=== PATIENT | female | born 1985 | race Caucasian/White ===

== ENCOUNTER 2020-06-23 09:10 | Outpatient (CLI) | payer MEDICAID, SELFPAY ==
[2020-06-23 11:47] LABS: Alanine Aminotransferase 19 U/L (4-35); Albumin Level 4.7 g/dL (3.5-5.1); Alkaline Phosphatase 78 U/L (38-126); Anion Gap 9 mmol/L (8-16); Aspartate Amino Transferase 23 U/L (14-36); Bilirubin,Total 0.3 mg/dL (0.2-1.3); Blood Urea Nitrogen 9 mg/dL (7-17); Calcium 10.1 mg/dL (8.4-10.2); Carbon Dioxide 25 mmol/L (22-30); Chloride 105 mmol/L (98-107); Cholesterol 249 mg/dL (0-200); Estimated Glomerular Filt Rate > 60; Glucose 101 mg/dL (65-105); HDL Direct 72 mg/dL; Potassium 4.7 mmol/L (3.4-5.0); Sodium 139 mmol/L (137-145); Triglycerides 66 mg/dL (<150)
[2020-06-23 11:57] LABS: LDL Cholesterol Direct 168 mg/dL
== END 2020-06-23 09:11 | disposition home or self-care (01) ==
LOC: ANHLAB 09:12
PROVIDERS: PCP Internal Medicine; Visit Provider Internal Medicine
DX: Z00.00 Encounter for general adult medical examination without abnormal findings (principal)
CPT/HCPCS: 36415; 80053; 80061

== ENCOUNTER 2021-06-02 13:43 | Outpatient (CLI) | payer OTHER, SELFPAY ==
--- NOTE | ~2021-06-02 | US_ITS ---
EXAMINATION: US OB <= 14 weeks fetus DATE: 06/02/2021 14:32 INDICATION: Evaluate viability TECHNIQUE: Real-time transabdominal and transvaginal obstetric ultrasound. FINDINGS: No prior studies for comparison. The uterus measures 11.7 x 5.4 x 6.9 cm. There is an intrauterine gestational sac, with pole id entified. The crown rump length measures 1.57 cm, which correlates with a estimated gestational age of 8 weeks 0 days. heart tones are identified measuring 175 BPM. The ovaries are within marco antonio l limits. No evidence for subchorionic hemorrhage. IMPRESSION: 1. SL IUP with an EGA of 8 weeks, 0 days (EDC by current ultrasound of 01/12/2022). Reviewed, dictated and finalized at location A. IMPRESSION: 1. SL IUP with an EGA of 8 weeks, 0 days (EDC by current ultrasound of 01/13/20).
[2021-06-02 15:08] LABS: Hematocrit 41.6 % (37.0-47.0); Hemoglobin 13.9 g/dL (12.0-15.0); Mean Corpuscular HGB Conc 33.4 g/dl (32-36); Mean Corpuscular Hemoglobin 30.2 pg (26-34); Mean Corpuscular Volume 90.4 fl (80-100); Mean Platelet Volume 10.7 fl (7.4-10.4); Platelet Count Result 368 k/mm3 (150-375); Red Cell Distribution Width 11.9 % (11.5-14.5); White Blood Count 16.3 K/mm3 (4.5-10.0)
== END 2021-06-02 13:44 | disposition home or self-care (01) ==
PROVIDERS: PCP Internal Medicine; Visit Provider Nurse Practitioner
DX: Z36.89 Encounter for other specified antenatal screening (principal); Z3A.08 8 weeks gestation of pregnancy
CPT/HCPCS: 36415; 76801; 82607; 85027

== ENCOUNTER 2021-06-25 10:58 | Outpatient (RCR) | payer OTHER, SELFPAY ==
[2021-06-25 11:34] LABS: Basophils Absolute Auto 0.1 K/mm3 (0.0-0.1); Basophils Percent Auto 0.6 % (0.2-1.2); Eosinophils Absolute Auto 0.4 K/mm3 (0-0.3); Eosinophils Percent Auto 2.7 % (0-4.4); Hematocrit 41.4 % (37.0-47.0); Hemoglobin 13.8 g/dL (12.0-15.0); Immature Granulocyte Absolute 0.05 K/mm3 (0.00-0.031); Immature Granulocyte Percent A 0.3 % (0-0.5); Lymphocytes Absolute Auto 3.78 K/mm3 (0.9-3.2); Lymphocytes Percent Auto 25.4 % (18.3-44.2); Mean Corpuscular HGB Conc 33.3 g/dl (32-36); Mean Corpuscular Hemoglobin 30.4 pg (26-34); Mean Corpuscular Volume 91.2 fl (80-100); Mean Platelet Volume 10.1 fl (7.4-10.4); Monocytes Absolute Auto 0.6 K/mm3 (0.1-0.6); Monocytes Percent Auto 4.2 % (2.6-8.5); Neutrophils Absolute Auto 9.9 K/mm3 (1.3-6.7); Neutrophils Percent Auto 66.8 % (45.5-73.1); Platelet Count Result 344 k/mm3 (150-375); Red Blood Count 4.54 M/mm3 (4.2-5.4); Red Cell Distribution Width 11.9 % (11.5-14.5); White Blood Count 14.9 K/mm3 (4.5-10.0)
[2021-06-25 12:29] LABS: HIV 1/2 Ab P24 Ag Result Negative (Negative)
[2021-06-25 12:58] LABS: Hemoglobin A1C 5.1 % (<5.7)
[2021-06-25 13:16] LABS: Vitamin D 25 Hydroxy 31.9 ng/mL
[2021-06-25 13:36] LABS: Hepatitis B Surface Antigen Negative (Negative); Rubella IgG Antibody 7.4 IU/ML
[2021-06-25 13:53] LABS: Hepatitis C Virus Antibody Negative (Negative)
[2021-06-28 06:11] LABS: Rapid Plasma Reagin Non-Reactive (NonReactive)
== END 2021-09-23 23:59 | disposition home or self-care (01) ==
LOC: ANHLAB 10:58
PROVIDERS: PCP Internal Medicine; Visit Provider Obstetrics & Gynecology Gynecology
DX: Z11.4 Encounter for screening for human immunodeficiency virus [HIV] (principal); O09.519 Supervision of elderly primigravida, unspecified trimester; Z3A.00 Weeks of gestation of pregnancy not specified
CPT/HCPCS: 36415; 82306; 83036; 85025; 86592; 86703; 86762; 86803; 86850; 86900; 86901; 87340; 88264; G0432

== ENCOUNTER 2021-11-16 13:45 | Outpatient (CLI) | payer OTHER, SELFPAY ==
--- NOTE | ~2021-11-16 | US_ITS ---
EXAMINATION: US OB follow up DATE: 11/16/2021 14:40 INDICATION: Size greater than dates during third trimester TECHNIQUE: Real-time ultrasound of the pelvis was performed. The interpreting radiologist was not pre sent for the study. COMPARISON: None. FINDINGS: There is a single living fetus in variable presentation and transverse lie. The placenta is anterior and 3.5 cm from the internal cervical os. There is a thin transverse band crossing the lowe r aspect of the amniotic sac near the placenta. cardiac activity and movement are noted. heart rate is 151 beats per minute (bpm). The amniotic fluid index is 19.5 cm which is normal ( normal range: 8.8 cm to 23.8 cm). The following biometric data were obtained: Biparietal diameter (BPD): 7.8 cm; head circumference (HC): 31.5 cm; abdominal circumference (AC): 30 .7 cm; femur length (FL): 6.1 cm. The femoral length to abdominal circumference ratio is greater than two standard deviations below the mean. These measurements are otherwise concordant. Estimated weight is 2223 g +/- 333 g, which correlates with the 89th percentile when 01/12/2022 i s used as estimated date of delivery. As single measurements, these parameters are each equal to the following estimated gestational ages w ith ranges of +/- 2 standard deviations: BPD: 31 weeks 1 days +/- 3 weeks 1 days. HC: 35 weeks 3 days +/- 3 weeks 0 days. AC: 34 weeks 5 days +/- 3 weeks 0 days. FL: 31 weeks 4 days +/- 3 weeks 0 days. estimated gestational age based solely on measurements from this exam is 33 weeks 2 days +/- 2 weeks 2 days. IMPRESSION: 1. Single living fetus in transverse lie. 2. Estimated weight is 2223 g +/- 333 g, which correlates with the 89th percentile when 2 is used as estimated date of delivery. 3. Apparent amniotic band in the lower amniotic sac near the placenta. 4. Femoral length to abdominal circumference ratio greater than two standard deviations below the filippo n. 5. Normal amniotic fluid index. Reviewed, dictated and finalized at location A. IMPRESSION: 1. Single living fetus in transverse lie. 2. Estimated weight is 2223 g +/- 333 g, which correlates with the 89th p ercentile when 01/12/2022 is used as estimated date of delivery. 3. Apparent amniotic band in the lower amniotic sac near the placenta. 4. Femoral length to abdominal circumference ratio greater than two standard de viations below the mean. 5. Normal amniotic fluid index.
== END 2021-11-16 13:46 | disposition home or self-care (01) ==
PROVIDERS: PCP Internal Medicine; Visit Provider Obstetrics & Gynecology Gynecology
DX: O36.63X0 Maternal care for excessive fetal growth, third trimester, not applicable or unspecified (principal); Z3A.33 33 weeks gestation of pregnancy
CPT/HCPCS: 76816

== ENCOUNTER 2021-11-20 06:35 | Outpatient (CLI) | payer OTHER, SELFPAY ==
[2021-11-20 08:11] LABS: Hematocrit 35.4 % (37.0-47.0); Hemoglobin 11.3 g/dL (12.0-15.0)
[2021-11-20 08:25] LABS: Glucose 1 Hour PP 50gm Dose 175 mg/dL
[2021-11-20 09:06] LABS: HIV 1/2 Ab P24 Ag Result Negative (Negative)
[2021-11-23 07:22] LABS: Rubella IgG Antibody 6.1 IU/ML
[2021-12-02 15:13] LABS: CF Result NEGATIVE (NEGATIVE)
== END 2021-11-20 06:36 | disposition home or self-care (01) ==
PROVIDERS: PCP Internal Medicine; Referring Provider Obstetrics & Gynecology Gynecology; Visit Provider Nurse Practitioner
DX: Z34.93 Encounter for supervision of normal pregnancy, unspecified, third trimester (principal); E55.9 Vitamin D deficiency, unspecified; Z3A.00 Weeks of gestation of pregnancy not specified
CPT/HCPCS: 36415; 81220; 82105; 82306; 82677; 82947; 84702; 85014; 85018; 86336; 86703; 86762; G0432

== ENCOUNTER 2021-12-23 05:57 | Outpatient (CLI) | payer OTHER, SELFPAY ==
[2021-12-23] VITALS (20 sets, daily range): BP systolic 120–128; BP diastolic 76–81; PULSE 91–110; TEMP 36.6; O2SAT 96–100
[2021-12-23] MEDS: TERBUTALINE SULFATE 1 MG/ML VIAL 0.25 MG SUB-Q (07:00)
--- NOTE | 2021-12-23 07:19 | W.PM.PROC2 ---
Procedure Note - Detailed Date of Procedure 12/23/21 Pre-op Diagnosis ext. version Post-op Diagnosis Same Procedure Performed External cephalic version Surgeon Mary Mendoza MD Anesthesia None Indications Breech presentation Findings head is in the right upper quadrant and breech was in the left lower quadrant. Normal amniotic fluid. head is flexed on the chest Description of Procedure The patient was placed in the dorsal supine position and given terbutaline. Under ultrasound guidance the head was grasped and the right upper quadrant in the breech grasped in left lower quadrant and the infant rotated into the vertex position. Good heart tones throughout procedure. NST performed post procedure. Estimated Blood Loss 0 Drains No Packing No Pathology None sent Complications No immediate complications Condition Stable Disposition Floor
--- NOTE | 2021-12-23 08:19 | PC.NURSE ---
0705--External version successful. Plan of care discussed with pt.
== END 2021-12-23 08:20 | disposition home or self-care (01) ==
LOC: ANHOBOP 06:01 → ANHOBPP 08:22
PROVIDERS: PCP Internal Medicine; Visit Provider Obstetrics & Gynecology Gynecology
DX: O32.1XX0 Maternal care for breech presentation, not applicable or unspecified (principal); Z3A.00 Weeks of gestation of pregnancy not specified
CPT/HCPCS: 59025; 96372; 99199; J3105

== ENCOUNTER 2022-01-10 04:45 | Inpatient (IN) | payer OTHER, SELFPAY ==
[2022-01-10] VITALS (61 sets, daily range): BP systolic 91–143; BP diastolic 55–110; PULSE 64–115; RESP 15–18; TEMP 36.1–36.8; O2SAT 98–100; BMI 35.5
--- NOTE | 2022-01-10 05:46 | WPDANESEPP ---
Anes - Eval Pre Procedure Procedure: labor epidural Date/Time: 01/10/22 05:46 Surgeon: sly Preop Diagnosis: pain during labor Pre Op Diagnosis: IOL Patient Data Age: 36 Gender: F Height: 1.7 m Weight: 103 kg Last Vital Signs Pulse 115 H 01/10/22 05:06 BP 131/86 01/10/22 05:06 O2 Del Method Room Air 01/10/22 05:26 Allergies Allergy/AdvReac Type Severity Reaction Status Date / Time amoxicillin Allergy Unknown Itching Verified 11/10/21 08:34 latex Allergy Unknown Itching Verified 11/10/21 08:34 Opioids - Morphine Analogues Allergy Unknown Itching Verified 11/10/21 08:34 adhesive tape Allergy Rash Verified 11/10/21 08:34 Home Medications Medication Instructions Recorded Confirmed Type fluoxetine 20 mg capsule (Prozac) 20 mg PO DAILY PRN muscle spasm 01/21/21 12/03/21 Rx #90 caps aspirin 81 mg tablet,delayed 81 mg PO DAILY 11/10/21 01/10/22 History release hydroxyzine HCl 10 mg tablet 10 mg PO TID PRN Pain 11/10/21 01/10/22 History tramadol 50 mg tablet 50 mg PO BID PRN Pain #60 tabs 11/10/21 12/03/21 Rx dicyclomine 20 mg tablet See Rx Instructions .Route 11/30/21 01/10/22 Rx .COMPLEX #60 tabs Laboratory Tests 01/10/22 01/10/22 05:06 05:06 WBC Pending RBC Pending Hgb Pending Hct Pending MCV Pending MCH Pending MCHC Pending RDW Pending Plt Count Pending MPV Pending Immature Gran % (Auto) Pending Neut % (Auto) Pending Lymph % (Auto) Pending [place] % (Auto) Pending Eos % (Auto) Pending Baso % (Auto) Pending Lymph # (Auto) Pending [place] # (Auto) Pending Eos # (Auto) Pending Baso # (Auto) Pending Abs Immat Gran (auto) Pending Absolute Neuts (auto) Pending Absolute Nucleated RBC Pending Nucleated RBC % Pending RPR Pending Patient hx anesthesia problems: none Family hx anesthesia problems: none Results Review: All pre-operative results and documents have been reviewed as part of the pre-operative evaluation. 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 History of wisdom tooth extraction Family History Family History Father Patient's father is in good health Family history of throat cancer Diabetes mellitus Gastroparesis Arthritis Mother Patient's mother is in good health Fibromyalgia Arthritis Grandparent Diabetes mellitus Colitis Arthritis Rheumatoid arthritis Parkinsons Heart disease Other Cerebrovascular accident Social History Social History Smoking status: Never smoker Second hand tobacco smoke exposure: No Smoking end date: 08/07/16 Alcohol intake: current Substance use: never Spiritual care concerns: No Exam Day of Procedure 01/10/22 05:46
[2022-01-10] MEDS: LACTATED RINGERS 1,000 ML 125 ML IV CONT (05:48)
[2022-01-10 05:50] LABS: Basophils Absolute Auto 0.1 K/mm3 (0.0-0.1); Basophils Percent Auto 0.4 % (0.2-1.2); Eosinophils Absolute Auto 0.4 K/mm3 (0-0.3); Eosinophils Percent Auto 2.3 % (0-4.4); Hematocrit 33.5 % (37.0-47.0); Hemoglobin 10.7 g/dL (12.0-15.0); Immature Granulocyte Absolute 0.21 K/mm3 (0.00-0.031); Immature Granulocyte Percent A 1.3 % (0-0.5); Lymphocytes Absolute Auto 3.98 K/mm3 (0.9-3.2); Mean Corpuscular HGB Conc 31.9 g/dl (32-36); Mean Corpuscular Hemoglobin 28.1 pg (26-34); Mean Corpuscular Volume 87.9 fl (80-100); Mean Platelet Volume 11.9 fl (7.4-10.4); Monocytes Absolute Auto 0.9 K/mm3 (0.1-0.6); Monocytes Percent Auto 5.4 % (2.6-8.5); Neutrophils Absolute Auto 11.1 K/mm3 (1.3-6.7); Neutrophils Percent Auto 66.6 % (45.5-73.1); Platelet Count Result 228 k/mm3 (150-375); Red Blood Count 3.81 M/mm3 (4.2-5.4); Red Cell Distribution Width 13.6 % (11.5-14.5); White Blood Count 16.6 K/mm3 (4.5-10.0)
[2022-01-10] MEDS: OXYTOCIN 30 UNITS/NS 500 ML 30 UNITS/500 ML BAG IV CONT (05:50)
--- NOTE | 2022-01-10 08:18 | WPDOBADMIT ---
Obstetrics - Admit Note Admission Note: record reviewed. No pertinent additions to the history and/or any subsequent changes in the physical findings that are not consistent with the expected course of the were found. Additions to the history and/or subsequent changes in the physical findings follow. At 0730, a limited bedside ultrasound was performed and the fetus was found to be in a transverse lie. The head was positioned in the maternal LUQ. +FHTs were visualized and movement was present. The presenting part at the internal cervical os was found to be a foot, followed by a loop of umbilical cord. Discussed this finding with the pt. Discussed possibility of external cephalic version or a section. She is agreeable to either option. Discussed findings with Dr. Mendoza and a was recommended given unstable lie and ultrasound findings. Will keep pt NPO.
--- NOTE | 2022-01-10 08:26 | WPDHPUPDATE1 ---
History and Physical Update Update Date/Time: 01/10/22 08:26 History and Physical has been reviewed, including an updated exam of the patient. There are NO changes in the patient's condition. Risks, benefits, and alternatives have been discussed and questions answered. Patient agrees to proceed with procedure.
--- NOTE | 2022-01-10 08:26 | PM.IMHP ---
H&P: HPI History of Present Illness Date/Time: 01/10/22 08:26 Chief Complaint: unstable lie Narrative: The patient is a 36-year-old 3 para 1 aborta 1 admitted for medical induction of labor. Patient had previously had an external cephalic version that was successful. On today's exam the patient by ultrasound is transverse with cord at the cervix. Unstable lie was reviewed with the patient and it was recommended to proceed with primary . Patient voiced understanding and agrees to proceed. was reviewed. Questions were answered. The patient is advanced maternal age and had a normal level 2 ultrasound. labs A-positive, RPR negative, hepatitis-B surface antigen negative, HIV negative, rubella is low and group B strep is negative. 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 History of wisdom tooth extraction Family History Family History Father Patient's father is in good health Family history of throat cancer Diabetes mellitus Gastroparesis Arthritis Mother Patient's mother is in good health Fibromyalgia Arthritis Grandparent Diabetes mellitus Colitis Arthritis Rheumatoid arthritis Parkinsons Heart disease Other Cerebrovascular accident Social History Social History Smoking status: Never smoker Second hand tobacco smoke exposure: No Smoking end date: 08/07/16 Alcohol intake: current Substance use: never Spiritual care concerns: No Meds Home Medications and Allergies Home Medications Medication Instructions Recorded Confirmed Type fluoxetine 20 mg capsule (Prozac) 20 mg PO DAILY PRN muscle spasm 01/21/21 12/03/21 Rx #90 caps aspirin 81 mg tablet,delayed 81 mg PO DAILY 11/10/21 01/10/22 History release hydroxyzine HCl 10 mg tablet 10 mg PO TID PRN Pain 11/10/21 01/10/22 History tramadol 50 mg tablet 50 mg PO BID PRN Pain #60 tabs 11/10/21 12/03/21 Rx dicyclomine 20 mg tablet See Rx Instructions .Route 11/30/21 01/10/22 Rx .COMPLEX #60 tabs Allergies Allergy/AdvReac Type Severity Reaction Status Date / Time amoxicillin Allergy Unknown Itching Verified 11/10/21 08:34 latex Allergy Unknown Itching Verified 11/10/21 08:34 Opioids - Morphine Analogues Allergy Unknown Itching Verified 11/10/21 08:34 adhesive tape Allergy Rash Verified 11/10/21 08:34 Vital Signs Vital Signs - 24 hr 01/10/22 05:06 01/10/22 06:00 01/10/22 06:15 Temperature 97.5 F L Pulse Rate 115 H 98 95 Blood Pressure 131/86 131/82 134/84 Oxygen Delivery 01/10/22 06:30 01/10/22 06:46 01/10/22 07:00 Temperature Pulse Rate 90 105 H 100 Blood Pressure 129/78 91/59 L 130/84 Oxygen Delivery 01/10/22 07:15 01/10/22 05:26 Temperature Pulse Rate 94 Blood Pressure 137/90 Oxygen Delivery Room Air Exam Const: General: healthy appearing and alert Orientation/consciousness: patient oriented x3 Resp: Effort & Inspection: normal respiratory effort GI: GI Palp: Yes Soft to palpation, No Tenderness to palpation present (GI) and Yes Other GI palpation findings present ( Fundal height of 39cm) : External Female Exam: normal external appearance Speculum Exam - Vagina: normal appearance of the vagina and normal vaginal dischar
[2022-01-10] MEDS: hydrOXYzine HCl 50 MG/ML VIAL 25 MG IM (09:07)
[2022-01-10 09:34] LABS: Amphetamine Screen Urine Negative (Negative); Barbiturate Screen Urine Negative (Negative); Benzodiazepines Screen Urine Negative (Negative); Cannabinoid Screen Urine Negative (Negative); Cocaine Screen Urine Negative (Negative); Methadone Screen Urine Negative (Negative); Opiate Screen Urine Negative (Negative); Phencyclidine Screen Urine Negative (Negative)
--- NOTE | 2022-01-10 10:17 | WPDANESEPPF ---
Anes - Initial Pre Proc Eval Procedure: Operation Date: 01/10/22 12:00 Proposed Procedures p Section - Mary Mendoza MD Date/Time: 01/10/22 10:17 Surgeon: Mary Mendoza MD Pre Op Diagnosis: IOL Patient Data Age: 36 Gender: F Height: 1.7 m Weight: 103 kg Last Vital Signs Temp 36.6 C 01/10/22 09:00 Pulse 98 01/10/22 10:15 BP 136/68 01/10/22 10:15 O2 Del Method Room Air 01/10/22 05:26 Allergies Allergy/AdvReac Type Severity Reaction Status Date / Time amoxicillin Allergy Unknown Itching Verified 11/10/21 08:34 latex Allergy Unknown Itching Verified 11/10/21 08:34 Opioids - Morphine Analogues Allergy Unknown Itching Verified 11/10/21 08:34 adhesive tape Allergy Rash Verified 11/10/21 08:34 Home Medications Medication Instructions Recorded Confirmed Type fluoxetine 20 mg capsule (Prozac) 20 mg PO DAILY PRN muscle spasm 01/21/21 12/03/21 Rx #90 caps aspirin 81 mg tablet,delayed 81 mg PO DAILY 11/10/21 01/10/22 History release hydroxyzine HCl 10 mg tablet 10 mg PO TID PRN Pain 11/10/21 01/10/22 History tramadol 50 mg tablet 50 mg PO BID PRN Pain #60 tabs 11/10/21 12/03/21 Rx dicyclomine 20 mg tablet See Rx Instructions .Route 11/30/21 01/10/22 Rx .COMPLEX #60 tabs Laboratory Tests 01/10/22 01/10/22 01/10/22 05:06 05:06 05:06 WBC 16.6 K/mm3 H K/mm3 (4.5-10.0) RBC 3.81 M/mm3 L M/mm3 (4.2-5.4) Hgb 10.7 g/dL L g/dL (12.0-15.0) Hct 33.5 % L % (37.0-47.0) MCV 87.9 fl fl (80-100) MCH 28.1 pg pg (26-34) MCHC 31.9 g/dl L g/dl (32-36) RDW 13.6 % % (11.5-14.5) Plt Count 228 k/mm3 k/mm3 (150-375) MPV 11.9 fl H fl (7.4-10.4) Immature Gran % (Auto) 1.3 % H % (0-0.5) Neut % (Auto) 66.6 % % (45.5-73.1) Lymph % (Auto) 24.0 % % (18.3-44.2) [place] % (Auto) 5.4 % % (2.6-8.5) Eos % (Auto) 2.3 % % (0-4.4) Baso % (Auto) 0.4 % % (0.2-1.2) Lymph # (Auto) 3.98 K/mm3 H K/mm3 (0.9-3.2) [place] # (Auto) 0.9 K/mm3 H K/mm3 (0.1-0.6) Eos # (Auto) 0.4 K/mm3 H K/mm3 (0-0.3) Baso # (Auto) 0.1 K/mm3 K/mm3 (0.0-0.1) Abs Immat Gran (auto) 0.21 K/mm3 H K/mm3 (0.00-0.031) Absolute Neuts (auto) 11.1 K/mm3 H K/mm3 (1.3-6.7) Absolute Nucleated RBC 0.0 K/mm3 K/mm3 (0.0-0.012) Nucleated RBC % 0.0 % % (0.0-0.2) Urine Opiates Screen Urine Methadone Screen Ur Barbiturates Screen Ur Phencyclidine Scrn Ur Amphetamine Screen U Benzodiazepines Scrn Urine Cocaine Screen U Cannabinoids Screen RPR Pending Blood Type A Positive Antibody Screen Negative 01/10/22 08:56 WBC RBC Hgb Hct MCV MCH MCHC RDW Plt Count MPV Immature Gran % (Auto) Neut % (Auto) Lymph % (Auto) [place] % (Auto) Eos % (Auto) Baso % (Auto) Lymph # (Auto) [place] # (Auto) Eos # (Auto) Baso # (Auto) Abs Immat Gran (auto) Absolute Neuts (auto) Absolute Nucleated RBC Nucleated RBC % Urine Opiates Screen Negative (Negative) Urine Methadone Screen Negative (Negative) Ur Barbiturates Screen Negative (Negative) Ur Phencyclidine Scrn Negative (Negative) Ur Amphetamine Screen Negative (Negative) U Benzodiazepines Scrn Negative (Negative) Urine Cocaine Screen Negative (Negative) U Cannabinoids Screen Negative (Negative) RPR Blood Type Antibody Screen Patient hx anesthesia problems: none Family hx anesthesia problems: none Results Review: All pre-operative results and documents have been reviewed as
[2022-01-10 10:35] LABS: Rapid Plasma Reagin Non-Reactive (NonReactive)
[2022-01-10] MEDS: ceFAZolin 2 GM/D5W 50 ML 2 GM/50 ML BAG IVPB (11:02)
--- NOTE | 2022-01-10 12:05 | W.PM.PROC2 ---
Procedure Note - Detailed Date of Procedure 01/10/22 Pre-op Diagnosis Intrauterine at 39 and 3 7th weeks Unstable lie currently transverse back up Post-op Diagnosis Same Procedure Performed Primary low-transverse section Surgeon Mary Mendoza MD Anesthesia Spinal Findings Upon entering the cavity the is noted to be transverse with the head on the maternal right. The was rotated into the vertex position prior to cutting the uterine incision. Female 8lb 15oz with 6 and 9 Apgars. Normal-appearing tubes and ovaries. Multiple small fibroids less than 1cm on the posterior surface. Description of Procedure The patient is taken to the operating room and placed under spinal anesthesia in the dorsal supine position with a leftward tilt. She was prepped and draped in usual sterile fashion. A Pfannenstiel skin incision was made with a scalpel and carried down to the underlying layer of fascia. Fascia was nicked in the midline with a scalpel and extended laterally using Hernandez scissors. Bleeding vessels in the subcutaneous tissue are cauterized for hemostasis. The fascial edges were grasped with Melissa nurse and tented while the rectus muscles are dissected off using sharp and blunt dissection. The rectus muscles are in the midline with a Peon and the peritoneum tented and entered with Metzenbaum scissors. The peritoneal incision was extended with blunt traction. The bladder blade is placed. The vesicouterine peritoneum was tented and entered with Metzenbaum. The incision extended laterally and the bladder flap created digitally. The lower uterine segment is palpated and the infant noted to be transverse with the head on the maternal right. The is rotated to vertex. The lower uterine segment was incised in a transverse fashion with a scalpel and extended laterally using blunt traction and clear fluid is noted upon rupture of membranes. The infant is brought into the incision and attempted to be delivered. The infant's head is noted to be hyperextended. Manual attempts to flex the head upon the [place] not successful. The vacuum was requested and placed upon the vertex an attempt to flex the head and deliver. This was not successful and 2 pop offs occurred. Manually the infant's head was rotated 180? and the spontaneously the flexed it has had upon the chest. While guiding the vertex, the head was then able to be delivered with fundal pressure. The remainder of the infant was fully delivered and the cord was noted to be tangled around the arm and the body. This is detained cold and the cord quickly clamped and cut. The infant was handed to the waiting nursery nurse. The placenta was removed using manual traction. The uterus was cleared of all clots and debris and exteriorized. The uterine incision was closed using Monocryl in a running locked fashion with the same suture used to imbricate. Two additional [id number] sutures are required for hemostasis. The cul-de-sac is irrigated and the uterus returned to the abdomen. The gutters were irrigated. The incision was again inspected noted to be hemostatic. The fascia was closed using 0 Vicryl in a running fashion. Subcutaneous tissues were irrigated noted to be hemostatic. Skin is closed using 4-0 Vicryl in a subcuticular fashion. Dermaflex was placed over the incision. Sponge, needle, and instrument counts are correct per the OR staff. The patient was taken to recovery in stable condition. Estimated Blood Loss 535 Drains Yes (Cordon catheter) Packing No Pathology Yes (Placenta) Complications No immediate complications Condition Stable Disposition Floor
--- NOTE | 2022-01-10 12:11 | PM.OBDSVD ---
DS: Admitting Diagnosis Discharge Date 01/12/22 Admitting Diagnosis 39 week for induction of labor DS: Discharge Diagnosis Discharge Diagnosis (1) Transverse lie of fetus: Code(s): O32.2XX0 - Maternal care for transverse and oblique lie, not applicable or unspecified Status: Acute Assessment and Plan: Unstable lie (2) 39 weeks gestation of : Code(s): Z3A.39 - 39 weeks gestation of Status: Acute OB - DS: Summary OB Procedures : NST, Ultrasound and External version OB Procedures Intrapartum: low cervical, transverse OB Procedures: : None Peripartum Data Infant Delivery Method: Section Procedures: Procedures Operation Date: 01/10/22 12:00 <No data on this case meets the specified criteria> complications: none Status at Discharge Functional status at discharge: independent ambulation Overall status at discharge: patient is progressing back to baseline Time Spent with Patient Time attestation: Total time spent providing and/or coordinating discharge services: DS: Data Data Completed and Pending Labs on day of discharge: Labs from last 24 hours 01/10/22 01/10/22 01/10/22 08:56 05:06 05:06 WBC RBC Hgb Hct MCV MCH MCHC RDW Plt Count MPV Immature Gran % (Auto) Neut % (Auto) Lymph % (Auto) [place] % (Auto) Eos % (Auto) Baso % (Auto) Lymph # (Auto) [place] # (Auto) Eos # (Auto) Baso # (Auto) Abs Immat Gran (auto) Absolute Neuts (auto) Absolute Nucleated RBC Nucleated RBC % Urine Opiates Screen Negative Urine Methadone Screen Negative Ur Barbiturates Screen Negative Ur Phencyclidine Scrn Negative Ur Amphetamine Screen Negative U Benzodiazepines Scrn Negative Urine Cocaine Screen Negative U Cannabinoids Screen Negative RPR Non-reactive Blood Type A Positive Antibody Screen Negative 01/10/22 05:06 WBC 16.6 H RBC 3.81 L Hgb 10.7 L Hct 33.5 L MCV 87.9 MCH 28.1 MCHC 31.9 L RDW 13.6 Plt Count 228 MPV 11.9 H Immature Gran % (Auto) 1.3 H Neut % (Auto) 66.6 Lymph % (Auto) 24.0 [place] % (Auto) 5.4 Eos % (Auto) 2.3 Baso % (Auto) 0.4 Lymph # (Auto) 3.98 H [place] # (Auto) 0.9 H Eos # (Auto) 0.4 H Baso # (Auto) 0.1 Abs Immat Gran (auto) 0.21 H Absolute Neuts (auto) 11.1 H Absolute Nucleated RBC 0.0 Nucleated RBC % 0.0 Urine Opiates Screen Urine Methadone Screen Ur Barbiturates Screen Ur Phencyclidine Scrn Ur Amphetamine Screen U Benzodiazepines Scrn Urine Cocaine Screen U Cannabinoids Screen RPR Blood Type Antibody Screen Discharge Plan Discharge Attending physician on discharge: Mary Mendoza Discharging Clinician: Mary Mendoza Anticipated Discharge Date/Time: 01/13/22 12:12 Patient Disposition: Home, Self-Care Activity: may shower, may drive after 2 weeks and pelvic rest Diet: regular Wound Care Instructions: incision open to air Patient Instructions: Antibiotic Form Stand Alone Forms: General Discharge Information Follow-up/Referrals: Mary Mendoza MD [Physician] - 1 Week (And 6 weeks) Discharge Medications: New hydrocodone-acetaminophen 5-325 mg Tablet 1 tablet PO Q4H PRN (Reason: Moderate Pain (4-6)) Qty: 30 0RF norethindrone (contraceptive) 0.35 mg tablet 0.35 mg PO DAILY Qty: 84 3RF Continued fluoxetine [Prozac] 20 mg capsule 20 mg PO DAILY PRN (Reason: muscle spasm) Qty: 90 1RF hydroxyzine HCl 10 mg tablet 10 mg PO TID PRN (Reason: Pain) tramadol 50 mg tablet 50 mg PO BID PRN (Reason: Pain) Qty: 60 0RF dicyclomine 20 mg tablet See Rx Instructions .ROUTE .COMPLEX Qty: 60 4RF Dose Instruction: TAKE 1 TABLET BY MOUTH TWICE DAILY Rx Instructions: TAKE 1 TABLET BY MOUTH TWICE DAILY Discontinued aspirin 81 mg tablet,delayed release (
[2022-01-10] MEDS: diphenhydrAMINE HCl INJ 50 MG/ML VIAL 25 MG IV PUSH (12:46)
[2022-01-10] MEDS: fentaNYL CITRATE INJ (*CRX) 100 MCG/2 ML VIAL 25 MCG IV PUSH ×3 (13:40→13:54)
[2022-01-10] MEDS: KETOROLAC 30 MG/ML VIAL (*BKC) IV PUSH (14:09)
[2022-01-10] MEDS: HYDROcodone/acetaminophen (*CRX) 10-325 MG TABLET 1 TAB PO ×2 (15:45→18:56)
[2022-01-10] MEDS: DOCUSATE SODIUM 100 MG CAPSULE PO (15:46)
[2022-01-10] MEDS: LORATADINE 10 MG TABLET PO (15:46)
[2022-01-10] MEDS: DEXTROSE 5%/0.45% SOD CHL 1,000 ML 125 ML IV CONT (17:12)
[2022-01-10] MEDS: DICYCLOMINE HCL 10 MG CAPSULE 20 MG BY MOUTH (20:55)
[2022-01-10] MEDS: IBUPROFEN 600 MG TABLET PO (20:58)
[2022-01-11] MEDS: HYDROcodone/acetaminophen (*CRX) 10-325 MG TABLET 1 TAB PO ×5 (00:07→18:56)
[2022-01-11 00:32] VITALS: BP 119/75; PULSE 91; RESP 16; TEMP 37.1; O2SAT 100
[2022-01-11] MEDS: IBUPROFEN 600 MG TABLET PO ×4 (03:18→21:13)
[2022-01-11] MEDS: SIMETHICONE 80 MG TAB.CHEW PO ×2 (03:18→07:32)
[2022-01-11 05:17] LABS: Basophils Absolute Auto 0.1 K/mm3 (0.0-0.1); Basophils Percent Auto 0.4 % (0.2-1.2); Eosinophils Absolute Auto 0.3 K/mm3 (0-0.3); Eosinophils Percent Auto 1.7 % (0-4.4); Hematocrit 32.1 % (37.0-47.0); Hemoglobin 9.6 g/dL (12.0-15.0); Immature Granulocyte Absolute 0.16 K/mm3 (0.00-0.031); Immature Granulocyte Percent A 0.9 % (0-0.5); Lymphocytes Absolute Auto 2.75 K/mm3 (0.9-3.2); Lymphocytes Percent Auto 15.4 % (18.3-44.2); Mean Corpuscular HGB Conc 29.9 g/dl (32-36); Mean Corpuscular Hemoglobin 28.1 pg (26-34); Mean Corpuscular Volume 93.9 fl (80-100); Mean Platelet Volume 11.9 fl (7.4-10.4); Monocytes Absolute Auto 1.4 K/mm3 (0.1-0.6); Monocytes Percent Auto 7.7 % (2.6-8.5); Neutrophils Absolute Auto 13.2 K/mm3 (1.3-6.7); Neutrophils Percent Auto 73.9 % (45.5-73.1); Platelet Count Result 204 k/mm3 (150-375); Red Blood Count 3.42 M/mm3 (4.2-5.4); Red Cell Distribution Width 13.8 % (11.5-14.5); White Blood Count 17.8 K/mm3 (4.5-10.0)
[2022-01-11 05:47] LABS: Anisocytosis 1+ (NORMAL); Hypochromasia 1+ (NORMAL); Platelet Estimate Adequate (Adequate); Poikilocytosis 1+ (NORMAL)
[2022-01-11 07:30] VITALS: BP 114/69; PULSE 94; RESP 16; RESP 18; TEMP 36.5; O2SAT 99
[2022-01-11] MEDS: MULTIVIT/MIN/PREN/FOL AC/IRON TABLET 1 TAB PO (07:32)
[2022-01-11] MEDS: DOCUSATE SODIUM 100 MG CAPSULE PO ×2 (07:32→16:08)
--- NOTE | 2022-01-11 08:07 | PM.OBPNVD ---
OB - PN: Subj Subjective Date/time seen: 01/11/22 0720 Patient comments: incisional pain (Controlled with meds) baby status: doing well and nursing well [place] feeding status: exclusively breast feeding OB - PN: Obj Data Labs CBC & Chem 7: 01/11/22 03:43 Labs: Laboratory Results - last 24 hr 01/10/22 01/10/22 01/11/22 05:06 08:56 03:43 WBC 17.8 H RBC 3.42 L Hgb 9.6 L Hct 32.1 L MCV 93.9 D MCH 28.1 MCHC 29.9 L RDW 13.8 Plt Count 204 MPV 11.9 H Immature Gran % (Auto) 0.9 H Neut % (Auto) 73.9 H Lymph % (Auto) 15.4 L [place] % (Auto) 7.7 Eos % (Auto) 1.7 Baso % (Auto) 0.4 Lymph # (Auto) 2.75 [place] # (Auto) 1.4 H Eos # (Auto) 0.3 Baso # (Auto) 0.1 Abs Immat Gran (auto) 0.16 H Absolute Neuts (auto) 13.2 H Absolute Nucleated RBC 0.0 Nucleated RBC % 0.0 Platelet Estimate Adequate Hypochromasia 1+ Poikilocytosis 1+ Anisocytosis 1+ Urine Opiates Screen Negative Urine Methadone Screen Negative Ur Barbiturates Screen Negative Ur Phencyclidine Scrn Negative Ur Amphetamine Screen Negative U Benzodiazepines Scrn Negative Urine Cocaine Screen Negative U Cannabinoids Screen Negative RPR Non-reactive OB - PN A/P Plan day: 1 Plan: routine care Time Spent With Patient Time: Total time spent is greater than 50% in coordination of care (as documented) at patient's floor/unit and/or counseling patient: Exam Const: Orientation/consciousness: patient oriented x3 Limitations: no limitations Resp: Effort & Inspection: normal respiratory effort and able to speak in complete sentences Auscultation: clear to auscultation bilaterally Cardio: Rate: regular rate Peripheral pulses: Peripheral pulses 2+ throughout GI: Inspection: normal to inspection Auscultation: normal bowel sounds : General: Yes bladder normal to palpation Bimanual exam- vagina & uterus: bladder normal to palpation Other: Fundus firm Skin: General skin exam: normal color Other: Incision well approximated. Clean, dry, and intact. No bleeding. No redness Neuro: General: patient oriented x3 Cognition (Neuro): normal cognition Extrem: General: normal to inspection Psych: Appearance: grossly normal Mental Status: mental status grossly normal Affect: normal affect Attitude: cooperative Thought process: Normal thought process present
[2022-01-11] MEDS: POLYSACCHARIDE IRON COMPLEX 150 MG CAPSULE PO ×2 (08:19→16:07)
--- NOTE | 2022-01-11 09:15 | WPDANLDPN2 ---
Anes-Prog Note L&D Date/Time: 01/11/22 09:15 Comfortable throughout: section Neuraxial method: spinal Epidural/Spinal procedure site: clean & non-tender Neuro status: Neuro function grossly intact. Cardiovascular status: normal Respiratory status: normal Airway patency: baseline Mental status: baseline Post-Op hydration status: normal Vital Signs: Last Vital Signs Temp 97.7 F 01/11/22 07:30 Pulse 94 01/11/22 07:30 Resp 18 01/11/22 07:30 BP 114/69 01/11/22 07:30 Pulse Ox 99 01/11/22 07:30 O2 Del Method Room Air 01/11/22 07:30 Pain score (VAS): 0 I/O: Intake & Output 01/10/22 01/11/22 01/11/22 23:59 07:59 15:59 Intake Total 1280 1000 Output Total 450 2900 Balance 830 -1900 Post-procedural complaints: none Patient feedback: Patient satisfied with anesthetic care.
--- NOTE | 2022-01-11 09:16 | WPDANLDNPN2 ---
Anes-Prog Note L&D-Neuraxial Date/Time: 01/11/22 09:16 Neuraxial medications: intrathecal PF morphine Opiod-related complaints: none Patient feedback: Patient satisfied with post-operative pain management.
[2022-01-11] MEDS: DICYCLOMINE HCL 10 MG CAPSULE 20 MG BY MOUTH ×2 (09:38→18:56)
[2022-01-11 18:50] VITALS: BP 131/86; PULSE 89; RESP 16; TEMP 36.6
[2022-01-11] MEDS: HYDROcodone/acetaminophen (*CRX) 5-325 MG TABLET 1 TAB PO (21:13)
[2022-01-12] MEDS: HYDROcodone/acetaminophen (*CRX) 10-325 MG TABLET 1 TAB PO ×4 (00:28→22:44)
[2022-01-12] MEDS: IBUPROFEN 600 MG TABLET PO ×3 (05:39→18:06)
[2022-01-12] MEDS: HYDROcodone/acetaminophen (*CRX) 5-325 MG TABLET 1 TAB PO ×2 (05:39→18:08)
--- NOTE | 2022-01-12 06:45 | PC.NURSE ---
PT introductions made and plan of care discussed per post , post op c section, pain management, breast feeding, daily care activities and pending discharge to home. PT and spouse both recipients of such instructions. No barriers to learning identified at this time. PT received such instructions per one to one discussion, mom baby care guide and demonstrations this shift. PT verbalized understanding of such care.
--- NOTE | 2022-01-12 07:46 | PM.OBPNVD ---
OB - PN: Subj Subjective Date/time seen: 01/12/22 07:46 Patient comments: no complaints and pain well controlled baby status: doing well OB - PN: Obj Data Labs CBC & Chem 7: 01/11/22 03:43 OB - PN A/P Plan day: 2 Plan: routine care, discharge home and other (plans oc's until vas) Time Spent With Patient Time: Total time spent is greater than 50% in coordination of care (as documented) at patient's floor/unit and/or counseling patient: Exam GI: Inspection: other (inc c/d/i) : Bimanual exam- vagina & uterus: other (Uterus firm, nt @U)
[2022-01-12 08:15] VITALS: BP 121/77; PULSE 99; RESP 16; TEMP 36.7; O2SAT 98
[2022-01-12 10:45] VITALS: PULSE 99; RESP 16; O2SAT 98
[2022-01-12] MEDS: MULTIVIT/MIN/PREN/FOL AC/IRON TABLET 1 TAB PO (10:46)
[2022-01-12] MEDS: DOCUSATE SODIUM 100 MG CAPSULE PO ×2 (10:46→18:09)
[2022-01-12] MEDS: SIMETHICONE 80 MG TAB.CHEW PO ×3 (10:46→18:09)
[2022-01-12] MEDS: POLYSACCHARIDE IRON COMPLEX 150 MG CAPSULE PO ×2 (10:47→18:09)
[2022-01-12] MEDS: DICYCLOMINE HCL 10 MG CAPSULE 20 MG BY MOUTH ×2 (10:50→21:09)
[2022-01-12 20:00] VITALS: BP 130/84; PULSE 99; RESP 18; TEMP 36.6
[2022-01-13] MEDS: IBUPROFEN 600 MG TABLET PO ×2 (03:13→09:08)
[2022-01-13] MEDS: HYDROcodone/acetaminophen (*CRX) 5-325 MG TABLET 1 TAB PO ×2 (03:13→13:30)
[2022-01-13] MEDS: HYDROcodone/acetaminophen (*CRX) 10-325 MG TABLET 1 TAB PO ×2 (04:53→09:07)
--- NOTE | 2022-01-13 07:45 | PM.OBPNVD ---
OB - PN: Subj Subjective Date/time seen: 01/13/22 07:45 Interval history: decided to not go home yesterday Patient comments: no complaints and pain well controlled [place] baby status: doing well OB - PN: Obj Data Labs CBC & Chem 7: 01/11/22 03:43 OB - PN A/P Plan day: 3 Plan: routine care and discharge home Time Spent With Patient Time: Total time spent is greater than 50% in coordination of care (as documented) at patient's floor/unit and/or counseling patient: Exam Narrative: inc c/d/i : Bimanual exam- vagina & uterus: other (Uterus firm, nt @U)
[2022-01-13] MEDS: SIMETHICONE 80 MG TAB.CHEW PO (09:08)
[2022-01-13 09:09] VITALS: BP 132/83; PULSE 89; RESP 16; TEMP 36.7; O2SAT 100
[2022-01-13] MEDS: DOCUSATE SODIUM 100 MG CAPSULE PO (09:09)
[2022-01-13] MEDS: POLYSACCHARIDE IRON COMPLEX 150 MG CAPSULE PO (09:09)
[2022-01-13] MEDS: MULTIVIT/MIN/PREN/FOL AC/IRON TABLET 1 TAB PO (09:09)
[2022-01-13] MEDS: DICYCLOMINE HCL 10 MG CAPSULE 20 MG BY MOUTH (09:14)
--- NOTE | 2022-01-13 13:45 | PC.NURSE ---
PT received discharge instructions per protocol and verbalized understanding of such care.
--- NOTE | 2022-01-13 13:50 | PC.NURSE ---
Addendum entered by Rebekah Rico RN 01/13/22 13:56: Parents planning discharge today; reviewed feeding baby 8-12 breast feedings a day, feeding infant supplemental breast milk as available; reviewed use of feeding log to monitor feedings and output. OP support encouraged through Ian if pt has persistent latch-on problems/pain, or with any questions/concerns. She had no questions for LC today, Original Note: 1030 note; mother reports R nipple damage, appears cracked with scabbed area. L nipple appears bruised, skin intact. Mother states she is pumping on her R side as it is too sore to latch. Reviewed nipple care with breast milk, air drying, and lanolin; also warm tea bag applications 2-3 times day as desired. Suggested nipple rest on that side until healed, not latching, but only pumping until nipple more healed. Mother reports comfortable latch on her L side. Reviewed use of c-hold and nose to nipple latch on technique to help infant open mouth wide for latch on and not latching with pain more than a 2, making infant relatch if necessary. Mother seemed attentive, as well as FOB. Instructed to use moderate pumping settings on her pump, keeping pumping at 0-2 comfort level as well. ]
[2022-01-13] MEDS: MEASLES,MUMPS,RUBELLA VACCINE 0.5 ML VIAL SUB-Q (14:02)
--- NOTE | 2022-01-13 14:26 | PC.NURSE ---
PT discharged to home ambulatory accompanied by spouse and and taken to waiting car. Follow up appts confirmed
[2022-01-14 10:21] VITALS: BP 145/88; PULSE 91; RESP 20; TEMP 36.8; O2SAT 97
== END 2022-01-13 14:26 | disposition home or self-care (01) | DRG 540 ==
LOC: ANHLDR 12:13 → ANHOB2 14:51
PROVIDERS: Advanced Practice Midwife; Admitting Provider Obstetrics & Gynecology Gynecology; PCP Internal Medicine; Visit Provider Obstetrics & Gynecology Gynecology
PROC: 10D00Z1 Extraction of Products of Conception, Low, Open Approach (ICD-10-PCS; CPT 59514; principal; 2022-01-10 12:00)
DX: O32.2XX0 Maternal care for transverse and oblique lie, not applicable or unspecified (principal); O69.2XX0 Labor and delivery complicated by other cord entanglement, with compression, not applicable or unspecified; O99.62 Diseases of the digestive system complicating childbirth; K50.90 Crohn's disease, unspecified, without complications; O34.13 Maternal care for benign tumor of corpus uteri, third trimester; D25.9 Leiomyoma of uterus, unspecified; Z3A.39 39 weeks gestation of pregnancy; Z37.0 Single live birth
CPT/HCPCS: 36415; 80307; 85025; 86592; 86850; 86900; 86901; 88307; 90710; A9270; J0690; J1200; J1885; J2405; J2590; J3010; J3410; J7120

== ENCOUNTER 2022-04-12 16:05 | Outpatient (CLI) | payer OTHER, SELFPAY ==
--- NOTE | ~2022-04-12 | CT_ITS ---
EXAMINATION: CT lumbar spine wo con DATE: 04/12/2022 16:27 INDICATION: Low back pain. TECHNIQUE: Computed tomography (CT) of the lumbar spine was performed without intravenous contrast. A utomated exposure control and iterative reconstruction technique were employed. The dose-length produ ct was 985.58 mGy-cm. COMPARISON: None FINDINGS: There is 5 degrees levocurvature of lumbar spine. There is mild chronic anterior wedging of T11 and T12 vertebral bodies. Intervertebral disc heights are normal. The following disc levels are specifically discussed: L1-L2: The disc does not extend beyond the endplate margin. There is mild bilateral facet joint osteo arthritis. There is no neural foraminal stenosis. There is no central canal stenosis. L2-L3: The disc is bulging. There is mild bilateral facet joint osteoarthritis. There is no neural fo raminal stenosis. There is mild central canal stenosis. L3-L4: The disc is bulging. There is mild left facet joint osteoarthritis. There is mild bilateral ne ural foraminal stenosis. There is mild central canal stenosis. L4-L5: The disc is bulging. There is mild bilateral facet joint osteoarthritis. There is mild bilater al neural foraminal stenosis. There is mild central canal stenosis. L5-S1: The disc is bulging. There is mild bilateral facet joint osteoarthritis. There is mild bilater al neural foraminal stenosis. There is mild central canal stenosis. IMPRESSION: 1. Mild lumbar spondylosis. Reviewed, dictated and finalized at location A. IMPRESSION: 1. Mild lumbar spondylosis.
== END 2022-04-12 16:06 | disposition home or self-care (01) ==
PROVIDERS: PCP Internal Medicine; Visit Provider Nurse Practitioner
DX: M47.896 Other spondylosis, lumbar region (principal)
CPT/HCPCS: 72131

== ENCOUNTER 2023-02-05 08:13 | Outpatient (CLI) | payer OTHER, SELFPAY ==
--- NOTE | ~2023-02-05 | MR_ITS ---
EXAMINATION: MR lumbar spine wo con DATE: 02/05/2023 09:16 INDICATION: Spondylosis with radiculopathy. Severe spinal pain. TECHNIQUE: Magnetic resonance imaging (MRI) of the lumbar spine was performed without intravenous con trast. Sequences included sagittal T2-weighted FSE, sagittal T2-weighted FS FSE, sagittal T1-weighted FSE, and axial T2-weighted FSE. COMPARISON: None FINDINGS: 6 degrees lumbar levocurvature. Sagittal alignment is normal. Vertebral body heights are normal. Nor mal marrow signal. Disc heights are normal. Annular fissure at L5-S1. Mild disc bulges at L2-L3 throu gh L5-S1 which along with multilevel mild facet osteoarthritis bilaterally throughout the lumbar spin e contributing to mild neural foraminal stenosis bilaterally at each of these levels but no central c anal stenosis. The conus medullaris terminates at L1-L2. There is normal signal in the caudal spinal cord. Paravertebral soft tissues are unremarkable. IMPRESSION: 1. Minimal lumbar spondylosis. Reviewed, dictated and finalized at location A.
--- NOTE | ~2023-02-05 | MR_ITS ---
EXAMINATION: MR thoracic spine wo con DATE: 02/05/2023 09:16 INDICATION: Spondylosis with radiculopathy. Severe spinal pain. TECHNIQUE: Magnetic resonance imaging (MRI) of the thoracic spine was performed without intravenous c ontrast. Sagittal localizer T1-weighted FSE of the cervicothoracic spine was obtained. Thoracic spine sequences included sagittal T2-weighted FSE, sagittal T1-weighted SE, Sagittal T2-weighted FS FSE, a nd axial T2-weighted FSE. COMPARISON: None FINDINGS: Alignment is normal.20% anterior vertebral body height loss atT6. Additional small Schmorl's nodes al marsha the superior endplates of T8 and T9. Remaining vertebral body heights are normal. Moderate disc h eight loss at T6-T7, T7-T8 and T9-T10 and mild disc height loss at T8-T9. Mild associated fibrovascul ar degenerative endplate changes anteriorly at T6-T7 and T8-T9. This also likely degenerative mild ed kitty at the right posterior inferior margin of the T7 vertebral body lines articulation with the poste rior right seventh rib. Marrow signal is otherwise normal. Moderate facet osteoarthritis bilaterally at T8-T9 containing a moderate bilateral neural foraminal stenosis at this level. Mild bilateral face t osteoarthritis throughout much of the remaining thoracic spine with mild neural foraminal stenosis bilaterally at T9-T10 through T11-T12. There are annular fissures with bilateral paracentral disc ext rusions at T6-T7 and T7-T8, right paracentral disc extrusion at T8-T9 bilateral paracentral disc extr usions, left greater than right at T9-T10. Resultant only mild central canal stenosis but do about an d mildly flatten the ventral surface of the cord each of these levels. IMPRESSION: 1. Moderate midthoracic spondylosis with annular fissures and small disc extrusions resulting in mild central canal stenosis from T6-T7 through T9-T10. Reviewed, dictated and finalized at location A. IMPRESSION: 1. Moderate midthoracic spondylosis with annular fissures and small disc extrus ions resulting in mild central canal stenosis from T6-T7 through T9-T10.
--- NOTE | ~2023-02-05 | MR_ITS ---
EXAMINATION: MR cervical spine wo con DATE: 02/05/2023 09:16 INDICATION: Spondylosis with radiculopathy. Severe spinal pain. TECHNIQUE: Magnetic resonance imaging (MRI) of the cervical spine was performed without intravenous c ontrast. Sequences included sagittal T2-weighted FSE, sagittal T2-weighted FS FSE, sagittal T1-weight ed FSE, axial MERGE and axial T2-weighted FSE. COMPARISON: None FINDINGS: Bone alignment is normal. Vertebral body heights are normal. Bone marrow signal intensity is normal . Intervertebral disc heights are normal. Uncovertebral joints are normal. Minimal to mild facet oste oarthritis in the cervical spine. No central canal or neural foraminal stenosis. Cord signal intensit y is normal. Visualized cervical soft tissues are unremarkable. IMPRESSION: 1. Minimal to mild cervical facet osteoarthritis. Otherwise normal cervical spine MR with no neural f oraminal or central canal stenosis. Reviewed, dictated and finalized at location A. IMPRESSION: 1. Minimal to mild cervical facet osteoarthritis. Otherwise normal cervical spi ne MR with no neural foraminal or central canal stenosis.
== END 2023-02-05 08:14 | disposition home or self-care (01) ==
PROVIDERS: PCP Family Medicine
DX: M47.24 Other spondylosis with radiculopathy, thoracic region (principal); M47.26 Other spondylosis with radiculopathy, lumbar region; M50.30 Other cervical disc degeneration, unspecified cervical region
CPT/HCPCS: 72141; 72146; 72148

== ENCOUNTER 2023-05-23 14:58 | Inpatient (IN) | payer OTHER, SELFPAY ==
[2023-05-23] VITALS (17 sets, daily range): BP systolic 91–142; BP diastolic 73–91; PULSE 114–144; RESP 18–32; TEMP 36.5–36.8; O2SAT 90–98; BMI 33.6
--- NOTE | ~2023-05-23 | XR_ITS ---
XR chest 1V portable 05/27/2023 05:36 Indication: Pneumonia. Dyspnea. Procedure: AP portable chest Comparison: Comparison to multiple prior studies sequentially, with oldest reviewed study dated 10/2018. Findings: Diffuse bilateral airspace disease has progressed. Low lung volumes. Stable cardiomediastin al silhouette. Impression: 1: Diffuse bilateral airspace disease which may represent pneumonia or edema. Reviewed, dictated and finalized at location A. Impression: 1: Diffuse bilateral airspace disease which may represent pneumonia or edema.
--- NOTE | ~2023-05-23 | XR_ITS ---
Portable chest x-ray Comparison: 05/23/2023 Clinical History: Pneumonia Findings: Right upper lobe consolidation is consistent with pneumonia. There is additional bilateral suprahilar haziness, similar to prior exam. Cardiomediastinal silhouette is stable. Bones and soft tissues are unremarkable. Impression: Inferolateral right upper lobe consolidation is new from prior exam, consistent with more extensive r ight upper lobe pneumonia. Hazy airspace disease in the medial upper poles bilaterally is similar to prior exam, consistent with additional pneumonia. Reviewed, dictated and finalized at location . Impression: Inferolateral right upper lobe consolidation is new from prior exam, consistent with more extensive right upper lobe pneumonia. Hazy airspace disease in the medial upper poles bilaterally is similar to prior exam, consistent with additional pneumonia.
--- NOTE | ~2023-05-23 | XR_ITS ---
XR chest PICC line 05/27/2023 10:14 Indication: PICC line placement Procedure: AP portable chest Comparison: Comparison to multiple prior studies sequentially, with oldest reviewed study dated 05/07. Findings: Heart size normal. Persistent diffuse bilateral airspace disease. Left subclavian PICC line tip at the cavoatrial junction. Impression: 1: Persistent bilateral airspace disease which may represent edema or pneumonia. Reviewed, dictated and finalized at location A. Impression: 1: Persistent bilateral airspace disease which may represent edema or pneumonia .
--- NOTE | ~2023-05-23 | XR_ITS ---
Portable chest x-ray Comparison: 05/25/2023 Clinical History: Pneumonia Findings: Bilateral pneumonia, with upper lobe predominance, right worse than left, is stable from p rior exam. Cardiomediastinal silhouette is stable. Bones and soft tissues are unremarkable. Impression: Stable bilateral pneumonia, as detailed above. Reviewed, dictated and finalized at location . Impression: Stable bilateral pneumonia, as detailed above.
--- NOTE | ~2023-05-23 | XR_ITS ---
XR chest 2V 05/31/2023 07:58 Indication: Pneumonia Procedure: PA and lateral views of the chest Comparison: Comparison to multiple prior studies sequentially, with oldest reviewed study dated 05/08. Findings: Heart size normal. No focal air space disease, pulmonary edema, pleural effusion or suspect ed pneumothorax. PICC line tip near the cavoatrial junction. Impression: 1: No acute cardiopulmonary disease. Reviewed, dictated and finalized at location B. Impression: 1: No acute cardiopulmonary disease.
--- NOTE | ~2023-05-23 | XR_ITS ---
Portable chest x-ray Comparison: 05/27/2023 Clinical History: Pneumonia Findings: Left-sided PICC line remains in place. Lungs are clear, without focal consolidation or pleu ral effusion. Cardiomediastinal silhouette is stable. Bones and soft tissues are unremarkable. Impression: Clear lungs. Left-sided PICC line. Reviewed, dictated and finalized at location . Impression: Clear lungs. Left-sided PICC line.
--- NOTE | ~2023-05-23 | CT_ITS ---
EXAMINATION: CTA chest PE protocol DATE: 05/23/2023 17:59 INDICATION: Shortness of breath. TECHNIQUE: Computed tomography angiography (CTA) of the chest was performed with 100 mL Omnipaque-350 intravenous contrast timed to evaluate the pulmonary arteries. Coronal maximum intensity projection 3D-reconstructions were created by the technologist. Automated exposure control and iterative reconst ruction technique were employed. The dose-length product was 719.54 mGy-cm. COMPARISON: CT abdomen and pelvis 08/24/2019 FINDINGS: There are patchy airspace and groundglass opacities in all lobes. No pleural effusion. 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 The heart size is normal. No pericardial effusion. There is a small sliding hiatal hernia. There is mild bilateral hilar lymphadenopathy, likely reactiv e. There is no pulmonary embolus. There is moderate thoracic spondylosis. There is mild chronic heigh t loss of multiple vertebral bodies. IMPRESSION: 1. No pulmonary embolus. 2. Diffuse lung disease, consistent with pneumonia, especially atypical pneumonia. 3. Mild bilateral hilar lymphadenopathy, likely reactive. Reviewed, dictated and finalized at location E. IMPRESSION: 1. No pulmonary embolus. 2. Diffuse lung disease, consistent with pneumonia, especially atypical pneumon ia. 3. Mild bilateral hilar lymphadenopathy, likely reactive.
--- NOTE | ~2023-05-23 | XR_ITS ---
EXAMINATION: XR chest 1V portable DATE: 05/23/2023 15:51 INDICATION: Shortness of breath and wheezing. TECHNIQUE: A single frontal view of the chest was obtained. COMPARISON: Chest 2 views 07/09/2019, CT abdomen and pelvis 08/24/2019 FINDINGS: There are airspace opacities in all lung zones with a perihilar predominance. No pleural ef fusion or pneumothorax. The heart size is normal. IMPRESSION: 1. Diffuse lung disease, consistent with pneumonia. Reviewed, dictated and finalized at location E.
--- NOTE | 2023-05-23 15:09 | ECG_ITS ---
Measurements Intervals [place] Rate: 134 P: 66 VT: 153 QRS: 72 QRSD: 90 T: 57 QT: 331 QTc: 496 Interpretive Statements SINUS TACHYCARDIA POSSIBLE RIGHT VENTRICULAR CONDUCTION DELAY [RSR (QR) IN V1/V2] NONSPECIFIC T-WAVE ABNORMALITY BORDERLINE ECG NO PREVIOUS ECG AVAILABLE FOR COMPARISON Electronically Signed On 05-24-2023 8:54:08 CDT by Raleigh Murphy M.D.
[2023-05-23 15:30] LABS: Basophils Absolute Auto 0.1 K/mm3 (0.0-0.1); Basophils Percent Auto 0.4 % (0.2-1.2); Eosinophils Absolute Auto 0.2 K/mm3 (0-0.3); Eosinophils Percent Auto 0.9 % (0-4.4); Hematocrit 47.3 % (37.0-47.0); Hemoglobin 15.3 g/dL (12.0-15.0); Immature Granulocyte Absolute 0.12 K/mm3 (0.00-0.031); Immature Granulocyte Percent A 0.5 % (0-0.5); Lymphocytes Absolute Auto 1.29 K/mm3 (0.9-3.2); Lymphocytes Percent Auto 4.9 % (18.3-44.2); Mean Corpuscular HGB Conc 32.3 g/dl (32-36); Mean Corpuscular Volume 89.6 fl (80-100); Mean Platelet Volume 10.9 fl (7.4-10.4); Monocytes Absolute Auto 1.2 K/mm3 (0.1-0.6); Monocytes Percent Auto 4.6 % (2.6-8.5); Neutrophils Absolute Auto 23.2 K/mm3 (1.3-6.7); Neutrophils Percent Auto 88.7 % (45.5-73.1); Platelet Count Result 396 k/mm3 (150-375); Red Blood Count 5.28 M/mm3 (4.2-5.4); Red Cell Distribution Width 13.3 % (11.5-14.5); White Blood Count 26.2 K/mm3 (4.5-10.0)
[2023-05-23] MEDS: methylPREDNISolone SOD SUCC 125 MG VIAL IV PUSH (15:32)
[2023-05-23] MEDS: fentaNYL CITRATE INJ (*CRX) 100 MCG/2 ML VIAL 25 MCG IV PUSH (15:32)
[2023-05-23] MEDS: IPRATROPIUM BR 0.02% INH SOLN 0.5 MG/2.5 ML VIAL 1.5 MG INHALATION (15:33)
[2023-05-23] MEDS: ALBUTEROL SULFATE NEB 2.5 MG/3 ML INH 15 MG INHALATION (15:34)
--- NOTE | 2023-05-23 15:35 | ED.SOB ---
HPI - SOB/Dyspnea General Chief Complaint: Shortness of Breath/Dyspnea Stated Complaint: sob Time Seen by Provider: 05/23/23 15:18 History of Present Illness HPI Narrative: Patient is a 37-year-old female who presents ER with 2 days of cough and shortness of breath. Developed severe left side pain to the chest today. Worse with deep breath and has frequent coughing. She has albuterol inhalers at home but has not been using them. No known sick contacts. Took 2 COVID test at home that were both negative. Has found no alleviating factors. Patient does have some chronic lung issues and has a chronically elevated white blood cell count. Upon presentation patient tachycardic in the 140s. Related Data Allergies Allergy/AdvReac Type Severity Reaction Status Date / Time amoxicillin Allergy Unknown Itching Verified 05/23/23 15:25 latex Allergy Unknown Itching Verified 05/23/23 15:25 Opioids - Morphine Analogues Allergy Unknown Itching Verified 05/23/23 15:25 adhesive tape Allergy Rash Verified 05/23/23 15:25 Review of Systems Review of Systems: All systems reviewed & are unremarkable except as noted in HPI and below Constitutional: Constitutional: Denies chills, Denies fatigue and Denies fever(s) ENT: Reports nasal congestion and Denies sore throat Cardiovascular: Cardiovascular: Reports chest pain, Reports rapid heart rate and Denies radiating jaw, neck or arm pain Respiratory: Respiratory: Reports cough, Reports dyspnea and Reports wheezing Gastrointestinal: Gastrointestinal: Denies abdominal pain, Denies nausea and Denies vomiting Genitourinary: Genitourinary: Reports no additional female genitourinary complaints [facility] Past Medical History Medical History (Updated 05/23/23 @ 18:06 by Surya Rodríguez MD) Anxiety Bronchitis Colitis Colonic fistula Crohn's disease Depression Inflammatory arthritis Irritable bowel syndrome Latex allergy 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) Surgical History Surgical History (Updated 05/23/23 @ 17:09 by Brii Bradford PA-C) History of colonoscopy with polypectomy History of loop electrical excision procedure (LEEP) History of wisdom tooth extraction Family History Family History Father Patient's father is in good health Family history of throat cancer Diabetes mellitus Gastroparesis Arthritis Mother Patient's mother is in good health Fibromyalgia Arthritis Grandparent Diabetes mellitus Colitis Arthritis Rheumatoid arthritis Parkinsons Heart disease Other Cerebrovascular accident Social History Social History (Updated 05/23/23 @ 17:10 by Brii Bradford PA-C) Social History: Surrogate medical decision maker: Code status: Smoking status: Former smoker Second hand tobacco smoke exposure: No Smoking end date: 08/07/16 Alcohol intake: former Substance use: never Substance use type: does not use Lack of Transportation: No Lack of Food: Never True Current Housing: I Have Housing Concerned About Future Housing: No Difficulty Paying Gas/Electric Bills: No Difficulty Paying for Meds: No Currently Unemployed: Decline to Answer Education: Associate Degree Difficulty w/ Childcare or Family Care: YES Additional living arrangements comments: Lives with naya and 3 children in [place]. Spiritual care concerns: No Exam Narrative: GENERAL: Uncomfortable-appearing, well-nourished, and in no acute distress. HEAD: Normocephalic, atraumatic. EYES: PERRL and EOMI. ENT: Mucous membranes moist. NECK: Supple. CHEST: Diffuse wheezing and rhonchi. No respiratory distress. HEART: Tachycardic and regular. Normal peripheral pulses. ABDOMEN: Soft, nontender, nondistended. EXTREMITIES: Normal range of motion. No edema. SKIN: Warm, dry, no rash. NEURO: Alert and oriented x3. PSYCH: Normal mood and affect. Course Course Emergency Course:
[2023-05-23 15:36] LABS: Alanine Aminotransferase 22 U/L (6-35); Albumin Level 4.7 g/dL (3.5-5.1); Alkaline Phosphatase 92 U/L (38-126); Anion Gap 12 mmol/L (8-16); Aspartate Amino Transferase 38 U/L (14-36); Bilirubin,Total 0.8 mg/dL (0.2-1.3); Blood Urea Nitrogen 5 mg/dL (7-17); Calcium 9.5 mg/dL (8.4-10.2); Carbon Dioxide 21 mmol/L (22-30); Chloride 103 mmol/L (98-107); Estimated Glomerular Filt Rate > 60; Glucose 131 mg/dL (65-110); Potassium 3.9 mmol/L (3.4-5.0); Sodium 136 mmol/L (137-145)
[2023-05-23 16:11] LABS: Influenza A QL RT-PCR Negative (Negative); Influenza B QL RT-PCR Negative (Negative); SARS-CoV-2 RNA PCR Negative (Negative)
[2023-05-23] MEDS: AZITHROMYCIN 500 MG/NS 250 ML 500 MG/250 ML BAG 250 MG IVPB (16:24)
--- NOTE | 2023-05-23 16:28 | PC.NURSE ---
Refuses additional blood draws. Only 1 set of blood cultures obtained.
--- NOTE | 2023-05-23 17:03 | PM.IMHP ---
H&P: HPI History of Present Illness Date/Time: 05/23/23 17:00 Chief Complaint: Shortness of breath and chest pain. Narrative: This is a 37-year-old female with history of bronchitis, positive QuantiFERON TB gold test in June 2019 with clear chest x-ray, chronically elevated WBC count of unclear significance, suspected Crohn's disease, and inflammatory arthritis who presented to the emergency department for evaluation of shortness of breath and chest pain. The patient provides the following history. She and her fiance went to a resort in [place] in December and not long after returning she had a bout of bronchitis. Unfortunately since that time she has had frequent episodes of bronchitis which seemed to be coming more frequent. She has been on several rounds of antibiotics and steroids and was prescribed a rescue inhaler and Advair. The last several days she has once again developed upper respiratory symptoms to include rhinorrhea, cough productive of clear sputum with frequent coughing jags, pleuritic chest pain, and fever up to 102.7? F. She denies headache, neck ache, sore throat, rash, exertional chest pain, nausea, vomiting, and diarrhea. She lives with her fiancee 3 children; she does not work outside of the home at this time. She previously worked in a lab and at a penitentiary. She grew up in [place]. She has lived in the same house for about 3 years and she is not aware of any mold, mildew, or standing water. No bird exposure. No recent travel. She denies dysphagia and concerns for aspiration. Historically she has not had issues with asthma, allergies, or eczema. She smoked up until about 6 years ago. No vaping. In the ED: She has been afebrile since arrival. She had a couple of blood pressures at the low end of normal but they have since been well within normal limits. She has been persistently tachycardic, up into the 140s during hour long nebulizer treatment. Labs were significant for a WBC count of 26.2, hemoglobin 15.3, hematocrit 47.3. She tested negative for influenza and COVID. Chest x-ray showed diffuse lung disease consistent with pneumonia. Chest CTA showed no pulmonary embolus, diffuse lung disease consistent with pneumonia (especially atypical pneumonia), and mild bilateral hilar lymphadenopathy which is likely reactive. She was started on ceftriaxone and azithromycin and is being admitted in this setting for further treatment. Review of Systems Review of Systems: Twelve systems were reviewed and are negative except for as per HPI. 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) Surgical History Surgical History History of colonoscopy with polypectomy History of loop electrical excision procedure (LEEP) History of wisdom tooth extraction Family History Family History Father Patient's father is in good health Family history of throat cancer Diabetes mellitus Gastroparesis Arthritis Mother Patient's mother is in good health Fibromyalgia Arthritis Grandparent Diabetes mellitus Colitis Arthritis Rheumatoid arthritis Parkinsons Heart disease Other Cerebrovascular accident Social History Social History (Updated 05/23/23 @ 22:06 by Brii Bradford PA-C) Social History: Surrogate medical decision maker: Iliana Ivan, mother. Code status: Smoking status: Never smoker Second hand tobacco smoke exposure: No Smoking end date: 08/07/16 Alcohol intake: former Substance use: never Substance use type: does not use Lack of Transportation: No Lack of Food: Never True Current Housing: I Have Housing Concerned About Future Housing:
[2023-05-23] MEDS: fentaNYL CITRATE INJ (*CRX) 100 MCG/2 ML VIAL 50 MCG IV PUSH ×3 (17:18→21:30)
--- NOTE | 2023-05-23 19:33 | PC.NURSE ---
Assumed care of pt from RACHEL Pacheco at this time.
--- NOTE | 2023-05-23 20:40 | ADMGEN ---
2034 This patient, Jennifer Ivan, was admitted to IMU Room 201-01. Patient/family oriented to hospital policies and general routines including ID bracelet, bed and alarms, visiting hours, pain management, procedures, bathroom and other care routines, personal items, smoking policy, room service/diet, and visiting hours. Information on how to activate the Rapid Response Team has been discussed. Patient/Family are encouraged to report perceived risks to care and to ask questions if they do not understand what they are told or what they should do.
[2023-05-23] MEDS: SODIUM CHLORIDE 0.9% IV 1,000 ML 125 ML IV CONT (21:29)
[2023-05-23] MEDS: traMADol HCL (*CRX) 50 MG TABLET PO (22:37)
[2023-05-23] MEDS: ALPRAZolam (*CRX) 0.5 MG TABLET PO (22:38)
[2023-05-23] MEDS: LEVALBUTEROL NEB 1.25 MG/3 ML INHALATION (22:41)
[2023-05-23] MEDS: IPRATROPIUM BR 0.02% INH SOLN 0.5 MG/2.5 ML VIAL INHALATION (22:41)
[2023-05-24] VITALS (31 sets, daily range): BP systolic 122–141; BP diastolic 64–93; PULSE 104–126; RESP 14–24; TEMP 36.5–37.2; O2SAT 92–100
[2023-05-24] MEDS: HYDROmorphone HCL INJ (*CRX) 1 MG/ML SYR 0.5 MG IV PUSH ×2 (01:08→01:56)
[2023-05-24] MEDS: ONDANSETRON INJ 4 MG/2 ML VIAL IV PUSH ×5 (02:50→21:53)
[2023-05-24 03:43] LABS: Hematocrit 43.3 % (37.0-47.0); Hemoglobin 13.8 g/dL (12.0-15.0); Mean Corpuscular HGB Conc 31.9 g/dl (32-36); Mean Corpuscular Hemoglobin 28.9 pg (26-34); Mean Corpuscular Volume 90.6 fl (80-100); Mean Platelet Volume 11.2 fl (7.4-10.4); Platelet Count Result 358 k/mm3 (150-375); Red Blood Count 4.78 M/mm3 (4.2-5.4); Red Cell Distribution Width 13.6 % (11.5-14.5); White Blood Count 23.8 K/mm3 (4.5-10.0)
[2023-05-24 03:56] LABS: Anion Gap 8 mmol/L (8-16); Blood Urea Nitrogen 5 mg/dL (7-17); Calcium 9.2 mg/dL (8.4-10.2); Carbon Dioxide 23 mmol/L (22-30); Chloride 107 mmol/L (98-107); Estimated CRCL calculation 142 ml/min; Estimated Glomerular Filt Rate > 60; Glucose 131 mg/dL (65-110); Magnesium 2.2 mg/dL (1.6-2.3); Potassium 4.4 mmol/L (3.4-5.0); Sodium 138 mmol/L (137-145)
[2023-05-24] MEDS: SODIUM CHLORIDE 0.9% IV 1,000 ML 125 ML IV CONT ×2 (04:14→21:43)
[2023-05-24 04:27] LABS: Thyroid Stimulating Hormone Reflex 0.693 uIU/mL (0.465-4.68)
[2023-05-24] MEDS: LEVALBUTEROL NEB 1.25 MG/3 ML INHALATION ×5 (04:42→20:30)
[2023-05-24] MEDS: IPRATROPIUM BR 0.02% INH SOLN 0.5 MG/2.5 ML VIAL INHALATION ×5 (04:42→20:30)
--- NOTE | 2023-05-24 04:43 | PCRCNOTE ---
pt refused ABG do to the amount of pain she is in.
[2023-05-24] MEDS: HYDROmorphone HCL INJ (*CRX) 1 MG/ML SYR IV PUSH ×2 (05:28→08:39)
[2023-05-24] MEDS: FLUTICASONE/SALMETEROL 115-21 MCG INHALER 1 PUFF 2 PUFF INHALATION (07:52)
[2023-05-24] MEDS: ALPRAZolam (*CRX) 0.25 MG TABLET PO ×2 (08:39→16:51)
[2023-05-24] MEDS: FLUoxetine HCL 20 MG CAPSULE PO (08:39)
--- NOTE | 2023-05-24 11:08 | PM.IMPN ---
Progress Note: A&P Assessment and Plan (1) Pneumonia: Code(s): J18.9 - Pneumonia, unspecified organism Status: Acute Assessment and Plan: Continue IV antibiotics. We appreciate pulmonary input (2) Tachycardia: Code(s): R00.0 - Tachycardia, unspecified Status: Acute Assessment and Plan: Monitor heart rate. CTA negative. Possibly related to nebulizer Plan Echo pending BNP pending Subjective Date/time seen: 05/24/23 11:08 Interval history: Still complaining of some shortness of breath and bronchitis like symptoms. Review of Systems Review of Systems: Twelve systems were reviewed and are negative except for as per HPI. Exam Narrative: General: Mildly ill-appearing female sitting up in bed receiving a nebulizer treatment. Weight: 91.7 kg. BMI: 33.6. HEENT: Normocephalic, atraumatic. PERRL, EOMI. Sclera anicteric. Oral mucosa moist. Oropharynx is mildly erythematous. Neck: Supple. No lymphadenopathy. Respiratory: Currently receiving an hour long nebulizer treatment. Respirations are nonlabored and she is able to speak in full sentences. Coarse lung sounds throughout all lung crowell with scattered expiratory wheezes. Cardiovascular: Tachycardic with normal S1-S2. Gastrointestinal: Abdomen is soft, nontender, and nondistended with positive bowel sounds. Skin: Warm and dry. No rash or lesions on limited exam. Extremities: No cyanosis, clubbing, or edema. Radial and pedal pulses intact. Neurological: Alert. Cranial nerves 2-12 are grossly intact. No gross focal deficits to casual conversation. Psychiatric: Pleasant and cooperative with normal mood and affect. Judgment and insight intact. Objective Data Vital Signs Vital Signs: Vital Signs - 24 hr 05/23/23 14:59 05/23/23 15:23 05/23/23 15:34 Temperature 98.3 F Pulse Rate 140 H 138 H 129 H Respiratory Rate 18 32 H Blood Pressure 134/85 Pulse Oximetry 95 Oxygen Delivery Room Air Oxygen Flow Rate 05/23/23 15:45 05/23/23 16:15 05/23/23 16:40 Temperature Pulse Rate 129 H 144 H 140 H Respiratory Rate 24 H 24 H 24 H Blood Pressure 98/80 L 91/80 L 137/86 Pulse Oximetry 98 96 96 Oxygen Delivery Oxygen Flow Rate 05/23/23 19:20 05/23/23 17:00 05/23/23 18:30 Temperature Pulse Rate 124 H 142 H 127 H Respiratory Rate 20 24 H 30 H Blood Pressure 121/91 H 115/73 134/89 Pulse Oximetry 95 95 94 Oxygen Delivery Oxygen Flow Rate 05/23/23 20:42 05/23/23 19:01 05/23/23 20:00 Temperature 97.7 F Pulse Rate 121 H 122 H 121 H Respiratory Rate 32 H 21 H 24 H Blood Pressure 132/80 142/86 H 142/83 H Pulse Oximetry 94 94 93 Oxygen Delivery Oxygen Flow Rate 05/23/23 20:45 05/23/23 22:00 05/23/23 22:56 Temperature 97.7 F Pulse Rate 114 H 125 H Respiratory Rate 24 H Blood Pressure 137/84 Pulse Oximetry 90 94 Oxygen Delivery Nasal Cannula Oxygen Flow Rate 4 05/23/23 20:40 05/23/23 23:55 05/24/23 01:58 Temperature Pulse Rate 118 H Respiratory Rate Blood Pressure 122/79 Pulse Oximetry 93 Oxygen Delivery Nasal Cannula Oxygen Flow Rate 4 05/24/23 00:00 05/24/23 02:00 05/24/23 02:55 Temperature 97.7 F Pulse Rate 115 H 112 H 106 H Respiratory Rate 24 H Blood Pressure 141/83 H Pulse Oximetry 94 Oxygen Delivery Oxygen Flow Rate 05/24/23 03:01 05/24/23 04:40 05/24/23 04:47 Temperature Pulse Rate 110 H Respiratory Rate 22 H Blood Pressure Pulse Oximetry 94 97 Oxygen Delivery Nasal Cannula Nasal Cannula Oxygen Flow Rate 4 4 05/24/23 04:54 05/24/23 04:00 05/24/23 05:59 Temperature Pulse Rate 112 H 104 H 112 H Respiratory Rate 22 H Blood Pressure Pulse Oximetry Oxygen Delivery Oxygen Flow Rate 05/24/23 06:00 05/24/23 07:52 05/24/23 07:52 Temperature Pulse Rate 114 H 114 H Respiratory Rate 20 20 Blood Pressure Pulse Oximetry 93 96 Oxygen Delivery Nasal [place]
[2023-05-24 11:51] LABS: NT Pro B Type Natriuretic Pept 132 pg/mL (19.9-100)
--- NOTE | 2023-05-24 12:27 | PM.CNPUL ---
Assessment and Plan Assessment and plan (1) Multifocal pneumonia: Code(s): J18.9 - Pneumonia, unspecified organism Status: Acute Assessment and Plan: Patient with recurrent episodes of bronchitis x5 since December of 2022 that respond to antibiotics and steroids. She has a history of a positive QuantiFERON gold test on 06/25/2019 and apparently was treated for 1 month with pills, a colon abscess but multiple biopsies have not demonstrated inflammatory bowel disease. She does complain of arthritis pain and myalgias over the last year. She has a family history of rheumatoid arthritis. She presents now with fever, leukocytosis, cough, phlegm production, shortness of breath and hypoxia. Etiology: Infection (bacterial, viral, doubt AFB or fungal), interstitial lung disease, vasculitis, and or septic emboli. COVID and influenza studies negative. Blood culture x1 and sputum culture pending. Urine pneumococcal, urine Legionella and mycoplasma IgM are pending Plan: Agree with discontinuation of steroids at this time. Agree with ceftriaxone and I will change azithromycin to Levaquin. I will send an extended respiratory pathogen swab to [facility]. I will repeat a QuantiFERON gold. I will send urine histo antigen, Blastomyces antibody, Aspergillus antibodies. Regarding other etiologies for possible interstitial lung disease I will send serologies. I will order a LEEANNA screen that includes 11 different auto antibodies, an ANCA screen, a rheumatoid factor, anti CCP antibody, hypersensitivity pneumonitis panel, a CPK, an aldolase level, CRP, ESR and myomarker 3 plus profile. Echocardiogram to assess valvular function. Patient says that the bronchodilators are helping her and agree with levalbuterol 1.25 q.4 hours and ipratropium nebulized q.4 hours. I will discontinue Advair. Will follow with you. History of Present Illness History of Present Illness Consult date: 05/24/23 Chief complaint: Multifocal Pneumonia Narrative: 05/24/2023: This is a new pulmonary consult for multifocal pneumonia. 37-year-old with a history of arthritis, positive QuantiFERON gold test in about 2017 followed up with Infectious Disease and was treated with pills for 1 month, COVID in 09 with fever and recovered completely in 4 days,: Abscess in 10 requiring a drain, at least 7 colonoscopies after that to rule out Crohn's disease and they never gave her a formal diagnosis of Crohn's but told her to eat like a Crohn's patient and she takes no beef, no greens and no knots and she has been asymptomatic for many years. Patient was in her usual state of health without any respiratory limitations in her life up until December of 2022. Covid negative Approximately December 05 to December 14 the patient developed bronchitis and took [id number] Mucinex and recovered completely. Patient went to [place] in late December and and she was back for 1 week and on approximately 01/05/2023 through 01/14/2023 she developed cough, crackles, phlegm production and had a chest x-ray that she tells me was clear. She was treated by her PCP with a Z-Max prednisone and albuterol and she got better over the next 10 days and was completely asymptomatic after that. Covid negative Approximately 03/07/23 she developed cough, crackles, shortness of breath, phlegm production which was green and she was treated with a Z-Max and prednisone and Tessalon Perles. She got better after 2 days in completely recovered by the March 16. Covid negative On 03/31/2023 the patient is children were sick with an upper respiratory tract infection and she developed cough, crackles, shortness of breath and phlegm production was treated with a Z-Max, prednisone and improved after 2 days and recovered after total of 10 days. Covid negative On 05/10/2020 3 the patient developed cough, shortness of breath, congestion and phlegm production. She was treated with a Z-Max, prednisone taper and Advair which she says helped. On 05/16 the
[2023-05-24] MEDS: HYDROmorphone HCL INJ (*CRX) 1 MG/ML SYR 0.25 MG IV PUSH ×3 (12:29→21:53)
[2023-05-24] MEDS: levoFLOXacin 750 MG/D5W 150 ML 750 MG/150 ML BAG 100 MG IVPB (13:28)
[2023-05-24 13:35] LABS: Creatine Kinase 44 U/L (30-135)
[2023-05-24 14:17] LABS: CRP 16.8 mg/dL (<1.0)
[2023-05-24 14:57] LABS: Rheumatoid Factor < 12.0 IU/ML (<12)
[2023-05-24 14:59] LABS: Erythrocyte Sedimentation Rate 19 mm/hr (0-20)
--- NOTE | 2023-05-24 22:14 | ECHO_ITS ---
Patient Info Name: Jennifer Ivan Age: 37 years : 1985 Gender: Female Ht: 65 in Wt: 202 lbs BSA: 2.09 m2 HR: 104 bpm BP: 141 / 83 mmHg Heart Rhythm: Tachycardia Technical Quality: Fair Exam Date: 05/24/2023 9:49 AM Exam Location: [facility] Pulmonary Exam Room: [facility] Patient Status: Inpatient Admit Date: 05/23/2023 Staff Ordering Physician: Brii Bradford PA-C Kidney Trimmer: Verenice Maddox RDCS Attending Provider: Ramirez Sutton MD Referring Physician: Sanchez GARCIA; Exam Type: CA echo doppler w bubble study Study Info Indications - TACHYCARDIA INCREASE SOB CHEST PAIN Complete two-dimensional, color flow and Doppler transthoracic echocardiogram is performed. Contrast/Agitated Saline Contrast/Ag. Saline: Agitated Saline Amount: 20.00 ml Administered By: Ada Stafford RDCS Existing IV Access: Yes IV Access Condition: patent with no signs of infiltration Summary 1. Complete two-dimensional, color flow and Doppler transthoracic echocardiogram is performed. 2. Left ventricular chamber dimension is normal. 3. Left ventricular systolic function is hyperdynamic, estimated at >70%. 4. There is no increased left ventricular wall thickness. 5. The left ventricular diastolic function is grade I diastolic dysfunction. 6. Evidence for [id number] shunt with injection of agitated saline with and without Valsalva consistent with small ASD versus PFO. 7. There is trace tricuspid valve regurgitation. 8. No pulmonary hypertension, estimated pulmonary arterial systolic pressure is 31 mmHg. Left Ventricle Left ventricular chamber dimension is normal. Left ventricular systolic function is hyperdynamic, estimated at >70%. There is no increased left ventricular wall thickness. The left ventricular diastolic function is grade I diastolic dysfunction. Right Ventricle Right ventricular chamber dimension is normal. Right ventricular systolic function is normal. Left Atria Left atrial chamber dimension is normal. Right Atria Right atrial chamber dimension is normal. Atrial Septum Evidence for [id number]-wr-[id number] shunt with injection of agitated saline with and without Valsalva consistent with small ASD versus PFO. Aortic Valve The aortic valve is not well visualized. There is no aortic valve stenosis. There is no aortic valve regurgitation. Pulmonic Valve The pulmonic valve is not well visualized. Mitral Valve The mitral valve has normal leaflets. There is no mitral valve regurgitation. Tricuspid Valve The tricuspid valve leaflets are normal. There is trace tricuspid valve regurgitation. No pulmonary hypertension, estimated pulmonary arterial systolic pressure is 31 mmHg. Pericardium/Pleural The pericardium appears normal. There is no pericardial effusion. Inferior Vena Cava Normal inferior vena cava with >50% collapse upon inspiration consistent with normal right atrial pressure, 8 mmHg. Aorta The aortic root size at the sinus of Valsalva is normal. Left Ventricular Outflow Tract Name Value Normal LVOT 2D LVOT Diameter 2.0 cm LVOT Doppler LVOT Peak Velocity 146 cm/s LVOT Peak Gradient
[2023-05-25] VITALS (21 sets, daily range): BP systolic 119–136; BP diastolic 79–83; PULSE 98–118; RESP 20–36; TEMP 36.3–37.3; O2SAT 91–98
[2023-05-25] MEDS: LEVALBUTEROL NEB 1.25 MG/3 ML INHALATION ×6 (00:10→20:05)
[2023-05-25] MEDS: IPRATROPIUM BR 0.02% INH SOLN 0.5 MG/2.5 ML VIAL INHALATION ×6 (00:10→20:05)
[2023-05-25] MEDS: HYDROmorphone HCL INJ (*CRX) 1 MG/ML SYR 0.25 MG IV PUSH ×5 (02:37→23:48)
[2023-05-25] MEDS: ONDANSETRON INJ 4 MG/2 ML VIAL IV PUSH ×4 (02:38→20:45)
[2023-05-25 08:21] LABS: Basophils Absolute Auto 0.1 K/mm3 (0.0-0.1); Basophils Percent Auto 0.3 % (0.2-1.2); Eosinophils Absolute Auto 0.2 K/mm3 (0-0.3); Eosinophils Percent Auto 1.3 % (0-4.4); Hematocrit 40.7 % (37.0-47.0); Hemoglobin 12.9 g/dL (12.0-15.0); Immature Granulocyte Absolute 0.08 K/mm3 (0.00-0.031); Immature Granulocyte Percent A 0.4 % (0-0.5); Lymphocytes Absolute Auto 3.38 K/mm3 (0.9-3.2); Mean Corpuscular HGB Conc 31.7 g/dl (32-36); Mean Corpuscular Hemoglobin 28.9 pg (26-34); Mean Corpuscular Volume 91.1 fl (80-100); Mean Platelet Volume 10.8 fl (7.4-10.4); Monocytes Absolute Auto 1.3 K/mm3 (0.1-0.6); Monocytes Percent Auto 6.9 % (2.6-8.5); Neutrophils Absolute Auto 13.7 K/mm3 (1.3-6.7); Neutrophils Percent Auto 73.1 % (45.5-73.1); Platelet Count Result 319 k/mm3 (150-375); Red Blood Count 4.47 M/mm3 (4.2-5.4); Red Cell Distribution Width 13.5 % (11.5-14.5); White Blood Count 18.8 K/mm3 (4.5-10.0)
[2023-05-25 08:32] LABS: Alanine Aminotransferase 16 U/L (6-35); Albumin Level 3.9 g/dL (3.5-5.1); Alkaline Phosphatase 71 U/L (38-126); Anion Gap 10 mmol/L (8-16); Aspartate Amino Transferase 25 U/L (14-36); Bilirubin,Total 0.4 mg/dL (0.2-1.3); Blood Urea Nitrogen 5 mg/dL (7-17); Calcium 8.8 mg/dL (8.4-10.2); Carbon Dioxide 23 mmol/L (22-30); Chloride 105 mmol/L (98-107); Estimated CRCL calculation 121 ml/min; Estimated Glomerular Filt Rate > 60; Glucose 98 mg/dL (65-110); Potassium 3.7 mmol/L (3.4-5.0); Sodium 138 mmol/L (137-145)
[2023-05-25 08:50] LABS: Procalcitonin 0.1 ng/mL
[2023-05-25 09:11] LABS: HIV 1/2 Ab P24 Ag Result Negative (Negative)
[2023-05-25] MEDS: FLUoxetine HCL 20 MG CAPSULE PO (09:44)
[2023-05-25] MEDS: ALPRAZolam (*CRX) 0.25 MG TABLET PO ×2 (09:44→20:44)
[2023-05-25 10:39] LABS: Influenza A QL RT-PCR Negative (Negative); Influenza B QL RT-PCR Negative (Negative); RSV RNA, RT-PCR Negative (Negative); SARS-CoV-2 RNA PCR Negative (Negative)
--- NOTE | 2023-05-25 11:01 | PM.IMPN ---
Progress Note: A&P Assessment and Plan (1) Pneumonia: Code(s): J18.9 - Pneumonia, unspecified organism Status: Acute Assessment and Plan: Continue IV antibiotics. Appreciate pulmonary input MOORE pending (2) Tachycardia: Code(s): R00.0 - Tachycardia, unspecified Status: Acute Assessment and Plan: Monitor heart rate. CTA negative. Possibly related to nebulizer (3) Atrial septal defect: Code(s): Q21.10 - Atrial septal defect, unspecified Status: Acute Assessment and Plan: pfo or asd noted on echo + bubble study will consult cardiology likely nothing to do at this point, not likely contributing to resp issues now Subjective Date/time seen: 05/25/23 11:01 Interval history: denies complaints feeling better Exam Narrative: General: Mildly ill-appearing female sitting up in bed receiving a nebulizer treatment. Weight: 91.7 kg. BMI: 33.6. HEENT: Normocephalic, atraumatic. PERRL, EOMI. Sclera anicteric. Oral mucosa moist. Oropharynx is mildly erythematous. Neck: Supple. No lymphadenopathy. Respiratory: Currently receiving an hour long nebulizer treatment. Respirations are nonlabored and she is able to speak in full sentences. Coarse lung sounds throughout all lung crowell with scattered expiratory wheezes. Cardiovascular: Tachycardic with normal S1-S2. Gastrointestinal: Abdomen is soft, nontender, and nondistended with positive bowel sounds. Skin: Warm and dry. No rash or lesions on limited exam. Extremities: No cyanosis, clubbing, or edema. Radial and pedal pulses intact. Neurological: Alert. Cranial nerves 2-12 are grossly intact. No gross focal deficits to casual conversation. Psychiatric: Pleasant and cooperative with normal mood and affect. Judgment and insight intact. Objective Data Vital Signs Vital Signs: Vital Signs - 24 hr 05/24/23 12:00 05/24/23 12:08 05/24/23 12:10 Temperature 97.8 F Pulse Rate 112 H 112 H Respiratory Rate 18 20 Blood Pressure 141/93 H Pulse Oximetry 100 97 Oxygen Delivery Nasal Cannula Oxygen Flow Rate 3 05/24/23 12:20 05/24/23 12:00 05/24/23 12:00 Temperature Pulse Rate 114 H 122 H Respiratory Rate 20 Blood Pressure Pulse Oximetry 97 Oxygen Delivery Nasal Cannula Oxygen Flow Rate 2 05/24/23 14:00 05/24/23 15:50 05/24/23 15:52 Temperature Pulse Rate 113 H 114 H Respiratory Rate 20 Blood Pressure Pulse Oximetry 96 Oxygen Delivery Nasal Cannula Oxygen Flow Rate 2 05/24/23 16:00 05/24/23 16:00 05/24/23 16:00 Temperature 98 F Pulse Rate 117 H 114 H Respiratory Rate 20 16 Blood Pressure 124/78 Pulse Oximetry 95 95 Oxygen Delivery Nasal Cannula Oxygen Flow Rate 2 05/24/23 16:00 05/24/23 18:00 05/24/23 20:33 Temperature Pulse Rate 116 H 117 H 118 H Respiratory Rate 22 H Blood Pressure Pulse Oximetry Oxygen Delivery Oxygen Flow Rate 05/24/23 20:40 05/24/23 20:49 05/24/23 20:00 Temperature 98.2 F Pulse Rate 118 H 120 H 126 H Respiratory Rate 20 20 Blood Pressure 129/72 Pulse Oximetry 95 95 Oxygen Delivery Nasal Cannula Oxygen Flow Rate 1 05/24/23 23:28 05/25/23 00:10 05/25/23 00:00 Temperature 98.9 F Pulse Rate 121 H 113 H Respiratory Rate 20 22 H Blood Pressure 139/64 Pulse Oximetry 92 93 Oxygen Delivery Nasal Cannula Oxygen Flow Rate 1 05/24/23 20:24 05/24/23 22:00 05/25/23 00:00 Temperature Pulse Rate 115 H 109 H 118 H Respiratory Rate Blood Pressure Pulse Oximetry Oxygen Delivery Oxygen Flow Rate 05/25/23 02:00 05/25/23 04:00 05/25/23 04:00 Temperature Pulse Rate 100 103 H Respiratory Rate Blood Pressure Pulse Oximetry 96 Oxygen Delivery Nasal Cannula Oxygen Flow Rate 1 05/25/23 04:30 05/25/23 04:40 05/25/23 04:00 Temperature 97.4 F L Pulse Rate 116 H 112 H 103 H Respiratory Rate 22 H 22 H 20 Blood Pressure 136/83
--- NOTE | 2023-05-25 11:03 | PM.PNPUL ---
Progress Note: A&P Assessment and Plan (1) Multifocal pneumonia: Code(s): J18.9 - Pneumonia, unspecified organism Status: Acute Assessment and Plan: Patient with recurrent episodes of bronchitis x5 since December of 2022 that respond to antibiotics and steroids. She has a history of a positive QuantiFERON gold test on 06/25/2019 and apparently was treated for 1 month with pills, a colon abscess but multiple biopsies have not demonstrated inflammatory bowel disease. She does complain of arthritis pain and myalgias over the last year. She has a family history of rheumatoid arthritis. She presents now with fever, leukocytosis, cough, phlegm production, shortness of breath and hypoxia. Etiology: Infection (bacterial, viral, doubt AFB or fungal), interstitial lung disease, vasculitis, and or septic emboli. COVID and influenza studies negative. Blood culture x1 and sputum culture pending. Urine pneumococcal, urine Legionella and mycoplasma IgM are pending Plan: Agree with discontinuation of steroids at this time. Agree with ceftriaxone and I will change azithromycin to Levaquin. I will send an extended respiratory pathogen swab to [facility]. I will repeat a QuantiFERON gold. I will send urine histo antigen, Blastomyces antibody, Aspergillus antibodies. Regarding other etiologies for possible interstitial lung disease I will send serologies. I will order a LEEANNA screen that includes 11 different auto antibodies, an ANCA screen, a rheumatoid factor, anti CCP antibody, hypersensitivity pneumonitis panel, a CPK, an aldolase level, CRP, ESR and myomarker 3 plus profile. Echocardiogram to assess valvular function. Patient says that the bronchodilators are helping her and agree with levalbuterol 1.25 q.4 hours and ipratropium nebulized q.4 hours. I will discontinue Advair. 05/25: Overall the patient states her rest and activity shortness of breath is the same, she is producing more phlegm. Her oxygenation is improved and she is on 1 L with saturations 93%. Repeat COVID influenza and RSV RT PCR studies negative today. Chest x-ray demonstrates more consolidation in the right upper lobe. White blood cell count improved to 18.8, creatinine 0.6. Rheumatoid factor less than 12, CPK 44, ESR 19, CRP 16.8, HIV negative, repeat COVID, influenza and RSV RT PCR studies negative. Echo cardiogram with LVEF greater than 70, grade 1 diastolic dysfunction, ASD and or PFO per bubble study with trace tricuspid regurg in a PASP of 31. Plan: Patient is clinically unchanged with improved oxygenation and leukocytosis (26.2 to 23.8 to 18.8 today) with worsening chest x-ray. I will continue ceftriaxone, day 3 and Levaquin, day 2. Her crackles at the same with no wheezes and she states the nebulizers are helping her and I will continue the levalbuterol and ipratropium q.4 hours. I will repeat a chest x-ray tomorrow. Discussed echo results with patient and Dr. Pereira who will order cardiology consult. Discussed with Dr. Pereira. Will follow with you. Subjective Date/time seen: 05/25/23 11:03 Interval history: 05/24/2023: This is a new pulmonary consult for multifocal pneumonia.? 37-year-old with a history of arthritis, positive QuantiFERON gold test in about 2016 followed up with Infectious Disease and was treated with pills for 1 month, COVID in 09 with fever and recovered completely in 4 days,:? Abscess in 10 requiring a drain, at least 7 colonoscopies after that to rule out Crohn's disease and they never gave her a formal diagnosis of Crohn's but told her to eat like a Crohn's patient and she takes no beef, no greens and no knots and she has been asymptomatic for many years. Patient was in her usual state of health without any respiratory limitations in her life up until December of 2022. Covid negative Approximately December 05 to December 14 the patient developed bronchitis and took [id number] Mucinex and recovered completely.? Patient went to [place] in late [place]
[2023-05-25] MEDS: guaiFENesin 12 HR 600 MG TABCR 1200 MG PO ×2 (12:39→20:44)
[2023-05-25] MEDS: levoFLOXacin 750 MG/D5W 150 ML 750 MG/150 ML BAG 100 MG IVPB (12:39)
[2023-05-25] MEDS: HYDROcodone/acetaminophen (*CRX) 7.5-325 MG TABLET 1 TAB PO (13:58)
--- NOTE | 2023-05-25 14:59 | PM.CNCAR ---
Assessment and Plan Assessment and plan (1) Atrial septal defect: Code(s): Q21.10 - Atrial septal defect, unspecified <VERO Romero - Last Filed: 05/25/23 16:42> Status: Acute <VERO Romero - Last Filed: 05/25/23 16:42> Assessment and Plan: Incidental finding on echo. Normal RV function, no pulmonary hypertension. She is asymptomatic; her shortness of breath is secondary to pneumonia. No indication for further evaluation or consideration for closure at this time since she is not exhibiting and functional compromise and this was an incidental finding. Cardiology will sign off. Please call with questions. <VERO Romero - Last Filed: 05/25/23 16:42> Assessment and Plan: Agree with the above documentation and plan of care as outlined. Recommended monitoring every 3-5 years or sooner as clinically warranted. If she desires she may follow-up with us as an outpatient. At this time no further workup is indicated. <Raleigh Murphy MD - Last Filed: 05/25/23 16:43> History of Present Illness History of Present Illness Consult date/time: 05/25/23 14:59 <VERO Romero - Last Filed: 05/25/23 16:42> Requesting physician: Daniel Pereira MD <VERO Romero - Last Filed: 05/25/23 16:42> Consult reason: Other (PFO) <VERO Romero - Last Filed: 05/25/23 16:42> Reason For Visit: Multifocal Pneumonia <VERO Romero - Last Filed: 05/25/23 16:42> Narrative: Jennifer Ivan is a 37 year old female with arthritis, suspected Crohn's disease, and recurrent bronchitis who comes to the hospital with complaints of shortness of breath, chest pain, and coughing. She has been intermittently sick with upper respiratory problems including bronchitis since visiting [place] in December. She states she has had bronchitis 5 times since that time. She is curently being treated for pneumonia and reports feeling significantly better since hospital admission, but is still requiring oxygen and had some shortness of breath. She does have chest tenderness especially with coughing and deep breathing. Chest is tender to the touch anteriorly and in between her ribs. She denies any cardiac history. Cardiology is seeing her because of a finding of ASD vs. PFO on echo. 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) <VERO Romero - Last Filed: 05/25/23 16:42> Surgical History Surgical History: Surgical History History of colonoscopy with polypectomy History of loop electrical excision procedure (LEEP) History of wisdom tooth extraction <VERO Romero - Last Filed: 05/25/23 16:42> Family History Family History: Family History Father Patient's father is in good health Family history of throat cancer Diabetes mellitus Gastroparesis Arthritis Mother Patient's mother is in good health Fibromyalgia Arthritis Grandparent Diabetes mellitus Colitis Arthritis Rheumatoid arthritis Parkinsons Heart disease Other Cerebrovascular accident <VERO Romero - Last Filed: 05/25/23 16:42> Social History Social History: Social History Social History: Surrogate medical decision maker: Iliana Ivan, mother. Code status: Smoking status: Never smoker Second
--- NOTE | 2023-05-25 21:40 | PC.NURSE ---
This patient, Jennifer Ivan, was transferred to [facility] on 05/25/23 at 2141. Personal belongings sent with patient. Report given to Adelfo RAMOS. Appropriate documentation sent with patient.
--- NOTE | 2023-05-25 21:53 | PC.NURSE ---
Patient arrived on unit at 2140 and orientated to the room. Bed in low and locked position, and personal items within reach.
[2023-05-26] VITALS (14 sets, daily range): BP systolic 106–119; BP diastolic 66–71; PULSE 90–107; RESP 18–22; TEMP 36.6–37.2; O2SAT 94–97
[2023-05-26] MEDS: ONDANSETRON INJ 4 MG/2 ML VIAL IV PUSH ×6 (00:36→20:23)
[2023-05-26] MEDS: LEVALBUTEROL NEB 1.25 MG/3 ML INHALATION ×6 (00:36→20:10)
[2023-05-26] MEDS: IPRATROPIUM BR 0.02% INH SOLN 0.5 MG/2.5 ML VIAL INHALATION ×6 (00:36→20:10)
[2023-05-26] MEDS: HYDROmorphone HCL INJ (*CRX) 1 MG/ML SYR 0.25 MG IV PUSH ×6 (03:12→21:17)
[2023-05-26] MEDS: ALPRAZolam (*CRX) 0.25 MG TABLET PO ×2 (08:13→20:26)
[2023-05-26] MEDS: guaiFENesin 12 HR 600 MG TABCR 1200 MG PO ×2 (08:13→20:25)
[2023-05-26] MEDS: FLUoxetine HCL 20 MG CAPSULE PO (08:14)
--- NOTE | 2023-05-26 09:43 | PM.PNPUL ---
Progress Note: A&P Assessment and Plan (1) Multifocal pneumonia: Code(s): J18.9 - Pneumonia, unspecified organism Status: Acute Assessment and Plan: Patient with recurrent episodes of bronchitis x5 since December of 2022 that respond to antibiotics and steroids. She has a history of a positive QuantiFERON gold test on 06/25/2019 and apparently was treated for 1 month with pills, a colon abscess but multiple biopsies have not demonstrated inflammatory bowel disease. She does complain of arthritis pain and myalgias over the last year. She has a family history of rheumatoid arthritis. She presents now with fever, leukocytosis, cough, phlegm production, shortness of breath and hypoxia. Etiology: Infection (bacterial, viral, doubt AFB or fungal), interstitial lung disease, vasculitis, and or septic emboli. COVID and influenza studies negative. Blood culture x1 and sputum culture pending. Urine pneumococcal, urine Legionella and mycoplasma IgM are pending Plan: Agree with discontinuation of steroids at this time. Agree with ceftriaxone and I will change azithromycin to Levaquin. I will send an extended respiratory pathogen swab to [facility]. I will repeat a QuantiFERON gold. I will send urine histo antigen, Blastomyces antibody, Aspergillus antibodies. Regarding other etiologies for possible interstitial lung disease I will send serologies. I will order a LEEANNA screen that includes 11 different auto antibodies, an ANCA screen, a rheumatoid factor, anti CCP antibody, hypersensitivity pneumonitis panel, a CPK, an aldolase level, CRP, ESR and myomarker 3 plus profile. Echocardiogram to assess valvular function. Patient says that the bronchodilators are helping her and agree with levalbuterol 1.25 q.4 hours and ipratropium nebulized q.4 hours. I will discontinue Advair. 05/25: Overall the patient states her rest and activity shortness of breath is the same, she is producing more phlegm. Her oxygenation is improved and she is on 1 L with saturations 93%. Repeat COVID influenza and RSV RT PCR studies negative today. Chest x-ray demonstrates more consolidation in the right upper lobe. White blood cell count improved to 18.8, creatinine 0.6. Rheumatoid factor less than 12, CPK 44, ESR 19, CRP 16.8, HIV negative, repeat COVID, influenza and RSV RT PCR studies negative. Echo cardiogram with LVEF greater than 70, grade 1 diastolic dysfunction, ASD and or PFO per bubble study with trace tricuspid regurg in a PASP of 31. Plan: Patient is clinically unchanged with improved oxygenation and leukocytosis (26.2 to 23.8 to 18.8 today) with worsening chest x-ray. I will continue ceftriaxone, day 3 and Levaquin, day 2. Her crackles at the same with no wheezes and she states the nebulizers are helping her and I will continue the levalbuterol and ipratropium q.4 hours. I will repeat a chest x-ray tomorrow. Discussed echo results with patient and Dr. Pereira who will order cardiology consult. Later in the day cardiology consult on the patient and no additional treatment or workup required at this time. 05/26: Overall the patient states she is essentially the same. She has shortness of breath at rest and with activity, her cough is unchanged she has green phlegm without any hemoptysis. Her oxygenation is improving and today she was on 1 L with night saturations 96% and I changed her to room air and her saturations remain 91-95%. Chest x-ray today demonstrates unchanged bilateral interstitial alveolar infiltrates with an upper lobe predominance. No change compared to 05/25. Plan: Patient has had no significant clinical improvement on ceftriaxone since 05/23 and Levaquin since 05/24. I will broaden patient's antibiotics today. Initial sputum culture was not processed as too many squamous cells and repeat is pending. Infectious serologies and autoimmune serologies are pending I will discontinue ceftriaxone and add vancomycin and meropenem. I will continue Levaqu
[2023-05-26] MEDS: MEROPENEM 1 GM/NS 100 ML 1 GM/100 ML BAG IVPB ×2 (09:50→17:03)
--- NOTE | 2023-05-26 11:36 | PM.IMPN ---
Progress Note: A&P Assessment and Plan (1) Pneumonia: Code(s): J18.9 - Pneumonia, unspecified organism Status: Acute Assessment and Plan: Continue IV antibiotics. Appreciate pulmonary input MOORE pending (2) Tachycardia: Code(s): R00.0 - Tachycardia, unspecified Status: Acute Assessment and Plan: Monitor heart rate. CTA negative. Possibly related to nebulizer (3) Atrial septal defect: Code(s): Q21.10 - Atrial septal defect, unspecified Status: Acute Assessment and Plan: pfo or asd noted on echo + bubble study will consult cardiology likely nothing to do at this point, not likely contributing to resp issues now Subjective Date/time seen: 05/26/23 11:36 Interval history: No complaints Exam Narrative: General: Mildly ill-appearing female sitting up in bed receiving a nebulizer treatment. Weight: 91.7 kg. BMI: 33.6. HEENT: Normocephalic, atraumatic. PERRL, EOMI. Sclera anicteric. Oral mucosa moist. Oropharynx is mildly erythematous. Neck: Supple. No lymphadenopathy. Respiratory: Currently receiving an hour long nebulizer treatment. Respirations are nonlabored and she is able to speak in full sentences. Coarse lung sounds throughout all lung crowell with scattered expiratory wheezes. Cardiovascular: Tachycardic with normal S1-S2. Gastrointestinal: Abdomen is soft, nontender, and nondistended with positive bowel sounds. Skin: Warm and dry. No rash or lesions on limited exam. Extremities: No cyanosis, clubbing, or edema. Radial and pedal pulses intact. Neurological: Alert. Cranial nerves 2-12 are grossly intact. No gross focal deficits to casual conversation. Psychiatric: Pleasant and cooperative with normal mood and affect. Judgment and insight intact. Objective Data Vital Signs Vital Signs: Vital Signs - 24 hr 05/25/23 12:30 05/25/23 12:38 05/25/23 15:52 Temperature Pulse Rate 113 H 111 H 101 H Respiratory Rate 22 H 20 20 Blood Pressure Pulse Oximetry Oxygen Delivery Oxygen Flow Rate 05/25/23 16:07 05/25/23 16:00 05/25/23 20:08 Temperature 99.0 F Pulse Rate 106 H 98 101 H Respiratory Rate 20 20 20 Blood Pressure 123/79 Pulse Oximetry 97 Oxygen Delivery Oxygen Flow Rate 05/25/23 20:09 05/25/23 20:00 05/26/23 00:00 Temperature 98.9 F Pulse Rate 101 H 107 H Respiratory Rate 18 Blood Pressure 106/66 Pulse Oximetry 96 96 94 Oxygen Delivery Nasal Cannula Nasal Cannula Oxygen Flow Rate 1 1 05/25/23 20:16 05/26/23 00:40 05/26/23 00:46 Temperature Pulse Rate 102 H 102 H 103 H Respiratory Rate 20 19 19 Blood Pressure Pulse Oximetry Oxygen Delivery Oxygen Flow Rate 05/26/23 04:28 05/26/23 04:35 05/26/23 07:23 Temperature Pulse Rate 91 92 95 Respiratory Rate 19 19 18 Blood Pressure Pulse Oximetry Oxygen Delivery Oxygen Flow Rate 05/26/23 07:27 05/26/23 08:25 Temperature Pulse Rate 93 Respiratory Rate Blood Pressure Pulse Oximetry 96 95 Oxygen Delivery Nasal Cannula Room Air Oxygen Flow Rate 1 Intake/Output Intake/Output: Intake & Output 05/23/23 05/24/23 05/25/23 05/26/23 23:59 23:59 23:59 23:59 Intake Total 300 5784 2740 600 Output Total 2250 3200 Balance 300 3534 -460 600 Meds/Results Medications: Active Medications Generic Name Dose Route Start Last Admin Trade Name Freq PRN Reason Stop Dose Admin Acetaminophen 650 mg 05/23/23 22:14 Acetaminophen 325 Mg Tablet PO Q6H PRN Mild Pain (1-3) or Fever Hydrocodone Bitart/Acetaminophen 1 tab 05/24/23 12:04 05/25/23 13:58 Hydrocodone/Acetaminophen (*Crx) 7.5-325 Mg Tablet PO 1 tab Q6H PRN Administration Pain Rated 4-6 Alprazolam 0.25 mg 05/24/23 09:00 05/26/23 08:13 Alprazolam (*Crx) 0.25 Mg Tablet PO 0.25 mg BID ZAN Administration Fluoxetine HCl 20 mg 05/24/23 09:00 05/26/23 08:14 Fluoxetine Hcl 20 Mg Capsule PO
[2023-05-26 11:57] LABS: MRSA (PCR) NOT DETECTED (NOT DETECTE)
[2023-05-26] MEDS: levoFLOXacin 750 MG/D5W 150 ML 750 MG/150 ML BAG 100 MG IVPB (14:01)
[2023-05-26 16:47] LABS: Pneumococcal Antigen Urine Not Detected (Not Detected)
[2023-05-27] VITALS (15 sets, daily range): BP systolic 109–120; BP diastolic 55–80; PULSE 90–108; RESP 16–22; TEMP 36.2–36.6; O2SAT 95–99
[2023-05-27 00:01] LABS: Legionella pneumophila Ag Ur Not Detected (Not Detected)
[2023-05-27] MEDS: LEVALBUTEROL NEB 1.25 MG/3 ML INHALATION ×6 (00:03→20:37)
[2023-05-27] MEDS: IPRATROPIUM BR 0.02% INH SOLN 0.5 MG/2.5 ML VIAL INHALATION ×6 (00:04→20:37)
[2023-05-27] MEDS: HYDROmorphone HCL INJ (*CRX) 1 MG/ML SYR 0.25 MG IV PUSH ×9 (00:19→23:47)
[2023-05-27] MEDS: ONDANSETRON INJ 4 MG/2 ML VIAL IV PUSH ×6 (00:19→20:44)
[2023-05-27] MEDS: MEROPENEM 1 GM/NS 100 ML 1 GM/100 ML BAG IVPB ×3 (02:37→17:01)
[2023-05-27 05:48] LABS: Basophils Absolute Auto 0.1 K/mm3 (0.0-0.1); Basophils Percent Auto 0.7 % (0.2-1.2); Eosinophils Absolute Auto 0.8 K/mm3 (0-0.3); Eosinophils Percent Auto 6.5 % (0-4.4); Hematocrit 39.3 % (37.0-47.0); Hemoglobin 12.6 g/dL (12.0-15.0); Immature Granulocyte Absolute 0.05 K/mm3 (0.00-0.031); Immature Granulocyte Percent A 0.4 % (0-0.5); Lymphocytes Absolute Auto 3.85 K/mm3 (0.9-3.2); Lymphocytes Percent Auto 31.9 % (18.3-44.2); Mean Corpuscular HGB Conc 32.1 g/dl (32-36); Mean Corpuscular Hemoglobin 28.6 pg (26-34); Mean Corpuscular Volume 89.1 fl (80-100); Mean Platelet Volume 10.9 fl (7.4-10.4); Monocytes Absolute Auto 0.9 K/mm3 (0.1-0.6); Monocytes Percent Auto 7.5 % (2.6-8.5); Neutrophils Absolute Auto 6.4 K/mm3 (1.3-6.7); Platelet Count Result 350 k/mm3 (150-375); Red Blood Count 4.41 M/mm3 (4.2-5.4); Red Cell Distribution Width 12.9 % (11.5-14.5); White Blood Count 12.1 K/mm3 (4.5-10.0)
[2023-05-27 06:01] LABS: Alanine Aminotransferase 25 U/L (6-35); Albumin Level 3.9 g/dL (3.5-5.1); Alkaline Phosphatase 70 U/L (38-126); Anion Gap 6 mmol/L (8-16); Aspartate Amino Transferase 26 U/L (14-36); Bilirubin,Total 0.6 mg/dL (0.2-1.3); Blood Urea Nitrogen 5 mg/dL (7-17); Calcium 9.3 mg/dL (8.4-10.2); Carbon Dioxide 26 mmol/L (22-30); Chloride 104 mmol/L (98-107); Estimated CRCL calculation 124 ml/min; Estimated Glomerular Filt Rate > 60; Glucose 95 mg/dL (65-110); Potassium 3.3 mmol/L (3.4-5.0); Sodium 136 mmol/L (137-145)
[2023-05-27 06:16] LABS: CRP 15.7 mg/dL (<1.0)
[2023-05-27] MEDS: guaiFENesin 12 HR 600 MG TABCR 1200 MG PO ×2 (08:08→20:48)
[2023-05-27] MEDS: FLUoxetine HCL 20 MG CAPSULE PO (08:08)
[2023-05-27] MEDS: ALPRAZolam (*CRX) 0.25 MG TABLET PO ×2 (08:09→20:47)
--- NOTE | 2023-05-27 10:36 | PM.PNPUL ---
Progress Note: A&P Assessment and Plan (1) Multifocal pneumonia: Code(s): J18.9 - Pneumonia, unspecified organism Status: Acute Assessment and Plan: This 37-year-old female presented with a acute onset of cough chest congestion shortness of breath and fever. Chest imaging studies have shown bilateral infiltrates which in conjunction with the acute onset of disease, productive cough of dark and green phlegm is suggestive of community-acquired pneumonia. The patient has improved on current antibiotic regimen as she is currently on room air, and has mild leukocytosis. She continues to have a cough chest congestion and wheezing which seems to respond to nebulized short-acting bronchodilators. On physical exam she has diffuse wheezing both expiratory and expiratory, suggestive of a bronchospastic airway disease. Of note the patient had had frequent bouts of bronchitis over the last 5 months but never evaluated for possible asthma. Case was discussed at length with Dr. Pereira. Will proceed with Solu-Medrol 60 mg b.i.d. today. Will continue with nebulized short-acting bronchodilators and Lovenox for DVT prophylaxis. I would continue with current antibiotic regimen today. (2) IBS (irritable bowel syndrome): Code(s): K58.9 - Irritable bowel syndrome without diarrhea Status: Acute (3) Bronchitis: Code(s): J40 - Bronchitis, not specified as acute or chronic Status: Acute (4) Positive QuantiFERON-TB Gold test: Onset Date: ~06/2019 Code(s): R76.12 - Nonspecific reaction to cell mediated immunity measurement of gamma interferon antigen response without active tuberculosis Status: Acute Subjective Date/time seen: 05/27/23 10:36 Interval history: This 87-year-old female presented 4 days ago with 4-5 day history of shortness of breath, chest congestion, and fever. Patient stated that she was in her usual state of health approximately 4 days prior to this admission when she started to feel sick complaining of cough, initially dry, followed by dark sputum and fever to 102.7. Patient was hypoxemic when evaluated in the emergency room. Chest imaging studies showed bilateral infiltrates likely consistent with pneumonia. The patient has been treated with broad-spectrum antibiotics. Currently she is on room air. Continues to have a chest congestion, chest burning, and wheezing. She stated that nebulized medications seem to help but last only for short while. Current antibiotics include levofloxacin Meropenem and vancomycin. Chest x-rays showed bilateral infiltrates which are more or less stable. Initial leukocytosis improved with the last WBC significantly down from over 20K with left shift on the day of admission. Past medical history is significant for frequent bouts of bronchitis, at least 5 times, since November of this year. The patient was treated with antibiotics and oral steroid burst for which bout of bronchitis. She stated that on these regimen she would feel better in a matter of couple of days. Evaluations in acute care settings over the last 5 months showed clear lungs on chest imaging studies. Patient has history of chronic diarrhea abdominal pain for which she had extensive workup for possible IBD. She is on diet, avoiding red meat, green vegetables and nuts. She was also evaluated by [facility] for lower back pain and some knee pain for possible underlying autoimmune disease. Serology screening for autoimmune disease has been negative. Viral testing has been negative. Review of Systems Review of Systems: All systems reviewed & are unremarkable except as noted in HPI and below (HPI and below) Exam Narrative: GENERAL APPEARANCE: Well developed, well nourished, alert and cooperative, and appears to be in no acute distress while on room air SKIN: Inspection of the skin reveals no rashes, ulcerations or petechiae. HEENT: Sclerae anicteric and conjunctivae pink and mo
--- NOTE | 2023-05-27 12:34 | PM.IMPN ---
Progress Note: A&P Assessment and Plan (1) Pneumonia: Code(s): J18.9 - Pneumonia, unspecified organism Status: Acute Assessment and Plan: Continue IV antibiotics. Appreciate pulmonary input MOORE pending ? componenet of bronchitis - add steroids and neb (2) Tachycardia: Code(s): R00.0 - Tachycardia, unspecified Status: Acute Assessment and Plan: Monitor heart rate. CTA negative. Possibly related to nebulizer (3) Atrial septal defect: Code(s): Q21.10 - Atrial septal defect, unspecified Status: Acute Assessment and Plan: pfo or asd noted on echo + bubble study will consult cardiology likely nothing to do at this point, not likely contributing to resp issues now Subjective Date/time seen: 05/27/23 12:34 Interval history: No new complaints Exam Narrative: General: Mildly ill-appearing female sitting up in bed receiving a nebulizer treatment. Weight: 91.7 kg. BMI: 33.6. HEENT: Normocephalic, atraumatic. PERRL, EOMI. Sclera anicteric. Oral mucosa moist. Oropharynx is mildly erythematous. Neck: Supple. No lymphadenopathy. Respiratory: Currently receiving an hour long nebulizer treatment. Respirations are nonlabored and she is able to speak in full sentences. Coarse lung sounds throughout all lung crowell with scattered expiratory wheezes. Cardiovascular: Tachycardic with normal S1-S2. Gastrointestinal: Abdomen is soft, nontender, and nondistended with positive bowel sounds. Skin: Warm and dry. No rash or lesions on limited exam. Extremities: No cyanosis, clubbing, or edema. Radial and pedal pulses intact. Neurological: Alert. Cranial nerves 2-12 are grossly intact. No gross focal deficits to casual conversation. Psychiatric: Pleasant and cooperative with normal mood and affect. Judgment and insight intact. Objective Data Vital Signs Vital Signs: Vital Signs - 24 hr 05/26/23 12:39 05/26/23 13:20 05/26/23 16:55 Temperature 98.5 F Pulse Rate 93 99 94 Respiratory Rate 18 18 22 H Blood Pressure 115/66 Pulse Oximetry 96 Oxygen Delivery Fraction of Inspired Oxygen 05/26/23 20:11 05/26/23 20:17 05/26/23 20:00 Temperature 97.8 F Pulse Rate 90 98 Respiratory Rate 22 H 20 Blood Pressure 119/71 Pulse Oximetry 97 Oxygen Delivery Room Air Fraction of Inspired Oxygen 05/27/23 00:06 05/27/23 00:07 05/27/23 00:18 Temperature Pulse Rate 95 100 Respiratory Rate 20 20 Blood Pressure Pulse Oximetry 95 Oxygen Delivery Room Air Fraction of Inspired Oxygen 05/27/23 04:13 05/27/23 05:00 05/27/23 07:23 Temperature 97.8 F Pulse Rate 90 98 Respiratory Rate 22 H 18 Blood Pressure 109/55 L Pulse Oximetry 96 96 Oxygen Delivery Room Air Fraction of Inspired Oxygen 21 05/27/23 07:23 05/27/23 07:44 05/27/23 08:15 Temperature Pulse Rate 99 94 Respiratory Rate 20 20 Blood Pressure Pulse Oximetry Oxygen Delivery Room Air Fraction of Inspired Oxygen 05/27/23 11:13 05/27/23 11:26 Temperature Pulse Rate 108 H 99 Respiratory Rate 20 20 Blood Pressure Pulse Oximetry Oxygen Delivery Fraction of Inspired Oxygen Intake/Output Intake/Output: Intake & Output 05/24/23 05/25/23 05/26/23 05/27/23 23:59 23:59 23:59 23:59 Intake Total 5784 2740 2410 1122 Output Total 2250 3200 Balance 3534 -460 2410 1122 Meds/Results Medications: Active Medications Generic Name Dose Route Start Last Admin Trade Name Freq PRN Reason Stop Dose Admin Acetaminophen 650 mg 05/23/23 22:14 Acetaminophen 325 Mg Tablet PO Q6H PRN Mild Pain (1-3) or Fever Hydrocodone Bitart/Acetaminophen 1 tab 05/24/23 12:04 05/25/23 13:58 Hydrocodone/Acetaminophen (*Crx) 7.5-325 Mg Tablet PO 1 tab Q6H PRN Administration Pain Rated 4-6 Alprazolam 0.25 mg 05/26/23 21:00 05/27/23 08:09 Alprazolam (*Crx) 0.25 Mg Tablet PO 0.25 mg Q12HR ZAN Administr
[2023-05-27] MEDS: levoFLOXacin 750 MG/D5W 150 ML 750 MG/150 ML BAG 100 MG IVPB (12:56)
[2023-05-27] MEDS: CENTRAL LINE FLUSH 10 ML IV PUSH ×2 (13:00→20:57)
[2023-05-27] MEDS: methylPREDNISolone SOD SUCC 125 MG VIAL 60 MG IV PUSH (16:22)
[2023-05-27] MEDS: BUDESONIDE RESPULE NEB 0.5 MG/2 ML AMP INHALATION (20:35)
[2023-05-27 23:25] LABS: Vancomycin Trough 5.9 ug/mL (10.0-20.0)
[2023-05-27] MEDS: CALCIUM CARBONATE (TUMS) 500 MG (200 MG ELEMENTAL) 400 MG PO (23:30)
[2023-05-28] VITALS (15 sets, daily range): BP systolic 113–131; BP diastolic 69–76; PULSE 90–109; RESP 16–20; TEMP 36.3–37.2; O2SAT 95–97
[2023-05-28] MEDS: ONDANSETRON INJ 4 MG/2 ML VIAL IV PUSH ×4 (00:16→20:24)
[2023-05-28] MEDS: LEVALBUTEROL NEB 1.25 MG/3 ML INHALATION ×6 (00:51→20:23)
[2023-05-28] MEDS: IPRATROPIUM BR 0.02% INH SOLN 0.5 MG/2.5 ML VIAL INHALATION ×6 (00:51→20:23)
[2023-05-28] MEDS: HYDROmorphone HCL INJ (*CRX) 1 MG/ML SYR 0.25 MG IV PUSH ×6 (02:58→21:10)
[2023-05-28] MEDS: MEROPENEM 1 GM/NS 100 ML 1 GM/100 ML BAG IVPB ×3 (02:59→17:15)
[2023-05-28] MEDS: CALCIUM CARBONATE (TUMS) 500 MG (200 MG ELEMENTAL) 400 MG PO ×2 (02:59→17:50)
[2023-05-28 06:03] LABS: Estimated CRCL calculation 147 ml/min; Estimated Glomerular Filt Rate > 60
[2023-05-28] MEDS: CENTRAL LINE FLUSH 10 ML IV PUSH ×3 (06:54→21:02)
[2023-05-28] MEDS: BUDESONIDE RESPULE NEB 0.5 MG/2 ML AMP INHALATION ×2 (07:14→20:23)
[2023-05-28] MEDS: methylPREDNISolone SOD SUCC 125 MG VIAL 60 MG IV PUSH ×2 (08:22→16:20)
[2023-05-28] MEDS: guaiFENesin 12 HR 600 MG TABCR 1200 MG PO ×2 (08:22→20:22)
[2023-05-28] MEDS: FLUoxetine HCL 20 MG CAPSULE PO (08:22)
[2023-05-28] MEDS: ALPRAZolam (*CRX) 0.25 MG TABLET PO ×2 (08:22→20:23)
--- NOTE | 2023-05-28 09:36 | PM.PNPUL ---
Progress Note: A&P Assessment and Plan (1) Multifocal pneumonia: Code(s): J18.9 - Pneumonia, unspecified organism Status: Acute Assessment and Plan: This 37-year-old female presented with a acute onset of cough chest congestion shortness of breath and fever. Chest imaging studies have shown bilateral infiltrates which in conjunction with the acute onset of disease, productive cough of dark and green phlegm is suggestive of community-acquired pneumonia. The patient has improved on current antibiotic regimen as she is currently on room air, and has mild leukocytosis. She continues to have a cough chest congestion and wheezing which seems to respond to nebulized short-acting bronchodilators. On physical exam she has diffuse wheezing both expiratory and expiratory, suggestive of a bronchospastic airway disease. Of note the patient had had frequent bouts of bronchitis over the last 5 months but never evaluated for possible asthma. Case was discussed at length with Dr. Pereira. Over the last 24 hours there has been no significant change in respiratory status. She continues to have chest congestion and wheezing. Also coughing up phlegm. Plan: Continue with current dose of IV steroids, have discontinued vancomycin as MRSA screening negative. Repeat chest x-ray in a.m., Lasix 20 mg IV. (2) IBS (irritable bowel syndrome): Code(s): K58.9 - Irritable bowel syndrome without diarrhea Status: Acute (3) Bronchitis: Code(s): J40 - Bronchitis, not specified as acute or chronic Status: Acute (4) Positive QuantiFERON-TB Gold test: Onset Date: ~06/2019 Code(s): R76.12 - Nonspecific reaction to cell mediated immunity measurement of gamma interferon antigen response without active tuberculosis Status: Acute Subjective Date/time seen: 05/28/23 09:36 Interval history: Patient has no new respiratory symptoms. She continues to have wheezing. As before nebulized bronchodilators help but do not last long. She has been on IV steroids for diffuse wheezing since yesterday morning. Remains on room air. Afebrile. Fluid positive by over 9 L. Review of Systems Review of Systems: All systems reviewed & are unremarkable except as noted in HPI and below (HPI and below) Exam Narrative: GENERAL APPEARANCE: Well developed, well nourished, alert and cooperative, and appears to be in no acute distress while on room air SKIN: Inspection of the skin reveals no rashes, ulcerations or petechiae. HEENT: Sclerae anicteric and conjunctivae pink and moist. Extraocular movements were intact and pupils were equal. The oral mucosa, hard and soft palate, tongue and posterior pharynx were normal. NECK: Supple. There was no thyroid enlargement, and no tenderness, or masses were felt. CHEST: Normal AP diameter and normal contour without any kyphoscoliosis. LUNGS: Bilateral inspiratory and expiratory wheezing CARDIAC: There was a regular rate and rhythm without any murmurs, gallops, rubs. ABDOMEN: Soft and nontender with normal bowel sounds. There was no organomegaly. LYMPH NODES: No lymphadenopathy was appreciated in the neck. EXTREMITIES: No cyanosis, clubbing or edema. NEUROLOGIC: Alert and oriented x 3. Normal affect. Objective Data Vital Signs Vital Signs: Vital Signs - 24 hr 05/27/23 11:13 05/27/23 11:26 05/27/23 15:14 Temperature Pulse Rate 108 H 99 90 Respiratory Rate 20 20 20 Blood Pressure Pulse Oximetry Oxygen Delivery Fraction of Inspired Oxygen 05/27/23 15:28 05/27/23 14:50 05/27/23 20:39 Temperature 36.2 C L Pulse Rate 102 H 90 97 Respiratory Rate 20 18 20 Blood Pressure 119/73 Pulse Oximetry 95 Oxygen Delivery Fraction of Inspired Oxygen 05/27/23 20:50 05/27/23 20:44 05/28/23 00:51 Temperature 36.6 C Pulse Rate 100 100 93 Respiratory Rate 20 16 20 Blood Pressure 120/80 Pulse Oximetry 99 Oxygen Delivery Fraction of Inspired Oxyge
[2023-05-28 10:25] LABS: Appearance Urine Clear (Clear); Bilirubin Urine Negative (Negative); Blood Urine Negative (Negative); Color Urine Yellow (Yellow); Glucose Urine UA Negative (Negative); Ketones Urine Negative (Negative); Leukocyte Esterase Ur Negative LEU/UL (NEGATIVE); Nitrate Urine Negative (Negative); Protein Urine Negative (Negative); Specific Grav Ur 1.002 (1.001-1.035); Urobilinogen Urine 0.2 mg/dL (<2.0)
[2023-05-28] MEDS: FUROSEMIDE INJ 40 MG/4 ML VIAL 20 MG IV PUSH (10:26)
[2023-05-28 10:33] LABS: Add Urine Microscopic? NO
--- NOTE | 2023-05-28 11:27 | PM.IMPN ---
Progress Note: A&P Assessment and Plan (1) Pneumonia: Code(s): J18.9 - Pneumonia, unspecified organism Status: Acute Assessment and Plan: Continue IV antibiotics. Appreciate pulmonary input MOORE pending ? componenet of bronchitis - add steroids and neb (2) Tachycardia: Code(s): R00.0 - Tachycardia, unspecified Status: Acute Assessment and Plan: Monitor heart rate. CTA negative. Possibly related to nebulizer (3) Atrial septal defect: Code(s): Q21.10 - Atrial septal defect, unspecified Status: Acute Assessment and Plan: pfo or asd noted on echo + bubble study will consult cardiology likely nothing to do at this point, not likely contributing to resp issues now Subjective Date/time seen: 05/28/23 11:27 Interval history: No complaints Exam Narrative: General: Mildly ill-appearing female sitting up in bed receiving a nebulizer treatment. Weight: 91.7 kg. BMI: 33.6. HEENT: Normocephalic, atraumatic. PERRL, EOMI. Sclera anicteric. Oral mucosa moist. Oropharynx is mildly erythematous. Neck: Supple. No lymphadenopathy. Respiratory: Currently receiving an hour long nebulizer treatment. Respirations are nonlabored and she is able to speak in full sentences. Coarse lung sounds throughout all lung crowell with scattered expiratory wheezes. Cardiovascular: Tachycardic with normal S1-S2. Gastrointestinal: Abdomen is soft, nontender, and nondistended with positive bowel sounds. Skin: Warm and dry. No rash or lesions on limited exam. Extremities: No cyanosis, clubbing, or edema. Radial and pedal pulses intact. Neurological: Alert. Cranial nerves 2-12 are grossly intact. No gross focal deficits to casual conversation. Psychiatric: Pleasant and cooperative with normal mood and affect. Judgment and insight intact. Objective Data Vital Signs Vital Signs: Vital Signs - 24 hr 05/27/23 15:14 05/27/23 15:28 05/27/23 14:50 Temperature 97.1 F L Pulse Rate 90 102 H 90 Respiratory Rate 20 20 18 Blood Pressure 119/73 Pulse Oximetry 95 Oxygen Delivery Fraction of Inspired Oxygen 05/27/23 20:39 05/27/23 20:50 05/27/23 20:44 Temperature 97.8 F Pulse Rate 97 100 100 Respiratory Rate 20 20 16 Blood Pressure 120/80 Pulse Oximetry 99 Oxygen Delivery Fraction of Inspired Oxygen 05/28/23 00:51 05/28/23 01:01 05/28/23 04:00 Temperature 97.6 F Pulse Rate 93 94 91 Respiratory Rate 20 20 16 Blood Pressure 113/69 Pulse Oximetry 97 Oxygen Delivery Fraction of Inspired Oxygen 05/28/23 04:21 05/28/23 04:29 05/28/23 07:14 Temperature Pulse Rate 92 94 Respiratory Rate 20 20 Blood Pressure Pulse Oximetry 96 Oxygen Delivery Room Air Fraction of Inspired Oxygen 05/28/23 07:14 05/28/23 07:38 05/28/23 08:30 Temperature Pulse Rate 93 90 Respiratory Rate 20 20 Blood Pressure Pulse Oximetry Oxygen Delivery Room Air Fraction of Inspired Oxygen 05/28/23 11:11 Temperature Pulse Rate 101 H Respiratory Rate 20 Blood Pressure Pulse Oximetry Oxygen Delivery Fraction of Inspired Oxygen Intake/Output Intake/Output: Intake & Output 05/25/23 05/26/23 05/27/23 05/28/23 23:59 23:59 23:59 23:59 Intake Total 2740 2410 3522 1700 Output Total 3200 480 Balance -460 2410 3042 1700 Meds/Results Medications: Active Medications Generic Name Dose Route Start Last Admin Trade Name Freq PRN Reason Stop Dose Admin Acetaminophen 650 mg 05/23/23 22:14 Acetaminophen 325 Mg Tablet PO Q6H PRN Mild Pain (1-3) or Fever Hydrocodone Bitart/Acetaminophen 1 tab 05/24/23 12:04 05/25/23 13:58 Hydrocodone/Acetaminophen (*Crx) 7.5-325 Mg Tablet PO 1 tab Q6H PRN Administration Pain Rated 4-6 Alprazolam 0.25 mg 05/26/23 21:00 05/28/23 08:22 Alprazolam (*Crx) 0.25 Mg Tablet PO 0.25 mg Q12HR ZAN Administration Budesonide 0.5 mg 05/27/23 20:00 1
[2023-05-28] MEDS: levoFLOXacin 750 MG/D5W 150 ML 750 MG/150 ML BAG 100 MG IVPB (12:12)
[2023-05-28 14:43] LABS: Mycoplasma IgM Antibody Titer 38 U/mL (<770)
[2023-05-28 14:43] LABS: ANA Cascade Screen Negative (Negative); Anti Cyclic Citrullinated Pept <16 Units (<20); Aspergillus Fumigatus K/UL <0.10 (<0.10); Blastomyces Antibody Negative (Negative); Conventional Class 0 (0)
[2023-05-29] VITALS (19 sets, daily range): BP systolic 122–134; BP diastolic 80–94; PULSE 84–107; RESP 14–18; TEMP 36.4–37.1; O2SAT 96–100
[2023-05-29] MEDS: LEVALBUTEROL NEB 1.25 MG/3 ML INHALATION ×6 (00:20→20:11)
[2023-05-29] MEDS: IPRATROPIUM BR 0.02% INH SOLN 0.5 MG/2.5 ML VIAL INHALATION ×6 (00:20→20:11)
[2023-05-29] MEDS: MEROPENEM 1 GM/NS 100 ML 1 GM/100 ML BAG IVPB ×3 (01:04→17:27)
[2023-05-29] MEDS: CALCIUM CARBONATE (TUMS) 500 MG (200 MG ELEMENTAL) 400 MG PO ×4 (01:10→22:22)
[2023-05-29] MEDS: HYDROmorphone HCL INJ (*CRX) 1 MG/ML SYR 0.25 MG IV PUSH ×2 (01:12→04:40)
[2023-05-29] MEDS: ONDANSETRON INJ 4 MG/2 ML VIAL IV PUSH ×5 (01:29→22:13)
[2023-05-29 05:06] LABS: Basophils Absolute Auto 0.1 K/mm3 (0.0-0.1); Basophils Percent Auto 0.3 % (0.2-1.2); Hematocrit 39.1 % (37.0-47.0); Hemoglobin 12.7 g/dL (12.0-15.0); Immature Granulocyte Absolute 0.46 K/mm3 (0.00-0.031); Immature Granulocyte Percent A 1.9 % (0-0.5); Lymphocytes Absolute Auto 4.15 K/mm3 (0.9-3.2); Lymphocytes Percent Auto 16.9 % (18.3-44.2); Mean Corpuscular HGB Conc 32.5 g/dl (32-36); Mean Corpuscular Hemoglobin 29.1 pg (26-34); Mean Corpuscular Volume 89.5 fl (80-100); Mean Platelet Volume 10.6 fl (7.4-10.4); Monocytes Absolute Auto 1.8 K/mm3 (0.1-0.6); Monocytes Percent Auto 7.2 % (2.6-8.5); Neutrophils Absolute Auto 18.2 K/mm3 (1.3-6.7); Neutrophils Percent Auto 73.7 % (45.5-73.1); Platelet Count Result 446 k/mm3 (150-375); Red Blood Count 4.37 M/mm3 (4.2-5.4); Red Cell Distribution Width 13.2 % (11.5-14.5); White Blood Count 24.6 K/mm3 (4.5-10.0)
[2023-05-29 05:16] LABS: CRP 3.3 mg/dL (<1.0)
[2023-05-29] MEDS: BUDESONIDE RESPULE NEB 0.5 MG/2 ML AMP INHALATION ×2 (07:37→20:10)
[2023-05-29 08:02] LABS: Chlamydia pneumoniae by PCR Not Detected
--- NOTE | 2023-05-29 08:38 | PM.PNPUL ---
Progress Note: A&P Assessment and Plan (1) Multifocal pneumonia: Code(s): J18.9 - Pneumonia, unspecified organism Status: Acute Assessment and Plan: This 37-year-old female presented with acute onset of cough chest congestion shortness of breath and fever. Chest imaging studies have shown bilateral infiltrates which in conjunction with the acute onset of disease, productive cough of dark and green phlegm is suggestive of community-acquired pneumonia. The patient has improved on current antibiotic regimen as she is currently on room air. Patient continues to have a cough and mild wheezing but overall she is doing much better today. On physical exam there is significantly less wheezing. To my review, chest x-ray showed partial clearing of bilateral infiltrates. CRP dropped significantly. Case was discussed at length with Dr. Pereira. Plan: In view of significant improvement will continue with current regimen of antibiotics and IV steroids. Continue with incentive spirometry; out of bed as tolerated. 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 Less wheezing. No new respiratory symptoms. Remains on room air Review of Systems Review of Systems: All systems reviewed & are unremarkable except as noted in HPI and below (HPI and below) Exam Narrative: GENERAL APPEARANCE: Well developed, well nourished, alert and cooperative, and appears to be in no acute distress while on room air SKIN: Inspection of the skin reveals no rashes, ulcerations or petechiae. HEENT: Sclerae anicteric and conjunctivae pink and moist. Extraocular movements were intact and pupils were equal. The oral mucosa, hard and soft palate, tongue and posterior pharynx were normal. NECK: Supple. There was no thyroid enlargement, and no tenderness, or masses were felt. CHEST: Normal AP diameter and normal contour without any kyphoscoliosis. LUNGS: Mild wheezing bilaterally significantly less than before CARDIAC: There was a regular rate and rhythm without any murmurs, gallops, rubs. ABDOMEN: Soft and nontender with normal bowel sounds. There was no organomegaly. LYMPH NODES: No lymphadenopathy was appreciated in the neck. EXTREMITIES: No cyanosis, clubbing or edema. NEUROLOGIC: Alert and oriented x 3. Normal affect. Objective Data Vital Signs Vital Signs: Vital Signs - 24 hr 05/28/23 11:11 05/28/23 13:55 05/28/23 15:17 Temperature 36.3 C L Pulse Rate 101 H 94 92 Respiratory Rate 20 18 18 Blood Pressure 119/76 Pulse Oximetry 97 Oxygen Delivery Fraction of Inspired Oxygen 05/28/23 15:30 05/28/23 19:42 05/28/23 20:23 Temperature 37.2 C Pulse Rate 109 H 94 108 H Respiratory Rate 18 18 18 Blood Pressure 131/70 Pulse Oximetry 95 Oxygen Delivery Fraction of Inspired Oxygen 05/28/23 20:24 05/28/23 21:05 05/29/23 00:20 Temperature Pulse Rate 108 H 103 H 84 Respiratory Rate 18 18 Blood Pressure Pulse Oximetry 96 Oxygen Delivery Room Air Fraction of Inspired Oxygen 21 05/29/23 00:30 05/29/23 04:20 05/29/23 04:30 Temperature Pulse Rate 87 90 94 Respiratory Rate 18 18 18 Blood Pressure Pulse Oximetry Oxygen Delivery Fraction of Inspired Oxygen 05/29/23 07:37 05/29/23 07:40 05/29/23 07:56 Temperature Pulse Rate 88 88 91 Respiratory Rate 18 18 18 Blood Pressure Pulse Oximetry 96 Oxygen Delivery Room Air Fraction of Inspired Oxygen
[2023-05-29] MEDS: FLUoxetine HCL 20 MG CAPSULE PO (08:45)
[2023-05-29] MEDS: methylPREDNISolone SOD SUCC 125 MG VIAL 60 MG IV PUSH (08:45)
[2023-05-29] MEDS: ALPRAZolam (*CRX) 0.25 MG TABLET PO ×2 (08:45→20:31)
[2023-05-29] MEDS: guaiFENesin 12 HR 600 MG TABCR 1200 MG PO ×2 (08:45→20:31)
[2023-05-29] MEDS: HYDROcodone/acetaminophen (*CRX) 7.5-325 MG TABLET 1 TAB PO ×3 (09:30→22:17)
--- NOTE | 2023-05-29 10:31 | PM.IMPN ---
Progress Note: A&P Assessment and Plan (1) Pneumonia: Code(s): J18.9 - Pneumonia, unspecified organism Status: Acute Assessment and Plan: Continue IV antibiotics. Appreciate pulmonary input MOORE pending ? componenet of bronchitis - add steroids and neb (2) Tachycardia: Code(s): R00.0 - Tachycardia, unspecified Status: Acute Assessment and Plan: Monitor heart rate. CTA negative. Possibly related to nebulizer (3) Atrial septal defect: Code(s): Q21.10 - Atrial septal defect, unspecified Status: Acute Assessment and Plan: pfo or asd noted on echo + bubble study will consult cardiology likely nothing to do at this point, not likely contributing to resp issues now Subjective Date/time seen: 05/29/23 10:31 Interval history: No complaints Exam Narrative: General: Mildly ill-appearing female sitting up in bed receiving a nebulizer treatment. Weight: 91.7 kg. BMI: 33.6. HEENT: Normocephalic, atraumatic. PERRL, EOMI. Sclera anicteric. Oral mucosa moist. Oropharynx is mildly erythematous. Neck: Supple. No lymphadenopathy. Respiratory: Currently receiving an hour long nebulizer treatment. Respirations are nonlabored and she is able to speak in full sentences. Coarse lung sounds throughout all lung crowell with scattered expiratory wheezes. Cardiovascular: Tachycardic with normal S1-S2. Gastrointestinal: Abdomen is soft, nontender, and nondistended with positive bowel sounds. Skin: Warm and dry. No rash or lesions on limited exam. Extremities: No cyanosis, clubbing, or edema. Radial and pedal pulses intact. Neurological: Alert. Cranial nerves 2-12 are grossly intact. No gross focal deficits to casual conversation. Psychiatric: Pleasant and cooperative with normal mood and affect. Judgment and insight intact. Objective Data Vital Signs Vital Signs: Vital Signs - 24 hr 05/28/23 11:11 05/28/23 13:55 05/28/23 15:17 Temperature 97.4 F L Pulse Rate 101 H 94 92 Respiratory Rate 20 18 18 Blood Pressure 119/76 Pulse Oximetry 97 Oxygen Delivery Fraction of Inspired Oxygen 05/28/23 15:30 05/28/23 19:42 05/28/23 20:23 Temperature 99.0 F Pulse Rate 109 H 94 108 H Respiratory Rate 18 18 18 Blood Pressure 131/70 Pulse Oximetry 95 Oxygen Delivery Fraction of Inspired Oxygen 05/28/23 20:24 05/28/23 21:05 05/29/23 00:20 Temperature Pulse Rate 108 H 103 H 84 Respiratory Rate 18 18 Blood Pressure Pulse Oximetry 96 Oxygen Delivery Room Air Fraction of Inspired Oxygen 21 05/29/23 00:30 05/29/23 04:20 05/29/23 04:30 Temperature Pulse Rate 87 90 94 Respiratory Rate 18 18 18 Blood Pressure Pulse Oximetry Oxygen Delivery Fraction of Inspired Oxygen 05/29/23 07:37 05/29/23 07:40 05/29/23 07:56 Temperature Pulse Rate 88 88 91 Respiratory Rate 18 18 18 Blood Pressure Pulse Oximetry 96 Oxygen Delivery Room Air Fraction of Inspired Oxygen 05/29/23 07:48 05/29/23 08:00 05/29/23 07:50 Temperature 97.8 F 97.8 F 97.8 F Pulse Rate 100 100 100 Respiratory Rate 18 18 18 Blood Pressure 129/86 129/86 129/89 Pulse Oximetry 100 100 100 Oxygen Delivery Fraction of Inspired Oxygen Intake/Output Intake/Output: Intake & Output 05/26/23 05/27/23 05/28/23 05/29/23 23:59 23:59 23:59 23:59 Intake Total 2410 3522 3650 220 Output Total 480 500 Balance 2410 3042 3150 220 Meds/Results Medications: Active Medications Generic Name Dose Route Start Last Admin Trade Name Freq PRN Reason Stop Dose Admin Acetaminophen 650 mg 05/23/23 22:14 Acetaminophen 325 Mg Tablet PO Q6H PRN Mild Pain (1-3) or Fever Hydrocodone Bitart/Acetaminophen 1 tab 05/24/23 12:04 05/29/23 09:30 Hydrocodone/Acetaminophen (*Crx) 7.5-325 Mg Tablet PO 1 tab Q6H PRN Administration Pain Rated 4-6 Alprazolam 0.25 mg 05/26/23 21:00 05/28/23 20:23 Alprazolam (*Cr
[2023-05-29] MEDS: levoFLOXacin 750 MG/D5W 150 ML 750 MG/150 ML BAG 100 MG IVPB (12:21)
[2023-05-29] MEDS: traMADol HCL (*CRX) 50 MG TABLET PO ×2 (12:22→18:40)
[2023-05-29] MEDS: CENTRAL LINE FLUSH 10 ML IV PUSH ×2 (14:35→22:13)
--- NOTE | 2023-05-29 15:15 | PC.NURSE ---
Assessment, care and medications performed by Stephanie HUBER Student RN under supervision of instructor and hospital staff. Assessment reviewed and agree with same.
[2023-05-29 21:43] LABS: ANCA Screen Negative (Negative)
[2023-05-30] VITALS (17 sets, daily range): BP systolic 122–144; BP diastolic 68–84; PULSE 88–105; RESP 16–20; TEMP 36.4–36.6; O2SAT 96–100
[2023-05-30] MEDS: IPRATROPIUM BR 0.02% INH SOLN 0.5 MG/2.5 ML VIAL INHALATION ×5 (00:13→19:03)
[2023-05-30] MEDS: LEVALBUTEROL NEB 1.25 MG/3 ML INHALATION ×5 (00:13→19:03)
[2023-05-30 00:20] LABS: Aldolase 4.8 U/L (<=8.1)
[2023-05-30] MEDS: traMADol HCL (*CRX) 50 MG TABLET PO ×4 (00:28→21:11)
[2023-05-30] MEDS: MEROPENEM 1 GM/NS 100 ML 1 GM/100 ML BAG IVPB ×3 (01:06→17:10)
[2023-05-30] MEDS: ONDANSETRON INJ 4 MG/2 ML VIAL IV PUSH ×5 (02:20→21:13)
[2023-05-30] MEDS: HYDROcodone/acetaminophen (*CRX) 7.5-325 MG TABLET 1 TAB PO ×4 (04:43→23:07)
[2023-05-30] MEDS: CALCIUM CARBONATE (TUMS) 500 MG (200 MG ELEMENTAL) 400 MG PO ×3 (04:44→17:15)
[2023-05-30 05:26] LABS: Estimated CRCL calculation 124 ml/min; Estimated Glomerular Filt Rate > 60
[2023-05-30] MEDS: CENTRAL LINE FLUSH 10 ML IV PUSH ×3 (05:46→22:29)
[2023-05-30] MEDS: BUDESONIDE RESPULE NEB 0.5 MG/2 ML AMP INHALATION (07:57)
--- NOTE | 2023-05-30 08:42 | PM.PNPUL ---
Progress Note: A&P Assessment and Plan (1) Multifocal pneumonia: Code(s): J18.9 - Pneumonia, unspecified organism Status: Acute Assessment and Plan: This 37-year-old female presented with acute onset of cough chest congestion shortness of breath and fever. Chest imaging studies have shown bilateral infiltrates which in conjunction with the acute onset of disease, productive cough of dark and green phlegm is suggestive of community-acquired pneumonia. The patient has improved on current antibiotic regimen as she is currently on room air. Patient continues to have a cough and mild wheezing but overall she is doing much better today. There is minimal wheezing on physical exam today. Lungs otherwise mostly clear. Plan: Patient will be switched to oral steroids, prednisone 40 mg p.o. daily. Nebulized short-acting bronchodilators to be given q.4 hours p.r.n.. Out of bed to ambulate. Repeat chest x-ray in a.m. and decide when to DC home. Case was discussed with Dr. Pereira. 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 Less cough less shortness of breath and less wheezing. She had an episode of hand shaking, lightheadedness and mild nausea when she ambulated in the room yesterday. Currently she has no new respiratory symptoms. Afebrile remains on room air. No chest pain. No palpitations. Review of Systems Review of Systems: All systems reviewed & are unremarkable except as noted in HPI and below (HPI and below) Exam Narrative: GENERAL APPEARANCE: Well developed, well nourished, alert and cooperative, and appears to be in no acute distress while on room air SKIN: Inspection of the skin reveals no rashes, ulcerations or petechiae. HEENT: Sclerae anicteric and conjunctivae pink and moist. Extraocular movements were intact and pupils were equal. The oral mucosa, hard and soft palate, tongue and posterior pharynx were normal. NECK: Supple. There was no thyroid enlargement, and no tenderness, or masses were felt. CHEST: Normal AP diameter and normal contour without any kyphoscoliosis. LUNGS: Mild wheezing bilaterally significantly less than before CARDIAC: There was a regular rate and rhythm without any murmurs, gallops, rubs. ABDOMEN: Soft and nontender with normal bowel sounds. There was no organomegaly. LYMPH NODES: No lymphadenopathy was appreciated in the neck. EXTREMITIES: No cyanosis, clubbing or edema. NEUROLOGIC: Alert and oriented x 3. Normal affect. Objective Data Vital Signs Vital Signs: Vital Signs - 24 hr 05/29/23 11:48 05/29/23 12:03 05/29/23 09:30 Temperature Pulse Rate 85 98 Respiratory Rate 18 18 Blood Pressure Pulse Oximetry Oxygen Delivery Room Air Fraction of Inspired Oxygen 21 05/29/23 14:55 05/29/23 15:45 05/29/23 16:45 Temperature 37.1 C Pulse Rate 95 107 H 103 H Respiratory Rate 16 14 18 Blood Pressure 130/80 122/94 H Pulse Oximetry 96 98 Oxygen Delivery Fraction of Inspired Oxygen 05/29/23 16:55 05/29/23 20:11 05/29/23 20:10 Temperature 36.4 C L Pulse Rate 101 H 86 97 Respiratory Rate 18 18 18 Blood Pressure 134/81 Pulse Oximetry 99 Oxygen Delivery Fraction of Inspired Oxygen 05/29/23 20:11 05/29/23 20:25 05/30/23 00:22 Temperature Pulse Rate 97 98 95 Respiratory Rate 18 18 18 Blood Pressure Pulse Oximetry 96 Oxygen Delivery Room Air Fraction of Inspired Oxygen 05/30/23 00:10 05/30/23
[2023-05-30] MEDS: guaiFENesin 12 HR 600 MG TABCR 1200 MG PO ×2 (08:47→21:11)
[2023-05-30] MEDS: FLUoxetine HCL 20 MG CAPSULE PO (08:47)
[2023-05-30] MEDS: ALPRAZolam (*CRX) 0.25 MG TABLET PO ×2 (08:47→21:13)
[2023-05-30] MEDS: PANTOPRAZOLE 40 MG TABLET PO (08:47)
[2023-05-30] MEDS: methylPREDNISolone SOD SUCC 40 MG VIAL IV PUSH (08:48)
[2023-05-30 11:26] LABS: Aspergillus fumigatus (m3) IgG 36.8 mcg/mL (<2.0)
--- NOTE | 2023-05-30 12:44 | PM.IMPN ---
Progress Note: A&P Assessment and Plan (1) Pneumonia: Code(s): J18.9 - Pneumonia, unspecified organism Status: Acute Assessment and Plan: Continue IV antibiotics. Appreciate pulmonary input MOORE pending ? componenet of bronchitis - add steroids and neb (2) Tachycardia: Code(s): R00.0 - Tachycardia, unspecified Status: Acute Assessment and Plan: Monitor heart rate. CTA negative. Possibly related to nebulizer (3) Atrial septal defect: Code(s): Q21.10 - Atrial septal defect, unspecified Status: Acute Assessment and Plan: pfo or asd noted on echo + bubble study will consult cardiology likely nothing to do at this point, not likely contributing to resp issues now Subjective Date/time seen: 05/30/23 12:44 Interval history: no complaints breathing is improved Exam Narrative: General: Mildly ill-appearing female sitting up in bed receiving a nebulizer treatment. Weight: 91.7 kg. BMI: 33.6. HEENT: Normocephalic, atraumatic. PERRL, EOMI. Sclera anicteric. Oral mucosa moist. Oropharynx is mildly erythematous. Neck: Supple. No lymphadenopathy. Respiratory: Currently receiving an hour long nebulizer treatment. Respirations are nonlabored and she is able to speak in full sentences. Coarse lung sounds throughout all lung crowell with scattered expiratory wheezes. Cardiovascular: Tachycardic with normal S1-S2. Gastrointestinal: Abdomen is soft, nontender, and nondistended with positive bowel sounds. Skin: Warm and dry. No rash or lesions on limited exam. Extremities: No cyanosis, clubbing, or edema. Radial and pedal pulses intact. Neurological: Alert. Cranial nerves 2-12 are grossly intact. No gross focal deficits to casual conversation. Psychiatric: Pleasant and cooperative with normal mood and affect. Judgment and insight intact. Objective Data Vital Signs Vital Signs: Vital Signs - 24 hr 05/29/23 14:55 05/29/23 15:45 05/29/23 16:45 Temperature 98.8 F Pulse Rate 95 107 H 103 H Respiratory Rate 16 14 18 Blood Pressure 130/80 122/94 H Pulse Oximetry 96 98 Oxygen Delivery Fraction of Inspired Oxygen 05/29/23 16:55 05/29/23 20:11 05/29/23 20:10 Temperature 97.5 F L Pulse Rate 101 H 86 97 Respiratory Rate 18 18 18 Blood Pressure 134/81 Pulse Oximetry 99 Oxygen Delivery Fraction of Inspired Oxygen 05/29/23 20:11 05/29/23 20:25 05/30/23 00:22 Temperature Pulse Rate 97 98 95 Respiratory Rate 18 18 18 Blood Pressure Pulse Oximetry 96 Oxygen Delivery Room Air Fraction of Inspired Oxygen 05/30/23 00:10 05/30/23 04:14 05/30/23 04:23 Temperature Pulse Rate 94 93 90 Respiratory Rate 18 18 18 Blood Pressure Pulse Oximetry Oxygen Delivery Fraction of Inspired Oxygen 05/30/23 05:17 05/30/23 07:57 05/30/23 08:05 Temperature 97.6 F Pulse Rate 90 89 89 Respiratory Rate 18 18 18 Blood Pressure 131/76 Pulse Oximetry 100 96 Oxygen Delivery Room Air Fraction of Inspired Oxygen 05/30/23 08:10 05/30/23 08:00 05/30/23 08:50 Temperature 97.7 F Pulse Rate 100 88 100 Respiratory Rate 18 18 18 Blood Pressure 128/72 Pulse Oximetry 100 96 Oxygen Delivery Room Air Fraction of Inspired Oxygen 21 Intake/Output Intake/Output: Intake & Output 05/27/23 05/28/23 05/29/23 05/30/23 23:59 23:59 23:59 23:59 Intake Total 3522 3650 1460 880 Output Total 480 273 129 1333 Balance 3042 3150 760 -720 Meds/Results Medications: Active Medications Generic Name Dose Route Start Last Admin Trade Name Freq PRN Reason Stop Dose Admin Acetaminophen 650 mg 05/23/23 22:14 Acetaminophen 325 Mg Tablet PO Q6H PRN Mild Pain (1-3) or Fever Hydrocodone Bitart/Acetaminophen 1 tab 05/24/23 12:04 05/30/23 10:48 Hydrocodone/Acetaminophen (*Crx) 7.5-325 Mg Tablet PO 1 tab Q6H PRN Administration Pain Rated 4-6 Alprazolam 0.25 mg 05/26/23 21:00
[2023-05-30] MEDS: levoFLOXacin 750 MG TABLET PO (13:07)
[2023-05-31] MEDS: MEROPENEM 1 GM/NS 100 ML 1 GM/100 ML BAG IVPB (01:07)
[2023-05-31] MEDS: traMADol HCL (*CRX) 50 MG TABLET PO ×2 (02:59→13:11)
[2023-05-31] MEDS: CENTRAL LINE FLUSH 10 ML IV PUSH (05:05)
[2023-05-31] MEDS: HYDROcodone/acetaminophen (*CRX) 7.5-325 MG TABLET 1 TAB PO ×2 (05:25→11:18)
[2023-05-31] MEDS: IPRATROPIUM BR 0.02% INH SOLN 0.5 MG/2.5 ML VIAL INHALATION (05:57)
[2023-05-31] MEDS: LEVALBUTEROL NEB 1.25 MG/3 ML INHALATION (05:57)
[2023-05-31 05:58] VITALS: BP 120/85; PULSE 101; PULSE 94; RESP 16; RESP 20; TEMP 36.6; O2SAT 99
[2023-05-31 06:10] VITALS: PULSE 100; RESP 20
[2023-05-31] MEDS: ONDANSETRON INJ 4 MG/2 ML VIAL IV PUSH ×2 (07:24→11:21)
--- NOTE | 2023-05-31 08:35 | PM.PNPUL ---
Progress Note: A&P Assessment and Plan (1) Multifocal pneumonia: Code(s): J18.9 - Pneumonia, unspecified organism Status: Acute Assessment and Plan: This 37-year-old female presented with acute onset of cough chest congestion shortness of breath and fever. Chest imaging studies have shown bilateral infiltrates which in conjunction with the acute onset of disease, productive cough of dark and green phlegm is suggestive of community-acquired pneumonia. The patient has improved on current antibiotic regimen as she is currently on room air. Patient continues to have mild cough, no wheezing. On physical exam lungs were clear. Chest x-ray also showed near complete clearing of bilateral infiltrates. Plan: Have discontinued IV antibiotics. Okay to discharge patient home. To continue with steroid taper regimen for another week as follows. Prednisone 40 mg p.o. daily for 3 days, 30 mg p.o. daily for 2 days, 20 mg daily for 2 days, 10 mg daily for 2 days and then stop. Also to continue with Advair 250/50 inhaler twice daily, rescue albuterol inhaler prn. Patient needs to return to [facility] for follow-up in approximately 3-4 weeks. Will sign off please call with any questions. 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 Requested nebulized bronchodilator treatment last night. Continues to have mild cough no sputum production no wheezing. Remains on room air. Underwent chest x-ray earlier today. Review of Systems Review of Systems: All systems reviewed & are unremarkable except as noted in HPI and below (HPI and below) Exam Narrative: GENERAL APPEARANCE: Well developed, well nourished, alert and cooperative, and appears to be in no acute distress while on room air SKIN: Inspection of the skin reveals no rashes, ulcerations or petechiae. HEENT: Sclerae anicteric and conjunctivae pink and moist. Extraocular movements were intact and pupils were equal. The oral mucosa, hard and soft palate, tongue and posterior pharynx were normal. NECK: Supple. There was no thyroid enlargement, and no tenderness, or masses were felt. CHEST: Normal AP diameter and normal contour without any kyphoscoliosis. LUNGS: Clear lungs bilaterally, no wheezing CARDIAC: There was a regular rate and rhythm without any murmurs, gallops, rubs. ABDOMEN: Soft and nontender with normal bowel sounds. There was no organomegaly. LYMPH NODES: No lymphadenopathy was appreciated in the neck. EXTREMITIES: No cyanosis, clubbing or edema. NEUROLOGIC: Alert and oriented x 3. Normal affect. Objective Data Vital Signs Vital Signs: Vital Signs - 24 hr 05/30/23 08:50 05/30/23 13:19 05/30/23 13:24 Temperature Pulse Rate 100 91 91 Respiratory Rate 18 18 18 Blood Pressure Pulse Oximetry 96 97 Oxygen Delivery Room Air Room Air Fraction of Inspired Oxygen 21 05/30/23 13:31 05/30/23 14:00 05/30/23 19:58 Temperature 36.4 C 36.6 C Pulse Rate 95 100 100 Respiratory Rate 18 18 16 Blood Pressure 122/68 144/84 H Pulse Oximetry 98 98 Oxygen Delivery Fraction of Inspired Oxygen 05/30/23 19:05 05/30/23 19:18 05/30/23 21:00 Temperature Pulse Rate 105 H 102 H Respiratory Rate 20 20 Blood Pressure Pulse Oximetry Oxygen Delivery Room Air Fraction of Inspired Oxygen 05/31/23 05:58 05/31/23 05:58 05/30/23 19:05 Temperature 36.6 C Pulse Rate 94 101 H Respiratory Rate 16 20 Blood Pressure 1
[2023-05-31] MEDS: PANTOPRAZOLE 40 MG TABLET PO (10:28)
[2023-05-31] MEDS: ENOXAPARIN 40 MG/0.4 ML SYRINGE SUB-Q (10:28)
[2023-05-31] MEDS: FLUoxetine HCL 20 MG CAPSULE PO (10:29)
[2023-05-31] MEDS: guaiFENesin 12 HR 600 MG TABCR 1200 MG PO (10:29)
[2023-05-31] MEDS: methylPREDNISolone SOD SUCC 40 MG VIAL IV PUSH (10:30)
[2023-05-31] MEDS: ALPRAZolam (*CRX) 0.25 MG TABLET PO (10:30)
--- NOTE | 2023-05-31 12:54 | P.DS_ITS ---
DS: Admitting Diagnosis Discharge Date 05/31/2023 Admitting Diagnosis Pneumonia DS: Discharge Diagnosis Discharge Diagnosis (1) Multifocal pneumonia: Code(s): J18.9 - Pneumonia, unspecified organism Status: Acute DS: Summary Hospital Course Hospital Course: Assessment and Plan (1) Pneumonia: ?Code(s): J18.9 - Pneumonia, unspecified organism ?Status:?Acute ?Assessment and Plan: Completed abx , cultures negative Appreciate pulmonary input Bronchitis s/p methylprednisone Discharged on tapering Prednisone, 40mg daily x 3 days, 30mg daily x2 days, 20mg daily x 2 days and 10mg daily x 2 days (2) Tachycardia, resolved ?Code(s): R00.0 - Tachycardia, unspecified ?Status:?Acute ?Assessment and Plan: Monitor heart rate. CTA negative. Possibly related to nebulizer (3) Atrial septal defect: ?Code(s): Q21.10 - Atrial septal defect, unspecified ?Status:?Acute ?Assessment and Plan: pfo or asd noted on echo + bubble study cardiology evaluated and no intervention needed at this time continue outpatient follow up GERD protonix x 14 days F/u with PCP in 3-5 days F/u with pulm and cardiology as instructed Time Spent with Patient Time attestation: Total time spent providing and/or coordinating discharge services: Discharge Plan Discharge Attending physician on discharge: Malachi Burgess Consulting providers: Daniel Storey; Cheri Ramos Discharging Clinician: Malachi Burgess Anticipated Discharge Date/Time: 05/31/23 12:44 Patient Disposition: Home, Self-Care Activity: as tolerated Diet: regular Discharge Instructions: Pneumonia Patient Instructions: Antibiotic Form Stand Alone Forms: General Discharge Information Follow-up/Referrals: Mino Andujar MD [Primary Care Provider] - (In 3-5 days.) Daniel Storey MD [Physician] - (As instructed.) Discharge Medications: New prednisone 10 mg tablet 10 mg PO DAILY 9 Days Qty: 22 0RF Taper: Prednisone Taper from 50 mg;15 days 50 mg DAILY for 3 Days and 0 Hour 40 mg DAILY for 3 Days and 0 Hour 30 mg DAILY for 3 Days and 0 Hour 20 mg DAILY for 3 Days and 0 Hour 10 mg DAILY for 3 Days and 0 Hour Rx Instructions: 40mg daily x 3 days, then 30mg x2 days, then 20 mg x 2 days, then 10mg x2 day s then stop pantoprazole [Protonix] 40 mg tablet,delayed release (DR/EC) 40 mg PO HS Qty: 14 0RF Continued albuterol sulfate 90 mcg/actuation HFA aerosol inhaler 1 inh inhalation Q4H PRN (Reason: shortness of breath or wheezing) Qty: 8.5 1RF fluticasone propion-salmeterol [Advair HFA] 115-21 mcg/actuation HFA aerosol inhaler 2 puff inhalation BID Qty: 12 5RF Rx Instructions: administer with spacer fluoxetine 20 mg capsule 20 mg PO DAILY Qty: 90 0RF alprazolam 0.25 mg tablet 0.25 mg PO BID Qty: 60 3RF tramadol 50 mg tablet 50 mg PO QID PRN (Reason: Pain) Qty: 100 0RF Date of admission: 05/25/23 10:59 Primary Care Provider: Mino Andujar Admitting Provider: Ramirez Sutton Attending physician on admission: Ramirez Sutton Condition: Stable
[2023-06-01 21:58] LABS: Coccidioides Ab to F Ag (IgG) NEGATIVE; Coccidioides Ab to TP Ag (IgM) NEGATIVE
[2023-06-06 11:36] LABS: JO-1 AB <11 SI (<11); MI-2 Alpha Ab <11 SI (<11); MI-2 Beta Ab <11 SI (<11); NXP-2 AB <11 SI (<11); TIF1 Gamma Ab <11 SI (<11)
== END 2023-05-31 14:06 | disposition home or self-care (01) | DRG 139 ==
LOC: ANHED 18:06 → ANHIMU 19:59 → ANH2MED 05-25 21:42
PROVIDERS: Chiropractor; Internal Medicine Pulmonary Disease; Physician Assistant; Admitting Provider Internal Medicine; Emergency Provider Emergency Medicine; PCP Family Medicine; Visit Provider Internal Medicine
DX: J18.9 Pneumonia, unspecified organism (principal); Q21.10 Atrial septal defect, unspecified; R00.0 Tachycardia, unspecified; Z20.822 Contact with and (suspected) exposure to COVID-19; K21.9 Gastro-esophageal reflux disease without esophagitis; K50.90 Crohn's disease, unspecified, without complications; J40 Bronchitis, not specified as acute or chronic; M19.90 Unspecified osteoarthritis, unspecified site; R76.12 Nonspecific reaction to cell mediated immunity measurement of gamma interferon antigen response without active tuberculosis; Z87.891 Personal history of nicotine dependence
CPT/HCPCS: 36415; 36569; 36600; 71045; 71046; 71275; 80048; 80053; 80202; 81003; 82085; 82550; 82565; 83735; 83880; 84145; 84182; 84443; 85025; 85027; 85652; 86001; 86003; 86036; 86038; 86140; 86200; 86331; 86430; 86606; 86609; 86612; 86635; 86703; 86738; 87040; 87070; 87205; 87385; 87449; 87486; 87581; 87633; 87635; 87636; 87637; 87641; 87899; 93005; 93306; 94640; 94667; 94668; 96365; 96366; 96367; 96375; 96376; 99285; A9270; G0378; G0379; G0432; J0456; J0696; J1170; J1650; J1940; J1956; J2185; J2405; J2920; J2930; J3010; J3370; J7030; Q9967

== ENCOUNTER 2023-07-21 08:56 | Outpatient (CLI) | payer OTHER, SELFPAY ==
--- NOTE | ~2023-07-21 | CT_ITS ---
CT Scan of the Chest without Contrast: Clinical Indication: Pneumonia Technique: Contiguous sections were acquired throughout the chest without intravenous contrast. Dose reduction technique was used on this scan by utilizing automated exposure control and iterative recon struction technique. The dose-length product (DLP) was 267.14 mGy-cm. COMPARISON: 05/23/2023 Findings: There is no evidence of any significant mediastinal, hilar or axillary lymphadenopathy. The mediastin al soft tissues appear normal. There is no evidence of pleural or pericardial effusion. Stable 5 mm medial left upper lobe pulmonary nodule (axial image 42). Previously noted extensive grou ndglass pulmonary disease is otherwise completely resolved. Images through the upper abdomen reveal no abnormalities. Impression: Stable 5 mm left upper lobe pulmonary nodule, likely benign. Previously identified patchy pulmonary airspace disease is otherwise completely resolved. Reviewed, dictated and finalized at [facility]. PER REWINDER Impression: Stable 5 mm left upper lobe pulmonary nodule, likely benign. Previously identified patchy pulmonary airspace disease is otherwise completely resolved.
--- NOTE | 2023-07-21 12:21 | WPDPFTINT ---
PFT Procedure Performed PFT Procedure Performed Spirometry with Pre/Post Bronchodilator Plethysmography (Lung Vol) Diffusing Cap (DLCO) Flow Vol Loop PFT Interpretation This is a pulmonary function test with pre and post-bronchodilator spirometry, plethysmography and diffusing capacity. The test was performed and results interpreted in accordance with the 2019 and 2005 ATS/ERS Task Force guidelines respectively using the Global Lung Function Initiative-2012 reference equations. Patient demonstrated good effort and cooperation. Reproducibility criteria were met. The quality of the pre bronchodilator spirometry maneuver was Grade A and post bronchodilator spirometry maneuver was Grade A. Findings: Spirometry: The contour the inspiratory and expiratory flow tracing are normal. The pre bronchodilator FVC is 3.51 L, 86% predicted. The pre bronchodilator FEV1 is 2.95 L, 88% predicted. The pre bronchodilator FEV1: FVC ratio is 84%. The post bronchodilator FVC is 3.52 L, representing no change. The post bronchodilator FEV1 is 3.08 L, representing a 5% increase. The post bronchodilator FEV1: FVC ratio is 88%. Plethysmography: The total lung capacity is 4.84 L, 88% predicted. The functional residual capacity is 2.01 L, 66% predicted. The residual volume is 1.30 L, 76% predicted. Diffusing capacity: The diffusing capacity unadjusted for hemoglobin and carboxyhemoglobin is 19.7, 78% predicted. The diffusing capacity adjusted for alveolar volume is 4.51, 97% predicted Impression: The spirometry is normal without evidence of an obstructive abnormality. There is no significant improvement after inhaling a single dose of albuterol. The lung volumes are normal. The diffusing capacity is normal. There are no prior studies for comparison
== END 2023-07-21 08:57 | disposition home or self-care (01) ==
LOC: ANHIMG 08:57
PROVIDERS: PCP Family Medicine; Visit Provider Internal Medicine Pulmonary Disease
DX: J18.9 Pneumonia, unspecified organism (principal)
CPT/HCPCS: 71250; 94060; 94726; 94729

== ENCOUNTER 2023-12-31 09:52 | Outpatient (CLI) | payer OTHER, SELFPAY ==
--- NOTE | ~2023-12-31 | XR_ITS ---
XR knee LT 3V 12/31/2023 10:12 Indication: Left knee pain Procedure: 3 views left knee Comparison: No prior studies for comparison. Findings: There is anatomic alignment. No significant joint space narrowing. No fracture, subluxation or dislocation. No joint effusion. Impression: 1: No significant bone or joint abnormality. Reviewed, dictated and finalized at [facility]. Impression: 1: No significant bone or joint abnormality.
--- NOTE | ~2023-12-31 | XR_ITS ---
XR hip RT 2V w AP pelvis 12/31/2023 10:12 Indication: Right hip pain Procedure: AP pelvis and 2 views right hip Comparison: 07/09/2019 Findings: There is anatomic alignment. No fracture, subluxation or dislocation. No joint effusion. Pe lvic rings are intact. Impression: 1: No significant bone or joint abnormality. Reviewed, dictated and finalized at [facility]. Impression: 1: No significant bone or joint abnormality.
== END 2023-12-31 09:53 | disposition home or self-care (01) ==
LOC: ANHIMG 09:53
PROVIDERS: PCP Family Medicine; Visit Provider Family Medicine
DX: M25.551 Pain in right hip (principal); M25.562 Pain in left knee
CPT/HCPCS: 73502; 73562

== ENCOUNTER 2024-01-27 11:36 | Emergency (ER) | payer OTHER, SELFPAY ==
[2024-01-27] VITALS (14 sets, daily range): BP systolic 112–147; BP diastolic 75–113; PULSE 87–131; RESP 12–24; TEMP 36.8; O2SAT 95–99
--- NOTE | ~2024-01-27 | CT_ITS ---
EXAMINATION: CT abdomen pelvis w con DATE: 01/27/2024 13:10 INDICATION: Right lower quadrant abdominal pain, radiating to back. TECHNIQUE: Computed tomography (CT) of the abdomen and pelvis was performed with 100 CC Omnipaque 350 intravenous contrast. Automated exposure control and iterative reconstruction technique were employe d. Exam dose: 805.42 mGy-cm total exam DLP. COMPARISON: 08/24/2019 CT abdomen pelvis FINDINGS: Minimal discoid atelectasis or scarring at the base of the lingula. No consolidation at the lung bases. Normal heart size. No pericardial or pleural effusion. Small cyst of the medial segment of the left hepatic lobe. The liver, gallbladder, bile ducts, pancre as, pancreatic duct and spleen are otherwise unremarkable. Normal morphology of the adrenal glands. No renal mass lesion or urinary tract calculus or hydroureteronephrosis. The uterus, adnexal areas and urinary bladder are unremarkable. Normal caliber of the abdominal aorta. No intraperitoneal or retroperitoneal or pelvic mass lesion or adenopathy or ascites. Normal appendix. No bowel obstruction, bowel wall thickening, pneumatosis or intraperitoneal free air is detected. Small fat-containing umbilical hernia. Included skeletal structures are unremarkable. IMPRESSION: Normal appendix Reviewed, dictated and finalized at [facility]. Reviewed, dictated and finalized at [facility]. IMPRESSION: Normal appendix
--- NOTE | ~2024-01-27 | US_ITS ---
EXAMINATION: US pelvic complete DATE: 01/27/2024 15:30 INDICATION: Right lower quadrant abdominal pain. TECHNIQUE: Multiple transabdominal sonographic images of the pelvis were obtained. COMPARISON: CT abdomen and pelvis 01/27/2024 FINDINGS: The uterus measures 11.2 x 3.6 x 5.1 cm. There is no free fluid in the pelvis. The endometrial comple x measures 7 mm in thickness. The right ovary measures 4.1 x 2.4 x 2.9 cm. The left ovary measures 3. 9 x 1.9 x 2.1 cm. There is normal vascular flow in the ovaries. IMPRESSION: 1. Normal pelvis. Reviewed, dictated and finalized at [facility]. IMPRESSION: 1. Normal pelvis.
--- NOTE | 2024-01-27 12:05 | ED.ABDPAIN ---
HPI - Abdominal Pain General Chief Complaint: Abdominal Pain Stated Complaint: abd pain Time Seen by Provider: 01/27/24 11:38 History of Present Illness HPI narrative: 78-year-old female presenting to the emergency department for evaluation of lower abdominal pain. Patient states on Monday she was having some lower abdominal cramping and then the pain became more focused in her right lower quadrant. Patient does describe associated nausea. Patient has no prior history of gallbladder disease. Patient still has her appendix. Patient denies any urinary symptoms. 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 Code status: Smoking status: Former smoker Second hand tobacco smoke exposure: No Smoking end date: 08/07/16 Alcohol intake: former Substance use: never Substance use type: does not use Lack of Transportation: No Lack of Food: Never True Current Housing: I Have Housing Concerned About Future Housing: No Difficulty Paying Gas/Electric Bills: No Difficulty Paying for Meds: No Currently Unemployed: No Education: Decline to Answer Difficulty w/ Childcare or Family Care: No Additional living arrangements comments: Lives with naya and 3 children in [place]. Spiritual care concerns: No Exam Narrative: APPEARANCE: Uncomfortable appearing HEAD: normocephalic, atraumatic. EYES: PERRLA/EOMI, conjunctivae clear. NOSE: Normal no drainage EARS:TMS clear with good light reflex. THROAT: Pharynx clear, no exudate. NECK: Supple. No adenopathy, no masses. RESPIRATORY: Airway patent, respirations nonlabored. Clear to auscultation bilaterally, no rales, rhonchi, wheezing. CARDIOVASCULAR: Regular rate and rhythm without murmurs rubs or gallops. ABDOMINAL: Right lower quadrant tenderness to palpation MUSCULOSKELETAL: Moves all extremities. Strength/ROM intact, No edema, No calf tenderness. NEURO: Alert. Cranial nerves II through XII intact. SKIN: Warm, dry. Normal Color Course Course Emergency Course: Patient had a negative CT, negative ultrasound and patient was discharged to home Vital Signs Vital signs: Vital Signs Temperature 98.2 F 01/27/24 11:39 Pulse Rate 131 H 01/27/24 11:39 Respiratory Rate 20 01/27/24 11:39 Blood Pressure 147/113 H 01/27/24 11:39 Pulse Oximetry 98 01/27/24 11:39 Oxygen Delivery Room Air 01/27/24 11:39 Temperature 98.2 F 01/27/24 11:39 Pulse Rate 100 01/27/24 16:14 Respiratory
[2024-01-27] MEDS: SODIUM CHLORIDE 0.9% IV 1,000 ML 999 ML IV CONT (12:16)
[2024-01-27] MEDS: HYDROmorphone HCL INJ (*CRX) 1 MG/ML SYR 0.5 MG IV PUSH ×2 (12:16→14:19)
[2024-01-27] MEDS: ONDANSETRON INJ 4 MG/2 ML VIAL IV PUSH (12:17)
[2024-01-27 12:28] LABS: Basophils Absolute Auto 0.1 K/mm3 (0.0-0.1); Basophils Percent Auto 0.7 % (0.2-1.2); Eosinophils Absolute Auto 0.4 K/mm3 (0-0.3); Eosinophils Percent Auto 3.2 % (0-4.4); Hemoglobin 14.9 g/dL (12.0-15.0); Immature Granulocyte Absolute 0.03 K/mm3 (0.00-0.031); Immature Granulocyte Percent A 0.2 % (0-0.5); Lymphocytes Absolute Auto 3.51 K/mm3 (0.9-3.2); Lymphocytes Percent Auto 27.9 % (18.3-44.2); Mean Corpuscular HGB Conc 33.1 g/dl (32-36); Mean Corpuscular Hemoglobin 29.4 pg (26-34); Mean Corpuscular Volume 88.8 fl (80-100); Mean Platelet Volume 11.1 fl (7.4-10.4); Monocytes Absolute Auto 0.8 K/mm3 (0.1-0.6); Monocytes Percent Auto 6.2 % (2.6-8.5); Neutrophils Absolute Auto 7.8 K/mm3 (1.3-6.7); Neutrophils Percent Auto 61.8 % (45.5-73.1); Platelet Count Result 297 k/mm3 (150-375); Red Blood Count 5.07 M/mm3 (4.2-5.4); Red Cell Distribution Width 12.2 % (11.5-14.5); White Blood Count 12.6 K/mm3 (4.5-10.0)
[2024-01-27 12:38] LABS: Alanine Aminotransferase 14 U/L (6-35); Albumin Level 4.3 g/dL (3.5-5.1); Alkaline Phosphatase 56 U/L (38-126); Anion Gap 6 mmol/L (4-12); Aspartate Amino Transferase 20 U/L (14-36); Bilirubin,Total 0.3 mg/dL (0.2-1.3); Blood Urea Nitrogen 7 mg/dL (7-17); Calcium 9.2 mg/dL (8.4-10.2); Carbon Dioxide 24 mmol/L (22-30); Chloride 108 mmol/L (98-107); Estimated CRCL calculation 123 ml/min; Estimated Glomerular Filt Rate > 60; Glucose 88 mg/dL (65-110); Lipase 77 U/L (23-300); Potassium 4.1 mmol/L (3.4-5.0); Sodium 138 mmol/L (137-145)
[2024-01-27 12:39] LABS: Appearance Urine Clear (Clear); Bilirubin Urine Negative (Negative); Blood Urine Negative (Negative); Color Urine Yellow (Yellow); Glucose Urine UA Negative (Negative); Ketones Urine Negative (Negative); Leukocyte Esterase Ur Negative LEU/UL (Negative); Nitrate Urine Negative (Negative); Protein Urine Negative (Negative); Urobilinogen Urine 0.2 mg/dL (<2.0)
[2024-01-27 12:46] LABS: Add Urine Microscopic? NO; Specific Grav Ur 1.004 (1.001-1.035)
[2024-01-27] MEDS: METOCLOPRAMIDE HCL INJ 10 MG/2 ML VIAL IV PUSH (16:02)
== END 2024-01-27 16:16 | disposition home or self-care (01) ==
PROVIDERS: Emergency Provider Emergency Medicine; PCP Family Medicine
DX: R10.31 Right lower quadrant pain (principal); K50.90 Crohn's disease, unspecified, without complications; M19.90 Unspecified osteoarthritis, unspecified site; Z87.891 Personal history of nicotine dependence
CPT/HCPCS: 36415; 74177; 76856; 80053; 81003; 81025; 83605; 83690; 85025; 96361; 96374; 96375; 96376; 99284; J1170; J2405; J2765; J7030; Q9967

== ENCOUNTER 2024-06-04 02:35 | Day surgery (SDC) | payer OTHER, SELFPAY ==
[2024-04-15 12:36] VITALS: BMI 29.0
--- NOTE | 2024-04-17 10:55 | PC.NURSE ---
Pt states she has problems with drinking prep solution and causing nausea and vomiting- ok per Dr. Hernandez for Ondansetron 4mg po to be ordered for patient during prep. as needed.
--- NOTE | 2024-04-29 09:08 | SUR.PREOP ---
Patient called asking to be rescheduled due to her daughter testing positive to covid. Patient rescheduled to 06/04 at 1300.
[2024-05-22 12:35] VITALS: BMI 29.0
[2024-06-04 11:37] VITALS: BP 139/97; PULSE 89; RESP 18; TEMP 36.6; O2SAT 100
[2024-06-04 11:39] LABS: BEDSIDEPREGUCG Negative (Negative)
[2024-06-04] MEDS: LACTATED RINGERS 1,000 ML 150 ML IV CONT (11:47)
--- NOTE | 2024-06-04 11:49 | WPDANESEPPF ---
Anes - Initial Pre Proc Eval Procedure: Operation Date: 06/04/24 13:00 Proposed Procedures p Colonoscopy - Anthony Harmon MD Date/Time: 06/04/24 11:49 Surgeon: Anthony Harmon MD Pre Op Diagnosis: IBS, Fistula of intestine,Crohn's Patient Data Age: 38 Gender: F Height: 1.7 m Weight: 79.5 kg Last Vital Signs Temp 36.6 C 06/04/24 11:37 Pulse 89 06/04/24 11:37 Resp 18 06/04/24 11:37 BP 139/97 H 06/04/24 11:37 Pulse Ox 100 06/04/24 11:37 O2 Del Method Room Air 06/04/24 11:37 Allergies Allergy/AdvReac Type Severity Reaction Status Date / Time latex Allergy Unknown Itching Verified 06/04/24 11:34 adhesive tape Allergy Rash Verified 06/04/24 11:34 Home Medications Medication Instructions Recorded Confirmed Type albuterol sulfate 90 mcg/actuation 1 inh inhalation Q4H PRN shortness 10/30/23 06/04/24 Rx aerosol inhaler of breath or wheezing #8.5 grams duloxetine 60 mg capsule,delayed 60 mg PO DAILY #100 caps 02/19/24 06/04/24 Rx release duloxetine 30 mg capsule,delayed 30 mg PO DAILY #100 caps 02/22/24 06/04/24 Rx release promethazine 12.5 mg tablet 12.5 mg PO TID PRN nausea and 04/17/24 06/04/24 Rx vomiting #60 tabs tirzepatide (weight loss) 7.5 7.5 mg (0.5 mL) subcut WEEKLY 05/16/24 06/04/24 Rx mg/0.5 mL subcutaneous pen obesity BMI 31.9 #2 mL injector (Zepbound) tramadol 50 mg tablet 50 mg PO QID PRN Pain #100 tabs 05/16/24 06/04/24 Rx alprazolam 0.25 mg tablet 0.25 mg PO BID PRN Anxiety #28 tabs 05/17/24 06/04/24 Rx Laboratory Tests 06/04/24 11:35 POC Urine HCG, Qual Negative (Negative) Patient hx anesthesia problems: none Family hx anesthesia problems: none Results Review: All pre-operative results and documents have been reviewed as part of the pre-operative evaluation. 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 Code status: Smoking status: Never smoker Second hand tobacco smoke exposure: No Smoking end date: 08/07/16 Alcohol intake: current Alcohol use details: socially Substance use: never Substance use type: does not use, former substance user, marijuana, crack/cocaine, heroin, amphetamines, hallucinogens, tranquilizers, sedatives, opiates, painkillers, club/retail interior designer drugs, inhalants, IV drugs, methamphetamine, prescription drug, unknown and other Lack of Transportation: No Lack of Food: Never True Current Housing: I Have Housing Concerned About Future Housing: No Difficulty Paying Gas/Electric Bills: No Difficulty Paying for Meds: No Currently Unemployed: No Education: Decline to Answer Difficulty w/ Childcare or Family Care: No Living arrangements: with family Additional living arrangements comments: Lives with naya and 3 children in [place]. Spiritual care concerns: No Anes - Eval Final PreProcedure Day of Procedure 06/04/24 11:49 Patient weight: overweight Heart: regular rate and rhythm Lungs: clear to auscultation Airway: Mallampati scale class II Neurological: alert and oriented Last oral intake: >/= 8 hours ASA classification: II Emergent: no Anesthetic plan: proceed Anesthesia type and monitoring: general GIVS Results Review: All pre-operative results and documents have been reviewed as part of the pre-operative evaluation. Informed Consent: The patient's anesthetic plan and its attendant risks and benefits were discussed with the patient/family/POA. Questions were solicited and answers provided to the satisfaction of the patient/family/POA.
--- NOTE | 2024-06-04 12:14 | PM.HPGS ---
History of Present Illness History of Present Illness Consent: Risks, benefits, and alternatives have been discussed and questions answered. Patient agrees to proceed with procedure. 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 Had normal appearing colon, biopsy showed mild inactive colitis in cecum, ascending and rectum, normal TI. Never been treated for colitis. 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 Code status: Smoking status: Never smoker Second hand tobacco smoke exposure: No Smoking end date: 08/07/16 Alcohol intake: current Alcohol use details: socially Substance use: never Substance use type: does not use, former substance user, marijuana, crack/cocaine, heroin, amphetamines, hallucinogens, tranquilizers, sedatives, opiates, painkillers, club/instrumentation designer drugs, inhalants, IV drugs, methamphetamine, prescription drug, unknown and other Lack of Transportation: No Lack of Food: Never True Current Housing: I Have Housing Concerned About Future Housing: No Difficulty Paying Gas/Electric Bills: No Difficulty Paying for Meds: No Currently Unemployed: No Education: Decline to Answer Difficulty w/ Childcare or Family Care: No Living arrangements: with family Additional living arrangements comments: Lives with naya and 3 children in [place]. Spiritual care concerns: No Meds Home Medications and Allergies Home Medications Medication Instructions Recorded Confirmed Type albuterol sulfate 90 mcg/actuation 1 inh inhalation Q4H PRN shortness 10/30/23 06/04/24 Rx aerosol inhaler of breath or wheezing #8.5 grams duloxetine 60 mg capsule,delayed 60 mg PO DAILY #100 caps 02/19/24 06/04/24 Rx release duloxetine 30 mg capsule,delayed 30 mg PO DAILY #100 caps 02/22/24 06/04/24 Rx release promethazine 12.5 mg tablet 12.5 mg PO TID PRN nausea and 04/17/24 06/04/24 Rx vomiting #60 tabs tirzepatide (weight loss) 7.5 7.5 mg (0.5 mL) subcut WEEKLY 05/16/24 06/04/24 Rx mg/0.5 mL subcutaneous pen obesity BMI 31.9 #2 mL injector (U-NOTEpbound) tramadol 50 mg tablet 50 mg PO QID PRN Pain #100 tabs 05/16/24 06/04/24 Rx alprazolam 0.25 mg tablet 0.25 mg PO BID PRN Anxiety #28 tabs 05/17/24 06/04/24 Rx Allergies Allergy/AdvReac Type Severity Reaction Status Date / Time latex Allergy Unknown Itching Verified 06/04/24 11:34 adhesive tape Allergy Rash Verified 06/04/24 11:34 Vital Signs Vital Signs - 24 hr 06/04/24 11:37 Temperature 97.9 F Pulse Rate 89 Respiratory Rate 18 Blood Pressure 139/97 H Pulse Oximetry 100 Oxygen Delivery Room Air Exam Const: General: comfortable and no acute distress HENMT: Face/Nose/Sinus: Normal nares present Eyes: General: appearance normal, both eyes and all related structures Neck: Neck: no JVD Resp: Auscultation: clear to auscultation bilaterally Cardio: Rate: regular rate Rhythm: regular rhythm GI: Inspection: non-distended GI Palp: Yes Soft to palpation Skin: General skin exam: normal color Neuro: General: gait normal Speech: normal speech Extrem: General: normal to inspection Psych: Mental Status: mental status grossly normal Assessment and Plan Assessment and plan (1) IBS (irritable bowel syndrome): Code(s): K58.9 - Irritable bowel syndrome, unspecified Status: Acute Assessment and Plan: 2019 with normal appearing colon but bx mild inactive colitis colonoscopy with colon bx
[2024-06-04 12:28] VITALS: BP 123/83; PULSE 88; RESP 23; O2SAT 100
[2024-06-04 12:38] VITALS: BP 143/94; PULSE 75; RESP 20; O2SAT 100
[2024-06-04 12:48] VITALS: BP 139/95; PULSE 77; RESP 21; O2SAT 100
== END 2024-06-04 12:55 | disposition home or self-care (01) ==
PROVIDERS: Anesthesiology; PCP Family Medicine; Referring Provider Family Medicine; Visit Provider Internal Medicine Gastroenterology
PROC: 0DJD8ZZ Inspection of Lower Intestinal Tract, Via Natural or Artificial Opening Endoscopic (ICD-10-PCS; CPT 45378; principal; 2024-06-04 13:00)
DX: K58.9 Irritable bowel syndrome, unspecified (principal); F41.9 Anxiety disorder, unspecified; F32.A Depression, unspecified; Z79.51 Long term (current) use of inhaled steroids; Z79.85 Long-term (current) use of injectable non-insulin antidiabetic drugs; Z79.891 Long term (current) use of opiate analgesic; Z98.890 Other specified postprocedural states; Z87.19 Personal history of other diseases of the digestive system; Z80.1 Family history of malignant neoplasm of trachea, bronchus and lung; Z82.49 Family history of ischemic heart disease and other diseases of the circulatory system
CPT/HCPCS: 45380; 88305; J2704; J7120

== ENCOUNTER 2024-06-05 03:22 | Observation (INO) | payer OTHER, SELFPAY ==
[2024-06-05] VITALS (9 sets, daily range): BP systolic 91–126; BP diastolic 70–97; PULSE 80–127; RESP 12–23; TEMP 36.2–37; O2SAT 96–100; BMI 29.9
--- NOTE | ~2024-06-05 | CT_ITS ---
CT of the Abdomen and Pelvis: Indication: Abdominal pain, status post colonoscopy Technique: 2.5 mm axial scans were obtained through the abdomen and pelvis following intravenous adm inistration of 100 cc of Omnipaque 350. Dose reduction technique was used on this scan by utilizing a utomated exposure control and iterative reconstruction technique. The dose-length product (DLP) was 8 76.81 mGy-cm. COMPARISON: 01/27/2024 Findings: Scans through the lung bases are unremarkable. The liver, spleen, pancreas, gallbladder, adrenals and kidneys are within normal limits. No evidence of aortic aneurysm. No lymphadenopathy. There is mild wall thickening and pericolonic inflammatory change of the ascending colon. No free air evident. No bowel obstruction. Fluid-filled large bowel is likely related to recent colonoscopy. Images through the pelvis were performed. Urinary bladder unremarkable. No pelvic mass seen. No ascit es. Impression: Findings suggestive of colitis involving the ascending colon. No bowel obstruction or perforation jaleesa dent. Reviewed, dictated and finalized at location . Impression: Findings suggestive of colitis involving the ascending colon. No bowel obstruct ion or perforation evident.
[2024-06-05 03:50] LABS: Basophils Absolute Auto 0.1 K/mm3 (0.0-0.1); Basophils Percent Auto 0.4 % (0.2-1.2); Eosinophils Absolute Auto 0.3 K/mm3 (0-0.3); Eosinophils Percent Auto 1.2 % (0-4.4); Hematocrit 43.5 % (37.0-47.0); Hemoglobin 14.8 g/dL (12.0-15.0); Immature Granulocyte Absolute 0.12 K/mm3 (0.00-0.031); Immature Granulocyte Percent A 0.5 % (0-0.5); Lymphocytes Absolute Auto 3.07 K/mm3 (0.9-3.2); Lymphocytes Percent Auto 11.7 % (18.3-44.2); Mean Platelet Volume 11.1 fl (7.4-10.4); Monocytes Absolute Auto 1.3 K/mm3 (0.1-0.6); Monocytes Percent Auto 4.9 % (2.6-8.5); Neutrophils Absolute Auto 21.3 K/mm3 (1.3-6.7); Neutrophils Percent Auto 81.3 % (45.5-73.1); Platelet Count Result 323 k/mm3 (150-375); Red Blood Count 4.78 M/mm3 (4.2-5.4); Red Cell Distribution Width 12.9 % (11.5-14.5); White Blood Count 26.2 K/mm3 (4.5-10.0)
[2024-06-05 04:01] LABS: Alanine Aminotransferase 23 U/L (6-35); Alkaline Phosphatase 64 U/L (38-126); Anion Gap 9 mmol/L (4-12); Aspartate Amino Transferase 26 U/L (14-36); Bilirubin,Total 0.6 mg/dL (0.2-1.3); Blood Urea Nitrogen 6 mg/dL (7-17); Calcium 8.6 mg/dL (8.4-10.2); Carbon Dioxide 22 mmol/L (22-30); Chloride 104 mmol/L (98-107); Estimated CRCL calculation 145 ml/min; Estimated Glomerular Filt Rate > 60; Glucose 130 mg/dL (65-110); Lipase 242 U/L (23-300); Potassium 3.7 mmol/L (3.4-5.0); Sodium 135 mmol/L (137-145)
--- NOTE | 2024-06-05 04:10 | PC.NURSE ---
pt to ct via stretcher
[2024-06-05] MEDS: SODIUM CHLORIDE 0.9% IV 1,000 ML 999 ML IV CONT ×2 (04:14→05:33)
[2024-06-05] MEDS: MORPHINE SULFATE (*CRX) 4 MG/ML INJ IV PUSH (04:14)
[2024-06-05] MEDS: ONDANSETRON INJ 4 MG/2 ML VIAL IV PUSH ×3 (04:14→13:35)
[2024-06-05 04:21] LABS: BEDSIDEPREGUCG Negative (Negative)
--- NOTE | 2024-06-05 04:36 | ED_ITS ---
HPI - General Adult General Chief complaint: Abdominal Pain Stated complaint: fever, abd pain, recent colonoscopy Time Seen by Provider: 06/05/24 03:57 History of Present Illness HPI narrative: Patient 38-year-old female who presents emergency department with chief complaint of abdominal pain. Patient reports that she had a colonoscopy today by Dr. Hernandez the patient reports that since the procedure she has been having abdominal pain. The patient states this evening the pain got worse and decided to come to the emergency department. Related Data Allergies Allergy/AdvReac Type Severity Reaction Status Date / Time latex Allergy Unknown Itching Verified 06/04/24 11:34 adhesive tape Allergy Rash Verified 06/04/24 11:34 amoxicillin [From Amoxil] Allergy Itching Verified 06/05/24 04:15 Review of Systems Review of Systems: A 10 system review of systems was completed on the patient and is negative except for what is stated in the HPI. Nursing and ancillary documentation was reviewed. 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 Code status: Smoking status: Never smoker Second hand tobacco smoke exposure: No Smoking end date: 08/07/16 Alcohol intake: current Alcohol use details: socially Substance use: never Substance use type: does not use, former substance user, marijuana, crack/cocaine, heroin, amphetamines, hallucinogens, tranquilizers, sedatives, opiates, painkillers, club/commercial green building designer drugs, inhalants, IV drugs, methamphetamine, prescription drug, unknown and other Lack of Transportation: No Lack of Food: Never True Current Housing: I Have Housing Concerned About Future Housing: No Difficulty Paying Gas/Electric Bills: No Difficulty Paying for Meds: No Currently Unemployed: No Education: Decline to Answer Difficulty w/ Childcare or Family Care: No Living arrangements: with family Additional living arrangements comments: Lives with naya and 3 children in [place]. Spiritual care concerns: No Exam Narrative: GENERAL: Well-appearing, well-nourished, and in mild acute pain distress. HEAD: Normocephalic, atraumatic. EYES: PERRLA and EOMI. ENT: Nares clear, no rhinorrhea or epistaxis. Mucous membranes moist. NECK: Supple. CHEST: Clear to auscultation. No respiratory distress. HEART: Regular rate and rhythm. No murmur heard. Normal peripheral pulses. ABDOMEN: Soft, diffusely tender to palpation, nondistended, normal active bowel sounds. EXTREMITIES: Normal range of motion. No edema. SKIN: Warm, dry, no rash. NEURO: No focal deficits. Alert and oriented x3. PSYCH: Normal mood and affect. Course Vital Signs Vital signs: Vital Signs Temperature 36.9 C 06/05/24 03:27 Pulse Rate 127 H 06/05/24 03:27 Respiratory Rate 23 H 06/05/24 03:27 Blood Pressure 124/97 H 06/05/24 03:27 Pulse Oximetry 98 06/05/24 03:27 Oxygen Delivery Room Air 06/05/24 03:27 Temperature 36.9 C 06/05/24 03:27 Pulse Rate 109 H 06/05/24 04:17 Respiratory Rate 20 06/05/24 04:17 Blood Pressure 111/70 06/05/24 04:17 Pulse Oximetry 98 06/05/24 04:17 Oxygen Delivery Room Air 06/05/24 03:27 Medical Decision Making [facility] Narrative Medical decision making narrative: Differential diagnosis includes intestinal perforation, colitis, diverticulitis, intra-abdominal infection Laboratory studies showed a white count of 20 6.2 electrolytes were within normal limits CT scan of the abdomen pelvis showed evidence of colitis The patient started on ceftriaxone and Flagyl the case will be discussed with the hospitalist for admission. Vital Signs Vital Signs: Vital Signs Temperature 36.9 C 06/05/24 03:27 Pulse Rate 127 H 06/05/24 03:27 Respiratory Rate 23 H 06/05/24 03:27 Blood Pressure 124/97 H 06/05/24 03:27 Pulse Oximetry 98 06/05/24 03:27 Oxygen Delivery Room Air 06/05/24 03:27 Temperature 36.9 C 06/05/24 03:27 Pulse Rate 109 H 06/05/24 04:17 Respiratory Rate 20 06/05/24 04:17 Blood Pressure 111/70 06/05/24 04:17 Pulse Oximetry 98 06/05/24 04:17 Oxygen Delivery Room Air 06/05/24 03:27 Lab Data 06/05/24 03:44 06/05/24 03:44 Labs: Lab Results 06/05/24 06/05/24 06/05/24 Range/Units 03:44 04:18 05:34 WBC 26.2 H (4.5-10.0) K/mm3 RBC 4.78 (4.2-5.4) M/mm3 Hgb 14.8 (12.0-15.0) g/dL Hct 43.5 (37.0-47.0) % MCV 91.0 (80-100) fl MCH 31.0 (26-34) pg MCHC 34.0 (32-36) g/dl RDW 12.9 (11.5-14.5) % Plt Count 323 (150-375) k/mm3 MPV 11.1 H (7.4-10.4) fl Immature Gran % (Auto) 0.5 (0-0.5) % Neut % (Auto) 81.3 H (45.5-73.1) % Lymph % (Auto) 11.7 L (18.3-44.2) % [place] % (Auto) 4.9 (2.6-8.5) % Eos % (Auto) 1.2 (0-4.4) % Baso % (Auto) 0.4 (0.2-1.2) % Lymph # (Auto) 3.07 (0.9-3.2) K/mm3 [place] # (Auto) 1.3 H (0.1-0.6) K/mm3 Eos # (Auto) 0.3 (0-0.3) K/mm3 Baso # (Auto) 0.1 (0.0-0.1) K/mm3 Abs Immat Gran (auto) 0.12 H (0.00-0.031) K/mm3 Absolute Neuts (auto) 21.3 H (1.3-6.7) K/mm3 Absolute Nucleated RBC 0.000 (0.0-0.012) K/mm3 Nucleated RBC % 0.0 (0.0-0.2) % Sodium 135 L (137-145) mmol/L Potassium 3.7 (3.4-5.0) mmol/L Chloride 104 (98-107) mmol/L Carbon Dioxide 22 (22-30) mmol/L Anion Gap 9 (4-12) mmol/L BUN 6 L (7-17) mg/dL Creatinine 0.50 L (0.7-1.0) mg/dL Estim Creat Clear Calc 145 ml/min Estimated GFR > 60 (59 - ) Glucose 130 H (65-110) mg/dL Calcium 8.6 (8.4-10.2) mg/dL Total Bilirubin 0.6 (0.2-1.3) mg/dL AST 26 (14-36) U/L ALT 23 (6-35) U/L Alkaline Phosphatase 64 (38-126) U/L Total Protein 7.0 (6.3-8.2) g/dL Albumin 4.0 (3.5-5.1) g/dL Lipase 242 (23-300) U/L Urine Color Pending Urine Appearance Pending Urine pH Pending Ur Specific [place] Pending Urine Protein Pending Urine Glucose (UA) Pending Urine Ketones Pending Ur Blood (Man) Pending Urine Nitrate Pending Urine Bilirubin Pending Urine Urobilinogen Pending Leukocyte Esterase Rfl Pending POC Urine HCG, Qual Negative (Negative) Discharge Plan Discharge Clinical Impression: Colitis, Leukocytosis Patient Disposition: Still a Patient Condition: Stable Instructions: Antibiotic Form Prescriptions: No Action duloxetine 60 mg capsule,delayed release(DR/EC) 60 mg PO DAILY Qty: 100 0RF albuterol sulfate 90 mcg/actuation HFA aerosol inhaler 1 inh inhalation Q4H PRN (Reason: shortness of breath or wheezing) Qty: 8.5 1RF duloxetine 30 mg capsule,delayed release(DR/EC) 30 mg PO DAILY Qty: 100 0RF Rx Instructions: take with 60 mg capsule promethazine 12.5 mg tablet 12.5 mg PO TID PRN (Reason: nausea and vomiting) Qty: 60 0RF Zepbound 7.5 mg/0.5 mL pen injector 7.5 mg subcut WEEKLY Qty: 2 0RF Rx Instructions: On sundays tramadol 50 mg tablet 50 mg PO QID PRN (Reason: Pain) Qty: 100 0RF alprazolam 0.25 mg tablet 0.25 mg PO BID PRN (Reason: Anxiety) Qty: 28 0RF Follow-up/Referrals: Mino Andujar MD [Primary Care Provider] -
[2024-06-05] MEDS: HYDROmorphone HCL INJ (*CRX) 1 MG/ML SYR IV PUSH ×8 (05:33→22:03)
[2024-06-05 06:16] LABS: Bacteria Urine Rare /hpf; Need Manual Microscopic Reviewed; Non Pathogenic Casts 0-2; RBC Urine 21-50 /hpf (0-2); Squamous Epithelial Cell Urine Occasional /hpf (Few); WBC Urine 0-5 /hpf (0-3)
[2024-06-05 06:18] LABS: Add Urine Microscopic? YES; Appearance Urine Cloudy (Clear); Bilirubin Urine Negative (Negative); Blood Urine 3+ (Negative); Glucose Urine UA Negative (Negative); Ketones Urine Negative (Negative); Leukocyte Esterase Ur Trace LEU/UL (Negative); Nitrate Urine Negative (Negative); Protein Urine Trace mg/dL (Negative); Specific Grav Ur 1.014 (1.001-1.035); Urobilinogen Urine 0.2 mg/dL (<2.0); pH Urine 6.5 (5.0-9.0)
[2024-06-05 06:20] LABS: Color Urine Other (Yellow)
[2024-06-05] MEDS: metroNIDAZOLE 500 MG/ISO 100ML 500 MG/100 ML BAG 100 MG IVPB ×3 (06:39→21:11)
--- NOTE | 2024-06-05 07:38 | PC.NURSE ---
Patient states she had a colonoscopy on 06/04/24; multiple loose stools believed to be residual from bowel prep. C/O abdominal pain 01/14, constant pain. Patient ambulated to independently.
--- NOTE | 2024-06-05 07:55 | PC.NURSE ---
This patient, Jennifer Ivan, was admitted to [facility] Surg Room 301-01. Patient/family oriented to hospital policies and general routines including ID bracelet, bed and alarms, visiting hours, pain management, procedures, bathroom and other care routines, personal items, smoking policy, room service/diet, and visiting hours. Information on how to activate the Rapid Response Team has been discussed. Patient/Family are encouraged to report perceived risks to care and to ask questions if they do not understand what they are told or what they should do.
--- NOTE | 2024-06-05 07:58 | ADMGEN ---
This patient, Jennifer Ivan, was admitted to [facility] Surg Room 301-01. Patient/family oriented to hospital policies and general routines including ID bracelet, bed and alarms, visiting hours, pain management, procedures, bathroom and other care routines, personal items, smoking policy, room service/diet, and visiting hours. Information on how to activate the Rapid Response Team has been discussed. Patient/Family are encouraged to report perceived risks to care and to ask questions if they do not understand what they are told or what they should do.
[2024-06-05] MEDS: SODIUM CHLORIDE 0.9% IV 1,000 ML 125 ML IV CONT (08:02)
--- NOTE | 2024-06-05 11:43 | PM.IMHP ---
H&P: HPI History of Present Illness Date/Time: 06/05/24 11:43 Chief Complaint: Abd pain Narrative: Currently with family present history anxiety, Crohn's disease depression who presented to the ER accompanied by pain clean colonoscopy. Patient reported she has been of diarrhea the past to use, 2-5 bowel movements a day, eventually had a colonoscopy yesterday and about 12:00 p.m.. Later in the day she started having abdominal pain mostly right lower lung region described as sharp, worsened to 10/10 with fever 102.4 which prompted presented to the ER for proper eval and care. Denies any chest pain, SOB, vomiting, dysuria, focal symptoms no lightheadedness or passing out. Patient reported that she still has diarrhea from the bowel prep for colonoscopy. ER evaluation notable for vital signs stable within normal limits, labs notable for WBC 26.2, CT abdomen and pelvis showed colitis involving the ascending colon. Patient was on antibiotics prior to admission. Review of Systems Review of Systems: All other systems reviewed and negative except as noted in the history above. 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) Surgical History Surgical History History of colonoscopy with polypectomy History of loop electrical excision procedure (LEEP) History of wisdom tooth extraction Family History Family History (Updated 06/05/24 @ 07:28 by Blanka Oreilly RN) Father Gastroparesis Diabetes mellitus Arthritis Patient's father is in good health Family history of throat cancer Diverticulitis Mother Arthritis Fibromyalgia Patient's mother is in good health Grandparent Rheumatoid arthritis Diabetes mellitus Arthritis Colitis Heart disease Parkinsons Other Cerebrovascular accident Social History Social History Social History: Surrogate medical decision maker: Iliana Ivan, mother. Code status: Smoking status: Former smoker Second hand tobacco smoke exposure: No Smoking end date: 08/07/16 Additional smoking assessment comments: social smoker only Alcohol intake: current Alcohol use details: socially Substance use: never Substance use type: other Other substance usage details: CBD on rare occasion for joint pain Do You Feel Safe in your Home?: Yes Lack of Transportation: No Lack of Food: Never True Current Housing: I Have Housing Concerned About Future Housing: No Difficulty Paying Gas/Electric Bills: No Difficulty Paying for Meds: No Currently Unemployed: No Education: Associate Degree Difficulty w/ Childcare or Family Care: No Living arrangements: with family Additional living arrangements comments: Lives with naya and 3 children in [place]. Spiritual care concerns: No Meds Home Medications and Allergies Home Medications Medication Instructions Recorded Confirmed Type albuterol sulfate 90 mcg/actuation 1 inh inhalation Q4H PRN shortness 10/30/23 06/05/24 Rx aerosol inhaler of breath or wheezing #8.5 grams duloxetine 60 mg capsule,delayed 60 mg PO DAILY #100 caps 02/19/24 06/05/24 Rx release promethazine 12.5 mg tablet 12.5 mg PO TID PRN nausea and 04/17/24 06/05/24 Rx vomiting #60 tabs tirzepatide (weight loss) 7.5 7.5 mg (0.5 mL) subcut WEEKLY 05/16/24 06/05/24 Rx mg/0.5 mL subcutaneous pen obesity BMI 31.9 #2 mL injector (Zepbound) tramadol 50 mg tablet 50 mg PO QID PRN Pain #100 tabs 05/16/24 06/05/24 Rx alprazolam 0.25 mg tablet 0.25 mg PO BID PRN Anxiety #28 tabs 05/17/24 06/05/24 Rx cetirizine 10 mg tablet (Zyrtec) 10 mg PO DAILY PRN allergies 06/05/24 06/05/24 History cholecalciferol (vitamin D3) 125 125 mcg PO WEEKLY 06/05/24 06/05/24 History mcg (5,000 unit) capsule duloxetine 30 mg capsule,delayed 30 mg PO DAILY 06/05/24 06/05/24 History release Allergies Allergy/AdvReac Type Severity Reaction Status Date / Time latex Allergy Unknown Itching Verified 06/05/24 06:54 adhesive tape Allergy Rash Verified 06/05/24 06:54 amoxicillin [From Amoxil] Allergy Itching Verified 06/05/24 06:54 Beef Containing Products AdvReac Severe Vomiting Verified 06/05/24 08:05 Vital Signs Vital Signs - 24 hr 06/05/24 03:27 06/05/24 04:17 06/05/24 07:12 Temperature 98.5 F 97.9 F Pulse Rate 127 H 109 H 80 Respiratory Rate 23 H 20 14 Blood Pressure 124/97 H 111/70 91/70 L Pulse Oximetry 98 98 100 Oxygen Delivery Room Air 06/05/24 07:45 06/05/24 07:55 06/05/24 08:10 Temperature 97.6 F 98.6 F 98.3 F Pulse Rate 82 94 87 Respiratory Rate 16 18 18 Blood Pressure 93/76 L 113/72 110/74 Pulse Oximetry 100 97 99 Oxygen Delivery 06/05/24 08:00 06/05/24 09:17 Temperature Pulse Rate Respiratory Rate Blood Pressure Pulse Oximetry 96 Oxygen Delivery Room Air Room Air Exam Narrative: General: alert and comfortable Eyes: EOMI, PERRLA ENNT External ears normal, Neck is supple, no masses, Respiratory systems: Clear to auscultation Cardiovascular S1, S2, normal rhythm, no murmur, rub, or gallop; no thrill or palpable murmurs on palpation. Gastrointestinal: soft, RLQ tenderness, and non-distended abdomen with no masses; BS present Skin: no rash, lesions, ulcerations, subcutaneous nodules or induration Musculoskeletal: no abnormality and no tenderness, normal ROM Neurologic: Alert and oriented x3, non focal Mental Status Exam: normal affect H&P: Results Labs Labs: Short CBC 06/05/24 Range/Units 03:44 WBC 26.2 H (4.5-10.0) K/mm3 Hgb 14.8 (12.0-15.0) g/dL Hct 43.5 (37.0-47.0) % Plt Count 323 (150-375) k/mm3 BMP 06/05/24 03:44 Sodium 135 L Potassium 3.7 Chloride 104 Carbon Dioxide 22 BUN 6 L Creatinine 0.50 L Glucose 130 H Calcium 8.6 Liver Function 06/05/24 Range/Units 03:44 Total Bilirubin 0.6 (0.2-1.3) mg/dL AST 26 (14-36) U/L ALT 23 (6-35) U/L Alkaline Phosphatase 64 (38-126) U/L Albumin 4.0 (3.5-5.1) g/dL Urine 10/30/24 Range/Units 05:34 Urine Color Other (Yellow) Urine Appearance Cloudy H (Clear) Urine pH 6.5 (5.0-9.0) Ur Specific [place] 1.014 (1.001-1.035) Urine Protein Trace (Negative) mg/dL Urine Glucose (UA) Negative (Negative) mg/dL Assessment and Plan Assessment and plan (1) Colitis: Code(s): K52.9 - Noninfective gastroenteritis and colitis, unspecified Status: Acute Plan Colitis Patient presented with abdominal pain and fever Status post colonoscopy on the same day. Continue Rocephin and Flagyl, p.r.n. pain control. Monitor blood cultures Gentle rehydration, advance diet as tolerated. History of inflammatory bowel disease Colonoscopy report from yesterday did not show any inflammatory changes However patient follow-up with GI for pathology results. Depression anxiety Continue medications. DVT prophylaxis subacute Lovenox Patient is full code Surrogate decision maker is her mother [facility] Advance Care Plan I have confirmed that the patient's Advanced Care Plan is present, code status is documented, or surrogate decision maker is listed in patient medical record.: Yes Medication Reconciliation I have utilized all available resources to obtain, update and review the patients current medications (includes all prescriptions, OTC, herbals, cannabis, and nutritional supplements).: Yes
[2024-06-05] MEDS: DULoxetine HCL 30 MG CAPSULE.DR PO (13:35)
[2024-06-05] MEDS: LORATADINE 10 MG TABLET PO (13:35)
[2024-06-05] MEDS: DULoxetine HCL 60 MG CAPSULE.DR PO (13:35)
--- NOTE | 2024-06-05 14:06 | WPDGICN ---
Assessment and Plan Assessment and plan (1) Colitis: Code(s): K52.9 - Noninfective gastroenteritis and colitis, unspecified Status: Acute Assessment and Plan: colonoscopy showed normal colon mucosa and biopsies also normal without colitis I do not think that she has h/o Crohn's colitis this time probably after biopsy of colon mucosa that caused localized inflammation iv antibiotics, pain management diet as tolerated (2) Leukocytosis: Code(s): D72.829 - Elevated white blood cell count, unspecified Status: Acute Assessment and Plan: on abx (3) IBS (irritable bowel syndrome): Code(s): K58.9 - Irritable bowel syndrome, unspecified Status: Acute (4) Nausea: Code(s): R11.0 - Nausea Status: Acute GI Consult Note Consult date/time: 06/05/24 14:06 Reason for consult: colitis post colonoscopy HPI: Jennifer Ivan is a 38 year old female who came yesterday for outpatient colonoscopy because intermittent abdominal pain for years but worse after had her daughter about 2 years ago, normally notice that pain worse after eating certain meals including meats. She had colonoscopies and last time was 2018, at that time had perianal fistula with seton in place. Had normal appearing colon, biopsy showed mild inactive colitis in cecum, ascending and rectum, normal TI. Never been treated for colitis. Colonoscopy yesterday normal without colitis, even random biopsies were normal. She went home and developed severe pain in right lower abdomen, also nausea and had fever. She came to ER, CT scan showed colitis in ascending colon, no perforation, also leukocytosis. Admitted to hospital and given iv abx. Review of Systems Constitutional: Constitutional: Reports chills Eyes: Eyes: Denies blurry vision ENT: Reports Normal hearing present Cardiovascular: Cardiovascular: Denies chest pain Respiratory: Respiratory: Denies cough Gastrointestinal: Gastrointestinal: Reports abdominal pain and Reports nausea Genitourinary: Genitourinary: Denies hematuria Musculoskeletal: Musculoskeletal: Denies neck pain Integumentary/Breasts: Skin/Breast: Denies rash Neurologic: Denies Abnormal speech present Psychiatric: Psychiatric: Denies behavioral changes COUNTS INCLUDE 234 BEDS AT THE [facility] Past Medical History Medical History (Updated 06/05/24 @ 14:14 by Anthony Harmno MD) Anxiety Bronchitis Colitis Colonic fistula Crohn's disease Depression Inflammatory arthritis Irritable bowel syndrome Latex allergy Nausea 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) Surgical History Surgical History History of colonoscopy with polypectomy History of loop electrical excision procedure (LEEP) History of wisdom tooth extraction Family History Family History (Updated 06/05/24 @ 07:28 by Blanka Oreilly RN) Father Gastroparesis Diabetes mellitus Arthritis Patient's father is in good health Family history of throat cancer Diverticulitis Mother Arthritis Fibromyalgia Patient's mother is in good health Grandparent Rheumatoid arthritis Diabetes mellitus Arthritis Colitis Heart disease Parkinsons Other Cerebrovascular accident Social History Social History Social History: Surrogate medical decision maker: Iliana Ivan, mother. Code status: Smoking status: Former smoker Second hand tobacco smoke exposure: No Smoking end date: 08/07/16 Additional smoking assessment comments: social smoker only Alcohol intake: current Alcohol use details: socially Substance use: never Substance use type: other Other substance usage details: CBD on rare occasion for joint pain Do You Feel Safe in your Home?: Yes Lack of Transportation: No Lack of Food: Never True Current Housing: I Have Housing Concerned About Future Housing: No Difficulty Paying Gas/Electric Bills: No Difficulty Paying for Meds: No Currently Unemployed: No Education: Associate Degree Difficulty w/ Childcare or Family Care: No Living arrangements: with family Additional living arrangements comments: Lives with [facility] and 3 children in [place]. Spiritual care concerns: No Meds Home Medications and Allergies Home Medications Medication Instructions Recorded Confirmed Type albuterol sulfate 90 mcg/actuation 1 inh inhalation Q4H PRN shortness 10/30/23 06/05/24 Rx aerosol inhaler of breath or wheezing #8.5 grams duloxetine 60 mg capsule,delayed 60 mg PO DAILY #100 caps 02/19/24 06/05/24 Rx release promethazine 12.5 mg tablet 12.5 mg PO TID PRN nausea and 04/17/24 06/05/24 Rx vomiting #60 tabs tirzepatide (weight loss) 7.5 7.5 mg (0.5 mL) subcut WEEKLY 05/16/24 06/05/24 Rx mg/0.5 mL subcutaneous pen obesity BMI 31.9 #2 mL injector (Zepbound) tramadol 50 mg tablet 50 mg PO QID PRN Pain #100 tabs 05/16/24 06/05/24 Rx alprazolam 0.25 mg tablet 0.25 mg PO BID PRN Anxiety #28 tabs 05/17/24 06/05/24 Rx cetirizine 10 mg tablet (Zyrtec) 10 mg PO DAILY PRN allergies 06/05/24 06/05/24 History cholecalciferol (vitamin D3) 125 125 mcg PO WEEKLY 06/05/24 06/05/24 History mcg (5,000 unit) capsule duloxetine 30 mg capsule,delayed 30 mg PO DAILY 06/05/24 06/05/24 History release Allergies Allergy/AdvReac Type Severity Reaction Status Date / Time latex Allergy Unknown Itching Verified 06/05/24 06:54 adhesive tape Allergy Rash Verified 06/05/24 06:54 amoxicillin [From Amoxil] Allergy Itching Verified 06/05/24 06:54 Beef Containing Products AdvReac Severe Vomiting Verified 06/05/24 08:05 Vital Signs Vital Signs - 24 hr 06/05/24 03:27 06/05/24 04:17 06/05/24 07:12 Temperature 98.5 F 97.9 F Pulse Rate 127 H 109 H 80 Respiratory Rate 23 H 20 14 Blood Pressure 124/97 H 111/70 91/70 L Pulse Oximetry 98 98 100 Oxygen Delivery Room Air 06/05/24 07:45 06/05/24 07:55 06/05/24 08:10 Temperature 97.6 F 98.6 F 98.3 F Pulse Rate 82 94 87 Respiratory Rate 16 18 18 Blood Pressure 93/76 L 113/72 110/74 Pulse Oximetry 100 97 99 Oxygen Delivery 06/05/24 08:00 06/05/24 09:17 Temperature Pulse Rate Respiratory Rate Blood Pressure Pulse Oximetry 96 Oxygen Delivery Room Air Room Air Exam Const: General: comfortable and no acute distress HENMT: Face/Nose/Sinus: Normal nares present Eyes: General: appearance normal, both eyes and all related structures Neck: Neck: supple Resp: Auscultation: clear to auscultation bilaterally Cardio: Rate: regular rate Rhythm: regular rhythm GI: Inspection: non-distended GI Palp: Yes Soft to palpation and Yes Tenderness to palpation present (GI) (rlq pain, moderate tenderness with guarding but no rebound) Auscultation: normal bowel sounds Skin: General skin exam: normal color Neuro: Speech: normal speech Motor exam (neuro): 5/5 motor strength present throughout Extrem: General: normal to inspection Psych: Mental Status: mental status grossly normal Results Labs 06/05/24 03:44 06/05/24 03:44 Labs: Short CBC 06/05/24 Range/Units 03:44 WBC 26.2 H (4.5-10.0) K/mm3 Hgb 14.8 (12.0-15.0) g/dL Hct 43.5 (37.0-47.0) % Plt Count 323 (150-375) k/mm3 BMP 06/05/24 03:44 Sodium 135 L Potassium 3.7 Chloride 104 Carbon Dioxide 22 BUN 6 L Creatinine 0.50 L Glucose 130 H Calcium 8.6 Liver Function 06/05/24 Range/Units 03:44 Total Bilirubin 0.6 (0.2-1.3) mg/dL AST 26 (14-36) U/L ALT 23 (6-35) U/L Alkaline Phosphatase 64 (38-126) U/L Albumin 4.0 (3.5-5.1) g/dL Urine 06/05/24 Range/Units 05:34 Urine Color Other (Yellow) Urine Appearance Cloudy H (Clear) Urine pH 6.5 (5.0-9.0) Ur Specific [place] 1.014 (1.001-1.035) Urine Protein Trace (Negative) mg/dL Urine Glucose (UA) Negative (Negative) mg/dL
[2024-06-05] MEDS: FAMOTIDINE 20 MG TABLET PO (21:10)
[2024-06-05] MEDS: diphenhydrAMINE HCl CAP 25 MG CAPSULE PO (21:10)
[2024-06-06] MEDS: SODIUM CHLORIDE 0.9% IV 1,000 ML 75 ML IV CONT (00:08)
[2024-06-06] MEDS: HYDROmorphone HCL INJ (*CRX) 1 MG/ML SYR IV PUSH ×6 (00:11→11:00)
[2024-06-06] MEDS: ONDANSETRON INJ 4 MG/2 ML VIAL IV PUSH ×2 (00:11→09:04)
[2024-06-06 06:00] VITALS: BP 131/89; PULSE 92; RESP 14; TEMP 36.4; O2SAT 98
[2024-06-06] MEDS: metroNIDAZOLE 500 MG/ISO 100ML 500 MG/100 ML BAG 100 MG IVPB (06:05)
[2024-06-06 06:58] LABS: Basophils Absolute Auto 0.1 K/mm3 (0.0-0.1); Basophils Percent Auto 0.7 % (0.2-1.2); Eosinophils Absolute Auto 0.5 K/mm3 (0-0.3); Eosinophils Percent Auto 4.5 % (0-4.4); Hematocrit 38.4 % (37.0-47.0); Hemoglobin 12.3 g/dL (12.0-15.0); Immature Granulocyte Absolute 0.03 K/mm3 (0.00-0.031); Immature Granulocyte Percent A 0.3 % (0-0.5); Lymphocytes Absolute Auto 3.75 K/mm3 (0.9-3.2); Lymphocytes Percent Auto 33.5 % (18.3-44.2); Mean Corpuscular Hemoglobin 30.4 pg (26-34); Mean Platelet Volume 11.6 fl (7.4-10.4); Monocytes Absolute Auto 0.7 K/mm3 (0.1-0.6); Monocytes Percent Auto 6.3 % (2.6-8.5); Neutrophils Absolute Auto 6.1 K/mm3 (1.3-6.7); Neutrophils Percent Auto 54.7 % (45.5-73.1); Platelet Count Result 263 k/mm3 (150-375); Red Blood Count 4.04 M/mm3 (4.2-5.4); White Blood Count 11.2 K/mm3 (4.5-10.0)
[2024-06-06 07:13] LABS: Alanine Aminotransferase 17 U/L (6-35); Albumin Level 3.3 g/dL (3.5-5.1); Alkaline Phosphatase 52 U/L (38-126); Anion Gap 4 mmol/L (4-12); Aspartate Amino Transferase 21 U/L (14-36); Bilirubin,Total 0.2 mg/dL (0.2-1.3); Calcium 8.2 mg/dL (8.4-10.2); Carbon Dioxide 25 mmol/L (22-30); Chloride 107 mmol/L (98-107); Estimated CRCL calculation 142 ml/min; Estimated Glomerular Filt Rate > 60; Glucose 77 mg/dL (65-110); Potassium 3.9 mmol/L (3.4-5.0); Sodium 136 mmol/L (137-145)
[2024-06-06 07:30] LABS: Blood Urea Nitrogen < 2 mg/dL (7-17)
[2024-06-06] MEDS: LORATADINE 10 MG TABLET PO (09:00)
[2024-06-06] MEDS: DULoxetine HCL 60 MG CAPSULE.DR PO (09:00)
[2024-06-06] MEDS: DULoxetine HCL 30 MG CAPSULE.DR PO (09:00)
[2024-06-06] MEDS: ENOXAPARIN 40 MG/0.4 ML SYRINGE SUB-Q (09:01)
[2024-06-06] MEDS: HYDROcodone/acetaminophen (*CRX) 10-325 MG TABLET 1 TAB PO (10:59)
--- NOTE | 2024-06-06 13:11 | P.PNGI_ITS ---
Progress Note: A&P Assessment and Plan (1) Colitis: Code(s): K52.9 - Noninfective gastroenteritis and colitis, unspecified Status: Acute Assessment and Plan: related to tissue sample during colonoscopy she is feeling better, eating, less pain, wbc down to 12k she is going home with oral abx colon biopsy normal (2) Leukocytosis: Code(s): D72.829 - Elevated white blood cell count, unspecified Status: Acute Assessment and Plan: trending down (3) Nausea: Code(s): R11.0 - Nausea Status: Acute (4) IBS (irritable bowel syndrome): Code(s): K58.9 - Irritable bowel syndrome, unspecified Status: Acute Subjective Date/time seen: 06/06/24 12:01 Interval history: pain has improved, she is having loose stools eating feeling like going home Review of Systems Review of Systems: All systems reviewed & are unremarkable except as noted in HPI and below Exam Const: General: comfortable and no acute distress HENMT: Face/Nose/Sinus: Normal nares present Eyes: General: appearance normal, both eyes and all related structures Neck: Neck: no JVD Resp: Auscultation: clear to auscultation bilaterally Cardio: Rate: regular rate Rhythm: regular rhythm GI: Inspection: non-distended GI Palp: Yes Soft to palpation and Yes T enderness to palpation present (GI) (less ttp in rlq, no rebound) Auscultation: normal bowel sounds Skin: General skin exam: normal color Neuro: General: gait normal Speech: normal speech Extrem: General: normal to inspection Psych: Mental Status: mental status grossly normal Objective Data Vital Signs Vital Signs: Vital Signs - 24 hr 06/05/24 14:00 06/05/24 20:00 06/05/24 21:40 Temperature 97.2 F L 97.2 F L Pulse Rate 94 98 Respiratory Rate 20 12 Blood Pressure 117/73 126/84 Pulse Oximetry 98 97 Oxygen Delivery Room Air 06/06/24 06:00 06/06/24 09:00 Temperature 97.6 F Pulse Rate 92 Respiratory Rate 14 Blood Pressure 131/89 Pulse Oximetry 98 Oxygen Delivery Room Air Intake/Output Intake/Output: Intake & Output 06/03/24 06/04/24 06/05/24 06/06/24 23:59 23:59 23:59 23:59 Intake Total 4405.0 472 Balance 4405.0 472 Meds/Results Medications: Active Medications Generic Name Dose Route Start Last Admin Trade Name Freq PRN Reason Stop Dose Admin Albuterol 2 puff 06/05/24 12:57 Albuterol Sulfate (*Sp) Aerosol 1 Puff INHALATION Q6HRT PRN Shortness Of Breath Alprazolam 0.25 mg 06/05/24 12:55 Alprazolam (*Crx) 0.25 Mg Tablet PO BID PRN Anxiety Duloxetine HCl 60 mg 06/05/24 13:25 06/06/24 09:00 Duloxetine Hcl 60 Mg Capsule. PO 60 mg QAM ZAN Administration Duloxetine HCl 30 mg 06/05/24 13:25 06/06/24 09:00 Duloxetine Hcl 30 Mg Capsule. PO 30 mg QAM ZAN Administration Enoxaparin Sodium 40 mg 06/06/24 09:00 06/06/24 09:01 Enoxaparin 40 Mg/0.4 Ml Syringe SUB-Q 40 mg DAILY ZAN Administration Hydromorphone HCl 1 mg 06/05/24 13:42 06/06/24 11:00 Hydromorphone Hcl Inj (*Crx) 1 Mg/Ml Syr IV PUSH 1 mg Q2H PRN Administration Pain Rated 7-10 Ceftriaxone Sodium 1 gm in 50 mls @ 100 mls/hr 06/06/24 06:00 06/06/24 05:10 Rocephin 1 Gm/Ns 50 Ml IVPB 100 mls/hr Q24H ZAN Administration Metronidazole 500 mg in 100 mls @ 100 mls/hr 06/05/24 14:00 06/06/24 06:05 Flagyl 500 Mg/Iso Soln 100 Ml IVPB 100 mls/hr Q8H ZAN Administration Sodium Chloride 1,000 mls @ 75 mls/hr 06/05/24 06:55 06/06/24 00:08 Normal Saline Iv IV CONT 75 mls/hr .[id number] ZAN Administration Loratadine 10 mg 06/05/24 13:25 06/06/24 09:00 Loratadine 10 Mg Tablet PO 10 mg QAM ZAN Administration Ondansetron HCl 4 mg 06/05/24 12:54 06/06/24 09:04 Ondansetron Inj 4 Mg/2 Ml Vial IV PUSH 4 mg Q4H PRN Administration Nausea And Vomiting Witch Sarika 1 pad 06/05/24 15:11 Witch Sarika 40 Pads TOPICAL PRN PRN Perineal Discomfort Radiology Results: ITS Impressions Abdomen/Pelvis CT 06/05/24 06:00 Impression: Findings suggestive of colitis involving the ascending colon. No bowel obstruction or perforation evident. Labs Labs: Laboratory Results - last 24 hr 06/06/24 06:23 WBC 11.2 H RBC 4.04 L Hgb 12.3 Hct 38.4 MCV 95.0 MCH 30.4 MCHC 32.0 RDW 13.0 Plt Count 263 MPV 11.6 H Immature Gran % (Auto) 0.3 Neut % (Auto) 54.7 Lymph % (Auto) 33.5 [place] % (Auto) 6.3 Eos % (Auto) 4.5 H Baso % (Auto) 0.7 Lymph # (Auto) 3.75 H [place] # (Auto) 0.7 H Eos # (Auto) 0.5 H Baso # (Auto) 0.1 Abs Immat Gran (auto) 0.03 Absolute Neuts (auto) 6.1 Absolute Nucleated RBC 0.000 Nucleated RBC % 0.0 Sodium 136 L Potassium 3.9 Chloride 107 Carbon Dioxide 25 Anion Gap 4 BUN < 2 L Creatinine 0.50 L Estim Creat Clear Calc 142 Estimated GFR > 60 Glucose 77 Calcium 8.2 L Magnesium 2.0 Total Bilirubin 0.2 AST 21 ALT 17 Alkaline Phosphatase 52 Total Protein 6.0 L Albumin 3.3 L
--- NOTE | 2024-06-06 13:16 | PM.DS ---
DS: Admitting Diagnosis Discharge Date 06/06/24 Admitting Diagnosis Abd pain DS: Discharge Diagnosis Discharge Diagnosis (1) Colitis: Code(s): K52.9 - Noninfective gastroenteritis and colitis, unspecified Status: Acute DS: Summary Hospital Course Hospital Course: 38 yo female with family present history anxiety, Crohn's disease depression who presented to the ER accompanied by pain clean colonoscopy. Patient reported she has been of diarrhea the past to use, 2-5 bowel movements a day, eventually had a colonoscopy yesterday and about 12:00 p.m.. Later in the day she started having abdominal pain mostly right lower lung region described as sharp, worsened to 10/10 with fever 102.4 which prompted presented to the ER for proper eval and care. Denies any chest pain, SOB, vomiting, dysuria, focal symptoms no lightheadedness or passing out. Patient reported that she still has diarrhea from the bowel prep for colonoscopy. ER evaluation notable for vital signs stable within normal limits, labs notable for WBC 26.2, CT abdomen and pelvis showed colitis involving the ascending colon. Patient was on antibiotics prior to admission. Today, patient noted her diarrhea is back to her baseline and abd pain has markedly and she is tolerating diet. GI evaluated and noted that patient does not have Crohn's disease since her Colonoscopy was grossly normal. biopsy pathology pending. Patient discharged on 5 more days of Levaquin and Flagyl x 5 more days. F/u with PCP in 3-5 days F/u with Gi as instructed Assessment and plan (1) Colitis: Code(s): K52.9 - Noninfective gastroenteritis and colitis, unspecified Status: Acute Plan Colitis Patient presented with abdominal pain and fever Status post colonoscopy on the same day. Continue Rocephin and Flagyl, p.r.n. pain control. discharged on Levaquin and Flagyl x 5 more days PRN hydrocodone 10/325mg x 10 tablets No IBD per GI as colonoscopy is grossly normal Colonoscopy report from yesterday did not show any inflammatory changes However patient follow-up with GI for pathology results. Depression anxiety Continue medications. Time Spent with Patient Time attestation: Total time spent providing and/or coordinating discharge services: DS: Data Data Completed and Pending Labs on day of discharge: Labs from last 24 hours 06/06/24 06:23 WBC 11.2 H RBC 4.04 L Hgb 12.3 Hct 38.4 MCV 95.0 MCH 30.4 MCHC 32.0 RDW 13.0 Plt Count 263 MPV 11.6 H Immature Gran % (Auto) 0.3 Neut % (Auto) 54.7 Lymph % (Auto) 33.5 [place] % (Auto) 6.3 Eos % (Auto) 4.5 H Baso % (Auto) 0.7 Lymph # (Auto) 3.75 H [place] # (Auto) 0.7 H Eos # (Auto) 0.5 H Baso # (Auto) 0.1 Abs Immat Gran (auto) 0.03 Absolute Neuts (auto) 6.1 Absolute Nucleated RBC 0.000 Nucleated RBC % 0.0 Sodium 136 L Potassium 3.9 Chloride 107 Carbon Dioxide 25 Anion Gap 4 BUN < 2 L Creatinine 0.50 L Estim Creat Clear Calc 142 Estimated GFR > 60 Glucose 77 Calcium 8.2 L Magnesium 2.0 Total Bilirubin 0.2 AST 21 ALT 17 Alkaline Phosphatase 52 Total Protein 6.0 L Albumin 3.3 L Hvjuufqhh-v-8,3-Gal IgE Pending a-Galactosid Method Pending a-Galactosidase Interp Pending a-Galactosidase Disclaim Pending Alpha Gal Interpretation Pending Beef Allergen IgE Ab Pending Beef Conventional Clss Pending Ibrahim Allergen IgE Ab Pending Ibrahim Meat [place] Clss Pending Pork Allergen IgE Ab Pending Pork [place] Class Pending Preliminary micro results at discharge 06/05/24 05:34 Blood Culture - Preliminary Blood 06/05/24 05:34 Blood Culture - Preliminary Blood Discharge Plan Discharge Attending physician on discharge: Malachi Burgess Discharging Clinician: Malachi Burgess Anticipated Discharge Date/Time: 06/06/24 12:56 Patient Disposition: Home, Self-Care Activity: as tolerated Diet: as tolerated Patient Instructions: Antibiotic Form Stand Alone Forms: General Discharge Information Follow-up/Referrals: Mino Andujar MD [Primary Care Provider] - (F/u with PCP in 3-5 days ) Anthony Harmon MD [Physician] - (F/u with GI as instructed ) Discharge Medications: New hydrocodone-acetaminophen 10-325 mg tablet 1 tablet PO Q6H PRN (Reason: pain) Qty: 10 0RF levofloxacin 750 mg tablet 750 mg PO DAILY Qty: 5 0RF metronidazole 500 mg tablet 500 mg PO Q8H 5 Days Qty: 15 0RF Continued duloxetine 60 mg capsule,delayed release(DR/EC) 60 mg PO DAILY Qty: 100 0RF Rx Instructions: take with 30mg to total 90mg duloxetine 30 mg capsule,delayed release(DR/EC) 30 mg PO DAILY Rx Instructions: take with 60 mg capsule cetirizine [Zyrtec] 10 mg Tablet 10 mg PO DAILY PRN (Reason: allergies) cholecalciferol (vitamin D3) 125 mcg (5,000 unit) Capsule 125 mcg PO WEEKLY Rx Instructions: administer on albuterol sulfate 90 mcg/actuation HFA aerosol inhaler 1 inh inhalation Q4H PRN (Reason: shortness of breath or wheezing) Qty: 8.5 1RF promethazine 12.5 mg tablet 12.5 mg PO TID PRN (Reason: nausea and vomiting) Qty: 60 0RF Zepbound 7.5 mg/0.5 mL pen injector 7.5 mg subcut WEEKLY Qty: 2 0RF Rx Instructions: On sundays tramadol 50 mg tablet 50 mg PO QID PRN (Reason: Pain) Qty: 100 0RF alprazolam 0.25 mg tablet 0.25 mg PO BID PRN (Reason: Anxiety) Qty: 28 0RF Date of admission: 06/05/24 07:17 Primary Care Provider: Mino Andujar Admitting Provider: Viviana German Attending physician on admission: Viviana German Condition: Stable
--- NOTE | 2024-06-06 13:38 | PC.NURSE ---
Pt has discharge home with self care. Pt was educated on discharge instructions. Pt verbalizes understanding. Pt medications were transmitted to pharmacy. Pt is A&O4 female who has participated and contributed in plan of care. Pt was monitored for any changes in status while here.
[2024-06-11 18:59] LABS: Beef IgE (F27) <0.10 kU/L; Lamb (F88) IgE <0.10 kU/L; Lamb Class 0; Pork (F26) IgE <0.10 kU/L; Pork Class 0
[2024-06-12 11:38] LABS: Galactose Alpha 1,3 IgE <0.10 kU/L (<0.10)
== END 2024-06-06 13:35 | disposition home or self-care (01) ==
LOC: ANHED 06:13 → ANH3MEDSUR 07:22
PROVIDERS: Internal Medicine Gastroenterology; Admitting Provider Internal Medicine; Emergency Provider Emergency Medicine; PCP Family Medicine; Visit Provider Internal Medicine
DX: K52.9 Noninfective gastroenteritis and colitis, unspecified (principal); D72.829 Elevated white blood cell count, unspecified; R11.0 Nausea; F41.9 Anxiety disorder, unspecified; F32.A Depression, unspecified; Z87.891 Personal history of nicotine dependence; Z79.51 Long term (current) use of inhaled steroids; Z79.82 Long term (current) use of aspirin
CPT/HCPCS: 36415; 74177; 80053; 81001; 81025; 83690; 83735; 85025; 86008; 87040; 96361; 96365; 96375; 96376; 99285; A9270; J0696; J1171; J1650; J1836; J2270; J2405; J7030; Q9967

== ENCOUNTER 2024-06-19 15:34 | Observation (INO) | payer OTHER, SELFPAY ==
--- NOTE | ~2024-06-19 | NM_ITS ---
EXAMINATION: NM hepatobiliary w pharm DATE: 06/21/2024 09:15 INDICATION: Nausea, vomiting and generalized abdominal pain COMPARISON: None. TECHNIQUE: 5.5 mCi Tc-99m mebrofenin (Choletec) was administered intravenously. Scintigraphic images of the abdomen were obtained for one hour. 1.6 mcg sincalide (Kinevac) was administered by slow intr avenous infusion, and imaging was continued for 30 minutes. Gallbladder ejection fraction was calcula shakila by the technologist. FINDINGS: There is normal clearance of radiotracer from the blood pool. There is homogeneous tracer uptake by t he liver. Activity progresses to the gallbladder and bowel. The gallbladder ejection fraction (GBEF) is 7% (normal 10-90%, but most patient with gallbladder dysfunction have GBEF < 35% which does overl ap with the normal range). IMPRESSION: 1. Abnormally decreased gallbladder ejection fraction of 7% consistent gallbladder dysfunction or ch ronic cholecystitis in the appropriate clinical setting. Reviewed, dictated and finalized at location B. MOTIVE TITLE CLERK IMPRESSION: 1. Abnormally decreased gallbladder ejection fraction of 7% consistent gallbla dder dysfunction or chronic cholecystitis in the appropriate clinical setting.
--- NOTE | ~2024-06-19 | US_ITS ---
EXAMINATION: US abdomen limited DATE: 06/22/2024 08:58 INDICATION: Abdominal pain. TECHNIQUE: Multiple grayscale and Doppler ultrasound images of the abdomen were obtained. COMPARISON: CT abdomen and pelvis 06/19/2024 FINDINGS: The visualized portions of the head and body of the pancreas are normal. The liver is marco antonio l without focal lesion. There is normal flow in main portal vein. The gallbladder is normal in size. No gallstones or gallbladder wall thickening. There is no sonographic Bates's sign. The common duct is normal and measures 6 mm. IMPRESSION: 1. Normal right upper quadrant ultrasound. Reviewed, dictated and finalized at location A. OGRAPHER
--- NOTE | ~2024-06-19 | CT_ITS ---
EXAMINATION: CT abdomen pelvis w con DATE: 06/19/2024 16:32 INDICATION: Worsening abdominal pain. TECHNIQUE: Computed tomography (CT) of the abdomen and pelvis was performed with 100 mL Omnipaque 350 intravenous contrast. Automated exposure control and iterative reconstruction technique were employe d. The dose-length product was 545.10 mGy-cm. COMPARISON: CT abdomen and pelvis 06/05/2024 FINDINGS: The visualized portions of lung bases demonstrate minimal atelectasis. No pleural effusion. The heart size is normal. No pericardial effusion. The liver, gallbladder, spleen, pancreas, adrenal glands, and kidneys are normal. There are no dilated loops of bowel. The appendix is normal. There i s a nabothian cyst in the cervix. There are no pathologically enlarged lymph nodes. There is no free intraperitoneal fluid. There is mild lumbar spondylosis. IMPRESSION: 1. No etiology for the patient's symptoms. Reviewed, dictated and finalized at location A. APPRENTICE
[2024-06-19 15:38] VITALS: BP 162/107; PULSE 136; RESP 18; TEMP 36.6; O2SAT 100
--- NOTE | 2024-06-19 15:39 | ED.RECABL ---
HPI - Recheck/Abnormal Lab/Rx General Chief Complaint: Recheck/Abnormal Lab/Rx <Clara Armenta PA-C - Last Filed: 06/21/24 10:01> Stated Complaint: HTN and high HR <Clara Armenta PA-C - Last Filed: 06/21/24 10:01> Time Seen by Provider: 06/19/24 15:39 <Clara Armenta PA-C - Last Filed: 06/21/24 10:01> Focused HPI: This is a 39 year old female that presents to the ER for abdominal pain. Reports she had a colonoscopy, complicated by colitis. Reports she does not feel any better. Reports abdominal distention. Reports nausea, vomiting and diarrhea. Reports blood in the stool. Reports chills. Denies fevers. GENERAL: Well-appearing, well-nourished, and in no acute distress. HEAD: Normocephalic, atraumatic. CHEST: Clear to auscultation. ?No respiratory distress. HEART: Regular rhythm, tachycardic? NEURO: ?Alert and oriented x3. Patient screened in triage and initial orders placed.? ?Additional care and disposition to be based upon?diagnostic testing and treatment. <Clara Armenta PA-C - Last Filed: 06/21/24 10:01> History of Present Illness HPI narrative: patient is a 39-year-old female who presents emergency department with chief complaint of abdominal pain. The patient reports that she was recently admitted to the hospital for colitis had a colonoscopy that had negative biopsies the patient reports that she has continued to have abdominal discomfort and was tachycardic whenever she 1st arrived to the emergency department after being sent from her primary care provider's office the patient states she has had continual diarrhea has chills at home the patient feels as though her abdomen is bloated. <Ramirez Hopkins MD - Last Filed: 06/20/24 01:29> Related Data Home Medications: Home Medications Medication Instructions Recorded Confirmed cetirizine 10 mg tablet (Zyrtec) 10 mg PO DAILY PRN allergies 06/05/24 06/20/24 cholecalciferol (vitamin D3) 125 125 mcg PO WEEKLY 06/05/24 06/20/24 mcg (5,000 unit) capsule duloxetine 30 mg capsule,delayed 30 mg PO DAILY 06/05/24 06/20/24 release <Clara Armenta PA-C - Last Filed: 06/21/24 10:01> Allergies/Adverse Reactions: Allergies Allergy/AdvReac Type Severity Reaction Status Date / Time latex Allergy Unknown Itching Verified 06/19/24 14:46 adhesive tape Allergy Rash Verified 06/19/24 14:46 amoxicillin [From Amoxil] Allergy Itching Verified 06/19/24 14:46 Beef Containing Products AdvReac Severe Vomiting Verified 06/19/24 14:46 <Clara Armenta PA-C - Last Filed: 06/21/24 10:01> Review of Systems Review of Systems: A 10 system review of systems was completed on the patient and is negative except for what is stated in the HPI. Nursing and ancillary documentation was reviewed. 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) <Clara Armenta PA-C - Last Filed: 06/21/24 10:01> Surgical History Surgical History: Surgical History History of colonoscopy with polypectomy History of loop electrical excision procedure (LEEP) History of wisdom tooth extraction <Clara Armenta PA-C - Last Filed: 06/21/24 10:01> Family History Family History: Family History Father Gastroparesis Diabetes mellitus Arthritis Patient's father is in good health Family history of throat cancer Diverticulitis Mother Arthritis Fibromyalgia Patient's mother is in good health Grandparent Rheumatoid arthritis Diabetes mellitus Arthritis Colitis Heart disease Parkinsons Other Cerebrovascular accident <CLIFFORD Watson Last Filed: 06/21/24 10:01> Social History Social History: Social History Social History: Surrogate medical decision maker: Iliana Ivan, mother. Code status: Smoking status: Former smoker Tobacco type: cigarettes Second hand tobacco smoke exposure: No Smoking end date: 08/07/16 Additional smoking assessment comments: social smoker only Alcohol intake: current Drinks per week: 1 Alcohol use details: socially Substance use: never Substance use type: other Other substance usage details: CBD on rare occasion for joint pain Do You Feel Safe in your Home?: Yes Lack of Transportation: No Lack of Food: Never True Current Housing: I Have Housing Concerned About Future Housing: No Difficulty Paying Gas/Electric Bills: No Difficulty Paying for Meds: No Currently Unemployed: No Education: Associate Degree Difficulty w/ Childcare or Family Care: No Living arrangements: with family Additional living arrangements comments: Lives with naya and 3 children in [place]. Spiritual care concerns: No <Clara Armenta PA-C - Last Filed: 06/21/24 10:01> Exam Narrative: GENERAL: Well-appearing, well-nourished, and in no acute distress. HEAD: Normocephalic, atraumatic. EYES: PERRLA and EOMI. ENT: Nares clear, no rhinorrhea or epistaxis. Mucous membranes moist. NECK: Supple. CHEST: Clear to auscultation. No respiratory distress. HEART: Regular rate and rhythm. No murmur heard. Normal peripheral pulses. ABDOMEN: Soft, Diffusely tender to palpation, nondistended, normal active bowel sounds. EXTREMITIES: Normal range of motion. No edema. SKIN: Warm, dry, no rash. NEURO: No focal deficits. Alert and oriented x3. PSYCH: Normal mood and affect. <Ramirez Hopkins MD - Last Filed: 06/20/24 01:29> Course Vital Signs Vital signs: Vital Signs Temperature 97.8 F 06/19/24 15:38 Pulse Rate 136 H 06/19/24 15:38 Respiratory Rate 18 06/19/24 15:38 Blood Pressure 162/107 H 06/19/24 15:38 Pulse Oximetry 100 06/19/24 15:38 Temperature 97.7 F 06/21/24 05:17 Pulse Rate 78 06/21/24 05:17 Respiratory Rate 16 06/21/24 05:17 Blood Pressure 119/76 06/21/24 05:17 Pulse Oximetry 100 06/20/24 20:27 Oxygen Delivery Room Air 06/20/24 08:00 <Clara Armenta PA-C - Last Filed: 06/21/24 10:01> Vital Signs Temperature 97.8 F 06/19/24 15:38 Pulse Rate 136 H 06/19/24 15:38 Respiratory Rate 18 06/19/24 15:38 Blood Pressure 162/107 H 06/19/24 15:38 Pulse Oximetry 100 06/19/24 15:38 Temperature 97.7 F 06/21/24 05:17 Pulse Rate 78 06/21/24 05:17 Respiratory Rate 16 06/21/24 05:17 Blood Pressure 119/76 06/21/24 05:17 Pulse Oximetry 100 06/20/24 20:27 Oxygen Delivery Room Air 06/20/24 08:00 <Ramirez Hopkins MD - Last Filed: 06/20/24 01:29> MDM - Recheck/Abnormal Lab/Rx MDM Narrative Medical decision making narrative: differential diagnosis includes dehydration, colitis, diverticulitis, intra-abdominal infection laboratory studies were obtained on the patient showed a white count of 14.3 hemoglobin was elevated at 15.9 this is actually increased from the patient's previous hospitalization is concerning for dehydration. CT scan of the abdomen pelvis showed no acute abnormalities CMP was within normal limits liver enzymes are normal lactic acid was 1.2 lipase was 335 patient given pain control and antiemetics and fluids in the emergency department. patient continue abdominal pain continued to have nausea case was discussed with the hospitalist the patient will be admitted for observation hydration <Ramirez Hopkins MD - Last Filed: 06/20/24 01:29> Lab Data Result diagrams: 06/19/24 16:21 06/19/24 16:27 <Clara Armenta PA-C - Last Filed: 06/21/24 10:01> Labs: Lab Results 06/19/24 06/19/24 Range/Units 16:21 16:27 WBC 14.3 H (4.5-10.0) K/mm3 RBC 5.23 (4.2-5.4) M/mm3 Hgb 15.9 H D (12.0-15.0) g/dL Hct 47.7 H (37.0-47.0) % MCV 91.2 (80-100) fl MCH 30.4 (26-34) pg MCHC 33.3 (32-36) g/dl RDW 13.0 (11.5-14.5) % Plt Count 403 H D (150-375) k/mm3 MPV 11.0 H (7.4-10.4) fl Immature Gran % (Auto) 0.3 (0-0.5) % Neut % (Auto) 59.0 (45.5-73.1) % Lymph % (Auto) 32.4 (18.3-44.2) % [place] % (Auto) 5.2 (2.6-8.5) % Eos % (Auto) 2.3 (0-4.4) % Baso % (Auto) 0.8 (0.2-1.2) % Lymph # (Auto) 4.64 H (0.9-3.2) K/mm3 [place] # (Auto) 0.7 H (0.1-0.6) K/mm3 Eos # (Auto) 0.3 (0-0.3) K/mm3 Baso # (Auto) 0.1 (0.0-0.1) K/mm3 Abs Immat Gran (auto) 0.05 H (0.00-0.031) K/mm3 Absolute Neuts (auto) 8.5 H (1.3-6.7) K/mm3 Absolute Nucleated RBC 0.000 (0.0-0.012) K/mm3 Nucleated RBC % 0.0 (0.0-0.2) % % Immature Plt Fraction 8.3 (0.9-11.2) % Sodium 139 (137-145) mmol/L Potassium 4.2 (3.4-5.0) mmol/L Chloride 105 (98-107) mmol/L Carbon Dioxide 25 (22-30) mmol/L Anion Gap 9 (4-12) mmol/L BUN 7 D (7-17) mg/dL Creatinine 0.60 L 0.70 (0.7-1.0) mg/dL Estim Creat Clear Calc 103 90 ml/min Estimated GFR > 60 > 60 (59 - ) Glucose 89 (65-110) mg/dL Lactic Acid 1.2 (0.7-2.0) mmol/L Calcium 9.5 (8.4-10.2) mg/dL Total Bilirubin 0.4 (0.2-1.3) mg/dL AST 24 (14-36) U/L ALT 19 (6-35) U/L Alkaline Phosphatase 55 (38-126) U/L C-Reactive Protein 0.7 (<1.0) mg/dL Total Protein 8.0 (6.3-8.2) g/dL Albumin 4.6 (3.5-5.1) g/dL Lipase 335 H (23-300) U/L <Clara Armenta PA-C - Last Filed: 06/21/24 10:01> Lab Results 06/19/24 06/19/24 Range/Units 16:21 16:27 WBC 14.3 H (4.5-10.0) K/mm3 RBC 5.23 (4.2-5.4) M/mm3 Hgb 15.9 H D (12.0-15.0) g/dL Hct 47.7 H (37.0-47.0) % MCV 91.2 (80-100) fl MCH 30.4 (26-34) pg MCHC 33.3 (32-36) g/dl RDW 13.0 (11.5-14.5) % Plt Count 403 H D (150-375) k/mm3 MPV 11.0 H (7.4-10.4) fl Immature Gran % (Auto) 0.3 (0-0.5) % Neut % (Auto) 59.0 (45.5-73.1) % Lymph % (Auto) 32.4 (18.3-44.2) % [place] % (Auto) 5.2 (2.6-8.5) % Eos % (Auto) 2.3 (0-4.4) % Baso % (Auto) 0.8 (0.2-1.2) % Lymph # (Auto) 4.64 H (0.9-3.2) K/mm3 [place] # (Auto) 0.7 H (0.1-0.6) K/mm3 Eos # (Auto) 0.3 (0-0.3) K/mm3 Baso # (Auto) 0.1 (0.0-0.1) K/mm3 Abs Immat Gran (auto) 0.05 H (0.00-0.031) K/mm3 Absolute Neuts (auto) 8.5 H (1.3-6.7) K/mm3 Absolute Nucleated RBC 0.000 (0.0-0.012) K/mm3 Nucleated RBC % 0.0 (0.0-0.2) % % Immature Plt Fraction 8.3 (0.9-11.2) % Sodium 139 (137-145) mmol/L Potassium 4.2 (3.4-5.0) mmol/L Chloride 105 (98-107) mmol/L Carbon Dioxide 25 (22-30) mmol/L Anion Gap 9 (4-12) mmol/L BUN 7 D (7-17) mg/dL Creatinine 0.60 L 0.70 (0.7-1.0) mg/dL Estim Creat Clear Calc 103 90 ml/min Estimated GFR > 60 > 60 (59 - ) Glucose 89 (65-110) mg/dL Lactic Acid 1.2 (0.7-2.0) mmol/L Calcium 9.5 (8.4-10.2) mg/dL Total Bilirubin 0.4 (0.2-1.3) mg/dL AST 24 (14-36) U/L ALT 19 (6-35) U/L Alkaline Phosphatase 55 (38-126) U/L C-Reactive Protein 0.7 (<1.0) mg/dL Total Protein 8.0 (6.3-8.2) g/dL Albumin 4.6 (3.5-5.1) g/dL Lipase 335 H (23-300) U/L <Ramirez Hopkins MD - Last Filed: 06/20/24 01:29> Imaging Data Radiologist's impression: ITS Impressions Abdomen/Pelvis CT 06/19/24 16:37 IMPRESSION: 1. No etiology for the patient's symptoms. <Clara Armenta PA-C - Last Filed: 06/21/24 10:01> Critical Care Time Critical Care Time Critical Care Time: No <Clara Armenta PA-C - Last Filed: 06/21/24 10:01> Discharge Plan Discharge Clinical Impression: Nausea vomiting and diarrhea, Acute dehydration Abdominal pain Qualifiers: Abdominal location: generalized Qualified Code(s): R10.84 - Generalized abdominal pain <Clara Armenta PA-C - Last Filed: 06/21/24 10:01> Patient Disposition: Still a Patient <Clara Armenta PA-C - Last Filed: 06/21/24 10:01> Condition: Stable <Clara Armenta PA-C - Last Filed: 06/21/24 10:01> Time of Disposition: 01:29 <Clara Armenta PA-C - Last Filed: 06/21/24 10:01> 01:29 <Ramirez Hopkins MD - Last Filed: 06/20/24 01:29>
[2024-06-19 16:29] LABS: Estimated CRCL calculation 90 ml/min; Estimated Glomerular Filt Rate > 60
[2024-06-19 16:38] LABS: Basophils Absolute Auto 0.1 K/mm3 (0.0-0.1); Basophils Percent Auto 0.8 % (0.2-1.2); Eosinophils Absolute Auto 0.3 K/mm3 (0-0.3); Eosinophils Percent Auto 2.3 % (0-4.4); Hematocrit 47.7 % (37.0-47.0); Hemoglobin 15.9 g/dL (12.0-15.0); Immature Granulocyte Absolute 0.05 K/mm3 (0.00-0.031); Immature Granulocyte Percent A 0.3 % (0-0.5); Immature Platelet Fraction Pct 8.3 % (0.9-11.2); Lymphocytes Absolute Auto 4.64 K/mm3 (0.9-3.2); Lymphocytes Percent Auto 32.4 % (18.3-44.2); Mean Corpuscular HGB Conc 33.3 g/dl (32-36); Mean Corpuscular Hemoglobin 30.4 pg (26-34); Mean Corpuscular Volume 91.2 fl (80-100); Monocytes Absolute Auto 0.7 K/mm3 (0.1-0.6); Monocytes Percent Auto 5.2 % (2.6-8.5); Neutrophils Absolute Auto 8.5 K/mm3 (1.3-6.7); Platelet Count Result 403 k/mm3 (150-375); Red Blood Count 5.23 M/mm3 (4.2-5.4); White Blood Count 14.3 K/mm3 (4.5-10.0)
[2024-06-19 16:48] LABS: Lactic Acid Reflex 1.2 mmol/L (0.7-2.0)
[2024-06-19 16:50] LABS: Alanine Aminotransferase 19 U/L (6-35); Albumin Level 4.6 g/dL (3.5-5.1); Alkaline Phosphatase 55 U/L (38-126); Anion Gap 9 mmol/L (4-12); Aspartate Amino Transferase 24 U/L (14-36); Bilirubin,Total 0.4 mg/dL (0.2-1.3); Blood Urea Nitrogen 7 mg/dL (7-17); Calcium 9.5 mg/dL (8.4-10.2); Carbon Dioxide 25 mmol/L (22-30); Chloride 105 mmol/L (98-107); Estimated CRCL calculation 103 ml/min; Estimated Glomerular Filt Rate > 60; Glucose 89 mg/dL (65-110); Lipase 335 U/L (23-300); Potassium 4.2 mmol/L (3.4-5.0); Sodium 139 mmol/L (137-145)
[2024-06-19 17:23] LABS: CRP 0.7 mg/dL (<1.0)
[2024-06-19 18:53] VITALS: BP 142/114; PULSE 115; RESP 16; TEMP 36.4; O2SAT 98
--- NOTE | 2024-06-19 22:37 | ECG_ITS ---
Test Date: 2024-06-19 22:54:22 Measurements Intervals [place] Rate: 103 P: 25 OR: 168 QRS: 71 QRSD: 78 T: 6 QT: 323 QTc: 424 Interpretive Statements SINUS TACHYCARDIA CONSIDER ANTERIOR INFARCT, AGE INDETERMINATE BORDERLINE ST-T WAVE ABNORMALITY- INFERIOR LEADS BASELINE ARTIFACT- I, II, III, AVR, AVL, AVF ABNORMAL ECG No previous ECG available for comparison Electronically Signed On 06-20-2024 05:34:11 COMMISSARY REPRESENTATIVE by Derick Hayward D.O.
--- NOTE | 2024-06-19 22:58 | PC.NURSE ---
Patient asked if able to provide urine specimen. Patient unable to at this time.
[2024-06-20] MEDS: ONDANSETRON INJ 4 MG/2 ML VIAL IV PUSH ×6 (00:27→20:04)
[2024-06-20] MEDS: MORPHINE SULFATE (*CRX) 4 MG/ML INJ IV PUSH ×6 (00:27→20:04)
[2024-06-20] MEDS: SODIUM CHLORIDE 0.9% IV 1,000 ML 999 ML IV CONT ×2 (00:27→02:35)
[2024-06-20 00:28] VITALS: BP 125/86; PULSE 100; RESP 14; O2SAT 98
[2024-06-20 01:51] LABS: Add Urine Microscopic? NO; Appearance Urine Clear (Clear); Bilirubin Urine Negative (Negative); Blood Urine Negative (Negative); Color Urine Yellow (Yellow); Glucose Urine UA Negative (Negative); Ketones Urine 1+ mg/dL (Negative); Leukocyte Esterase Ur Negative LEU/UL (Negative); Nitrate Urine Negative (Negative); Protein Urine Negative (Negative); Specific Grav Ur 1.035 (1.001-1.035); Urobilinogen Urine 0.2 mg/dL (<2.0); pH Urine 6.5 (5.0-9.0)
[2024-06-20 01:59] LABS: BEDSIDEPREGUCG Negative (Negative)
[2024-06-20] MEDS: KETOROLAC 30 MG/ML VIAL (*BKC) IV PUSH (02:12)
[2024-06-20 02:30] VITALS: BP 136/86; PULSE 92; RESP 21; O2SAT 96
[2024-06-20 03:39] VITALS: BP 145/94; PULSE 93; RESP 14; TEMP 36.6; O2SAT 100
[2024-06-20] MEDS: SODIUM CHLORIDE 0.9% IV 1,000 ML 150 ML IV CONT ×4 (03:48→21:10)
[2024-06-20 05:55] VITALS: BP 140/87; PULSE 84; RESP 14; TEMP 36.3; O2SAT 100
--- NOTE | 2024-06-20 10:10 | PC.NURSE ---
Per nuclear medicine, patient unable to get HIDA scan due to morphine administration this AM. Pt is on schedule to get HIDA scan tomorrow, NPO after midnight and no morphine after midnight. Per nuke med, IV toradol is okay to administer.
--- NOTE | 2024-06-20 10:28 | P.CONGI_ITS ---
I, Anthony Harmon MD, have provided a substantive portion of the care of this patient and discussed the patient with my Nurse Practitioner. I have reviewed any new relevant radiographic and laboratory results including medications. I agree with her documentation as noted below.?I personally performed the medical decision making and much of the history and exam for this encounter. briefly, she has chronic GI issues and had colonoscopy earlier (biopsies negative) but soon after developed colitis and treated with abx, she went home but still has been bloated and decrease appetite. CT scan this time was negative, given ongoing problem will do EGD tomorrow, also hida scan. Assessment and Plan Assessment and plan (1) Abdominal pain: Qualifiers: Abdominal location: generalized Qualified Code(s): R10.84 - Generalized abdominal pain Code(s): R10.9 - Unspecified abdominal pain Status: Acute (2) Nausea vomiting and diarrhea: Code(s): R11.2 - Nausea with vomiting, unspecified; R19.7 - Diarrhea, unspecified Status: Acute (3) Elevated lipase: Code(s): R74.8 - Abnormal levels of other serum enzymes Status: Acute (4) Appetite loss: Code(s): R63.0 - Anorexia Status: Acute Plan 1. Generalized abdominal pain/nausea/vomiting/appetite loss/diarrhea/elevated lipase: Last colonoscopy 06/04/2024 was normal, random colon biopsy showed no abnormalities. Last EGD in 2019. On admission BMP, CBC, CRP, lactic acid, and LFTs were normal. Lipase elevated Patient states that she has had an extensive GI workup in [place] but is no longer seeing them for her GI care. patient was admitted June 05 at which time she was noted to have colitis and completed a course of Cipro and Flagyl. Patient states that she has been having GI issues since around 2018. Over the past few years she has been co ntrolling her symptoms relatively well with a restrictive diet. She states that fatty foods and beef are the most problematic foods for her. If she eats problematic food she will have abdominal pain, diarrhea, nausea and vomiting. Since her colonoscopy on June 04 she has been experiencing abdominal bloating, generalized abdominal pain in 2-3 urgent, very loose but not liquid BM's per day. Patient states that her stools are often very acidic and burn. Per patient she was worked up for Alpha Gal allergy in the past and believes it was normal. Gastric emptying study in 2019 was normal. Patient has been on Zepbound since January but denies any correlation with her current GI symptoms. She previously tried dicyclomine which she states does help with her crampy abdominal pain but she has not been taking this on a regular basis. She has never been on Xifaxan or Questran. Prior workup that is not consistent with IBD. * Ok to advance diet as tolerated today * Stool studies pending * HIDA scan to assess gallbladder function * Start Protonix 40 mg daily * Continue supportive care with pain management and antiemetics * NPO after midnight * EGD tomorrow to rule out duodenitis as a possible source of lipase elevation Thank you very much for allowing me to share in the care of this very nice patient. This report may have been done utilizing a voice recognition system. Attempts have been made to correct errors. However, there may be uncorrected grammatical, spelling, and recognition errors present. GI Consult Note Consult date/time: 06/20/24 10:28 Reason for consult: Colitis HPI: This is a pleasant 39 year old female with a past medical surgical history of anxiety, colitis, history of colonic fistula, depression, inflammatory arthritis, IBS, positive TB gold test in June 2019, personal history of colon polyps. She presents to the ER yesterday for abdominal pain. GI was consulted for colitis. She was recently admitted 06/05-06/06/2024 for colitis and was seen in the emergency room on 06/19/2024 for abdominal pain after seeing her PCP for a follow-up office visit. GI consulted for colitis. She reports generalized abdominal pain and discomfort since her recent colonoscopy on 06/04/2024. Her abdomen is distended which is not normal for her. She also reports pain in her tailbone area that feels like she fell and bruised or broke it, which in the past has been a signal that she would have GI problems because she ended up with an abscess . Patient states that her GI symptoms improved but did not resolve after completing a course of Cipro and Flagyl. Patient has been on Zepbound since January but denies any direct correlation with the medication and her GI symptoms. patient states she has been having GI issues since around 2017 but with significant dietary changes she has had her symptoms relatively well controlled unless she eats known problematic foods such as beef or fatty foods. When she eats known problematic food she will have very acidic diarrhea, nausea, vomiting, and abdominal pain. She denies any nausea or vomiting since admission. She denies odynophagia, dysphagia, reflux, regurgitation, unexplained weight loss, or early satiety. She does admit to a decreased appetite since her colonoscopy. She typically has 2-3 very soft but not liquid bowel movements daily that are occasionally urgent she denies any fecal incontinence. She admits to trace intermittent rectal bleeding after bowel movements but denies melena. she denies any NSAID, aspirin, or anticoagulant use. She is a rare social drinker, prior smoker and denies marijuana use. Paternal grandmother with history of ulcerative colitis. ENDOSCOPY HISTORY: EGD: 12/21/[address] Ervin for generalized abdominal pain, nausea and vomiting Findings: The examined duodenum was normal. Biopsies were taken with the cold forceps for histology Patchy mild erythematous mucosa without bleeding was found in the gastric body and in the pre-pyloric region of the stomach. Biopsies were taken with cold forceps for H pylori testing The examined esophagus was normal Biopsy results: Duodenum, biopsy: - Duodenal mucosa with no histologic abnormalities - Diagnostic morphology features of celiac disease not identified Stomach, antrum, biopsy: - Chronic antral gastritis, nonspecific, mild - No acute inflammation identified COLONOSCOPY: 06/04/2024 (Dr. Hernandez) for IBS and abdominal pain Findings: The terminal ileum and colon were normal, no polyps, no diverticula, no obvious colitis. Multiple biopsies of the right and left colon in different bottles were taken. 10 year repeat colonoscopy recommended Biopsy results: Large intestine, right colon, biopsy: - No histologic abnormality Large intestine, left colon, biopsy: - No histologic abnormality COLONOSCOPY: 09/27/2019 (Dr. Ervin) for chronic diarrhea and hematochezia Findings: The terminal ileum appeared normal. Biopsies were taken with a cold forceps for histology. A 10 mm flat polyp was found at the hepatic flexure and removed with a hot snare. Resection and retrieval were complete. Medium sized nonbleeding external hemorrhoids were found during retroflexion. The exam was otherwise normal. COLONOSCOPY: 12/21/2018 (Dr. Ervin) for generalized abdominal pain and hematochezia Findings: The terminal ileum appeared normal. Biopsies were taken with a cold forceps for histology. A fistula was found at the anal verge with seton in place, mild purulent drainage noted. The exam was otherwise normal. Biopsies were taken with cold forceps in the rectum, sigmoid colon, descending colon, transverse colon, ascending colon and cecum for histology. Biopsy results: Colon, cecum, biopsy: - Chronic inactive colitis, mild - Negative for dysplasia or malignancy Colon, ascending, biopsy: - Chronic inactive colitis, mild - Negative for dysplasia or malignancy Colon, transverse, biopsy: - Colonic mucosa with no histologic abnormalities Colon, descending, biopsy: - Colonic mucosa with no histologic abnormalities Colon, sigmoid, biopsy: - Colonic mucosa with no histologic abnormalities Rectum, biopsy: - Chronic inactive colitis, mild - Negative for dysplasia or malignancy LABS AND STOOL STUDIES: Labs 06/19/2024 showed sodium 139, potassium 4.2, BUN 7, creatinine 0.70, GFR > 60, WBC 14, HGB 16, HCT 48, MCV 91, platelets 403, total bilirubin 0.4, AST 24, ALT 19, alkaline phosphatase 55, albumin 4.6, lipase 335, lactic acid 1.2, calcium 9.5, CRP 0.7 IBD panel 12/04/2018 was negative IMAGING: CT abd/pelvis w/contrast 06/19/2024: No etiology for the patient's symptoms. CT abd/pelvis w/contrast 06/05/2024: Findings suggestive of colitis involving the ascending colon. No bowel obstruction or perforation evident. Gastric emptying study 12/06/2018: Gastric emptying is neither delayed nor accelerated at all time points in the study. There is no evidence of gastroparesis as the source of the patient's nausea and vomiting. Review of Systems Constitutional: Constitutional: Reports as per HPI ENT: Reports as per HPI Cardiovascular: Cardiovascular: Reports as per HPI, Denies chest pain and Denies dyspnea Respiratory: Respiratory: Denies cough and Denies dyspnea Gastrointestinal: Gastrointestinal: Reports as per HPI and Reports abdominal pain Musculoskeletal: Musculoskeletal: Reports as per HPI Integumentary/Breasts: Skin/Breast: Reports as per HPI Psychiatric: Psychiatric: Reports as per HPI Endocrine: Endocrine: Reports no additional endocrine complaints Hematologic/Lymphatic: Hematologic/Lymphatic: Reports no additional hematologic/lymphatic complaints PMFSH Past Medical History Medical History Anxiety Bronchitis Colitis Colonic fistula Crohn's disease Depression Inflammatory arthritis Irritable bowel syndrome Latex allergy Nausea 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) Surgical History Surgical History History of colonoscopy with polypectomy History of loop electrical excision procedure (LEEP) History of wisdom tooth extraction Family History Family History Father Gastroparesis Diabetes mellitus Arthritis Patient's father is in good health Family history of throat cancer Diverticulitis Mother Arthritis Fibromyalgia Patient's mother is in good health Grandparent Rheumatoid arthritis Diabetes mellitus Arthritis Colitis Heart disease Parkinsons Other Cerebrovascular accident Social History Social History Social History: Surrogate medical decision maker: Iliana Ivan, mother. Code status: Smoking status: Former smoker Tobacco type: cigarettes Second hand tobacco smoke exposure: No Smoking end date: 08/07/16 Additional smoking assessment comments: social smoker only Alcohol intake: current Drinks per week: 1 Alcohol use details: socially Substance use: never Substance use type: other Other substance usage details: CBD on rare occasion for joint pain Do You Feel Safe in your Home?: Yes Lack of Transportation: No Lack of Food: Never True Current Housing: I Have Housing Concerned About Future Housing: No Difficulty Paying Gas/Electric Bills: No Difficulty Paying for Meds: No Currently Unemployed: No Education: Associate Degree Difficulty w/ Childcare or Family Care: No Living arrangements: with family Additional living arrangements comments: Lives with [facility] and 3 children in [place]. Spiritual care concerns: No Meds Home Medications and Allergies Home Medications Medication Instructions Recorded Confirmed Type albuterol sulfate 90 mcg/actuation 1 inh inhalation Q4H PRN shortness 10/30/23 06/20/24 Rx aerosol inhaler of breath or wheezing #8.5 grams duloxetine 60 mg capsule,delayed 60 mg PO DAILY #100 caps 02/19/24 06/20/24 Rx release alprazolam 0.25 mg tablet 0.25 mg PO BID PRN Anxiety #28 tabs 10/11/24 11/14/24 Rx cetirizine 10 mg tablet (Zyrtec) 10 mg PO DAILY PRN allergies 06/05/24 06/20/24 History cholecalciferol (vitamin D3) 125 125 mcg PO WEEKLY 06/05/24 06/20/24 History mcg (5,000 unit) capsule duloxetine 30 mg capsule,delayed 30 mg PO DAILY 06/05/24 06/20/24 History release levofloxacin 750 mg tablet 750 mg PO DAILY #5 tabs 06/06/24 06/20/24 Rx metronidazole 500 mg tablet 500 mg PO Q8H 5 days #15 tabs 06/06/24 06/20/24 Rx ondansetron 4 mg disintegrating 4 mg PO Q8H PRN nausea and 06/11/24 06/20/24 Rx tablet vomiting #20 tabs tramadol 50 mg tablet 50 mg PO QID PRN Pain #100 tabs 06/13/24 06/20/24 Rx Allergies Allergy/AdvReac Type Severity Reaction Status Date / Time latex Allergy Unknown Itching Verified 06/19/24 14:46 adhesive tape Allergy Rash Verified 06/19/24 14:46 amoxicillin [From Amoxil] Allergy Itching Verified 06/19/24 14:46 Beef Containing Products AdvReac Severe Vomiting Verified 06/19/24 14:46 Vital Signs Vital Signs - 24 hr 06/19/24 15:38 06/19/24 18:53 06/20/24 00:28 Temperature 97.8 F 97.6 F Pulse Rate 136 H 115 H 100 Respiratory Rate 18 16 14 Blood Pressure 162/107 H 142/114 H 125/86 Pulse Oximetry 100 98 98 Oxygen Delivery 06/20/24 02:30 06/20/24 03:39 06/20/24 05:55 Temperature 97.8 F 97.4 F L Pulse Rate 92 93 84 Respiratory Rate 21 H 14 14 Blood Pressure 136/86 145/94 H 140/87 Pulse Oximetry 96 100 100 Oxygen Delivery 06/20/24 06:45 Temperature Pulse Rate Respiratory Rate Blood Pressure Pulse Oximetry Oxygen Delivery Room Air Exam Const: General: cooperative, healthy appearing, comfortable, no acute distress and well developed Orientation/consciousness: oriented to person, oriented to place, oriented to time and patient oriented x3 HENMT: Head: normal to inspection, normocephalic and atraumatic Mouth: Yes Normal oral and palatal mucosa present and Yes moist mucous membranes Eyes: General: appearance normal, both eyes and all related structures Conjunctivae: conjunctivae normal Sclera: sclerae normal Pupils: Equal, round and reactive pupils present Neck: Neck: normal visual inspection Chest: Chest palpation & inspection: normal inspection of the chest Resp: Effort & Inspection: normal respiratory effort and able to speak in complete sentences Auscultation: clear to auscultation bilaterally Cardio: Jugular venous distension: no JVD Rate: regular rate Rhythm: regular rhythm Heart sounds: S1 normal heart sound present and S2 normal heart sound present GI: Inspection: normal to inspection GI Palp: Yes Soft to palpation, No Firmness to palpation present (GI), Yes Tenderness to palpation present (GI) and Yes No hepatosplenomegaly present Auscultation: normal bowel sounds Rectal Exam: deferred Skin: General skin exam: normal color and no rashes or lesions noted Neuro: General: oriented to person, oriented to place, oriented to time and patient oriented x3 Cranial nerves: Yes Equal, round and reactive pupils present Speech: normal speech Extrem: General: normal to inspection and no clubbing, cyanosis or edema Psych: Appearance: grossly normal and well kempt Affect: normal affect Results Labs 06/19/24 16:21 06/19/24 16:27 Labs: Short CBC 06/19/24 Range/Units 16:21 WBC 14.3 H (4.5-10.0) K/mm3 Hgb 15.9 H D (12.0-15.0) g/dL Hct 47.7 H (37.0-47.0) % Plt Count 403 H D (150-375) k/mm3 BMP 06/19/24 06/19/24 16:21 16:27 Sodium 139 Potassium 4.2 Chloride 105 Carbon Dioxide 25 BUN 7 D Creatinine 0.60 L 0.70 Glucose 89 Calcium 9.5 Liver Function 06/19/24 Range/Units 16:21 Total Bilirubin 0.4 (0.2-1.3) mg/dL AST 24 (14-36) U/L ALT 19 (6-35) U/L Alkaline Phosphatase 55 (38-126) U/L Albumin 4.6 (3.5-5.1) g/dL Urine 06/20/24 Range/Units 01:36 Urine Color Yellow (Yellow) Urine Appearance Clear (Clear) Urine pH 6.5 (5.0-9.0) Ur Specific [place] 1.035 (1.001-1.035) Urine Protein Negative (Negative) mg/dL Urine Glucose (UA) Negative (Negative) mg/dL
[2024-06-20] MEDS: PANTOPRAZOLE SODIUM IV 40 MG VIAL IV PUSH ×2 (12:16→20:04)
[2024-06-20 14:00] VITALS: BP 115/73; PULSE 72; RESP 16; TEMP 36.6; O2SAT 98
[2024-06-20] MEDS: DULoxetine HCL 60 MG CAPSULE.DR PO (16:14)
[2024-06-20] MEDS: DULoxetine HCL 30 MG CAPSULE.DR PO (16:14)
--- NOTE | 2024-06-20 17:08 | P.HP_ITS ---
H&P: HPI History of Present Illness Date/Time: 06/20/24 17:08 Chief Complaint: abd pain and distention Narrative: 38-year-old female past medical history of anxiety and recently managed for colitis who presented to the abdominal pain and distention. She noted after she was discharged on 06/06 with colitis, she noted she was okay for about 2 days, however the next day she started having diffuse abd pain described as sharp 8/10 in intensity, worse with food. She noted that diarrhea immediately following meals, and reported occasional nausea and vomiting. SHe also noted night chills, noted poor oral intae and went from 192 to 170 pounds. ER eval vital signs stable and wnl, labs notable for WBC 14.3, lipase 335. CT AP no acute findings. GI was consulted prior to admission. 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) Surgical History Surgical History History of colonoscopy with polypectomy History of loop electrical excision procedure (LEEP) History of wisdom tooth extraction Family History Family History Father Gastroparesis Diabetes mellitus Arthritis Patient's father is in good health Family history of throat cancer Diverticulitis Mother Arthritis Fibromyalgia Patient's mother is in good health Grandparent Rheumatoid arthritis Diabetes mellitus Arthritis Colitis Heart disease Parkinsons Other Cerebrovascular accident Social History Social History Social History: Surrogate medical decision maker: Iliana Ivan, mother. Code status: Smoking status: Former smoker Tobacco type: cigarettes Second hand tobacco smoke exposure: No Smoking end date: 08/07/16 Additional smoking assessment comments: social smoker only Alcohol intake: current Drinks per week: 1 Alcohol use details: socially Substance use: never Substance use type: other Other substance usage details: CBD on rare occasion for joint pain Do You Feel Safe in your Home?: Yes Lack of Transportation: No Lack of Food: Never True Current Housing: I Have Housing Concerned About Future Housing: No Difficulty Paying Gas/Electric Bills: No Difficulty Paying for Meds: No Currently Unemployed: No Education: Associate Degree Difficulty w/ Childcare or Family Care: No Living arrangements: with family Additional living arrangements comments: Lives with naya and 3 children in [place]. Spiritual care concerns: No Meds Home Medications and Allergies Home Medications Medication Instructions Recorded Confirmed Type albuterol sulfate 90 mcg/actuation 1 inh inhalation Q4H PRN shortness 10/30/23 06/20/24 Rx aerosol inhaler of breath or wheezing #8.5 grams duloxetine 60 mg capsule,delayed 60 mg PO DAILY #100 caps 02/19/24 06/20/24 Rx release alprazolam 0.25 mg tablet 0.25 mg PO BID PRN Anxiety #28 tabs 05/17/24 06/20/24 Rx cetirizine 10 mg tablet (Zyrtec) 10 mg PO DAILY PRN allergies 06/05/24 06/20/24 History cholecalciferol (vitamin D3) 125 125 mcg PO WEEKLY 06/05/24 06/20/24 History mcg (5,000 unit) capsule duloxetine 30 mg capsule,delayed 30 mg PO DAILY 06/05/24 06/20/24 History release levofloxacin 750 mg tablet 750 mg PO DAILY #5 tabs 06/06/24 06/20/24 Rx metronidazole 500 mg tablet 500 mg PO Q8H 5 days #15 tabs 06/06/24 06/20/24 Rx ondansetron 4 mg disintegrating 4 mg PO Q8H PRN nausea and 06/11/24 06/20/24 Rx tablet vomiting #20 tabs tramadol 50 mg tablet 50 mg PO QID PRN Pain #100 tabs 06/13/24 06/20/24 Rx Allergies Allergy/AdvReac Type Severity Reaction Status Date / Time latex Allergy Unknown Itching Verified 06/19/24 14:46 adhesive tape Allergy Rash Verified 06/19/24 14:46 amoxicillin [From Amoxil] Allergy Itching Verified 06/19/24 14:46 Beef Containing Products AdvReac Severe Vomiting Verified 06/19/24 14:46 Vital Signs Vital Signs - 24 hr 06/19/24 18:53 06/20/24 00:28 06/20/24 02:30 Temperature 97.6 F Pulse Rate 115 H 100 92 Respiratory Rate 16 14 21 H Blood Pressure 142/114 H 125/86 136/86 Pulse Oximetry 98 98 96 Oxygen Delivery 06/20/24 03:39 06/20/24 05:55 06/20/24 06:45 Temperature 97.8 F 97.4 F L Pulse Rate 93 84 Respiratory Rate 14 14 Blood Pressure 145/94 H 140/87 Pulse Oximetry 100 100 Oxygen Delivery Room Air 06/20/24 08:00 06/20/24 14:00 Temperature 97.8 F Pulse Rate 72 Respiratory Rate 16 Blood Pressure 115/73 Pulse Oximetry 98 Oxygen Delivery Room Air Exam Narrative: General: alert and comfortable Eyes: EOMI, PERRLA ENNT External ears normal, Neck is supple, no masses, Respiratory systems: Clear to auscultation Cardiovascular S1, S2, normal rhythm, no murmur, rub, or gallop; no thrill or palpable murmurs on palpation. Gastrointestinal: soft, diffuse tenderness, and non-distended abdomen with no masses; BS present Skin: no rash, lesions, ulcerations, subcutaneous nodules or induration Musculoskeletal: no abnormality and no tenderness, normal ROM Neurologic: Alert and oriented x3, non focal Mental Status Exam: normal affect H&P: Results Labs Labs: Urine 06/20/24 Range/Units 01:36 Urine Color Yellow (Yellow) Urine Appearance Clear (Clear) Urine pH 6.5 (5.0-9.0) Ur Specific [place] 1.035 (1.001-1.035) Urine Protein Negative (Negative) mg/dL Urine Glucose (UA) Negative (Negative) mg/dL Assessment and Plan Assessment and plan (1) Elevated lipase: Code(s): R74.8 - Abnormal levels of other serum enzymes Status: Acute (2) Appetite loss: Code(s): R63.0 - Anorexia Status: Acute (3) Nausea vomiting and diarrhea: Code(s): R11.2 - Nausea with vomiting, unspecified; R19.7 - Diarrhea, unspecified Status: Acute (4) Abdominal pain: Qualifiers: Abdominal location: generalized Qualified Code(s): R10.84 - Generalized abdominal pain Code(s): R10.9 - Unspecified abdominal pain Status: Acute Plan Abd pain Etiology unclear PUD vs Pancreatitis vs Cholecystitis vs functional gallbladder disorder Noted pain is worse with food and noted some relief today with IV protonix Lipase elevated 331, however patient denies radiation to the back HIDA scan pending, EGD tomorrow morning continue PPI in the meantime GI followig Vomiting and diarrhea Failure to thrive patient noted vomiting and diarrhea especially after eating continue IVF, advance diet as tolerated NPO midnight per GI GI followin Recent colitis and patient completed abx monitor Anxiety continue home meds DVT prophylaxis on Sq lovenox
[2024-06-20 20:27] VITALS: BP 132/90; PULSE 79; RESP 14; TEMP 36.5; O2SAT 100
[2024-06-20] MEDS: ALPRAZolam (*CRX) 0.25 MG TABLET PO (21:06)
[2024-06-21] VITALS (7 sets, daily range): BP systolic 92–148; BP diastolic 47–100; PULSE 76–96; RESP 14–20; TEMP 35.9–36.6; O2SAT 97–100
[2024-06-21] MEDS: MORPHINE SULFATE (*CRX) 4 MG/ML INJ IV PUSH ×4 (00:10→20:22)
[2024-06-21] MEDS: KETOROLAC 30 MG/ML VIAL (*BKC) IV PUSH ×2 (02:50→23:42)
[2024-06-21] MEDS: ONDANSETRON INJ 4 MG/2 ML VIAL IV PUSH ×4 (02:50→20:22)
[2024-06-21] MEDS: SODIUM CHLORIDE 0.9% IV 1,000 ML 150 ML IV CONT (05:35)
[2024-06-21] MEDS: LORazepam INJ (*CRX) 2 MG/ML VIAL 0.5 MG IV PUSH (05:47)
[2024-06-21] MEDS: DULoxetine HCL 30 MG CAPSULE.DR PO (10:01)
[2024-06-21] MEDS: PANTOPRAZOLE SODIUM IV 40 MG VIAL IV PUSH (10:01)
[2024-06-21] MEDS: ALPRAZolam (*CRX) 0.25 MG TABLET PO ×2 (10:01→20:36)
[2024-06-21] MEDS: DULoxetine HCL 60 MG CAPSULE.DR PO (10:01)
[2024-06-21 10:20] LABS: Basophils Absolute Auto 0.1 K/mm3 (0.0-0.1); Basophils Percent Auto 1.1 % (0.2-1.2); Eosinophils Absolute Auto 0.4 K/mm3 (0-0.3); Eosinophils Percent Auto 3.7 % (0-4.4); Hematocrit 42.5 % (37.0-47.0); Hemoglobin 13.8 g/dL (12.0-15.0); Immature Granulocyte Absolute 0.05 K/mm3 (0.00-0.031); Immature Granulocyte Percent A 0.5 % (0-0.5); Lymphocytes Percent Auto 29.7 % (18.3-44.2); Mean Corpuscular HGB Conc 32.5 g/dl (32-36); Mean Corpuscular Hemoglobin 29.7 pg (26-34); Mean Corpuscular Volume 91.4 fl (80-100); Mean Platelet Volume 11.2 fl (7.4-10.4); Monocytes Absolute Auto 0.7 K/mm3 (0.1-0.6); Monocytes Percent Auto 6.2 % (2.6-8.5); Neutrophils Absolute Auto 6.2 K/mm3 (1.3-6.7); Neutrophils Percent Auto 58.8 % (45.5-73.1); Platelet Count Result 335 k/mm3 (150-375); Red Blood Count 4.65 M/mm3 (4.2-5.4); Red Cell Distribution Width 12.7 % (11.5-14.5); White Blood Count 10.5 K/mm3 (4.5-10.0)
[2024-06-21 10:36] LABS: Alanine Aminotransferase 16 U/L (6-35); Albumin Level 3.8 g/dL (3.5-5.1); Alkaline Phosphatase 48 U/L (38-126); Anion Gap 6 mmol/L (4-12); Aspartate Amino Transferase 24 U/L (14-36); Bilirubin,Total 0.3 mg/dL (0.2-1.3); Blood Urea Nitrogen 3 mg/dL (7-17); Calcium 8.9 mg/dL (8.4-10.2); Carbon Dioxide 27 mmol/L (22-30); Chloride 106 mmol/L (98-107); Estimated CRCL calculation 121 ml/min; Estimated Glomerular Filt Rate > 60; Glucose 89 mg/dL (65-110); Magnesium 2.1 mg/dL (1.6-2.3); Potassium 4.3 mmol/L (3.4-5.0); Sodium 139 mmol/L (137-145)
--- NOTE | 2024-06-21 12:04 | PM.IMPN ---
Progress Note: A&P Assessment and Plan (1) Elevated lipase: Code(s): R74.8 - Abnormal levels of other serum enzymes Status: Acute (2) Appetite loss: Code(s): R63.0 - Anorexia Status: Acute (3) Nausea vomiting and diarrhea: Code(s): R11.2 - Nausea with vomiting, unspecified; R19.7 - Diarrhea, unspecified Status: Acute (4) Abdominal pain: Qualifiers: Abdominal location: generalized Qualified Code(s): R10.84 - Generalized abdominal pain Code(s): R10.9 - Unspecified abdominal pain Status: Acute Plan Abd pain chronic Cholecystitis vs functional gallbladder disorder Noted pain is worse with food and noted some relief today with IV protonix Lipase elevated 331, however patient denies radiation to the back HIDA scan showed GBEF is 7% suggestive of Gallbladder dysfunction vs chronic cholecystitis EGD today continue PPI in the meantime GI following Gen surgery consult Vomiting and diarrhea, resolved Failure to thrive continue IVF, advance diet as tolerated EGD today GI following Recent colitis and patient completed abx monitor Anxiety continue home meds DVT prophylaxis on Sq Lovenox Subjective Date/time seen: 06/21/24 12:04 Interval history: Patient comfortable at bedside Awaiting EGD today Review of Systems Review of Systems: All other systems were reviewed and negative except as noted in the HPI above Exam Narrative: General: alert and comfortable Eyes: EOMI, PERRLA ENNT External ears normal, Neck is supple, no masses, Respiratory systems: Clear to auscultation Cardiovascular S1, S2, normal rhythm, no murmur, rub, or gallop; no thrill or palpable murmurs on palpation. Gastrointestinal: soft, diffuse tenderness, and non-distended abdomen with no masses; BS present Skin: no rash, lesions, ulcerations, subcutaneous nodules or induration Musculoskeletal: no abnormality and no tenderness, normal ROM Neurologic: Alert and oriented x3, non focal Mental Status Exam: normal affect Objective Data Vital Signs Vital Signs: Vital Signs - 24 hr 06/20/24 14:00 06/20/24 20:27 06/21/24 05:17 Temperature 97.8 F 97.7 F 97.7 F Pulse Rate 72 79 78 Respiratory Rate 16 14 16 Blood Pressure 115/73 132/90 119/76 Pulse Oximetry 98 100 Intake/Output Intake/Output: Intake & Output 06/18/24 06/19/24 06/20/24 06/21/24 23:59 23:59 23:59 23:59 Intake Total 6063.5 1690 Balance 6063.5 1690 Meds/Results Medications: Active Medications Generic Name Dose Route Start Last Admin Trade Name Freq PRN Reason Stop Dose Admin Alprazolam 0.25 mg 06/20/24 15:07 06/21/24 10:01 Alprazolam (*Crx) 0.25 Mg Tablet PO 0.25 mg BID PRN Administration Anxiety Duloxetine HCl 60 mg 06/21/24 09:00 06/21/24 10:01 Duloxetine Hcl 60 Mg Capsule. PO 60 mg QAM ZAN Administration Duloxetine HCl 30 mg 06/21/24 09:00 06/21/24 10:01 Duloxetine Hcl 30 Mg Capsule. PO 30 mg QAM ZAN Administration Enoxaparin Sodium 40 mg 06/21/24 09:00 Enoxaparin 40 Mg/0.4 Ml Syringe SUB-Q DAILY [facility] Sodium Chloride 1,000 mls @ 75 mls/hr 06/20/24 01:30 06/21/24 10:11 Normal Saline Iv IV CONT 75 mls/hr .[id number] [facility] Infusion Ketorolac Tromethamine 30 mg 06/20/24 01:27 06/21/24 02:50 Ketorolac 30 Mg/Ml Vial (*Bkc) IV PUSH 30 mg Q6H PRN Administration Pain Rated 4-10 Loratadine 10 mg 06/20/24 15:07 Loratadine 10 Mg Tablet PO QAM PRN Allergic Symptoms Morphine Sulfate 4 mg 06/20/24 01:27 06/21/24 10:02 Morphine Sulfate (*Crx) 4 Mg/Ml Inj IV PUSH 4 mg Q4H PRN Administration Breakthrough Pain Ondansetron HCl 4 mg 06/20/24 01:27 06/21/24 10:01 Ondansetron Inj 4 Mg/2 Ml Vial IV PUSH 4 mg Q4H PRN Administration Nausea Pantoprazole Sodium 40 mg 06/20/24 21:00 06/21/24 10:01 Pantoprazole Sodium Iv 40 Mg Vial IV PUSH 40 mg Q12HR ZAN Administration Vitamin D 5,000 units 06/26/24 09:00 Cholecalciferol 5,000 Units Tablet PO We@0900 [facility] Radiology Results: ITS Impressions Abdomen/Pelvis CT 06/19/24 16:37 IMPRESSION: 1. No etiology for the patient's symptoms. Hepatobiliary Scan Nuclear Medicine 06/21/24 09:20 IMPRESSION: 1. Abnormally decreased gallbladder ejection fraction of 7% consistent gallbladder dysfunction or chronic cholecystitis in the appropriate clinical setting. Labs Labs: Laboratory Results - last 24 hr 06/21/24 09:51 WBC 10.5 H RBC 4.65 Hgb 13.8 Hct 42.5 MCV 91.4 MCH 29.7 MCHC 32.5 RDW 12.7 Plt Count 335 MPV 11.2 H Immature Gran % (Auto) 0.5 Neut % (Auto) 58.8 Lymph % (Auto) 29.7 [place] % (Auto) 6.2 Eos % (Auto) 3.7 Baso % (Auto) 1.1 Lymph # (Auto) 3.10 [place] # (Auto) 0.7 H Eos # (Auto) 0.4 H Baso # (Auto) 0.1 Abs Immat Gran (auto) 0.05 H Absolute Neuts (auto) 6.2 Absolute Nucleated RBC 0.000 Nucleated RBC % 0.0 Sodium 139 Potassium 4.3 Chloride 106 Carbon Dioxide 27 Anion Gap 6 BUN 3 L Creatinine 0.50 L Estim Creat Clear Calc 121 Estimated GFR > 60 Glucose 89 Calcium 8.9 Magnesium 2.1 Total Bilirubin 0.3 AST 24 ALT 16 Alkaline Phosphatase 48 Total Protein 7.0 Albumin 3.8
[2024-06-21] MEDS: LACTATED RINGERS 1,000 ML 150 ML IV CONT (13:27)
--- NOTE | 2024-06-21 13:39 | WPDANESEPPF ---
Anes - Initial Pre Proc Eval Procedure: Operation Date: 06/21/24 15:00 Proposed Procedures p Esophagogastroduodenoscopy - Anthony Harmon MD Date/Time: 06/21/24 13:39 Surgeon: Viviana German DO Pre Op Diagnosis: Abdominal pain nausea vomiting diarrhea, Dehydrati Patient Data Age: 39 Gender: F Height: 1.7 m Weight: 80 kg Last Vital Signs Temp 97.1 F L 06/21/24 13:24 Pulse 85 06/21/24 13:24 Resp 18 06/21/24 13:24 BP 148/85 H 06/21/24 13:24 Pulse Ox 99 06/21/24 13:24 O2 Del Method Room Air 06/21/24 13:24 Allergies Allergy/AdvReac Type Severity Reaction Status Date / Time latex Allergy Unknown Itching Verified 06/19/24 14:46 adhesive tape Allergy Rash Verified 06/19/24 14:46 amoxicillin [From Amoxil] Allergy Itching Verified 06/19/24 14:46 Beef Containing Products AdvReac Severe Vomiting Verified 06/19/24 14:46 Home Medications Medication Instructions Recorded Confirmed Type albuterol sulfate 90 mcg/actuation 1 inh inhalation Q4H PRN shortness 10/30/23 06/20/24 Rx aerosol inhaler of breath or wheezing #8.5 grams duloxetine 60 mg capsule,delayed 60 mg PO DAILY #100 caps 02/19/24 06/20/24 Rx release alprazolam 0.25 mg tablet 0.25 mg PO BID PRN Anxiety #28 tabs 05/17/24 06/20/24 Rx cetirizine 10 mg tablet (Zyrtec) 10 mg PO DAILY PRN allergies 06/05/24 06/20/24 History cholecalciferol (vitamin D3) 125 125 mcg PO WEEKLY 06/05/24 06/20/24 History mcg (5,000 unit) capsule duloxetine 30 mg capsule,delayed 30 mg PO DAILY 06/05/24 06/20/24 History release levofloxacin 750 mg tablet 750 mg PO DAILY #5 tabs 06/06/24 06/20/24 Rx metronidazole 500 mg tablet 500 mg PO Q8H 5 days #15 tabs 06/06/24 06/20/24 Rx ondansetron 4 mg disintegrating 4 mg PO Q8H PRN nausea and 06/11/24 06/20/24 Rx tablet vomiting #20 tabs tramadol 50 mg tablet 50 mg PO QID PRN Pain #100 tabs 06/13/24 06/20/24 Rx Laboratory Tests 06/21/24 09:51 WBC 10.5 H K/mm3 (4.5-10.0) RBC 4.65 M/mm3 (4.2-5.4) Hgb 13.8 g/dL (12.0-15.0) Hct 42.5 % (37.0-47.0) MCV 91.4 fl (80-100) MCH 29.7 pg (26-34) MCHC 32.5 g/dl (32-36) RDW 12.7 % (11.5-14.5) Plt Count 335 k/mm3 (150-375) MPV 11.2 H fl (7.4-10.4) Immature Gran % (Auto) 0.5 % (0-0.5) Neut % (Auto) 58.8 % (45.5-73.1) Lymph % (Auto) 29.7 % (18.3-44.2) [place] % (Auto) 6.2 % (2.6-8.5) Eos % (Auto) 3.7 % (0-4.4) Baso % (Auto) 1.1 % (0.2-1.2) Lymph # (Auto) 3.10 K/mm3 (0.9-3.2) [place] # (Auto) 0.7 H K/mm3 (0.1-0.6) Eos # (Auto) 0.4 H K/mm3 (0-0.3) Baso # (Auto) 0.1 K/mm3 (0.0-0.1) Abs Immat Gran (auto) 0.05 H K/mm3 (0.00-0.031) Absolute Neuts (auto) 6.2 K/mm3 (1.3-6.7) Absolute Nucleated RBC 0.000 K/mm3 (0.0-0.012) Nucleated RBC % 0.0 % (0.0-0.2) Sodium 139 mmol/L (137-145) Potassium 4.3 mmol/L (3.4-5.0) Chloride 106 mmol/L (98-107) Carbon Dioxide 27 mmol/L (22-30) Anion Gap 6 mmol/L (4-12) BUN 3 L mg/dL (7-17) Creatinine 0.50 L mg/dL (0.7-1.0) Estim Creat Clear Calc 121 ml/min Estimated GFR > 60 (59 - ) Glucose 89 mg/dL (65-110) Calcium 8.9 mg/dL (8.4-10.2) Magnesium 2.1 mg/dL (1.6-2.3) Total Bilirubin 0.3 mg/dL (0.2-1.3) AST 24 U/L (14-36) ALT 16 U/L (6-35) Alkaline Phosphatase 48 U/L (38-126) Total Protein 7.0 g/dL (6.3-8.2) Albumin 3.8 g/dL (3.5-5.1) Patient hx anesthesia problems: none Family hx anesthesia problems: none Results Review: All pre-operative results and documents have been reviewed as part of the pre-operative evaluation. 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) Surgical History Surgical History History of colonoscopy with polypectomy History of loop electrical excision procedure (LEEP) History of wisdom tooth extraction Family History Family History Father Gastroparesis Diabetes mellitus Arthritis Patient's father is in good health Family history of throat cancer Diverticulitis Mother Arthritis Fibromyalgia Patient's mother is in good health Grandparent Rheumatoid arthritis Diabetes mellitus Arthritis Colitis Heart disease Parkinsons Other Cerebrovascular accident Social History Social History Social History: Surrogate medical decision maker: Iliana Ivan, mother. Code status: Smoking status: Former smoker Tobacco type: cigarettes Second hand tobacco smoke exposure: No Smoking end date: 08/07/16 Additional smoking assessment comments: social smoker only Alcohol intake: current Drinks per week: 1 Alcohol use details: socially Substance use: never Substance use type: other Other substance usage details: CBD on rare occasion for joint pain Do You Feel Safe in your Home?: Yes Lack of Transportation: No Lack of Food: Never True Current Housing: I Have Housing Concerned About Future Housing: No Difficulty Paying Gas/Electric Bills: No Difficulty Paying for Meds: No Currently Unemployed: No Education: Associate Degree Difficulty w/ Childcare or Family Care: No Living arrangements: with family Additional living arrangements comments: Lives with naya and 3 children in [place]. Spiritual care concerns: No Anes - Eval Final PreProcedure Day of Procedure 06/21/24 13:39 Patient weight: overweight Heart: regular rate and rhythm Lungs: clear to auscultation Airway: Mallampati scale class II Neurological: alert and oriented Last oral intake: >/= 8 hours ASA classification: II Emergent: no Anesthetic plan: proceed Anesthesia type and monitoring: general GIVS and standard monitoring Results Review: All pre-operative results and documents have been reviewed as part of the pre-operative evaluation. Hx of ASD, hyperlipidemia, now w N/V, abd pain since colonoscopy and for reeval. Pt reports that her prev testing for alpha gal allergy by blood testing was nml. Informed Consent: The patient's anesthetic plan and its attendant risks and benefits were discussed with the patient/family/POA. Questions were solicited and answers provided to the satisfaction of the patient/family/POA.
[2024-06-21] MEDS: ENOXAPARIN 40 MG/0.4 ML SYRINGE SUB-Q (15:31)
--- NOTE | 2024-06-21 17:52 | PM.CNGS ---
Assessment and Plan Assessment and plan (1) Abnormal findings on diagnostic imaging of liver and biliary tract: Code(s): R93.2 - Abnormal findings on diagnostic imaging of liver and biliary tract Status: Acute Assessment and Plan: Markedly abnormal HIDA scan. This would be an unusual presentation of acalculous chronic cholecystitis. I discussed this with the patient. Well left lower quadrant pain can happen due to gallbladder dysfunction, it is unusual. I will go ahead and get an ultrasound of her right upper quadrant. Previous CT scans including 1 done 2 days ago showed a normal gallbladder. If no other reason for her abdominal pain can be found, laparoscopic cholecystectomy would be indicated in my opinion. Will discuss with hospitalist and Gastroenterology. Review ultrasound results. Patient has been restarted on regular diet. Thank you for asking me to see this interesting patient in consultation (2) Left lower quadrant abdominal pain: Code(s): R10.32 - Left lower quadrant pain Status: Acute Assessment and Plan: Patient's current complaints center around severe left lower quadrant abdominal pain. When she eats this pain gets worse. It is associated with either nausea and vomiting and or diarrhea. She does report that when she received the Kinevac injection during the HIDA scan, it did reproduce her left lower quadrant abdominal pain. (3) Nausea vomiting and diarrhea: Code(s): R11.2 - Nausea with vomiting, unspecified; R19.7 - Diarrhea, unspecified Status: Acute Assessment and Plan: Patient seems to be able to tolerate liquids and puddings but solid food he either gives her severe diarrhea or causes vomiting. Extensive testing including recent CT scan, full colonoscopy, EGD have all been negative for a cause of this. Patient describes her stomach complaints as colitis but there has not been any objective evidence of this. C difficile toxin titer has been ordered but has not yet been obtained. Patient has not had a bowel movement in over a week as she has not had solid food which apparently is integral in her ability to have bowel movements. These bowel movements are always liquid, described as diarrhea. (4) Positive blood culture: Code(s): R78.81 - Bacteremia Status: Acute Assessment and Plan: 1 of 2 blood cultures from 06/05/2024, her previous admission, grew proprionibacterium acnes. This is a ubiquitous bacterium on the skin surface. It appears this is a contaminant and I would not consider it to be significant any further. History of Present Illness Consult details Consult date: 06/21/24 Reason for consult: abdominal pain Requesting physician: Malachi Burgess MD Narrative: Patient is a 39-year-old woman who has had some chronic problems with recurrent abdominal pain over the years. Old records show that in 2019 she had a perirectal abscess and evidence of proctitis. Seton was placed. The abscess resolved but subsequent colonoscopies did not show any evidence of proctitis or inflammatory bowel disease. Record since then are not really available but patient reports that for the last 5 years she has been doing well, being very selective with what she eats and has had her chronic GI issues under control. She underwent a surveillance colonoscopy on 06/04/24. Within hours following this she reports abdominal distension left lower quadrant pain, vomiting and diarrhea. She was admitted soon after the procedure and improved slightly. Her colonoscopy was completely negative. Biopsies were taken throughout the colon and were negative. She reports the pain improved but never really went away. She was having more abdominal pain and went to see her primary care physician on 06/19/2024. She was noted to have a lot of abdominal tenderness and significant tachycardia. She was sent to the emergency room on 06/19/2024 for evaluation. She was noting bloating diarrhea and abdominal pain. Her pain is primarily in the left lower quadrant but also notices some pain in the coccyx area. The pain in the coccyx feels like she fell on her tailbone. She notes that whenever she eats solid food, if she keeps it down, she will have multiple episodes of diarrhea. Many solid foods she will just vomit and not keep down at all. She does seem to do well with putting and liquids. She has been having [place] Cola today without difficulty. Gastroenterology has been seeing her since admission. EGD was done today and was negative. She had a CT scan on 06/19/2024 in the emergency room and this was negative as well. She had a HIDA scan today which was markedly abnormal. The gallbladder ejection fraction was only 7%. When the Kinevac was administered during the HIDA scan, it reproduced the left lower quadrant pain she has been having. An ultrasound of the gallbladder was ordered but could not be done this afternoon as she had the cola after her EGD. She has no family history at all of gallbladder disease. She is seen now in consultation. 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) Surgical History Surgical History History of colonoscopy with polypectomy History of loop electrical excision procedure (LEEP) History of wisdom tooth extraction Family History Family History Father Gastroparesis Diabetes mellitus Arthritis Patient's father is in good health Family history of throat cancer Diverticulitis Mother Arthritis Fibromyalgia Patient's mother is in good health Grandparent Rheumatoid arthritis Diabetes mellitus Arthritis Colitis Heart disease Parkinsons Other Cerebrovascular accident Social History Social History Social History: Surrogate medical decision maker: Iliana Ivan, mother. Code status: Smoking status: Former smoker Tobacco type: cigarettes Second hand tobacco smoke exposure: No Smoking end date: 08/07/16 Additional smoking assessment comments: social smoker only Alcohol intake: current Drinks per week: 1 Alcohol use details: socially Substance use: never Substance use type: other Other substance usage details: CBD on rare occasion for joint pain Do You Feel Safe in your Home?: Yes Lack of Transportation: No Lack of Food: Never True Current Housing: I Have Housing Concerned About Future Housing: No Difficulty Paying Gas/Electric Bills: No Difficulty Paying for Meds: No Currently Unemployed: No Education: Associate Degree Difficulty w/ Childcare or Family Care: No Living arrangements: with family Additional living arrangements comments: Lives with [facility] and 3 children in [place]. Spiritual care concerns: No Meds Home Medications and Allergies Home Medications Medication Instructions Recorded Confirmed Type albuterol sulfate 90 mcg/actuation 1 inh inhalation Q4H PRN shortness 10/30/23 06/20/24 Rx aerosol inhaler of breath or wheezing #8.5 grams duloxetine 60 mg capsule,delayed 60 mg PO DAILY #100 caps 02/19/24 06/20/24 Rx release alprazolam 0.25 mg tablet 0.25 mg PO BID PRN Anxiety #28 tabs 05/17/24 06/20/24 Rx cetirizine 10 mg tablet (Zyrtec) 10 mg PO DAILY PRN allergies 06/05/24 06/20/24 History cholecalciferol (vitamin D3) 125 125 mcg PO WEEKLY 06/05/24 06/20/24 History mcg (5,000 unit) capsule duloxetine 30 mg capsule,delayed 30 mg PO DAILY 06/05/24 06/20/24 History release levofloxacin 750 mg tablet 750 mg PO DAILY #5 tabs 06/06/24 06/20/24 Rx metronidazole 500 mg tablet 500 mg PO Q8H 5 days #15 tabs 06/06/24 06/20/24 Rx ondansetron 4 mg disintegrating 4 mg PO Q8H PRN nausea and 06/11/24 06/20/24 Rx tablet vomiting #20 tabs tramadol 50 mg tablet 50 mg PO QID PRN Pain #100 tabs 06/13/24 06/20/24 Rx Allergies Allergy/AdvReac Type Severity Reaction Status Date / Time latex Allergy Unknown Itching Verified 06/19/24 14:46 adhesive tape Allergy Rash Verified 06/19/24 14:46 amoxicillin [From Amoxil] Allergy Itching Verified 06/19/24 14:46 Beef Containing Products AdvReac Severe Vomiting Verified 06/19/24 14:46 Vital Signs Vital Signs - 24 hr 06/20/24 20:27 06/21/24 05:17 06/21/24 13:24 Temperature 36.5 C 36.5 C 36.2 C L Pulse Rate 79 78 85 Respiratory Rate 14 16 18 Blood Pressure 132/90 119/76 148/85 H Pulse Oximetry 100 99 Oxygen Delivery Room Air 06/21/24 14:36 06/21/24 14:46 06/21/24 14:56 Temperature Pulse Rate 88 82 83 Respiratory Rate 20 20 17 Blood Pressure 118/47 L 92/55 L 134/100 H Pulse Oximetry 98 100 100 Oxygen Delivery Room Air Room Air Room Air 06/21/24 15:18 Temperature 35.9 C L Pulse Rate 76 Respiratory Rate 18 Blood Pressure 130/99 H Pulse Oximetry 100 Oxygen Delivery Exam Const: General: cooperative, healthy appearing, comfortable, no acute distress, alert and awake; No anxious Orientation/consciousness: patient oriented x3 HENMT: Head: normocephalic and atraumatic Mouth: Yes Normal oral and palatal mucosa present Eyes: Conjunctivae: conjunctivae normal Pupils: Equal, round and reactive pupils present EOM: EOMs intact bilaterally Neck: Neck: normal visual inspection, no lymphadenopathy and nontender Resp: Effort & Inspection: normal respiratory effort Auscultation: clear to auscultation bilaterally Cardio: Rate: regular rate Rhythm: regular rhythm Heart sounds: no gallops, no murmurs and no rubs GI: Inspection: non-distended, scaphoid and no visible herniation GI Palp: Yes Soft to palpation, Yes Tenderness to palpation present (GI) (Suprapubic and left lower quadrant with guarding), Yes Guarding due to palpation present (GI), No Hepatomegaly present, No Splenomegaly present, No Hernia present and No Palpable mass present Skin: Lesions: no lesions Rashes: no rashes Neuro: General: no focal motor deficits and CN's II-XI intact bilaterally Cranial nerves: Yes Equal, round and reactive pupils present, Yes Bilaterally intact EOM present, Yes facial symmetry and Yes Midline tongue present Speech: normal speech Motor exam (neuro): 5/5 motor strength present throughout and Motor abnormalities not present Extrem: General: no clubbing, cyanosis or edema and edema Psych: Affect: normal affect Thought process: Normal thought process present Insight: Good insight present (Psych) Results Labs 06/21/24 09:51 06/21/24 09:51 Labs: Abnormal lab results 06/21/24 Range/Units 09:51 WBC 10.5 H (4.5-10.0) K/mm3 MPV 11.2 H (7.4-10.4) fl [place] # (Auto) 0.7 H (0.1-0.6) K/mm3 Eos # (Auto) 0.4 H (0-0.3) K/mm3 Abs Immat Gran (auto) 0.05 H (0.00-0.031) K/mm3 BUN 3 L (7-17) mg/dL Creatinine 0.50 L (0.7-1.0) mg/dL Diabetes panel 06/21/24 Range/Units 09:51 Sodium 139 (137-145) mmol/L Potassium 4.3 (3.4-5.0) mmol/L Chloride 106 (98-107) mmol/L Carbon Dioxide 27 (22-30) mmol/L BUN 3 L (7-17) mg/dL Creatinine 0.50 L (0.7-1.0) mg/dL Glucose 89 (65-110) mg/dL Calcium 8.9 (8.4-10.2) mg/dL AST 24 (14-36) U/L ALT 16 (6-35) U/L Alkaline Phosphatase 48 (38-126) U/L Total Protein 7.0 (6.3-8.2) g/dL Albumin 3.8 (3.5-5.1) g/dL Calcium panel 06/21/24 Range/Units 09:51 Calcium 8.9 (8.4-10.2) mg/dL Albumin 3.8 (3.5-5.1) g/dL Pituitary panel 06/21/24 Range/Units 09:51 Sodium 139 (137-145) mmol/L Potassium 4.3 (3.4-5.0) mmol/L Chloride 106 (98-107) mmol/L Carbon Dioxide 27 (22-30) mmol/L BUN 3 L (7-17) mg/dL Creatinine 0.50 L (0.7-1.0) mg/dL Glucose 89 (65-110) mg/dL Calcium 8.9 (8.4-10.2) mg/dL Adrenal panel 06/21/24 Range/Units 09:51 Sodium 139 (137-145) mmol/L Potassium 4.3 (3.4-5.0) mmol/L Chloride 106 (98-107) mmol/L Carbon Dioxide 27 (22-30) mmol/L BUN 3 L (7-17) mg/dL Creatinine 0.50 L (0.7-1.0) mg/dL Glucose 89 (65-110) mg/dL Calcium 8.9 (8.4-10.2) mg/dL Total Bilirubin 0.3 (0.2-1.3) mg/dL AST 24 (14-36) U/L ALT 16 (6-35) U/L Alkaline Phosphatase 48 (38-126) U/L Total Protein 7.0 (6.3-8.2) g/dL Albumin 3.8 (3.5-5.1) g/dL All other labs normal. Imaging Abdomen CT scan report/results: report reviewed and image reviewed CT scan - pelvis: report reviewed and image reviewed
[2024-06-22] VITALS (11 sets, daily range): BP systolic 129–152; BP diastolic 82–93; PULSE 78–98; RESP 12–20; TEMP 36.1–36.8; O2SAT 96–100
[2024-06-22] MEDS: HYDROcodone/acetaminophen (*CRX) 5-325 MG TABLET 1 TAB PO (00:52)
[2024-06-22] MEDS: SODIUM CHLORIDE 0.9% IV 1,000 ML 75 ML IV CONT (00:54)
[2024-06-22] MEDS: ONDANSETRON INJ 4 MG/2 ML VIAL IV PUSH ×4 (03:14→22:31)
[2024-06-22] MEDS: MORPHINE SULFATE (*CRX) 4 MG/ML INJ 2 MG IV PUSH (03:15)
[2024-06-22] MEDS: MORPHINE SULFATE (*CRX) 2 MG/ML INJ IV PUSH ×3 (06:30→13:01)
[2024-06-22 06:50] LABS: Basophils Absolute Auto 0.1 K/mm3 (0.0-0.1); Eosinophils Absolute Auto 0.4 K/mm3 (0-0.3); Hematocrit 41.3 % (37.0-47.0); Hemoglobin 13.4 g/dL (12.0-15.0); Immature Granulocyte Absolute 0.03 K/mm3 (0.00-0.031); Immature Granulocyte Percent A 0.3 % (0-0.5); Lymphocytes Absolute Auto 3.71 K/mm3 (0.9-3.2); Lymphocytes Percent Auto 36.2 % (18.3-44.2); Mean Corpuscular HGB Conc 32.4 g/dl (32-36); Mean Corpuscular Hemoglobin 29.8 pg (26-34); Mean Corpuscular Volume 91.8 fl (80-100); Mean Platelet Volume 11.3 fl (7.4-10.4); Monocytes Absolute Auto 0.8 K/mm3 (0.1-0.6); Monocytes Percent Auto 7.5 % (2.6-8.5); Neutrophils Absolute Auto 5.2 K/mm3 (1.3-6.7); Platelet Count Result 302 k/mm3 (150-375); Red Cell Distribution Width 12.4 % (11.5-14.5); White Blood Count 10.2 K/mm3 (4.5-10.0)
[2024-06-22 07:02] LABS: Alanine Aminotransferase 14 U/L (6-35); Albumin Level 3.6 g/dL (3.5-5.1); Alkaline Phosphatase 45 U/L (38-126); Anion Gap 6 mmol/L (4-12); Aspartate Amino Transferase 23 U/L (14-36); Bilirubin,Total 0.2 mg/dL (0.2-1.3); Blood Urea Nitrogen 6 mg/dL (7-17); Calcium 8.7 mg/dL (8.4-10.2); Carbon Dioxide 27 mmol/L (22-30); Chloride 104 mmol/L (98-107); Estimated CRCL calculation 103 ml/min; Estimated Glomerular Filt Rate > 60; Glucose 81 mg/dL (65-110); Magnesium 2.1 mg/dL (1.6-2.3); Potassium 3.7 mmol/L (3.4-5.0); Sodium 137 mmol/L (137-145)
[2024-06-22] MEDS: DULoxetine HCL 60 MG CAPSULE.DR PO (08:48)
[2024-06-22] MEDS: PANTOPRAZOLE SOD SESQUIHYDRATE 20 MG TAB PO (08:49)
[2024-06-22] MEDS: ALPRAZolam (*CRX) 0.25 MG TABLET PO ×2 (08:49→17:00)
[2024-06-22] MEDS: DULoxetine HCL 30 MG CAPSULE.DR PO (08:49)
--- NOTE | 2024-06-22 10:20 | P.PNGS_ITS ---
Progress Note: A&P Assessment and Plan (1) Left lower quadrant abdominal pain: Code(s): R10.32 - Left lower quadrant pain Status: Acute Assessment and Plan: Continues to have left lower quadrant abdominal pain worse with eating and associated with nausea vomiting and sometimes diarrhea. Her ultrasound was negative. However her hepatobiliary scan was markedly abnormal at only 7% ejection fraction. Typically, less than 10% on injection fraction is, in my experience, highly suggestive of gallbladder dysfunction or biliary dyskinesia. I have recommended going ahead with laparoscopic cholecystectomy. Patient agrees. She has been taking morphine every 2 hours for the pain. Will plan to go ahead this morning with laparoscopic cholecystectomy. Patient understands that there is certainly a chance that this may not relieve her symptoms but at this point she has had an extensive workup and the only abnormality discovered was the abnormal HIDA scan. Also, on the HIDA scan, the Kinevac injection rep roduced severely her left lower quadrant pain. I am optimistic that cholecystectomy will be very helpful for her. (2) Abnormal findings on diagnostic imaging of liver and biliary tract: Code(s): R93.2 - Abnormal findings on diagnostic imaging of liver and biliary tract Status: Acute Assessment and Plan: Abnormal HIDA (3) Nausea vomiting and diarrhea: Code(s): R11.2 - Nausea with vomiting, unspecified; R19.7 - Diarrhea, unspecified Status: Acute Assessment and Plan: Persists Subjective Subjective Date/Time Seen: 06/22/24 10:20 Patient reports: still having pain, diarrhea, nausea and afebrile Interval history: Still having pain. Taking morphine every 2 hours. Had loose stools again after eating as well as nausea. Review of Systems Review of Systems: All systems reviewed & are unremarkable except as noted in HPI and below (HPI) Exam Const: General: cooperative, comfortable, no acute distress, alert and awake Orientation/consciousness: patient oriented x3 GI: Inspection: normal to inspection, non-distended, no scars and no visible herniation GI Palp: Yes Soft to palpation, Yes Tenderness to palpation present (GI) (Left lower quadrant as before), Yes Guarding due to palpation present (GI), No Hernia present, No Palpable mass present and No Rebound tenderness present Neuro: General: patient oriented x3 and no focal motor deficits Extrem: General: no calf tenderness and no edema Psych: Affect: normal affect Insight: Good insight present (Psych) Judgement: Good judgement present (Psych) Objective Data Vital Signs Vital Signs: Vital Signs - 24 hr 06/21/24 13:24 06/21/24 14:36 06/21/24 14:46 Temperature 36.2 C L Pulse Rate 85 88 82 Respiratory Rate 18 20 20 Blood Pressure 148/85 H 118/47 L 92/55 L Pulse Oximetry 99 98 100 Oxygen Delivery Room Air Room Air Room Air 06/21/24 14:56 06/21/24 15:18 06/21/24 21:25 Temperature 35.9 C L 36.6 C Pulse Rate 83 76 96 Respiratory Rate 17 18 14 Blood Pressure 134/100 H 130/99 H 129/88 Pulse Oximetry 100 100 97 Oxygen Delivery Room Air 06/21/24 20:00 06/22/24 05:55 Temperature 36.1 C L Pulse Rate 87 Respiratory Rate 14 Blood Pressure 131/83 Pulse Oximetry 100 Oxygen Delivery Room Air Intake/Output Intake/Output: Intake & Output 06/19/24 06/20/24 06/21/24 06/22/24 23:59 23:59 23:59 23:59 Intake Total 6063.5 2340 520 Balance 6063.5 2340 520 Meds/Results Medications: Active Medications Generic Name Dose Route Start Last Admin Trade Name Freq PRN Reason Stop Dose Admin Alprazolam 0.25 mg 06/20/24 15:07 06/22/24 08:49 Alprazolam (*Crx) 0.25 Mg Tablet PO 0.25 mg BID PRN Administration Anxiety Duloxetine HCl 60 mg 06/21/24 09:00 06/22/24 08:48 Duloxetine Hcl 60 Mg Capsule.Dr PO 60 mg QAM ZAN Administration Duloxetine HCl 30 mg 06/21/24 09:00 06/22/24 08:49 Duloxetine Hcl 30 Mg Capsule.Dr PO 30 mg QAM ZAN Administration Enoxaparin Sodium 40 mg 06/21/24 09:00 06/21/24 15:31 Enoxaparin 40 Mg/0.4 Ml Syringe SUB-Q 40 mg DAILY ZAN Administration Sodium Chloride 1,000 mls @ 75 mls/hr 06/20/24 01:30 06/22/24 03:21 Normal Saline Iv IV CONT Not Given .[id number] ZAN Ketorolac Tromethamine 30 mg 06/20/24 01:27 06/21/24 23:42 Ketorolac 30 Mg/Ml Vial (*Bkc) IV PUSH 30 mg Q6H PRN Administration Pain Rated 4-10 Loratadine 10 mg 06/20/24 15:07 Loratadine 10 Mg Tablet PO QAM PRN Allergic Symptoms Morphine Sulfate 2 mg 06/22/24 03:16 06/22/24 08:48 Morphine Sulfate (*Crx) 2 Mg/Ml Inj IV PUSH 2 mg Q2H PRN Administration Breakthrough Pain Ondansetron HCl 4 mg 06/20/24 01:27 06/22/24 08:48 Ondansetron Inj 4 Mg/2 Ml Vial IV PUSH 4 mg Q4H PRN Administration Nausea Pantoprazole Sodium 20 mg 06/22/24 09:00 06/22/24 08:49 Pantoprazole Sod Sesquihydrate 20 Mg Tab PO 20 mg QAM ZAN Administration Vitamin D 5,000 units 06/26/24 09:00 Cholecalciferol 5,000 Units Tablet PO We@0900 [facility] Radiology Results: ITS Impressions Abdomen/Pelvis CT 06/19/24 16:37 IMPRESSION: 1. No etiology for the patient's symptoms. Hepatobiliary Scan Nuclear Medicine 06/21/24 09:20 IMPRESSION: 1. Abnormally decreased gallbladder ejection fraction of 7% consistent gallbladder dysfunction or chronic cholecystitis in the appropriate clinical setting. Abdomen Ultrasound 06/22/24 08:59 IMPRESSION: 1. Normal right upper quadrant ultrasound. Labs Labs: Laboratory Results - last 24 hr 06/21/24 06/22/24 09:51 06:08 WBC 10.5 H 10.2 H RBC 4.65 4.50 Hgb 13.8 13.4 Hct 42.5 41.3 MCV 91.4 91.8 MCH 29.7 29.8 MCHC 32.5 32.4 RDW 12.7 12.4 Plt Count 335 302 MPV 11.2 H 11.3 H Immature Gran % (Auto) 0.5 0.3 Neut % (Auto) 58.8 51.0 Lymph % (Auto) 29.7 36.2 [place]att % (Auto) 6.2 7.5 Eos % (Auto) 3.7 4.0 Baso % (Auto) 1.1 1.0 Lymph # (Auto) 3.10 3.71 H [place] # (Auto) 0.7 H 0.8 H Eos # (Auto) 0.4 H 0.4 H Baso # (Auto) 0.1 0.1 Abs Immat Gran (auto) 0.05 H 0.03 Absolute Neuts (auto) 6.2 5.2 Absolute Nucleated RBC 0.000 0.000 Nucleated RBC % 0.0 0.0 Sodium 139 137 Potassium 4.3 3.7 Chloride 106 104 Carbon Dioxide 27 27 Anion Gap 6 6 BUN 3 L 6 L Creatinine 0.50 L 0.60 L Estim Creat Clear Calc 121 103 Estimated GFR > 60 > 60 Glucose 89 81 Calcium 8.9 8.7 Magnesium 2.1 2.1 Total Bilirubin 0.3 0.2 AST 24 23 ALT 16 14 Alkaline Phosphatase 48 45 Total Protein 7.0 7.0 Albumin 3.8 3.6
--- NOTE | 2024-06-22 10:31 | P.PNAN_ITS ---
Anes - Initial Pre Proc Eval Procedure: Operation Date: 06/21/24 15:00 Proposed Procedures p Esophagogastroduodenoscopy - Anthony Harmon MD Operation Date: 06/22/24 10:30 Proposed Procedures p Laparoscopic Cholecystectomy - Johnny Lux MD Date/Time: 06/22/24 10:31 Surgeon: Viviana German DO Pre Op Diagnosis: Abdominal pain nausea vomiting diarrhea, Dehydrati Patient Data Age: 39 Gender: F Height: 1.7 m Weight: 80 kg Last Vital Signs Temp 36.1 C L 06/22/24 05:55 Pulse 87 06/22/24 05:55 Resp 14 06/22/24 05:55 BP 131/83 06/22/24 05:55 Pulse Ox 100 06/22/24 05:55 O2 Del Method Room Air 06/21/24 20:00 Allergies Allergy/AdvReac Type Severity Reaction Status Date / Time latex Allergy Unknown Itching Verified 06/19/24 14:46 adhesive tape Allergy Rash Verified 06/19/24 14:46 amoxicillin [From Amoxil] Allergy Itching Verified 06/19/24 14:46 Beef Containing Products AdvReac Severe Vomiting Verified 06/19/24 14:46 Home Medications Medication Instructions Recorded Confirmed Type albuterol sulfate 90 mcg/actuation 1 inh inhalation Q4H PRN shortness 10/30/23 06/20/24 Rx aerosol inhaler of breath or wheezing #8.5 grams duloxetine 60 mg capsule,delayed 60 mg PO DAILY #100 caps 02/19/24 06/20/24 Rx release alprazolam 0.25 mg tablet 0.25 mg PO BID PRN Anxiety #28 tabs 05/17/24 06/20/24 Rx cetirizine 10 mg tablet (Zyrtec) 10 mg PO DAILY PRN allergies 06/05/24 06/20/24 History cholecalciferol (vitamin D3) 125 125 mcg PO WEEKLY 06/05/24 06/20/24 History mcg (5,000 unit) capsule duloxetine 30 mg capsule,delayed 30 mg PO DAILY 06/05/24 06/20/24 History release levofloxacin 750 mg tablet 750 mg PO DAILY #5 tabs 06/06/24 06/20/24 Rx metronidazole 500 mg tablet 500 mg PO Q8H 5 days #15 tabs 06/06/24 06/20/24 Rx ondansetron 4 mg disintegrating 4 mg PO Q8H PRN nausea and 06/11/24 06/20/24 Rx tablet vomiting #20 tabs tramadol 50 mg tablet 50 mg PO QID PRN Pain #100 tabs 06/13/24 06/20/24 Rx Laboratory Tests 06/21/24 06/22/24 06/22/24 09:51 06:08 06:14 WBC 10.2 H K/mm3 (4.5-10.0) RBC 4.50 M/mm3 (4.2-5.4) Hgb 13.4 g/dL (12.0-15.0) Hct 41.3 % (37.0-47.0) MCV 91.8 fl (80-100) MCH 29.8 pg (26-34) MCHC 32.4 g/dl (32-36) RDW 12.4 % (11.5-14.5) Plt Count 302 k/mm3 (150-375) MPV 11.3 H fl (7.4-10.4) Immature Gran % (Auto) 0.3 % (0-0.5) Neut % (Auto) 51.0 % (45.5-73.1) Lymph % (Auto) 36.2 % (18.3-44.2) [place] % (Auto) 7.5 % (2.6-8.5) Eos % (Auto) 4.0 % (0-4.4) Baso % (Auto) 1.0 % (0.2-1.2) Lymph # (Auto) 3.71 H K/mm3 (0.9-3.2) [place] # (Auto) 0.8 H K/mm3 (0.1-0.6) Eos # (Auto) 0.4 H K/mm3 (0-0.3) Baso # (Auto) 0.1 K/mm3 (0.0-0.1) Abs Immat Gran (auto) 0.03 K/mm3 (0.00-0.031) Absolute Neuts (auto) 5.2 K/mm3 (1.3-6.7) Absolute Nucleated RBC 0.000 K/mm3 (0.0-0.012) Nucleated RBC % 0.0 % (0.0-0.2) Sodium 139 mmol/L 137 mmol/L (137-145) (137-145) Potassium 4.3 mmol/L 3.7 mmol/L (3.4-5.0) (3.4-5.0) Chloride 106 mmol/L 104 mmol/L (98-107) (98-107) Carbon Dioxide 27 mmol/L 27 mmol/L (22-30) (22-30) Anion Gap 6 mmol/L 6 mmol/L (4-12) (4-12) BUN 3 L mg/dL 6 L mg/dL (7-17) (7-17) Creatinine 0.50 L mg/dL 0.60 L mg/dL (0.7-1.0) (0.7-1.0) Estim Creat Clear Calc 121 ml/min 103 ml/min Estimated GFR > 60 > 60 (59 - ) (59 - ) Glucose 89 mg/dL 81 mg/dL (65-110) (65-110) Calcium 8.9 mg/dL 8.7 mg/dL (8.4-10.2) (8.4-10.2) Magnesium 2.1 mg/dL 2.1 mg/dL (1.6-2.3) (1.6-2.3) Total Bilirubin 0.3 mg/dL 0.2 mg/dL (0.2-1.3) (0.2-1.3) AST 24 U/L 23 U/L (14-36) (14-36) ALT 16 U/L 14 U/L (6-35) (6-35) Alkaline Phosphatase 48 U/L 45 U/L (38-126) (38-126) Total Protein 7.0 g/dL 7.0 g/dL (6.3-8.2) (6.3-8.2) Albumin 3.8 g/dL 3.6 g/dL (3.5-5.1) (3.5-5.1) Ur Total Porphyrins Pending Random Uroporphyrins I Pending Random Uroporphyrin III Pending U Rdm Heptacarboxylpor Pending U Rndm Hexacarboxylpor Pending U Rdm Pentacarboxylpor Pending U Random Coproporphyr I Pending U Rndm Coproporphyr III Pending Ur Porphyrins Interp Pending Patient hx anesthesia problems: none Family hx anesthesia problems: none Results Review: All pre-operative results and documents have been reviewed as part of the pre- operative evaluation. 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) Surgical History Surgical History History of colonoscopy with polypectomy History of loop electrical excision procedure (LEEP) History of wisdom tooth extraction Family History Family History Father Gastroparesis Diabetes mellitus Arthritis Patient's father is in good health Family history of throat cancer Diverticulitis Mother Arthritis Fibromyalgia Patient's mother is in good health Grandparent Rheumatoid arthritis Diabetes mellitus Arthritis Colitis Heart disease Parkinsons Other Cerebrovascular accident Social History Social History Social History: Surrogate medical decision maker: Iliana Ivan, mother. Code status: Smoking status: Former smoker Tobacco type: cigarettes Second hand tobacco smoke exposure: No Smoking end date: 08/07/16 Additional smoking assessment comments: social smoker only Alcohol intake: current Drinks per week: 1 Alcohol use details: socially Substance use: never Substance use type: other Other substance usage details: CBD on rare occasion for joint pain Do You Feel Safe in your Home?: Yes Lack of Transportation: No Lack of Food: Never True Current Housing: I Have Housing Concerned About Future Housing: No Difficulty Paying Gas/Electric Bills: No Difficulty Paying for Meds: No Currently Unemployed: No Education: Associate Degree Difficulty w/ Childcare or Family Care: No Living arrangements: with family Additional living arrangements comments: Lives with naya and 3 children in [place]. Spiritual care concerns: No Anes - Eval Final PreProcedure Day of Procedure 06/22/24 10:31 Patient weight: overweight Heart: regular rate and rhythm Lungs: clear to auscultation Airway: Mallampati scale class II Neurological: alert and oriented Last oral intake: >/= 8 hours ASA classification: III Emergent: no Anesthetic plan: proceed Anesthesia type and monitoring: general ETT and standard monitoring Results Review: All pre-operative results and documents have been reviewed as part of the pre- operative evaluation. Informed Consent: The patient's anesthetic plan and its attendant risks and benefits were discussed with the patient/family/POA. Questions were solicited and answers provided to the satisfaction of the patient/family/POA.
[2024-06-22] MEDS: ceFAZolin 2 GM/D5W 50 ML 2 GM/50 ML BAG IVPB (10:33)
[2024-06-22] MEDS: BUPIVACAINE/EPINEPHRINE 0.5% 50 ML VIAL 20 ML INFILTRATE (11:03)
--- NOTE | 2024-06-22 11:32 | W.PM.PROC2 ---
Procedure Note - Detailed Date of Procedure 06/22/24 Pre-op Diagnosis Acalculous chronic cholecystitis Post-op Diagnosis Same Procedure Performed Laparoscopic cholecystectomy Surgeon Johnny Lux MD [employer] Johanna Cornell [facility] Anesthesia General and Local Indications Patient is a 39-year-old woman who has been having left lower quadrant pain that is constant but is made worse by eating. It is associated with nausea and vomiting and sometimes diarrhea. She has had an extensive workup including upper and lower endoscopy, CT scans, ultrasound of the gallbladder. The only abnormal test was and hepatobiliary scan which showed a very low gallbladder ejection fraction of only 7%. She also had reproduction of her left lower quadrant pain with the injection of Kinevac. She is taken to surgery now for laparoscopic cholecystectomy. Findings Minimal inflammation, no stones, long cystic duct, normal liver, no biliary ductal dilatation. Description of Procedure Patient was taken to surgery and induced into general anesthesia. The abdomen is prepped draped. Trocars were placed in the usual fashion using [employer] optical trocars and a 5 mm camera. The gallbladder was retracted and adhesions to the gallbladder were taken down. The gallbladder was then fully retracted anterosuperiorly. Dissection was carried out in the cholecysto and padded triangle. Traction was placed on the infundibulum of the gallbladder to facilitate this. The cystic duct and cystic artery were carefully dissected. The gallbladder was dissected off the liver at at its least its lower 3rd. Critical view was achieved. I then securely clipped and divided the cystic duct and cystic artery. The gallbladder was then freed from its remaining attachments to the liver. No entry into the gallbladder was made. The gallbladder was placed in an Endo-Catch bag and was retrieved from the 10/11 trocar site without difficulty. We replaced the epigastric trocar and expose the gallbladder fossa and subhepatic space. Irrigation and suction were used. There was no evidence of bleeding or bile leakage. All looked very good. We evacuated CO2 and removed the trocar sleeves. Skin wounds were closed with subcuticular 4-0 Monocryl skin suture. The wounds were dressed with Exofin surgical adhesive. Patient was awakened and taken to recovery in good condition. Sponge and needle counts were correct x2. Estimated Blood Loss -5 Drains No Packing No Pathology Yes (Gallbladder) Complications None Condition Stable Disposition PACU [facility] Billing Surgery - Charge Forward: Surgery Billing (Laparoscopic cholecystectomy)
[2024-06-22] MEDS: LACTATED RINGERS 1,000 ML 30 ML IV CONT (11:40)
--- NOTE | 2024-06-22 11:41 | PC.NURSE ---
To OR per bed at 0955, IV saline locked.
[2024-06-22] MEDS: PROPARACAINE HCL 0.5% 15 ML OPHTH SOLN 1 DROP EACH EYE (12:05)
[2024-06-22] MEDS: DICLOFENAC SODIUM 0.1% OPHTH SOLN 2.5 ML BOTTLE 1 DROP EACH EYE ×2 (12:05→21:58)
[2024-06-22] MEDS: diphenhydrAMINE HCl INJ 50 MG/ML VIAL 25 MG IV PUSH (12:05)
--- NOTE | 2024-06-22 12:53 | PC.NURSE ---
Returned from OR per BED AT 1245. Report received from RACHEL Singh.
[2024-06-22] MEDS: LACTATED RINGERS 1,000 ML 100 ML IV CONT (13:01)
--- NOTE | 2024-06-22 15:34 | P.PNIM_ITS ---
Progress Note: A&P Assessment and Plan (1) Elevated lipase: Code(s): R74.8 - Abnormal levels of other serum enzymes Status: Acute (2) Appetite loss: Code(s): R63.0 - Anorexia Status: Acute (3) Nausea vomiting and diarrhea: Code(s): R11.2 - Nausea with vomiting, unspecified; R19.7 - Diarrhea, unspecified Status: Acute (4) Abdominal pain: Qualifiers: Abdominal location: generalized Qualified Code(s): R10.84 - Generalized abdominal pain Code(s): R10.9 - Unspecified abdominal pain Status: Acute Plan Abd pain chronic Cholecystitis vs functional gallbladder disorder Noted pain is worse with food and noted some relief today with IV protonix Lipase elevated 331, however patient denies radiation to the back HIDA scan showed GBEF is 7% suggestive of Gallbladder dysfunction vs chronic cholecystitis EGD today continue PPI in the meantime GI following Gen surgery eval noted, for Cholecystectomy today Vomiting and diarrhea, resolved Failure to thrive continue IVF, advance diet as tolerated EGD today GI following Recent colitis and patient completed abx monitor Anxiety continue home meds DVT prophylaxis on Sq Lovenox Subjective Date/time seen: 06/22/24 15:34 Interval history: Patient comfortable at bedside EGD unremarkable For Cholecystectomy today at the time of encounter Review of Systems Review of Systems: All other systems were reviewed and negative except as noted in the HPI above Exam Narrative: General: alert and comfortable Eyes: EOMI, PERRLA ENNT External ears normal, Neck is supple, no masses, Respiratory systems: Clear to auscultation Cardiovascular S1, S2, normal rhythm, no murmur, rub, or gallop; no thrill or palpable murmurs on palpation. Gastrointestinal: soft, diffuse tenderness, and non-distended abdomen with no masses; BS present Skin: no rash, lesions, ulcerations, subcutaneous nodules or induration Musculoskeletal: no abnormality and no tenderness, normal ROM Neurologic: Alert and oriented x3, non focal Mental Status Exam: normal affect Objective Data Vital Signs Vital Signs: Vital Signs - 24 hr 06/21/24 21:25 06/21/24 20:00 06/22/24 05:55 Temperature 97.9 F 97.0 F L Pulse Rate 96 87 Respiratory Rate 14 14 Blood Pressure 129/88 131/83 Pulse Oximetry 97 100 Oxygen Delivery Room Air Oxygen Flow Rate 06/22/24 11:40 06/22/24 11:45 06/22/24 12:00 Temperature 97.8 F Pulse Rate 97 90 89 Respiratory Rate 14 16 12 Blood Pressure 152/89 H 141/84 H 145/88 H Pulse Oximetry 100 100 99 Oxygen Delivery Simple Face Mask Simple Face Mask Nasal Cannula Oxygen Flow Rate 10 10 2 06/22/24 12:15 06/22/24 12:24 06/22/24 12:53 Temperature 98.3 F Pulse Rate 98 88 84 Respiratory Rate 20 12 12 Blood Pressure 141/92 H 141/87 H 137/93 H Pulse Oximetry 100 100 98 Oxygen Delivery Room Air Room Air Oxygen Flow Rate Intake/Output Intake/Output: Intake & Output 06/19/24 06/20/24 06/21/24 06/22/24 23:59 23:59 23:59 23:59 Intake Total 6063.5 2340 670 Balance 6063.5 2340 670 Meds/Results Medications: Active Medications Generic Name Dose Route Start Last Admin Trade Name Freq PRN Reason Stop Dose Admin Albuterol 1 puff 06/22/24 12:29 Albuterol Sulfate (*Sp) Aerosol 1 Puff INHALATION Q4H PRN shortness of breath or wheezing Alprazolam 0.25 mg 06/20/24 15:07 06/22/24 08:49 Alprazolam (*Crx) 0.25 Mg Tablet PO 0.25 mg BID PRN Administration Anxiety Artificial Tears 1 drop 06/22/24 11:42 Artificial Tears Ophth Soln 15 Ml Bottle EACH EYE Q2H PRN Dry Eye(s) Diclofenac Sodium 1 drop 06/22/24 14:00 06/22/24 12:05 Diclofenac Sodium 0.1% Ophth Soln 2.5 Ml Bottle EACH EYE 06/26/24 13:59 1 drop Q8HR ZAN Administration Duloxetine HCl 60 mg 06/21/24 09:00 06/22/24 08:48 Duloxetine Hcl 60 Mg Capsule.Dr PO 60 mg QAM ZAN Administration Duloxetine HCl 30 mg 06/21/24 09:00 06/22/24 08:49 Duloxetine Hcl 30 Mg Capsule.Dr PO 30 mg QAM ZAN Administration Enoxaparin Sodium 40 mg 06/23/24 09:00 Enoxaparin 40 Mg/0.4 Ml Syringe SUB-Q DAILY AZN Lactated Ringer's 1,000 mls @ 100 mls/hr 06/22/24 12:29 06/22/24 13:01 Lr - Lactated Ringers Iv IV CONT 06/22/24 22:28 100 mls/hr .Q10H ONE Administration Ibuprofen 800 mg in 200 mls @ 400 mls/hr 06/22/24 12:29 Caldolor 800 Mg/200 Ml IVPB Q6H PRN Breakthrough Pain Rated 1-3 or NPO Loratadine 10 mg 06/20/24 15:07 Loratadine 10 Mg Tablet PO QAM PRN Allergic Symptoms Morphine Sulfate 2 mg 06/22/24 12:29 06/22/24 13:01 Morphine Sulfate (*Crx) 2 Mg/Ml Inj IV PUSH 2 mg Q2H PRN Administration Breakthrough Pain Rated 4-6 or NPO Morphine Sulfate 4 mg 06/22/24 12:29 Morphine Sulfate (*Crx) 4 Mg/Ml Inj IV PUSH Q2H PRN Breakthrough Pain Rated 7-10 or NPO Naloxone HCl 0.1 mg 06/22/24 12:29 Naloxone Hcl 0.4 Mg/Ml Vial IV PUSH Q2M PRN Opiate Reversal Ondansetron HCl 4 mg 06/20/24 01:27 06/22/24 08:48 Ondansetron Inj 4 Mg/2 Ml Vial IV PUSH 4 mg Q4H PRN Administration Nausea Oxycodone/Acetaminophen 1 tablet 06/22/24 12:29 Oxycodone/Acetaminophen (*Crx) 5-325 Mg Tablet PO Q4H PRN Pain Rated 4-6 Oxycodone/Acetaminophen 1 tab 06/22/24 12:29 Oxycodone/Acetaminophen (*Crx) 10-325 Mg Tablet PO Q6H PRN Pain Rated 7-10 Pantoprazole Sodium 40 mg 06/23/24 09:00 Pantoprazole 40 Mg Tablet PO QAM [facility] Tramadol HCl 50 mg 06/22/24 12:29 Tramadol Hcl (*Crx) 50 Mg Tablet PO Q4H PRN Pain Rated 1-3 Vitamin D 5,000 units 06/26/24 09:00 Cholecalciferol 5,000 Units Tablet PO We@0900 [facility] Radiology Results: ITS Impressions Abdomen/Pelvis CT 06/19/24 16:37 IMPRESSION: 1. No etiology for the patient's symptoms. Hepatobiliary Scan Nuclear Medicine 06/21/24 09:20 IMPRESSION: 1. Abnormally decreased gallbladder ejection fraction of 7% consistent gallbladder dysfunction or chronic cholecystitis in the appropriate clinical setting. Abdomen Ultrasound 06/22/24 08:59 IMPRESSION: 1. Normal right upper quadrant ultrasound. Labs Labs: Laboratory Results - last 24 hr 06/22/24 06:08 WBC 10.2 H RBC 4.50 Hgb 13.4 Hct 41.3 MCV 91.8 MCH 29.8 MCHC 32.4 RDW 12.4 Plt Count 302 MPV 11.3 H Immature Gran % (Auto) 0.3 Neut % (Auto) 51.0 Lymph % (Auto) 36.2 [place] % (Auto) 7.5 Eos % (Auto) 4.0 Baso % (Auto) 1.0 Lymph # (Auto) 3.71 H [place] # (Auto) 0.8 H Eos # (Auto) 0.4 H Baso # (Auto) 0.1 Abs Immat Gran (auto) 0.03 Absolute Neuts (auto) 5.2 Absolute Nucleated RBC 0.000 Nucleated RBC % 0.0 Sodium 137 Potassium 3.7 Chloride 104 Carbon Dioxide 27 Anion Gap 6 BUN 6 L Creatinine 0.60 L Estim Creat Clear Calc 103 Estimated GFR > 60 Glucose 81 Calcium 8.7 Magnesium 2.1 Total Bilirubin 0.2 AST 23 ALT 14 Alkaline Phosphatase 45 Total Protein 7.0 Albumin 3.6
[2024-06-22] MEDS: MORPHINE SULFATE (*CRX) 4 MG/ML INJ IV PUSH ×3 (15:38→22:30)
[2024-06-22] MEDS: oxyCODONE/ACETAMINOPHEN (*CRX) 10-325 MG TABLET 1 TAB PO (17:00)
[2024-06-23] MEDS: oxyCODONE/ACETAMINOPHEN (*CRX) 10-325 MG TABLET 1 TAB PO ×4 (00:31→20:05)
[2024-06-23 02:12] VITALS: BP 120/67; PULSE 80; RESP 16; TEMP 37.1; O2SAT 100
--- NOTE | 2024-06-23 03:41 | PC.NURSE ---
Pt has been asking for increasing amounts of pain med approximately every 90 minutes. Upon assessment, pt's prirmary c/o pain was in the shoulder area. I educated pt as to surgical procedure utilizing gas that needs to escape and that the best and only proven method is to walk. Written information regarding this was also provided to pt. This discussion was had several times. Pt was given pain med when it was available in compliance with existing orders. With each administration of pain med, pt was educated again as to the source of her pain, how the shoulder pain can be resolved, and the pain meds will not resolve her shoulder pain. At approximately 0330, pt wanted more IV pain med. I asked her where her pain was and to describe the pain. Pt stated it was in her shoulder and getting worse. I explained that there was no pain meds available as it was only 90 minutes since her previous dose and that walking was the best option. Pt snorted but said nothing. A few minutes later, pt left her room and left the unit. Security had to be called to find pt who had absconded. Pt was found by security and became belligerent. Pt was escorted back to her room. Pt repeatedly left her room to yell at various staff members and demand a pt advocate. The charge nurse explained that there was not presently a patient advocate in the hospital but one would be available in the morning. This further angered pt who continued to be belligerent.
[2024-06-23] MEDS: IBUPROFEN IV 800 MG/200 ML 800 MG/200 ML BAG 400 MG IVPB ×3 (04:33→20:07)
[2024-06-23] MEDS: ALPRAZolam (*CRX) 0.25 MG TABLET PO ×2 (04:36→17:51)
[2024-06-23] MEDS: MORPHINE SULFATE (*CRX) 2 MG/ML INJ IV PUSH ×2 (05:26→12:38)
[2024-06-23 05:55] VITALS: BP 139/86; PULSE 89; RESP 16; TEMP 36.3; O2SAT 100
[2024-06-23] MEDS: DICLOFENAC SODIUM 0.1% OPHTH SOLN 2.5 ML BOTTLE 1 DROP EACH EYE ×2 (06:38→21:14)
[2024-06-23 06:39] LABS: Basophils Absolute Auto 0.1 K/mm3 (0.0-0.1); Basophils Percent Auto 0.3 % (0.2-1.2); Eosinophils Absolute Auto 0.1 K/mm3 (0-0.3); Eosinophils Percent Auto 0.8 % (0-4.4); Hematocrit 40.5 % (37.0-47.0); Hemoglobin 13.4 g/dL (12.0-15.0); Immature Granulocyte Absolute 0.07 K/mm3 (0.00-0.031); Immature Granulocyte Percent A 0.5 % (0-0.5); Lymphocytes Absolute Auto 3.13 K/mm3 (0.9-3.2); Lymphocytes Percent Auto 20.4 % (18.3-44.2); Mean Corpuscular HGB Conc 33.1 g/dl (32-36); Mean Corpuscular Hemoglobin 30.3 pg (26-34); Mean Corpuscular Volume 91.6 fl (80-100); Mean Platelet Volume 11.5 fl (7.4-10.4); Monocytes Absolute Auto 1.2 K/mm3 (0.1-0.6); Monocytes Percent Auto 7.5 % (2.6-8.5); Neutrophils Absolute Auto 10.8 K/mm3 (1.3-6.7); Neutrophils Percent Auto 70.5 % (45.5-73.1); Platelet Count Result 300 k/mm3 (150-375); Red Blood Count 4.42 M/mm3 (4.2-5.4); Red Cell Distribution Width 12.4 % (11.5-14.5); White Blood Count 15.4 K/mm3 (4.5-10.0)
[2024-06-23 06:56] LABS: Alanine Aminotransferase 24 U/L (6-35); Albumin Level 3.7 g/dL (3.5-5.1); Alkaline Phosphatase 50 U/L (38-126); Anion Gap 6 mmol/L (4-12); Aspartate Amino Transferase 40 U/L (14-36); Bilirubin,Total 0.1 mg/dL (0.2-1.3); Blood Urea Nitrogen 5 mg/dL (7-17); Calcium 8.8 mg/dL (8.4-10.2); Carbon Dioxide 29 mmol/L (22-30); Chloride 103 mmol/L (98-107); Estimated CRCL calculation 121 ml/min; Estimated Glomerular Filt Rate > 60; Glucose 102 mg/dL (65-110); Magnesium 1.9 mg/dL (1.6-2.3); Potassium 3.7 mmol/L (3.4-5.0); Sodium 138 mmol/L (137-145)
--- NOTE | 2024-06-23 07:24 | PC.NURSE ---
This nurse assumed care of this patient at 0430 06/23/24 as this patient was visibly upset and crying. Patient was emotional and stated the Nurse that she had was quote rude and that she needed to quote walk it off . Discussed with the andrew Benedict who told me she was trying to educate the patient about her shoulder pain and the typical thing that helps the gas pain is to walk. Patient continued to cry and requested a different nurse. I assumed care at 0430 and administered iv ibprofen and xanax following dr orders. This improved patient's pain which she rated at a 7 upon reassessment. At this time I administered her 2mg of Morphine (the lower dose available).Patient was less upset once her pain was controlled.
[2024-06-23 08:32] VITALS: BP 109/60; PULSE 92; RESP 16; TEMP 36.6; O2SAT 100
[2024-06-23] MEDS: DULoxetine HCL 60 MG CAPSULE.DR PO (09:12)
[2024-06-23] MEDS: ENOXAPARIN 40 MG/0.4 ML SYRINGE SUB-Q (09:12)
[2024-06-23] MEDS: PANTOPRAZOLE 40 MG TABLET PO (09:12)
[2024-06-23] MEDS: DULoxetine HCL 30 MG CAPSULE.DR PO (09:13)
--- NOTE | 2024-06-23 11:50 | P.PNIM_ITS ---
Progress Note: A&P Assessment and Plan (1) Elevated lipase: Code(s): R74.8 - Abnormal levels of other serum enzymes Status: Acute (2) Appetite loss: Code(s): R63.0 - Anorexia Status: Acute (3) Nausea vomiting and diarrhea: Code(s): R11.2 - Nausea with vomiting, unspecified; R19.7 - Diarrhea, unspecified Status: Acute (4) Abdominal pain: Qualifiers: Abdominal location: generalized Qualified Code(s): R10.84 - Generalized abdominal pain Code(s): R10.9 - Unspecified abdominal pain Status: Acute Plan Abd pain chronic Cholecystitis vs functional gallbladder disorder Noted pain is worse with food and noted some relief today with IV Protonix Lipase elevated 331, however patient denies radiation to the back HIDA scan showed GBEF is 7% suggestive of Gallbladder dysfunction vs chronic cholecystitis s/p EGD normal findings S/p Cholecystectomy continue PPI, PRN pain control GI and gen surgery following Gen surgery recommended monitoring another couple of days Vomiting and diarrhea, resolved Failure to thrive continue IVF, advance diet as tolerated EGD showed normal findings GI following Recent colitis and patient completed abx monitor Anxiety continue home meds DVT prophylaxis on Sq Lovenox Subjective Date/time seen: 06/23/24 11:50 Interval history: Patient comfortable at bedside s/p Cholecystectomy Review of Systems Review of Systems: All other systems were reviewed and negative except as noted in the HPI above Exam Narrative: General: alert and comfortable Eyes: EOMI, PERRLA ENNT External ears normal, Neck is supple, no masses, Respiratory systems: Clear to auscultation Cardiovascular S1, S2, normal rhythm, no murmur, rub, or gallop; no thrill or palpable murmurs on palpation. Gastrointestinal: soft, diffuse tenderness, and non-distended abdomen with no masses; BS present Skin: surgical site clean and dry Musculoskeletal: no abnormality and no tenderness, normal ROM Neurologic: Alert and oriented x3, non focal Objective Data Vital Signs Vital Signs: Vital Signs - 24 hr 06/22/24 12:00 06/22/24 12:15 06/22/24 12:24 Temperature Pulse Rate 89 98 88 Respiratory Rate 12 20 12 Blood Pressure 145/88 H 141/92 H 141/87 H Pulse Oximetry 99 100 100 Oxygen Delivery Nasal Cannula Room Air Room Air Oxygen Flow Rate 2 06/22/24 12:53 06/22/24 12:53 06/22/24 13:20 Temperature 98.3 F 98.3 F 97.9 F Pulse Rate 84 84 82 Respiratory Rate 12 12 12 Blood Pressure 137/93 H 137/93 H 132/85 Pulse Oximetry 98 98 96 Oxygen Delivery Oxygen Flow Rate 06/22/24 13:50 06/22/24 14:50 06/22/24 21:15 Temperature 97.6 F 97.9 F 97.3 F L Pulse Rate 78 83 83 Respiratory Rate 12 12 13 Blood Pressure 132/82 129/86 135/89 Pulse Oximetry 96 98 99 Oxygen Delivery Oxygen Flow Rate 06/22/24 20:00 06/23/24 02:12 06/23/24 05:55 Temperature 98.7 F 97.4 F L Pulse Rate 80 89 Respiratory Rate 16 16 Blood Pressure 120/67 139/86 Pulse Oximetry 100 100 Oxygen Delivery Room Air Oxygen Flow Rate 06/23/24 08:32 Temperature 97.8 F Pulse Rate 92 Respiratory Rate 16 Blood Pressure 109/60 Pulse Oximetry 100 Oxygen Delivery Oxygen Flow Rate Intake/Output Intake/Output: Intake & Output 06/20/24 06/21/24 06/22/24 06/23/24 23:59 23:59 23:59 23:59 Intake Total 6063.5 2340 1140 600 Balance 6063.5 2340 1140 600 Meds/Results Medications: Active Medications Generic Name Dose Route Start Last Admin Trade Name Freq PRN Reason Stop Dose Admin Albuterol 1 puff 06/22/24 12:29 Albuterol Sulfate (*Sp) Aerosol 1 Puff INHALATION Q4H PRN shortness of breath or wheezing Alprazolam 0.25 mg 06/20/24 15:07 06/23/24 04:36 Alprazolam (*Crx) 0.25 Mg Tablet PO 0.25 mg BID PRN Administration Anxiety Artificial Tears 1 drop 06/22/24 11:42 Artificial Tears Ophth Soln 15 Ml Bottle EACH EYE Q2H PRN Dry Eye(s) Diclofenac Sodium 1 drop 06/22/24 14:00 06/23/24 06:38 Diclofenac Sodium 0.1% Ophth Soln 2.5 Ml Bottle EACH EYE 06/26/24 13:59 1 drop Q8HR ZAN Administration Duloxetine HCl 60 mg 06/21/24 09:00 11/17/24 09:12 Duloxetine Hcl 60 Mg Capsule. PO 60 mg QAM ZAN Administration Duloxetine HCl 30 mg 06/21/24 09:00 06/23/24 09:13 Duloxetine Hcl 30 Mg Capsule. PO 30 mg QAM ZAN Administration Enoxaparin Sodium 40 mg 06/23/24 09:00 06/23/24 09:12 Enoxaparin 40 Mg/0.4 Ml Syringe SUB-Q 40 mg DAILY ZAN Administration Ibuprofen 800 mg in 200 mls @ 400 mls/hr 06/22/24 12:29 06/23/24 11:46 Caldolor 800 Mg/200 Ml IVPB 400 mls/hr Q6H PRN Administration Breakthrough Pain Rated 1-3 or NPO Loratadine 10 mg 06/20/24 15:07 Loratadine 10 Mg Tablet PO QAM PRN Allergic Symptoms Morphine Sulfate 2 mg 06/22/24 12:29 06/23/24 05:26 Morphine Sulfate (*Crx) 2 Mg/Ml Inj IV PUSH 2 mg Q2H PRN Administration Breakthrough Pain Rated 4-6 or NPO Morphine Sulfate 4 mg 06/22/24 12:29 06/22/24 22:30 Morphine Sulfate (*Crx) 4 Mg/Ml Inj IV PUSH 4 mg Q2H PRN Administration Breakthrough Pain Rated 7-10 or NPO Naloxone HCl 0.1 mg 06/22/24 12:29 Naloxone Hcl 0.4 Mg/Ml Vial IV PUSH Q2M PRN Opiate Reversal Ondansetron HCl 4 mg 06/20/24 01:27 06/22/24 22:31 Ondansetron Inj 4 Mg/2 Ml Vial IV PUSH 4 mg Q4H PRN Administration Nausea Oxycodone/Acetaminophen 1 tablet 06/22/24 12:29 Oxycodone/Acetaminophen (*Crx) 5-325 Mg Tablet PO Q4H PRN Pain Rated 4-6 Oxycodone/Acetaminophen 1 tab 06/22/24 12:29 06/23/24 06:36 Oxycodone/Acetaminophen (*Crx) 10-325 Mg Tablet PO 1 tab Q6H PRN Administration Pain Rated 7-10 Pantoprazole Sodium 40 mg 06/23/24 09:00 06/23/24 09:12 Pantoprazole 40 Mg Tablet PO 40 mg QAM ZAN Administration Tramadol HCl 50 mg 06/22/24 12:29 Tramadol Hcl (*Crx) 50 Mg Tablet PO Q4H PRN Pain Rated 1-3 Vitamin D 5,000 units 06/26/24 09:00 Cholecalciferol 5,000 Units Tablet PO We@0900 [facility] Radiology Results: ITS Impressions Abdomen/Pelvis CT 06/19/24 16:37 IMPRESSION: 1. No etiology for the patient's symptoms. Hepatobiliary Scan Nuclear Medicine 06/21/24 09:20 IMPRESSION: 1. Abnormally decreased gallbladder ejection fraction of 7% consistent gallbladder dysfunction or chronic cholecystitis in the appropriate clinical setting. Abdomen Ultrasound 06/22/24 08:59 IMPRESSION: 1. Normal right upper quadrant ultrasound. Labs Labs: Laboratory Results - last 24 hr 06/23/24 06:00 WBC 15.4 H RBC 4.42 Hgb 13.4 Hct 40.5 MCV 91.6 MCH 30.3 MCHC 33.1 RDW 12.4 Plt Count 300 MPV 11.5 H Immature Gran % (Auto) 0.5 Neut % (Auto) 70.5 Lymph % (Auto) 20.4 [place] % (Auto) 7.5 Eos % (Auto) 0.8 Baso % (Auto) 0.3 Lymph # (Auto) 3.13 [place] # (Auto) 1.2 H Eos # (Auto) 0.1 Baso # (Auto) 0.1 Abs Immat Gran (auto) 0.07 H Absolute Neuts (auto) 10.8 H Absolute Nucleated RBC 0.000 Nucleated RBC % 0.0 Sodium 138 Potassium 3.7 Chloride 103 Carbon Dioxide 29 Anion Gap 6 BUN 5 L Creatinine 0.50 L Estim Creat Clear Calc 121 Estimated GFR > 60 Glucose 102 Calcium 8.8 Magnesium 1.9 Total Bilirubin 0.1 L AST 40 H ALT 24 Alkaline Phosphatase 50 Total Protein 7.0 Albumin 3.7
--- NOTE | 2024-06-23 13:45 | P.PNGS_ITS ---
Progress Note: A&P Assessment and Plan (1) Chronic cholecystitis: Code(s): K81.1 - Chronic cholecystitis Status: Acute Assessment and Plan: mostly having right shoulder pain likely due to retained CO2 gas. Abdomen looks good and tenderness there is appropriate postop. Patient's left lower quadrant pain which was the problem preoperatively has resolved. She is still taking IV analgesics and will continue inpatient care. Advance to low-fat diet. Up walking today. Subjective Subjective Date/Time Seen: 06/23/24 13:45 Post Op day: 1 Patient reports: still having pain ( mostly right shoulder also some at incisions. Left lower quadrant better), tolerating liquids well, voiding w/o difficulty, no bowel movement and afebrile Exam Const: General: comfortable, no acute distress, awake and tired appearing GI: Inspection: non-distended and incision ( all incisions dry and healing well) GI Palp: Yes Soft to palpation and Yes Tenderness to palpation present (GI) ( mostly incisions and right lower quadrant) Auscultation: normal bowel sounds Objective Data Vital Signs Vital Signs: Vital Signs - 24 hr 06/22/24 13:50 06/22/24 14:50 06/22/24 21:15 Temperature 36.4 C 36.6 C 36.3 C L Pulse Rate 78 83 83 Respiratory Rate 12 12 13 Blood Pressure 132/82 129/86 135/89 Pulse Oximetry 96 98 99 Oxygen Delivery 06/22/24 20:00 06/23/24 02:12 06/23/24 05:55 Temperature 37.1 C 36.3 C L Pulse Rate 80 89 Respiratory Rate 16 16 Blood Pressure 120/67 139/86 Pulse Oximetry 100 100 Oxygen Delivery Room Air 06/23/24 08:32 Temperature 36.6 C Pulse Rate 92 Respiratory Rate 16 Blood Pressure 109/60 Pulse Oximetry 100 Oxygen Delivery Intake/Output Intake/Output: Intake & Output 06/20/24 06/21/24 06/22/24 06/23/24 23:59 23:59 23:59 23:59 Intake Total 6063.5 2340 1140 1280 Balance 6063.5 2340 1140 1280 Meds/Results Medications: Active Medications Generic Name Dose Route Start Last Admin Trade Name Freq PRN Reason Stop Dose Admin Albuterol 1 puff 06/22/24 12:29 Albuterol Sulfate (*Sp) Aerosol 1 Puff INHALATION Q4H PRN shortness of breath or wheezing Alprazolam 0.25 mg 06/20/24 15:07 06/23/24 04:36 Alprazolam (*Crx) 0.25 Mg Tablet PO 0.25 mg BID PRN Administration Anxiety Artificial Tears 1 drop 06/22/24 11:42 Artificial Tears Ophth Soln 15 Ml Bottle EACH EYE Q2H PRN Dry Eye(s) Diclofenac Sodium 1 drop 06/22/24 14:00 06/23/24 06:38 Diclofenac Sodium 0.1% Ophth Soln 2.5 Ml Bottle EACH EYE 06/26/24 13:59 1 drop Q8HR ZAN Administration Duloxetine HCl 60 mg 06/21/24 09:00 06/23/24 09:12 Duloxetine Hcl 60 Mg Capsule. PO 60 mg QAM ZAN Administration Duloxetine HCl 30 mg 06/21/24 09:00 06/23/24 09:13 Duloxetine Hcl 30 Mg Capsule. PO 30 mg QAM ZAN Administration Enoxaparin Sodium 40 mg 06/23/24 09:00 06/23/24 09:12 Enoxaparin 40 Mg/0.4 Ml Syringe SUB-Q 40 mg DAILY ZAN Administration Ibuprofen 800 mg in 200 mls @ 400 mls/hr 06/22/24 12:29 06/23/24 12:16 Caldolor 800 Mg/200 Ml IVPB Infused Q6H PRN Infusion Breakthrough Pain Rated 1-3 or NPO Loratadine 10 mg 06/20/24 15:07 Loratadine 10 Mg Tablet PO QAM PRN Allergic Symptoms Morphine Sulfate 2 mg 06/22/24 12:29 06/23/24 12:38 Morphine Sulfate (*Crx) 2 Mg/Ml Inj IV PUSH 2 mg Q2H PRN Administration Breakthrough Pain Rated 4-6 or NPO Morphine Sulfate 4 mg 06/22/24 12:29 06/22/24 22:30 Morphine Sulfate (*Crx) 4 Mg/Ml Inj IV PUSH 4 mg Q2H PRN Administration Breakthrough Pain Rated 7-10 or NPO Naloxone HCl 0.1 mg 06/22/24 12:29 Naloxone Hcl 0.4 Mg/Ml Vial IV PUSH Q2M PRN Opiate Reversal Ondansetron HCl 4 mg 06/20/24 01:27 06/22/24 22:31 Ondansetron Inj 4 Mg/2 Ml Vial IV PUSH 4 mg Q4H PRN Administration Nausea Oxycodone/Acetaminophen 1 tablet 06/22/24 12:29 Oxycodone/Acetaminophen (*Crx) 5-325 Mg Tablet PO Q4H PRN Pain Rated 4-6 Oxycodone/Acetaminophen 1 tab 06/22/24 12:29 06/23/24 06:36 Oxycodone/Acetaminophen (*Crx) 10-325 Mg Tablet PO 1 tab Q6H PRN Administration Pain Rated 7-10 Pantoprazole Sodium 40 mg 06/23/24 09:00 06/23/24 09:12 Pantoprazole 40 Mg Tablet PO 40 mg QAM ZAN Administration Tramadol HCl 50 mg 06/22/24 12:29 Tramadol Hcl (*Crx) 50 Mg Tablet PO Q4H PRN Pain Rated 1-3 Vitamin D 5,000 units 06/26/24 09:00 Cholecalciferol 5,000 Units Tablet PO We@0900 [facility] Radiology Results: ITS Impressions Abdomen/Pelvis CT 06/19/24 16:37 IMPRESSION: 1. No etiology for the patient's symptoms. Hepatobiliary Scan Nuclear Medicine 06/21/24 09:20 IMPRESSION: 1. Abnormally decreased gallbladder ejection fraction of 7% consistent gallbladder dysfunction or chronic cholecystitis in the appropriate clinical setting. Abdomen Ultrasound 06/22/24 08:59 IMPRESSION: 1. Normal right upper quadrant ultrasound. Labs Labs: Laboratory Results - last 24 hr 06/23/24 06:00 WBC 15.4 H RBC 4.42 Hgb 13.4 Hct 40.5 MCV 91.6 MCH 30.3 MCHC 33.1 RDW 12.4 Plt Count 300 MPV 11.5 H Immature Gran % (Auto) 0.5 Neut % (Auto) 70.5 Lymph % (Auto) 20.4 [place] % (Auto) 7.5 Eos % (Auto) 0.8 Baso % (Auto) 0.3 Lymph # (Auto) 3.13 [place] # (Auto) 1.2 H Eos # (Auto) 0.1 Baso # (Auto) 0.1 Abs Immat Gran (auto) 0.07 H Absolute Neuts (auto) 10.8 H Absolute Nucleated RBC 0.000 Nucleated RBC % 0.0 Sodium 138 Potassium 3.7 Chloride 103 Carbon Dioxide 29 Anion Gap 6 BUN 5 L Creatinine 0.50 L Estim Creat Clear Calc 121 Estimated GFR > 60 Glucose 102 Calcium 8.8 Magnesium 1.9 Total Bilirubin 0.1 L AST 40 H ALT 24 Alkaline Phosphatase 50 Total Protein 7.0 Albumin 3.7
[2024-06-23 14:14] VITALS: BP 147/94; PULSE 85; RESP 16; TEMP 36.4; O2SAT 100
[2024-06-23] MEDS: traMADol HCL (*CRX) 50 MG TABLET PO (17:51)
[2024-06-23] MEDS: ONDANSETRON INJ 4 MG/2 ML VIAL IV PUSH (17:53)
[2024-06-23] MEDS: MORPHINE SULFATE (*CRX) 4 MG/ML INJ IV PUSH ×2 (21:10→23:42)
[2024-06-23 21:25] VITALS: BP 153/100; PULSE 85; RESP 20; TEMP 36.5; O2SAT 98
[2024-06-23 23:46] VITALS: BP 143/103; PULSE 84; RESP 20; TEMP 36.4; O2SAT 100
[2024-06-24] MEDS: oxyCODONE/ACETAMINOPHEN (*CRX) 10-325 MG TABLET 1 TAB PO ×2 (01:35→08:14)
[2024-06-24] MEDS: IBUPROFEN IV 800 MG/200 ML 800 MG/200 ML BAG 400 MG IVPB ×2 (01:38→09:29)
[2024-06-24] MEDS: MORPHINE SULFATE (*CRX) 4 MG/ML INJ IV PUSH ×2 (04:04→06:33)
[2024-06-24 04:12] VITALS: BP 128/81; PULSE 67; RESP 20; TEMP 36.9; O2SAT 98
[2024-06-24] MEDS: DICLOFENAC SODIUM 0.1% OPHTH SOLN 2.5 ML BOTTLE 1 DROP EACH EYE (05:17)
[2024-06-24 06:35] LABS: Basophils Absolute Auto 0.1 K/mm3 (0.0-0.1); Basophils Percent Auto 0.7 % (0.2-1.2); Eosinophils Absolute Auto 0.4 K/mm3 (0-0.3); Eosinophils Percent Auto 3.8 % (0-4.4); Hematocrit 39.7 % (37.0-47.0); Hemoglobin 12.7 g/dL (12.0-15.0); Immature Granulocyte Absolute 0.03 K/mm3 (0.00-0.031); Immature Granulocyte Percent A 0.3 % (0-0.5); Lymphocytes Absolute Auto 4.94 K/mm3 (0.9-3.2); Lymphocytes Percent Auto 46.4 % (18.3-44.2); Mean Corpuscular Hemoglobin 29.5 pg (26-34); Mean Corpuscular Volume 92.3 fl (80-100); Mean Platelet Volume 11.6 fl (7.4-10.4); Monocytes Absolute Auto 0.8 K/mm3 (0.1-0.6); Monocytes Percent Auto 7.2 % (2.6-8.5); Neutrophils Absolute Auto 4.4 K/mm3 (1.3-6.7); Neutrophils Percent Auto 41.6 % (45.5-73.1); Platelet Count Result 283 k/mm3 (150-375); Red Cell Distribution Width 12.9 % (11.5-14.5); White Blood Count 10.6 K/mm3 (4.5-10.0)
[2024-06-24 06:52] LABS: Alanine Aminotransferase 21 U/L (6-35); Albumin Level 3.6 g/dL (3.5-5.1); Alkaline Phosphatase 42 U/L (38-126); Anion Gap 5 mmol/L (4-12); Aspartate Amino Transferase 32 U/L (14-36); Bilirubin,Total 0.2 mg/dL (0.2-1.3); Blood Urea Nitrogen 6 mg/dL (7-17); Calcium 8.7 mg/dL (8.4-10.2); Carbon Dioxide 31 mmol/L (22-30); Chloride 103 mmol/L (98-107); Estimated CRCL calculation 103 ml/min; Estimated Glomerular Filt Rate > 60; Glucose 87 mg/dL (65-110); Magnesium 1.9 mg/dL (1.6-2.3); Potassium 4.1 mmol/L (3.4-5.0); Sodium 139 mmol/L (137-145)
[2024-06-24] MEDS: ONDANSETRON INJ 4 MG/2 ML VIAL IV PUSH (08:10)
[2024-06-24] MEDS: ENOXAPARIN 40 MG/0.4 ML SYRINGE SUB-Q (08:10)
[2024-06-24] MEDS: DULoxetine HCL 30 MG CAPSULE.DR PO (08:10)
[2024-06-24] MEDS: DULoxetine HCL 60 MG CAPSULE.DR PO (08:10)
[2024-06-24] MEDS: PANTOPRAZOLE 40 MG TABLET PO (08:10)
[2024-06-24] MEDS: DICLOFENAC SODIUM 1% 100 GM GEL (*BKC) 1 APPLIC TOPICAL (09:53)
[2024-06-24] MEDS: oxyCODONE/ACETAMINOPHEN (*CRX) 5-325 MG TABLET 1 TABLET PO (12:59)
--- NOTE | 2024-06-24 13:14 | PM.PNGS ---
Progress Note: A&P Assessment and Plan (1) Chronic cholecystitis: Code(s): K81.1 - Chronic cholecystitis Status: Acute Assessment and Plan: Right shoulder pain improved. No longer having any LLQ pain or any abdominal pain today. She is tolerating a low fat diet and increasing her activity. She has transitioned to oral pain medication this morning. Okay to discharge on a low fat diet today from a surgical standpoint if pain remains controlled. Will have her f/u in [address] Lux. Plan I have discussed the patient's case and plan of care with Dr. Lux. Subjective Subjective Date/Time Seen: 06/24/24 13:14 Post Op day: 2 (Laparoscopic cholecystectomy) Patient reports: no new complaints, feels better, pain is less, tolerating a regular diet, flatus, no bowel movement and afebrile Interval history: Patient feeling much better today. Still having some posterior neck and right shoulder pain, but this has improved since yesterday. No longer having any abdominal pain. Denies any left lower quadrant abdominal pain today. No nausea or vomiting. Tolerating a solid diet. Review of Systems Review of Systems: All systems reviewed & are unremarkable except as noted in HPI and below Exam Const: General: comfortable and no acute distress GI: Inspection: non-distended and incision (incisions dry and intact) GI Palp: Yes Soft to palpation, Yes Tenderness to palpation present (GI) (incisional) and No Guarding due to palpation present (GI) Auscultation: normal bowel sounds Extrem: General: no calf tenderness and no edema Psych: Mental Status: mental status grossly normal Insight: Good insight present (Psych) Objective Data Vital Signs Vital Signs: Vital Signs - 24 hr 06/23/24 14:14 06/23/24 21:25 06/23/24 23:46 Temperature 97.5 F L 97.7 F 97.6 F Pulse Rate 85 85 84 Respiratory Rate 16 20 20 Blood Pressure 147/94 H 153/100 H 143/103 H Pulse Oximetry 100 98 100 Oxygen Delivery 06/24/24 04:12 06/24/24 08:00 Temperature 98.4 F Pulse Rate 67 Respiratory Rate 20 Blood Pressure 128/81 Pulse Oximetry 98 Oxygen Delivery Room Air Intake/Output Intake/Output: Intake & Output 06/21/24 06/22/24 06/23/24 06/24/24 23:59 23:59 23:59 23:59 Intake Total 2340 1140 3960 1400 Balance 2340 1140 3960 1400 Meds/Results Medications: Active Medications Generic Name Dose Route Start Last Admin Trade Name Freq PRN Reason Stop Dose Admin Albuterol 1 puff 06/22/24 12:29 Albuterol Sulfate (*Sp) Aerosol 1 Puff INHALATION Q4H PRN shortness of breath or wheezing Alprazolam 0.25 mg 06/20/24 15:07 06/23/24 17:51 Alprazolam (*Crx) 0.25 Mg Tablet PO 0.25 mg BID PRN Administration Anxiety Artificial Tears 1 drop 06/22/24 11:42 Artificial Tears Ophth Soln 15 Ml Bottle EACH EYE Q2H PRN Dry Eye(s) Diclofenac Sodium 1 drop 06/22/24 14:00 06/24/24 05:17 Diclofenac Sodium 0.1% Ophth Soln 2.5 Ml Bottle EACH EYE 06/26/24 13:59 1 drop Q8HR ZAN Administration Diclofenac Sodium 1 applic 06/24/24 10:42 Diclofenac Sodium 1% 100 Gm Gel (*Bkc) TOPICAL QID PRN Pain Duloxetine HCl 60 mg 06/21/24 09:00 06/24/24 08:10 Duloxetine Hcl 60 Mg Capsule. PO 60 mg QAM ZAN Administration Duloxetine HCl 30 mg 06/21/24 09:00 06/24/24 08:10 Duloxetine Hcl 30 Mg Capsule. PO 30 mg QAM ZAN Administration Enoxaparin Sodium 40 mg 06/23/24 09:00 06/24/24 08:10 Enoxaparin 40 Mg/0.4 Ml Syringe SUB-Q 40 mg DAILY ZAN Administration Ibuprofen 800 mg in 200 mls @ 400 mls/hr 06/22/24 12:29 06/24/24 09:59 Caldolor 800 Mg/200 Ml IVPB Infused Q6H PRN Infusion Breakthrough Pain Rated 1-3 or NPO Loratadine 10 mg 06/20/24 15:07 Loratadine 10 Mg Tablet PO QAM PRN Allergic Symptoms Morphine Sulfate 2 mg 06/22/24 12:29 06/23/24 12:38 Morphine Sulfate (*Crx) 2 Mg/Ml Inj IV PUSH 2 mg Q2H PRN Administration Breakthrough Pain Rated 4-6 or NPO Morphine Sulfate 4 mg 06/22/24 12:29 06/24/24 06:33 Morphine Sulfate (*Crx) 4 Mg/Ml Inj IV PUSH 4 mg Q2H PRN Administration Breakthrough Pain Rated 7-10 or NPO Naloxone HCl 0.1 mg 06/22/24 12:29 Naloxone Hcl 0.4 Mg/Ml Vial IV PUSH Q2M PRN Opiate Reversal Ondansetron HCl 4 mg 06/20/24 01:27 06/24/24 08:10 Ondansetron Inj 4 Mg/2 Ml Vial IV PUSH 4 mg Q4H PRN Administration Nausea Oxycodone/Acetaminophen 1 tablet 06/22/24 12:29 06/24/24 12:59 Oxycodone/Acetaminophen (*Crx) 5-325 Mg Tablet PO 1 tablet Q4H PRN Administration Pain Rated 4-6 Oxycodone/Acetaminophen 1 tab 06/22/24 12:29 06/24/24 08:14 Oxycodone/Acetaminophen (*Crx) 10-325 Mg Tablet PO 1 tab Q6H PRN Administration Pain Rated 7-10 Pantoprazole Sodium 40 mg 06/23/24 09:00 06/24/24 08:10 Pantoprazole 40 Mg Tablet PO 40 mg QAM ZAN Administration Tramadol HCl 50 mg 06/22/24 12:29 06/23/24 17:51 Tramadol Hcl (*Crx) 50 Mg Tablet PO 50 mg Q4H PRN Administration Pain Rated 1-3 Vitamin D 5,000 units 06/26/24 09:00 Cholecalciferol 5,000 Units Tablet PO We@0900 [facility] Radiology Results: ITS Impressions Abdomen/Pelvis CT 06/19/24 16:37 IMPRESSION: 1. No etiology for the patient's symptoms. Hepatobiliary Scan Nuclear Medicine 06/21/24 09:20 IMPRESSION: 1. Abnormally decreased gallbladder ejection fraction of 7% consistent gallbladder dysfunction or chronic cholecystitis in the appropriate clinical setting. Abdomen Ultrasound 06/22/24 08:59 IMPRESSION: 1. Normal right upper quadrant ultrasound. Labs Labs: Laboratory Results - last 24 hr 06/24/24 06:04 WBC 10.6 H RBC 4.30 Hgb 12.7 Hct 39.7 MCV 92.3 MCH 29.5 MCHC 32.0 RDW 12.9 Plt Count 283 MPV 11.6 H Immature Gran % (Auto) 0.3 Neut % (Auto) 41.6 L Lymph % (Auto) 46.4 H [place] % (Auto) 7.2 Eos % (Auto) 3.8 Baso % (Auto) 0.7 Lymph # (Auto) 4.94 H [place] # (Auto) 0.8 H Eos # (Auto) 0.4 H Baso # (Auto) 0.1 Abs Immat Gran (auto) 0.03 Absolute Neuts (auto) 4.4 Absolute Nucleated RBC 0.000 Nucleated RBC % 0.0 Sodium 139 Potassium 4.1 Chloride 103 Carbon Dioxide 31 H Anion Gap 5 BUN 6 L Creatinine 0.60 L Estim Creat Clear Calc 103 Estimated GFR > 60 Glucose 87 Calcium 8.7 Magnesium 1.9 Total Bilirubin 0.2 AST 32 ALT 21 Alkaline Phosphatase 42 Total Protein 7.0 Albumin 3.6
--- NOTE | 2024-06-24 13:16 | P.DS_ITS ---
DS: Admitting Diagnosis Discharge Date 06/24/24 Admitting Diagnosis [facility] [address] [place] [address] History & Physical Report Signed with Addenda Patient: Jennifer Ivan MR#: [id number] : 1985 Acct:[id number] Age: 39 ADM Date: 06/20/24 Loc: [id number] 307-01 abd pain and distention DS: Summary Hospital Course Hospital Course: 38-year-old female past medical history of anxiety and recently managed for colitis who presented to the abdominal pain and distention. She noted after she was discharged on 06/06 with colitis, she noted she was okay for about 2 days, however the next day she started having diffuse abd pain described as sharp 8/10 in intensity, worse with food. She noted that diarrhea immediately following meals, and reported occasional nausea and vomiting. SHe also noted night chills, noted poor oral intae and went from 192 to 170 pounds. ER eval vital signs stable and wnl, labs notable for WBC 14.3, lipase 335. CT AP no acute findings. GI was consulted prior to admission. Patient was evaluated by GI and EGD was done which showed normal findings, HIDA scan showed Gallbladder EF 7% suggestive of Gall bladder dysfunction vs chronic cholecystitis. Gen surgery was consulted and patient underwent Cholecystectomy. She noted this morning that he rabd pain has markedly improved and she now has moderate pain from surgical wound. Vomiting and diarrhea resovled. patient discharged on PRN pain control, Zofran and 14 days course of Protonix whcih she noted is helping her with nausea. F/u with PCP in 3-5 days, GEn surgery and GI as instructed Assessment and Plan (1) Elevated lipase: Code(s): R74.8 - Abnormal levels of other serum enzymes Status: Acute (2) Appetite loss: Code(s): R63.0 - Anorexia Status: Acute (3) Nausea vomiting and diarrhea: Code(s): R11.2 - Nausea with vomiting, unspecified; R19.7 - Diarrhea, unspecified Status: Acute (4) Abdominal pain: Qualifiers: Abdominal location: generalized Qualified Code(s): R10.84 - Generalized abdominal pain Code(s): R10.9 - Unspecified abdominal pain Status: Acute Plan Abd pain chronic Cholecystitis vs functional gallbladder disorder Noted pain is worse with food and noted some relief today with IV Protonix Lipase elevated 331, however patient denies radiation to the back HIDA scan showed GBEF is 7% suggestive of Gallbladder dysfunction vs chronic cholecystitis s/p EGD normal findings S/p Cholecystectomy continue PPI, PRN pain control GI and gen surgery following Gen surgery recommended monitoring another couple of days Vomiting and diarrhea, resolved Failure to thrive continue IVF, advance diet as tolerated EGD showed normal findings GI following Recent colitis and patient completed abx monitor Anxiety continue home meds Time Spent with Patient Time attestation: Total time spent providing and/or coordinating discharge services: DS: Data Data Completed and Pending Completed studies during hospitalization: Pending at discharge 06/21/24 14:35 Surgical [PTH] Routine Pending studies at discharge: Pending at discharge 06/22/24 11:00 Surgical [PTH] Routine Labs on day of discharge: Labs from last 24 hours 06/24/24 06:04 WBC 10.6 H RBC 4.30 Hgb 12.7 Hct 39.7 MCV 92.3 MCH 29.5 MCHC 32.0 RDW 12.9 Plt Count 283 MPV 11.6 H Immature Gran % (Auto) 0.3 Neut % (Auto) 41.6 L Lymph % (Auto) 46.4 H Hitchcock % (Auto) 7.2 Eos % (Auto) 3.8 Baso % (Auto) 0.7 Lymph # (Auto) 4.94 H Hitchcock # (Auto) 0.8 H Eos # (Auto) 0.4 H Baso # (Auto) 0.1 Abs Immat Gran (auto) 0.03 Absolute Neuts (auto) 4.4 Absolute Nucleated RBC 0.000 Nucleated RBC % 0.0 Sodium 139 Potassium 4.1 Chloride 103 Carbon Dioxide 31 H Anion Gap 5 BUN 6 L Creatinine 0.60 L Estim Creat Clear Calc 103 Estimated GFR > 60 Glucose 87 Calcium 8.7 Magnesium 1.9 Total Bilirubin 0.2 AST 32 ALT 21 Alkaline Phosphatase 42 Total Protein 7.0 Albumin 3.6 Preliminary micro results at discharge 06/20/24 00:53 Blood Culture - Preliminary Blood 06/20/24 01:05 Blood Culture - Preliminary Blood Discharge Plan Discharge Attending physician on discharge: Malachi Burgess Consulting providers: Johnny Lux Discharging Clinician: Malachi Burgess Anticipated Discharge Date/Time: 06/24/24 13:06 Patient Disposition: Home, Self-Care Activity: as tolerated Diet: as tolerated Discharge Instructions: Anesthesia used a medication called Sugammadex, female patients may need a second line of protection during sexual activity as this medication can limit control for 7 days following administration. DISCHARGE INSTRUCTION SHEET FOR [facility] DR. LUX 1. May shower the day after surgery over incisions. 2. Call office for: * Wound increasingly painful or bleeding * Vomiting * Fever of greater than 101 degrees 3. Expect some blood on dressing and old blood on skin. 4. If no bowel movement for three days, take 1 oz. (30 ml) Milk of Magnesia, if no results, take Fleets enema. 5. No heavy lifting > 10-15 pounds x 2-3 weeks for laparoscopic cholecystectomy. 6. No driving for 3 days or while taking narcotic pain medications. 7. Up walking 10-30 minutes three times per day. 8. Resume previous home medications. 9. Follow-up in [address] Lux in the office. Call to schedule an appointment. [phone] Patient Instructions: Antibiotic Form Stand Alone Forms: General Discharge Information Follow-up/Referrals: Carol Pittman APRN [Advanced Practice Nurse] - (F/u with GI as instructed ) Mino Andujar MD [Primary Care Provider] - (F/u with PCP in 3-5 days ) Johnny Lux MD [Physician] - 2 Weeks (F/u with Gen surgery as instructed ) Discharge Medications: New oxycodone-acetaminophen 5-325 mg Tablet 1 tablet PO Q4H PRN (Reason: Pain Rated 4-6) 5 Days Qty: 12 0RF pantoprazole 40 mg Tablet,Delayed Release (Dr/Ec) 40 mg PO QAM 14 Days Qty: 14 0RF ibuprofen 600 mg tablet 600 mg PO TID PRN (Reason: pain) Qty: 20 0RF ondansetron 4 mg tablet,disintegrating 4 mg PO Q8H PRN (Reason: nausea and vomiting) Qty: 14 0RF Continued duloxetine 60 mg capsule,delayed release(DR/EC) 60 mg PO DAILY Qty: 100 0RF Rx Instructions: take with 30mg to total 90mg duloxetine 30 mg capsule,delayed release(DR/EC) 30 mg PO DAILY Rx Instructions: take with 60 mg capsule cetirizine [Zyrtec] 10 mg Tablet 10 mg PO DAILY PRN (Reason: allergies) cholecalciferol (vitamin D3) 125 mcg (5,000 unit) Capsule 125 mcg PO WEEKLY Rx Instructions: administer on levofloxacin 750 mg tablet 750 mg PO DAILY Qty: 5 0RF metronidazole 500 mg tablet 500 mg PO Q8H 5 Days Qty: 15 0RF albuterol sulfate 90 mcg/actuation HFA aerosol inhaler 1 inh inhalation Q4H PRN (Reason: shortness of breath or wheezing) Qty: 8.5 1RF alprazolam 0.25 mg tablet 0.25 mg PO BID PRN (Reason: Anxiety) Qty: 28 0RF ondansetron 4 mg tablet,disintegrating 4 mg PO Q8H PRN (Reason: nausea and vomiting) Qty: 20 0RF tramadol 50 mg tablet 50 mg PO QID PRN (Reason: Pain) Qty: 100 0RF Date of admission: 06/20/24 01:27 Primary Care Provider: Mino Andujar Admitting Provider: Viviana German Attending physician on admission: Viviana German Condition: Stable
[2024-06-24 14:42] VITALS: BP 119/74; PULSE 83; RESP 16; TEMP 36.2; O2SAT 99
--- NOTE | 2024-06-25 13:33 | WPDHPUPDATE1 ---
History and Physical Update Update Date/Time: 06/25/24 13:33 History and Physical has been reviewed, including an updated exam of the patient. There are NO changes in the patient's condition. Risks, benefits, and alternatives have been discussed and questions answered. Patient agrees to proceed with procedure.
== END 2024-06-24 14:39 | disposition home or self-care (01) ==
LOC: ANHED 06-20 01:29 → ANH3MEDSUR 06-20 04:43
PROVIDERS: Internal Medicine Gastroenterology; Physician Assistant; Surgery; Admitting Provider Internal Medicine; Emergency Provider Emergency Medicine; PCP Family Medicine; Visit Provider Internal Medicine
PROC: 0DJ08ZZ Inspection of Upper Intestinal Tract, Via Natural or Artificial Opening Endoscopic (ICD-10-PCS; CPT 43235; principal; 2024-06-21 15:00)
PROC: 0FT44ZZ Resection of Gallbladder, Percutaneous Endoscopic Approach (ICD-10-PCS; CPT 47562; principal; 2024-06-22 10:30)
DX: K81.1 Chronic cholecystitis (principal); E86.0 Dehydration; R74.8 Abnormal levels of other serum enzymes; R63.0 Anorexia; K50.90 Crohn's disease, unspecified, without complications; F41.9 Anxiety disorder, unspecified; F32.A Depression, unspecified; Z87.891 Personal history of nicotine dependence; Z79.51 Long term (current) use of inhaled steroids; Z68.27 Body mass index [BMI] 27.0-27.9, adult
CPT/HCPCS: 43239; 47562; 36415; 74177; 76705; 78227; 80053; 81003; 81025; 83605; 83690; 83735; 84120; 85025; 85055; 86140; 87040; 87045; 87427; 87449; 88304; 88305; 93005; 96361; 96374; 96375; 99285; A9270; A9537; J0330; J0690; J1100; J1171; J1200; J1650; J1741; J1885; J2003; J2060; J2250; J2270; J2405; J2470; J2704; J2765; J2805; J3010; J7030; J7120; Q9967

== ENCOUNTER 2025-05-15 21:22 | Emergency (ER) | payer OTHER, SELFPAY ==
--- NOTE | ~2025-05-15 | CT_ITS ---
EXAMINATION: CTA chest PE abdomen pel DATE: 05/16/2025 03:29 INDICATION: Chest pain. TECHNIQUE: Computed tomography angiography (CTA) of the chest was performed with 100 mL Omnipaque-350 intravenous contrast timed to evaluate the pulmonary arteries. Coronal maximum intensity projection 3D-reconstructions were created by the technologist. Computed tomography (CT) of the abdomen and pelvis was performed with intravenous contrast. Automated exposure control and iterative reconstruction technique were employed. The dose-length product was 1277.98 mGy-cm. COMPARISON: CT abdomen and pelvis 06/19/2024 FINDINGS: CTA chest: The lungs demonstrate mild atelectasis. There is mosaic attenuation in the lungs, likely small airways disease. No pleural effusion. The heart size is normal. No pericardial effusion. There is no pulmonary embolus. 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 There is moderate thoracic spondylosis. There is mild chronic anterior wedging of multiple vertebral bodies. CT abdomen and pelvis: The liver and spleen are normal. There are changes of cholecystectomy. The pancreas, adrenal glands, and kidneys are normal. There is a nabothian cysts in the cervix. There are no dilated loops of bowel. There is liquid stool in the colon suggesting diarrhea. The appendix is normal. There are no pathologically enlarged lymph nodes. There is no free intraperitoneal fluid. Pelvic floor dysfunction is noted. There is mild lumbar spondylosis. IMPRESSION: 1. No pulmonary embolus. 2. Mosaic attenuation in the lungs, likely small airways disease. Reviewed, dictated and finalized at location E.
--- NOTE | ~2025-05-15 | XR_ITS ---
Examination: XR chest 2V Clinical History: chest pain Comparison: 05/31/2023 Technique: PA and Lateral Findings: Cardiomediastinal silhouette normal size and configuration. Lungs clear. No acute bony abnormality. IMPRESSION: 1. No acute cardiopulmonary findings. Reviewed, dictated and finalized at location R.
--- OUTSIDE RECORDS SUMMARY | 2025-05-15 21:24 | XMS_ITS | Encounter Summary ---
Author Organization [facility] Healthcare Address [address] [place] [address] Care Team Providers Care Mat Maker Name Role Phone Corey Morris NP Primary Care Provider [phone] Unknown, Notinfile Unavailable Unavailable Encounter Details Date Type Department Care Team (Late st Contact Info) Description 04/11/2025 Results Follow-Up [facility] at [address] [address] Scarlet Roy NP [address] [place] [address] [address] [place] [address] XR Chest Pa Lateral 2 Views Social History Tobacco Use Types Packs/Day Years Used Date Smoking Tobacco: Former Cigarettes Q uit: 2018 Smokeless Tobacco: Never Comments:1 pack per month of f/on for 3-4 years Alcohol Use Standard Drinks/Week Comments Yes 0 (1 standard drink = 0.6 oz pur e alcohol) occasionally AUDIT-C Answer Date Recorded Q1: How often do you have a drink containing alc ohol? Monthly or less 03/26/2024 Q2: How many drinks containi ng alcohol do you have on a typical day when you are drinking? 1 or 2 03/26/2024 Q3: How often do you have si x or more drinks on one occasion? Never 03/26/2024 Hunger Vital Sign Answer Date Recorded Within the past 12 months, y ou worried that your food would run out before you got the money to buy more. Never true 11/13/19 24 Within the past 12 months, t he food you bought just didn't last and you didn't have money to get more. 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 Author CCM Chronic Pain Care Plan Chronic Care Management Worsening( 2:03 PM CDT) Lulu Lowe, RACHEL Note: Problem: Chronic Pain Goals: 1. Minimize further functional decline 2. Maximize quality of life 3. Control pain Strategies: - Activity/exercise program recommendation - Conservative stepwise pain medicine strategy with multi-disciplinary approach - Recommend healthy lifestyle strategies and compensatory methods as needed documented as of this encounter Visit Diagnoses Not on filedocumented in this encounter Care Teams Mat Maker Relationship Specialty Start Date End Date Corey Morris NP [address] [place], [place] [id number] PCP - General Nurse Practitioner 06/08/22 Unknown, Notinfile 06/08/22 documented as of this encounter
--- OUTSIDE RECORDS SUMMARY | 2025-05-15 21:24 | XMS_ITS | Clinical Summary ---
Author Organization [facility] Address [address] [place] [address] Phone Care Team Providers Care Certification Officer Name Role Phone Tim Che MD Primary Care Provider + Aldo Morris MD Unavailable [phone] Allergies Active Allergy Reactions Criticality Noted Date Comments Amoxicillin Itching 08/14/2018 Latex Rash 08/14/2018 Other Rash 10/25/2018 Adhesive tape Medications lidocaine (XYLOCAINE) 2 % Gel YAMILETH TOPICALLY Q 2 TO 4 H PRN P 1 8 Active predniSONE (DELTASONE) 10 MG Tablet Take 1 Tab by mouth daily. 40 Tab 9 Active Additional Information Patient not taking.Reported on 10/25/2018 Multiple Vitamins-Minera ls (MULTIVITAMIN PO) Take by mouth. Activ e CALCIUM PO Take by mouth. Acti ve vitamin D (CHOLECALCIFERO L) 1000 UNIT Tablet Take 1,000 Units by mouth daily. Active ibuprofen (MOTRIN) 800 MG Tablet Take 800 mg by mouth every 6 hours as needed. Active omeprazole (PRILOSEC) 40 MG CAPSULE DELAYED RELEASE Take 1 Cap by mouth daily. 90 Cap 3 9 Active traMADol (ULTRAM) 50 MG Tablet Take 1 Tab by mouth every 6 hours as needed for Moderate or more severe pain. 30 Tab 9 Active metroNIDAZOLE (FLAGYL) 500 MG Tablet Take 1 Tab by mouth 3 times daily. 30 Tab 9 Active Family History Medical History Relation Name Comments Cancer Father esophageal Diabetes Father type 1 Other-comment Father gastroparesis Heart Disease Maternal Grandmother Other-comment Mother fibromyalygia Other-comment Paternal Grandmother coliti s of some sort? 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 on file Not on file Not on file Last Filed Vital Signs Vital Sign Reading Time Taken Comments Blood Pressure 126/88 10/25/2018 1:57 PM CDT Pulse 108 10/25/2018 1:57 PM CDT Temperature - - Respiratory Rate 16 10/25/2018 1:57 PM CDT Oxygen Saturation 98% 10/25/2018 1:57 PM CDT Inhaled Oxygen Concentration - - Weight 88.9 kg (196 lb) 10/25/2018 1:57 PM CDT Height 170.2 cm (5' 7) 10/25/2018 1:57 PM CDT Body Mass Index 30.7 10/25/2018 1:57 PM CDT Plan of Treatment Health Maintenance Due Date Last Done Comments Hepatitis C Virus (HCV) Screening 1985 TdaP Immunization 1984 Hepatitis B Immunization (1 of 3 - 19+ 3-dose series) 2003 Pap Smear 2005 Human Papillomavirus (HPV) Immunization (1 - 3-dose SCDM series) 2011 Cervical Cancer Screening (CCS) 2014 HPV/Cotest 2014 Influenza Immunization (#1) 2025 SARS-COV-2 Immunization (3 - 2024- season) 2025 11/15/2020, 10/22/2020 Respiratory Syncytial Virus (RSV) Immunization (Adult) (1 - 1-dose 75+ series) 2059 Meningococcal Immunization (ACWY) Aged Out No longer eligible b ased on patient's age to complete this topic Pneumococcal Immunization Combined Aged Out No longer eligible b ased on patient's age to complete this topic Rotavirus Immunization Aged Out No lo nger eligible based on patient's age to complete this topic Insurance MEDICAID [facility] [employer] [facility] Care Teams Certification Officer Relationship Specialty Start Date End Date Tim Che MD PCP - General Family Medicine 08/09/18 Aldo Morris MD [address] [facility] [address] [place] [address] General Surgery 08/09/18
--- OUTSIDE RECORDS SUMMARY | 2025-05-15 21:25 | XMS_ITS | Clinical Summary ---
Author Organization [facility] Address [address] [place] [address] Care Team Providers Care Commercial Leasing Manager Name Role Phone Unavailable Primary Care Provider Unavailabl e Social History Tobacco Use Types Packs/Day Years Used Date Smoking Tobacco: Never Assessed Comments Unknown Sex and Gender Information Value Date Recorded Sex Assigned at Not on file Legal Sex Female 7:56 PM CDT Gender Identity Not on file Sexual Orientation Not on file Plan of Treatment Health Maintenance Due Date Last Done Comments Cervical Cancer Screening Pa p Smear (Age 30 to 64) Every 3 Years 1984 Annual Physical 1987 Hepatitis C 2002 DTaP, Tdap and Td Vaccines ( 1 - Tdap) 2003 Hepatitis B Vaccines (1 of 3 - 19+ 3-dose series) 2003 HPV Vaccines (1 - 3-dose SCD M series) 2011 Cervical Cancer Screening Pa p with HPV Testing (Age 30 to 64) Every 5 Years 2014 Cervical Cancer Screening with HPV 2014 Mammogram Screening 2024 COVID-19 Vaccine (2023-2 5 season) 2025 Influenza Adult (#1) 2025 Meningococcal B Vaccine Aged Out No l onger eligible based on patient's age to complete this topic Meningococcal Vaccine Aged Out No karla marcus eligible based on patient's age to complete this topic Pneumococcal Vaccine: Pediat rics (0 to 5 Years) and At-Risk Patients (6 to 49 Years) Aged Out No longer eligible b ased on patient's age to complete this topic RSV Immunizations Under 20 Months Aged Out No longer eligible based on patient's age to complete this topic
--- OUTSIDE RECORDS SUMMARY | 2025-05-15 21:25 | XMS_ITS | Clinical Summary ---
Author Organization [address] Address [address] [place] [id number] Care Team Providers Care Child Support Officer Name Role Phone Corey Morris NP Primary Care Provider [phone] Unknown, Notinfile Unavailable Unavailable Allergies Active Allergy Reactions Criticality Noted Date Comments Adhesive Rash Medium 03/26/2024 Latex Rash Medium 08/14/2018 Morphine Itching Low 04/05/2019 Medications multivitamin with minerals tablet Take 1 tablet by mouth daily Active traMADol (ULTRAM) 50 mg tablet Take 1 tablet (50 mg total) by mouth 4 (four) times a day Active ALPRAZolam (XANAX) 0.25 mg tablet Take 1 tablet (0.25 mg total) by mouth 2 (two) times a day as needed for anxiety Active cholecalciferol (VITAMIN D-3) 25 mcg (1,000 unit) tablet Take 1 tablet (1,000 Units total) by mouth daily Active albuterol HFA (PROVENTIL HFA,VENTOLIN HFA,PROAIR HFA) 90 mcg/actuation inhalerIndicatio ns:Lower respiratory infection (e.g., bronchitis, pneumonia, pneumonitis, pulmonitis) Inhale 2 puffs every 6 (six) hours as needed for wheezing or shortness of breath 1 each 3 Active acetaminophen (TYLENOL) 325 mg tablet Take 2 tablets (650 mg total) by mouth every 6 (six) hours Active Advair HFA 115-21 mcg/actuation inhaler INHALE 2 PUFFS BY MOUTH TWICE DAILY. ADMINISTER WITH SPACER [address] (CYMBALTA) 30 mg capsule Take 2 capsules (60 mg total) by mouth daily 30 capsule 11 4 Active Zepbound 5 mg/0.5 mL pen injector ADMINISTER 5 MG UNDER THE SKIN WEEKLY [address] (CYMBALTA) 60 mg capsule Take 1 capsule (60 mg total) by mouth daily 4 Active clindamycin (CLEOCIN) 300 mg capsule 5 Active doxepin (SINEquan) 25 mg capsule TAKE 1 CAPSULE BY MOUTH EVERY DAY AT BEDTIME NEEDED FOR SLEEP. DO NOT TAKEWITH TRAMADOL 5 Active HYDROcodone-acet aminophen (NORCO) 7.5-325 mg per tablet Take 1 tablet by mouth 5 Active promethazine-DM (PROMETHAZINE-DM ) 1.25-3 mg/mL syrupIndications :Acute lower respiratory infection Take 5 mL by mouth every 4 (four) hours as needed for cough 120 mL 5 Active amoxicillin-clav ulanate (AUGMENTIN) 875-125 mg per tabletIndication s:Acute pansinusitis, recurrence not specified Take 1 tablet by mouth 2 (two) times a day for 7 days 14 tablet 5 04/15/20 25 azithromycin (ZITHROMAX) 250 mg tabletIndication s:Acute lower respiratory infection Take 2 tabs (500 mg) by mouth today, than 1 tab (250 mg) daily for 4 days. 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 Anorectal pain 04/04/2019 Overview (04/04/2019): Added automatically from request for surgery [id number] Rectal pain 11/23/2018 Overview (11/23/2018): Added automatically from request for surgery [id number] Encounters Date Type Department Care Team Description 05/15/2025 6:15 PM CDT Office Visit [facility] at [address] [phone] Mary Grace Rutledge NP Nausea and vomiting, unspecified vomiting type (Primary Dx); Functional diarrhea; Lightheadedness; Abdominal pain of multiple sites 04/30/2025 7:30 PM CDT Office Visit [facility] Care at [address] [phone] Raghu Hood NP Other constipation (Primary Dx); Elevated blood pressure reading in office without diagnosis of hypertension; Tachycardia; Suprapubic tenderness 04/30/2025 Patient Self-Triage [facility] [address] [place] [id number] Mychart, Generic Provider 04/13/2025 Telephone [facility] Care at [address] [phone] Erma Collins MA 04/11/2025 6:26 PM CDT - 04/11/2025 11:59 PM CDT Hospital Encounter [address] [address] Acute lower respiratory infection Discharge Disposition: Discharge to home or self care 04/11/2025 4:45 PM CDT Office Visit [facility] Care at [address] [phone] Scarlet Roy NP Acute lower respiratory infection (Primary Dx) 04/11/2025 Results Follow-Up [facility] Care at [address] [phone] Scarlet Roy NP XR Chest Pa Lateral 2 Views 04/08/2025 5:45 PM CDT Office Visit [facility] Care at [address] [phone] Raghu Hood NP Acute pansinusitis, recurrence not specified (Primary Dx); Tachycardia from Last 3 Months Surgical History Surgery Date Site/Laterality Comments COLONOSCOPY FLEXIBLE SIGMOIDOSCOPY ESOPHAGOGASTRODUODENOSCOPY INCISION AND DRAINAGE Medical History Medical History Date Comments Do-rectal abscess Irritable bowel syndrome Family History Medical History Relation Name Comments Cancer Father Diabetes Father Chronic Pain Mother Relation Name Status Comments Father Mother Social History Tobacco Use Types Packs/Day Years Used Date Smoking Tobacco: Former Cigarettes Q uit: 2018 Smokeless Tobacco: Never Tobacco Cessation:Counseling Given: Not Answered Comments:1 pack per month off/on for 3-4 years Alcohol Use Standard Drinks/Week [...] on file Legal Sex Female 11:38 PM [employer] Gender Identity Not on file Sexual Orientation Not on file Obstetrics History Last Filed Vital Signs Vital Sign Reading Time Taken Comments Blood Pressure 132/86 05/15/2025 6:16 PM CDT Pulse 140 05/15/2025 6:16 PM CDT Temperature 36.4 C (97.6 F) 05/15/2025 6:16 PM CDT Respiratory Rate 18 04/30/2025 7:16 PM CDT Oxygen Saturation 99% 05/15/2025 6:16 PM CDT Inhaled Oxygen Concentration - - Weight 90.7 kg (200 lb) 05/15/2025 6:16 PM CDT Height 170.2 cm (5' 7.01) 05/15/2025 6:16 PM CD T Body Mass Index 31.32 05/15/2025 6:16 PM CDT Plan of Treatment Health Maintenance Due Date Last Done Comments Breast Cancer Screening-Mammogram 1984 Cervical Cancer Screening 1984 Depression Screening 1984 Hepatitis C Screening 1984 DTaP/Tdap/Td Vaccine (1 - Tdap) 1995 Varicella Vaccines (1 of 2 - 13+ 2-dose series) 1997 Hepatitis B Screening 2002 Regular Well Visit/Exam 18-64 2002 HPV Vaccines (1 - 3-dose SCD M series) 2011 Influenza Vaccine (#1) 2025 Pneumococcal vaccine <65 Aged Out No longer eligible based on patient's age to complete this topic Goals Goal Patient Goal Type Associated Problems [...] lifestyle strategies and compensatory methods as needed Procedures Procedure Name Priority Date/Time Associated Diagnosis Comments XR CHEST PA LATERAL 2 VIEWS Schedule TYRONE, Read TYRONE (Appt Today, Awaiting Results) 04/11/2025 6:38 PM CDT Acute lower respiratory infection POC INFLUENZA A/B, COVID-19 ANTIGEN Routine 04/08/2025 6:04 PM CDT Acute pansinusitis, recurrence not specified POCT RAPID STREP Routine 04/08/2025 5:56 PM CDT Acute pansinusitis, recurrence not specified from Last 3 Months Results * XR Chest Pa Lateral 2 Views (04/11/2025 6:38 PM CDT) Anatomical Region Laterality Modality Body, Chest N/A Computed Radiogr aphy 04/11/2025 6:58 PM CDT Narrative 04/11/2025 6:58 PM CDT EXAM DESCRIPTION: XR CHEST PA LATERAL 2 VIEWS REASON FOR STUDY: cough Sinus infection since Monday, started in Lungs yesterday. Worsening cough today. Hx of bronchitis and pneumonia. TECHNIQUE: 2 radiographic view(s) of the chest. COMPARISON: None FINDINGS: LUNGS: Patchy infiltrate in the lingula with partial obscuration of the left cardiac border characteristic of pneumonia. The remaining lung crowell are clear. No pleural effusion. No pneumothorax. HEART/MEDIASTINUM: Cardiac silhouette normal in size. Mediastinal and hilar contours appear normal. LINES/TUBES: None. BONES: No acute osseous abnormality. IMPRESSION: Lingular pneumonia. THIS IS AN ELECTRONICALLY VERIFIED FINAL REPORT 04/11/2025 6:58 PM - Electronically signed by Serjio Payton M.D. KT T: Report ID: [id number] Reading Location: [place] [address] Procedure Note Serjio Payton MD - 04/11/2025 EXAM DESCRIPTION: XR CHEST PA LATERAL 2 VIEWS REASON FOR STUDY: cough Sinus infection since Monday, started in Lungs yesterday. Worseningcough today. Hx of bronchitis and pneumonia. TECHNIQUE: 2 radiographic view(s) of the chest. COMPARISON: None FINDINGS: LUNGS: Patchy infiltrate in the lingula with partialobscuration of the left cardiac border characteristic of pneumonia. The remaining lung crowell are clear. No pleural effusion. No pneumothorax. HEART/MEDIASTINUM: Cardiac silhouette normal in size. Mediastinal andhilar contours appear normal. LINES/TUBES: None. BONES: No acute osseous abnormality. IMPRESSION: Lingular pneumonia. THIS IS AN ELECTRONICALLY VERIFIED FINAL REPORT 04/11/2025 6:58 PM - Electronically signed by Serjio Payton M.D. KT T: Report ID: [id number] Reading Location: [place] [address] Scarlet Roy BAKERY TECHNICIAN IMG XR PROCEDURES Final Re sult * POC Influenza A/B, COVID-19 antigen (04/08/2025 6:04 PM CDT) Influenza A Ag, POC Negative Negative [facility] Influenza B Ag, POC Negative Negative [facility] COVID-19 Ag POC Presumptive Negative Presumptive Negative, Invalid [facility] Nasal 04/08/2025 6:04 PM CDT Raghu Hood BAKERY TECHNICIAN POINT OF CARE TEST ORDERABLES F inal Result [facility] [address] * POCT rapid strep A (04/08/2025 5:56 PM CDT) Pathologist [facility] Rapid Strep A, POC Negative Negative Swab 04/08/2025 5:56 PM CDT Raghu Hood NP POINT OF CARE TEST ORDERABLES F inal Result from Last 3 Months Insurance [facility] Address: [place] [id number] [place] [address] [facility] Advance Directives For more information, please contact: [phone] * Full Code (Latest Code Status on File) Date Activated Date Inactivated Comments 04/05/2019 9:16 AM 04/05/2019 3:06 PM * Full Code Date Activated Date Inactivated Comments 11/27/2018 1:23 PM 11/27/2018 7:22 PM Care Teams Child Support Officer Relationship Specialty Start Date End Date Corey Morris NP [address] [facility] [address] [place] [address] PCP - General Nurse Practitioner 06/08/22 Unknown, Notinfile 06/08/22
[2025-05-15 21:29] VITALS: BP 139/102; PULSE 118; RESP 16; TEMP 36.8; O2SAT 98
[2025-05-16 00:32] VITALS: BP 113/72; PULSE 101; RESP 20; TEMP 36.9; O2SAT 98
[2025-05-16 01:50] VITALS: BP 143/108; PULSE 115; RESP 17; O2SAT 97
--- NOTE | 2025-05-16 01:59 | ECG_ITS ---
Test Date: 2025-05-16 02:29:41 Measurements Intervals [place] Rate: 108 P: 55 [place]: 176 QRS: 55 QRSD: 81 T: 25 QT: 337 QTc: 453 Interpretive Statements SINUS TACHYCARDIA POSSIBLE RIGHT VENTRICULAR CONDUCTION DELAY CONSIDER ANTERIOR INFARCT, AGE INDETERMINATE NONSPECIFIC ST-T WAVE ABNORMALITY- INFERIOR LEADS ABNORMAL ECG Compared to ECG 06/19/2024 22:54:22 NO SIGNIFICANT CHANGE Electronically Signed On 05-16-2025 06:11:45 CDT by Derick Hayward D.O.
--- NOTE | 2025-05-16 02:02 | ED.NAVMDI ---
HPI - Nausea/Vomiting/Diarrhea General Chief complaint: Nausea/Vomiting/Diarrhea <Lena iTnajero APRN - Last Filed: 05/16/25 04:22> Stated complaint: Vomiting and diarrhea <Lena Tinajero APRN - Last Filed: 05/16/25 04:22> Time Seen by Provider: 05/16/25 01:44 <Lena Tinajero APRN - Last Filed: 05/16/25 04:22> History of Present Illness HPI Narrative: Patient is a 39-year-old female who presents to the ER with complaints of generalized abdominal pain that started yesterday. She reports she has an extensive gastroenterology history. Patient reports she has been ?peeing out of my butt. She endorses a recent fever between 102 and 104. Patient also endorses nausea and vomiting. She reports this evening she also started experiencing chest pain. Patient endorses a history of IBS, cholecystectomy, and colitis. She denies any shortness of breath, urinary symptoms, lower extremity swelling, hematochezia, or rectal bleeding. <Lena Tinajero APRN - Last Filed: 05/16/25 04:22> Related Data Home medications: Home Medications ?Medication ?Instructions ?Recorded ?Confirmed ?Last Taken ?Type cetirizine 10 mg tablet (Zyrtec) 10 mg PO DAILY PRN allergies 06/05/24 06/20/24 05/20/24 History cholecalciferol (vitamin D3) 125 125 mcg PO WEEKLY 06/05/24 06/20/24 06/16/24 History mcg (5,000 unit) capsule <Lena Tinajero APRN - Last Filed: 05/16/25 04:22> Allergies/Adverse reactions: Allergies Allergy/AdvReac Type Severity Reaction Status Date / Time latex Allergy Unknown Itching Verified 06/19/24 14:46 adhesive tape Allergy Rash Verified 06/19/24 14:46 amoxicillin (From Amoxil) Allergy Itching Verified 06/19/24 14:46 Beef Containing Products AdvReac Severe Vomiting Verified 06/19/24 14:46 <АНДРЕЙ Schrader Last Filed: 05/16/25 04:22> Review of Systems Review of Systems: All systems reviewed & are unremarkable except as noted in HPI and below <Lena Tinajero APRN - Last Filed: 05/16/25 04:22> FORMERLY [facility], [facility] Past Medical History Medical History: Medical History Nausea Irritable bowel syndrome Colonic fistula Depression Crohn's disease Colitis Bronchitis 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) Inflammatory arthritis Anxiety Latex allergy <Lena Tinajero APRN - Last Filed: 05/16/25 04:22> Surgical History Surgical History: Surgical History History of loop electrical excision procedure (LEEP) History of colonoscopy with polypectomy History of wisdom tooth extraction <Lena Tinajero APRN - Last Filed: 05/16/25 04:22> Family History Family History: Family History Father Gastroparesis Diabetes mellitus Arthritis Patient's father is in good health Family history of throat cancer Diverticulitis Mother Arthritis Fibromyalgia Patient's mother is in good health Grandparent Rheumatoid arthritis Diabetes mellitus Arthritis Colitis Heart disease Parkinsons Other Cerebrovascular accident <Lena Tinajero APRN - Last Filed: 05/16/25 04:22> Social History Social History: Social History Social History: Surrogate medical decision maker: Iliana Ivan, mother. Code status: Smoking status: Former smoker Tobacco type: cigarettes Second hand tobacco smoke exposure: No Smoking end date: 08/07/16 Additional smoking assessment comments: social smoker only Alcohol intake: current Drinks per week: 1 Alcohol use details: socially Substance use: never Substance use type: other Other substance usage details: CBD on rare occasion for joint pain Do You Feel Safe in your Home?: Yes Lack of Transportation: No Lack of Food: Never True Current Housing: I Have Housing Concerned About Future Housing: No Difficulty Paying Gas/Electric Bills: No Difficulty Paying for Meds: No Currently Unemployed: No Education: Associate Degree Difficulty w/ Childcare or Family Care: No Living arrangements: with family Additional living arrangements comments: Lives with naya and 3 children in [place]. Spiritual care concerns: No <Lena Tinajero, MANAGING EDITOR - Last Filed: 05/16/25 04:22> Exam Narrative: GENERAL: Ill appearing, well-nourished, non-toxic, in acute distress d/t pain. HEAD: Normocephalic, atraumatic. NECK: Supple. No adenopathy, no masses. RESPIRATORY: Airway patent, respirations nonlabored. Clear to auscultation bilaterally, no rales, rhonchi, wheezing. CARDIOVASCULAR: Regular rate and rhythm without murmurs, rubs, or gallops. Peripheral pulses 2+ and equal bilaterally. ABDOMINAL: Soft, diffuse tenderness, nondistended. Normoactive BS. MUSCULOSKELETAL: Moves all extremities. Strength/ROM intact without gross deformities. SKIN: Warm, dry, normal color. No rashes. NEURO: A&O X3. Speech clear. Cranial nerves II-XII intact. No ataxic movements. PSYCHIATRIC: Appropriate mood and affect. Normal interaction. <Lena Tinajero, MANAGING EDITOR - Last Filed: 05/16/25 04:22> Course Vital Signs Vital signs: Vital Signs Temperature 98.2 F 05/15/25 21:29 Pulse Rate 118 H 05/15/25 21:29 Respiratory Rate 16 05/15/25 21:29 Blood Pressure 139/102 H 05/15/25 21:29 Pulse Oximetry 98 05/15/25 21:29 Oxygen Delivery Room Air 05/15/25 21:29 Temperature 98.5 F 05/16/25 00:32 Pulse Rate 99 05/16/25 03:57 Respiratory Rate 18 05/16/25 03:57 Blood Pressure 143/94 H 05/16/25 03:57 Pulse Oximetry 99 05/16/25 03:57 Oxygen Delivery Room Air 05/15/25 21:29 <Lena Tinajero, MANAGING EDITOR - Last Filed: 05/16/25 04:22> Vital Signs Temperature 98.2 F 05/15/25 21:29 Pulse Rate 118 H 05/15/25 21:29 Respiratory Rate 16 05/15/25 21:29 Blood Pressure 139/102 H 05/15/25 21:29 Pulse Oximetry 98 05/15/25 21:29 Oxygen Delivery Room Air 05/15/25 21:29 Temperature 98.5 F 05/16/25 00:32 Pulse Rate 99 05/16/25 03:57 Respiratory Rate 18 05/16/25 03:57 Blood Pressure 143/94 H 05/16/25 03:57 Pulse Oximetry 99 05/16/25 03:57 Oxygen Delivery Room Air 05/15/25 21:29 <Alber Hammond, DO - Last Filed: 05/16/25 07:20> MDM - Nausea/Vomiting/Diarrhea MDM Narrative Medical decision making narrative: Patient is a 39-year-old female who presents to the ER with complaints of generalized abdominal pain that started yesterday. She reports she has an extensive gastroenterology history. Patient reports she has been ?peeing out of my butt. She endorses a recent fever between 102 and 104. Patient also endorses nausea and vomiting. She reports this evening she also started experiencing chest pain. Patient endorses a history of IBS, cholecystectomy, and colitis. She denies any shortness of breath, urinary symptoms, lower extremity swelling, hematochezia, or rectal bleeding. She denies any recent alcohol use and reports she does not use marijuana routinely. Labs Ordered: CBC, CMP, D-dimer, UA, UDS, COVID/flu/RSV, lactic acid, lipase, troponin Imaging Ordered: CTA PE chest, CT abdomen pelvis Medications Ordered: 2.7 L normal saline IV bolus, morphine 4 mg IV, Zofran 4 mg IV, Dilaudid 0.5mg IV 0430- Care signed out to Dr. Hammond pending CT scan results. <Lena Tinajero, MANAGING EDITOR - Last Filed: 05/16/25 04:22> Patient is a 39-year-old female who presents to the ER with complaints of generalized abdominal pain that started yesterday. She reports she has an extensive gastroenterology history. Patient reports she has been ?peeing out of my butt. She endorses a recent fever between 102 and 104. Patient also endorses nausea and vomiting. She reports this evening she also started experiencing chest pain. Patient endorses a history of IBS, cholecystectomy, and colitis. She denies any shortness of breath, urinary symptoms, lower extremity swelling, hematochezia, or rectal bleeding. She denies any recent alcohol use and reports she does not use marijuana routinely. Labs Ordered: CBC, CMP, D-dimer, UA, UDS, COVID/flu/RSV, lactic acid, lipase, troponin Imaging Ordered: CTA PE chest, CT abdomen pelvis Medications Ordered: 2.7 L normal saline IV bolus, morphine 4 mg IV, Zofran 4 mg IV, Dilaudid 0.5mg IV 0430- Care signed out to Dr. Hammond pending CT scan results. CTA of the chest reveals bilateral airspace opacities with mosaic attenuation in the lungs concerning for pulmonary edema and air trapping. The heart size is within normal limits. No pathologically enlarged lymph nodes. No fracture. Incidentally noted apparent right subclavian artery. CT of the abdomen pelvis reveals small bowel and colon are fluid filled without obstruction. This likely represent enterocolitis. Spleen is upper limits of normal measuring 14.1 cm. Prominent service with a lately nabothian cyst. Normal appendix. No fracture. Moderate pelvic floor prolapse. On reassessment patient is resting comfortably appearing no acute distress, vital signs stable. Patient is tolerating p.o.. She decision making performed patient regarding a period of observation for IV fluids and pain control verses close outpatient follow-up strict return precautions. Patient states he would like to try to manage her symptoms at home and will follow-up gastroenterology and primary care physician as directed. The patient has remained stable throughout the entire ED visit. Counseled patient regarding diagnostic results and potential diagnosis. Anticipatory guidance provided. Patient instructed to follow up with GI and PCP in 3-5 days. Patient counseled on: false reassurance from an emergency department evaluation; no current evidence of a medical emergency; return immediately for any new, recurrent, worsening, concerning, or refractory symptoms. Patient prescribed bentyl and zofran. Prescription sent to preferred pharmacy. Medications discussed with patient. Additional verbal and printed discharge instructions were given and discussed with the patient. Patient verbally acknowledges understanding of condition and discharge instructions. All questions were answered to the patient's satisfaction. Patient is in agreement with the plan of care. The patient is stable for discharge and was discharged without incident. <Alber Hammond, - Last Filed: 05/16/25 07:20> Differential Diagnosis Differential diagnosis: Likely traveler's diarrhea, food poisoning, gastroenteritis, drug-induced nausea and vomiting and dehydration <Lena Tinajero APRN - Last Filed: 05/16/25 04:22> Lab Data Attestation: I reviewed the patient's lab results. <Lena Tinajero, MANAGING EDITOR - Last Filed: 05/16/25 04:22> Result diagrams: 05/16/25 02:23 05/16/25 02:23 <Lena Tinajero APRN - Last Filed: 05/16/25 04:22> Labs: Lab Results 05/16/25 05/16/25 Range/Units 02:23 02:32 WBC 8.1 (4.5-10.0) K/mm3 RBC 5.29 (4.2-5.4) M/mm3 Hgb 15.6 H (12.0-15.0) g/dL Hct 45.6 (37.0-47.0) % MCV 86.2 (80-100) fl MCH 29.5 (26-34) pg MCHC 34.2 (32-36) g/dl RDW 11.9 (11.5-14.5) % Plt Count 306 (150-375) k/mm3 MPV 10.3 (7.4-10.4) fl Immature Gran % (Auto) 0.5 (0-0.5) % Neut % (Auto) 55.2 (45.5-73.1) % Lymph % (Auto) 34.3 (18.3-44.2) % [place] % (Auto) 8.5 (2.6-8.5) % Eos % (Auto) 1.0 (0-4.4) % Baso % (Auto) 0.5 (0.2-1.2) % Lymph # (Auto) 2.79 (0.9-3.2) K/mm3 [place] # (Auto) 0.7 H (0.1-0.6) K/mm3 Eos # (Auto) 0.1 (0-0.3) K/mm3 Baso # (Auto) 0.0 (0.0-0.1) K/mm3 Abs Immat Gran (auto) 0.04 H (0.00-0.031) K/mm3 Absolute Neuts (auto) 4.5 (1.3-6.7) K/mm3 Absolute Nucleated RBC 0.000 (0.0-0.012) K/mm3 Nucleated RBC % 0.0 (0.0-0.2) % D-Dimer 1.73 H (<0.48) ug/mL Sodium 133 L (137-145) mmol/L Potassium 3.2 L (3.4-5.0) mmol/L Chloride 104 (98-107) mmol/L Carbon Dioxide 17 L (22-30) mmol/L Anion Gap 12 (4-12) mmol/L BUN 8 (7-17) mg/dL Creatinine 0.62 L (0.7-1.0) mg/dL Estim Creat Clear Calc 118 ml/min Estimated GFR > 60 (59 - ) Glucose 109 (65-110) mg/dL Lactic Acid 1.0 (0.7-2.0) mmol/L Calcium 8.6 (8.4-10.2) mg/dL Total Bilirubin 0.1 L (0.2-1.3) mg/dL AST 35 (14-36) U/L ALT 23 (6-35) U/L Alkaline Phosphatase 86 (38-126) U/L Troponin I < 0.012 (0.000-0.034) ng/mL NT-Pro-B Natriuret Pep < 20 (19.9-100) pg/mL Total Protein 7.4 (6.3-8.2) g/dL Albumin 4.0 (3.5-5.1) g/dL Lipase 57 (23-300) U/L Urine Color Yellow (Yellow) Urine Appearance Cloudy H (Clear) Urine pH 6.0 (5.0-9.0) Ur Specific [place] 1.023 (1.001-1.035) Urine Protein 1+ H (Negative) mg/dL Urine Glucose (UA) Negative (Negative) mg/dL Urine Ketones 1+ H (Negative) mg/dL Ur Blood (Man) Negative (Negative) Urine Nitrate Negative (Negative) Urine Bilirubin Negative (Negative) Urine Urobilinogen 0.2 (<2.0) mg/dL Add Ur Microanalysis Reviewed Leukocyte Esterase Rfl Negative (Negative) MERCY/UL Urine RBC 3-5 H (0-2) /hpf Urine WBC 6-10 H (0-3) /hpf Ur Squamous Epith Cells Few (Few) /hpf Urine Bacteria None seen /hpf Urine Casts 6-10 Hyaline Casts Present (None) /lpf POC Urine HCG, Qual Negative (Negative) Urine Opiates Screen Negative (Negative) Urine Methadone Screen Negative (Negative) Ur Barbiturates Screen Negative (Negative) Ur Phencyclidine Scrn Negative (Negative) Ur Amphetamine Screen Negative (Negative) U Benzodiazepines Scrn Negative (Negative) Urine Cocaine Screen Positive A (Negative) U Cannabinoids Screen Positive A (Negative) Influenza A (RT-PCR) Negative (Negative) Influenza B (RT-PCR) Negative (Negative) RSV (RT-PCR) Negative (Negative) SARS-CoV-2 RNA (RT-PCR) Negative (Negative) <Lena Tinajero, MANAGING EDITOR - Last Filed: 05/16/25 04:22> Lab Results 05/16/25 05/16/25 Range/Units 02:23 02:32 WBC 8.1 (4.5-10.0) K/mm3 RBC 5.29 (4.2-5.4) M/mm3 Hgb 15.6 H (12.0-15.0) g/dL Hct 45.6 (37.0-47.0) % MCV 86.2 (80-100) fl MCH 29.5 (26-34) pg MCHC 34.2 (32-36) g/dl RDW 11.9 (11.5-14.5) % Plt Count 306 (150-375) k/mm3 MPV 10.3 (7.4-10.4) fl Immature Gran % (Auto) 0.5 (0-0.5) % Neut % (Auto) 55.2 (45.5-73.1) % Lymph % (Auto) 34.3 (18.3-44.2) % [place] % (Auto) 8.5 (2.6-8.5) % Eos % (Auto) 1.0 (0-4.4) % Baso % (Auto) 0.5 (0.2-1.2) % Lymph # (Auto) 2.79 (0.9-3.2) K/mm3 [place] # (Auto) 0.7 H (0.1-0.6) K/mm3 Eos # (Auto) 0.1 (0-0.3) K/mm3 Baso # (Auto) 0.0 (0.0-0.1) K/mm3 Abs Immat Gran (auto) 0.04 H (0.00-0.031) K/mm3 Absolute Neuts (auto) 4.5 (1.3-6.7) K/mm3 Absolute Nucleated RBC 0.000 (0.0-0.012) K/mm3 Nucleated RBC % 0.0 (0.0-0.2) % D-Dimer 1.73 H (<0.48) ug/mL Sodium 133 L (137-145) mmol/L Potassium 3.2 L (3.4-5.0) mmol/L Chloride 104 (98-107) mmol/L Carbon Dioxide 17 L (22-30) mmol/L Anion Gap 12 (4-12) mmol/L BUN 8 (7-17) mg/dL Creatinine 0.62 L (0.7-1.0) mg/dL Estim Creat Clear Calc 118 ml/min Estimated GFR > 60 (59 - ) Glucose 109 (65-110) mg/dL Lactic Acid 1.0 (0.7-2.0) mmol/L Calcium 8.6 (8.4-10.2) mg/dL Total Bilirubin 0.1 L (0.2-1.3) mg/dL AST 35 (14-36) U/L ALT 23 (6-35) U/L Alkaline Phosphatase 86 (38-126) U/L Troponin I < 0.012 (0.000-0.034) ng/mL NT-Pro-B Natriuret Pep < 20 (19.9-100) pg/mL Total Protein 7.4 (6.3-8.2) g/dL Albumin 4.0 (3.5-5.1) g/dL Lipase 57 (23-300) U/L Urine Color Yellow (Yellow) Urine Appearance Cloudy H (Clear) Urine pH 6.0 (5.0-9.0) Ur Specific [place] 1.023 (1.001-1.035) Urine Protein 1+ H (Negative) mg/dL Urine Glucose (UA) Negative (Negative) mg/dL Urine Ketones 1+ H (Negative) mg/dL Ur Blood (Man) Negative (Negative) Urine Nitrate Negative (Negative) Urine Bilirubin Negative (Negative) Urine Urobilinogen 0.2 (<2.0) mg/dL Add Ur Microanalysis Reviewed Leukocyte Esterase Rfl Negative (Negative) MERCY/UL Urine RBC 3-5 H (0-2) /hpf Urine WBC 6-10 H (0-3) /hpf Ur Squamous Epith Cells Few (Few) /hpf Urine Bacteria None seen /hpf Urine Casts 6-10 Hyaline Casts Present (None) /lpf POC Urine HCG, Qual Negative (Negative) Urine Opiates Screen Negative (Negative) Urine Methadone Screen Negative (Negative) Ur Barbiturates Screen Negative (Negative) Ur Phencyclidine Scrn Negative (Negative) Ur Amphetamine Screen Negative (Negative) U Benzodiazepines Scrn Negative (Negative) Urine Cocaine Screen Positive A (Negative) U Cannabinoids Screen Positive A (Negative) Influenza A (RT-PCR) Negative (Negative) Influenza B (RT-PCR) Negative (Negative) RSV (RT-PCR) Negative (Negative) SARS-CoV-2 RNA (RT-PCR) Negative (Negative) <Alber Hammond, DO - Last Filed: 05/16/25 07:20> Imaging Data Attestation: I personally reviewed and interpreted this imaging study as follows: <Lena Tinajero APRN - Last Filed: 05/16/25 04:22> Radiologist's impression: Patient's chest x-ray indicates no acute cardiopulmonary abnormalities. <Lena Tinajero APRN - Last Filed: 05/16/25 04:22> Discharge Plan Discharge Clinical Impression: Enterocolitis <Lena Tinajero APRN - Last Filed: 05/16/25 04:22> Patient Disposition: Home <Lena Tinajero APRN - Last Filed: 05/16/25 04:22> Condition: Stable <Lena Tinajero APRN - Last Filed: 05/16/25 04:22> Instructions: Antibiotic Form, Colitis (ED), Enteritis (ED) <Lena Tinajero APRN - Last Filed: 05/16/25 04:22> Additional Instructions: Follow-up with gastroenterology in your primary care doctor in the next 3-5 days for reassessment. Take the nausea medications as needed. Take the pain medications as needed. Rest in a stable hydrated. Return immediately to the emergency department for any new or concerning symptoms especially any emergent concerns for life, limb, eyesight. <Lena Tinajero APRN - Last Filed: 05/16/25 04:22> Patient Language: Amharic <Lena HunterViky Tinajero, MANAGING EDITOR - Last Filed: 05/16/25 04:22> Prescriptions: New dicyclomine 10 mg capsule 10 mg PO QID PRN (Reason: abdominal pain) Qty: 20 0RF ondansetron 4 mg tablet,disintegrating 4 mg PO Q8H PRN (Reason: nausea and vomiting) Qty: 14 0RF No Action doxepin 25 mg capsule 25 mg PO QHS PRN (Reason: sleep) Qty: 90 0RF Rx Instructions: DO NOT TAKEWITH TRAMADOL pantoprazole 40 mg Tablet,Delayed Release (Dr/Ec) 40 mg PO QAM 14 Days Qty: 14 0RF ibuprofen 600 mg tablet 600 mg PO TID PRN (Reason: pain) Qty: 20 0RF ondansetron 4 mg tablet,disintegrating 4 mg PO Q8H PRN (Reason: nausea and vomiting) Qty: 14 0RF cetirizine [Zyrtec] 10 mg Tablet 10 mg PO DAILY PRN (Reason: allergies) cholecalciferol (vitamin D3) 125 mcg (5,000 unit) Capsule 125 mcg PO WEEKLY Rx Instructions: administer on levofloxacin 750 mg tablet 750 mg PO DAILY Qty: 5 0RF metronidazole 500 mg tablet 500 mg PO Q8H 5 Days Qty: 15 0RF albuterol sulfate 90 mcg/actuation HFA aerosol inhaler 1 inh inhalation Q4H PRN (Reason: shortness of breath or wheezing) Qty: 8.5 1RF ondansetron 4 mg tablet,disintegrating 4 mg PO Q8H PRN (Reason: nausea and vomiting) Qty: 20 0RF Zepbound 5 mg/0.5 mL pen injector 5 mg subcut WEEKLY Qty: 2 0RF alprazolam 0.25 mg tablet 0.25 mg PO BID PRN (Reason: Anxiety) Qty: 28 0RF Zepbound 7.5 mg/0.5 mL pen injector 7.5 mg subcut WEEKLY Qty: 2 0RF tramadol 50 mg tablet 50 mg PO QID PRN (Reason: Pain) Qty: 100 0RF duloxetine 60 mg capsule,delayed release(DR/EC) 60 mg PO DAILY Qty: 90 1RF Rx Instructions: take with 30mg to total 90mg duloxetine 30 mg capsule,delayed release(DR/EC) 30 mg PO DAILY Qty: 90 1RF Rx Instructions: take with 60 mg capsule <Lena Tinajero APRN - Last Filed: 05/16/25 04:22> Follow-up/Referrals: Mino Andujar MD [Primary Care Provider, Family Practice] - 3 Days Anthony Harmon MD [Physician, Gastroenterology] - 3 Days <Lena Tinajero APRN - Last Filed: 05/16/25 04:22> Time of Disposition: 07:18 <Lena Tinajero APRN - Last Filed: 05/16/25 04:22> 07:18 <Alber Hammond DO - Last Filed: 05/16/25 07:20>
[2025-05-16 02:32] LABS: Hematocrit 45.6 % (37.0-47.0); Hemoglobin 15.6 g/dL (12.0-15.0); Immature Granulocyte Percent A 0.5 % (0-0.5); Lymphocytes Absolute Auto 2.79 K/mm3 (0.9-3.2); Mean Corpuscular HGB Conc 34.2 g/dl (32-36); Mean Corpuscular Hemoglobin 29.5 pg (26-34); Mean Corpuscular Volume 86.2 fl (80-100); Nucleated Red Blood Cells Absolute Auto 0.000 K/mm3 (0.0-0.012); Nucleated Red Blood Cells Perc 0.0 % (0.0-0.2); Platelet Count Result 306 k/mm3 (150-375); Red Blood Count 5.29 M/mm3 (4.2-5.4); White Blood Count 8.1 K/mm3 (4.5-10.0)
[2025-05-16 02:35] LABS: BEDSIDEPREGUCG Negative (Negative)
[2025-05-16] MEDS: SODIUM CHLORIDE 0.9% IV 1,000 ML 999 ML IV CONT ×2 (02:41)
[2025-05-16] MEDS: ONDANSETRON INJ 4 MG/2 ML VIAL IV PUSH (02:42)
[2025-05-16] MEDS: SODIUM CHLORIDE 0.9% IV 700 ML 999 ML IV CONT (02:42)
[2025-05-16] MEDS: MORPHINE SULFATE (*CRX) 4 MG/ML INJ IV PUSH (02:43)
[2025-05-16 02:46] LABS: Alanine Aminotransferase 23 U/L (6-35); Albumin Level 4.0 g/dL (3.5-5.1); Alkaline Phosphatase 86 U/L (38-126); Anion Gap 12 mmol/L (4-12); Aspartate Amino Transferase 35 U/L (14-36); Bilirubin,Total 0.1 mg/dL (0.2-1.3); Blood Urea Nitrogen 8 mg/dL (7-17); Calcium 8.6 mg/dL (8.4-10.2); Carbon Dioxide 17 mmol/L (22-30); Chloride 104 mmol/L (98-107); Estimated CRCL calculation 118 ml/min; Estimated Glomerular Filt Rate > 60; Glucose 109 mg/dL (65-110); Lipase 57 U/L (23-300); Potassium 3.2 mmol/L (3.4-5.0); Sodium 133 mmol/L (137-145); Total Protein 7.4 g/dL (6.3-8.2)
[2025-05-16 02:51] LABS: Add Urine Microscopic? YES; Appearance Urine Cloudy (Clear); Glucose Urine UA Negative (Negative); Leukocyte Esterase Ur Negative LEU/UL (Negative); Need Manual Microscopic Reviewed; Nitrate Urine Negative (Negative); Specific Grav Ur 1.023 (1.001-1.035)
[2025-05-16 02:54] LABS: Cannabinoid Screen Urine Positive (Negative)
[2025-05-16 02:58] LABS: Troponin I < 0.012 ng/mL (0.000-0.034)
[2025-05-16 03:09] LABS: Influenza A QL RT-PCR Negative (Negative); Influenza B QL RT-PCR Negative (Negative); RSV RNA, RT-PCR Negative (Negative); SARS-CoV-2 RNA PCR Negative (Negative)
[2025-05-16 03:57] VITALS: BP 143/94; PULSE 99; RESP 18; O2SAT 99
[2025-05-16] MEDS: HYDROmorphone HCL INJ (*CRX) 1 MG/ML SYR 0.5 MG IV PUSH (04:26)
[2025-05-16 06:28] LABS: NT Pro B Type Natriuretic Pept < 20 pg/mL (19.9-100)
[2025-05-16] MEDS: DICYCLOMINE HCL INJ 20 MG/2 ML VIAL IM (06:58)
[2025-05-16 07:20] VITALS: BP 124/86; PULSE 82; RESP 16; O2SAT 97
--- NOTE | 2025-05-16 07:20 | PC.NURSE ---
Pt. requesting additional does of pain medication prior to d/c. Dr. Hammond notified. See MAR for intervention.
[2025-05-16] MEDS: HYDROcodone/acetaminophen (*CRX) 5-325 MG TABLET 1 TAB PO (07:31)
== END 2025-05-16 07:40 | disposition home or self-care (01) ==
PROVIDERS: Registered Nurse; Emergency Provider Student in an Organized Health Care Education/Training Program; PCP Family Medicine
DX: K52.9 Noninfective gastroenteritis and colitis, unspecified (principal); Z20.822 Contact with and (suspected) exposure to COVID-19; K50.90 Crohn's disease, unspecified, without complications; M19.90 Unspecified osteoarthritis, unspecified site; F32.A Depression, unspecified; F41.9 Anxiety disorder, unspecified; Z86.0100 Personal history of colon polyps, unspecified; Z87.891 Personal history of nicotine dependence; Z90.49 Acquired absence of other specified parts of digestive tract
CPT/HCPCS: 36415; 71046; 71275; 74177; 80053; 80307; 81001; 81025; 83605; 83690; 83880; 84484; 85025; 85380; 87086; 87637; 93005; 96361; 96372; 96374; 96375; 99284; A9270; J0500; J1171; J2270; J2405; J7030; Q9967